=== PATIENT | female | born 1950 | race Caucasian/White ===

== ENCOUNTER → 2016-12-08 | Outpatient (CLI) | payer OTHER ==
[~2016-12-08] MED LIST: ALBU1AER9 INH; AUG0.05O4 TOP; CLC100 PO; CRANPOW PO; DTR/5 PO; GLC/500 PO; GLC500 PO; NYSTCRE11 TOP; OXGN; OXYBUTYNIN PO; SIMV20TA5 PO; SPRIN/30 INH; SULF800T23 PO; TRAM-10 PO; TRIA0.1O12 EX; TYLOTC500 PO; [UNRECOGNIZED DRUG - CODE] PO
--- NOTE | 2016-12-08 09:42 | DIAGNOSTIC IMAGING REPORT ---
CHEST 2 VIEWS ROUTINE HISTORY: J18.9 Community acquired [id number] COMPARISON: Chest CT 08/02/2016. FINDINGS: The heart remains mildly enlarged. Mild diffuse interstitial thickening suggesting mild congestive change. This has improved. No pleural effusions. No pneumothorax. There is again noted a 2.6 cm mass with a metallic fiducial marker within the left upper lobe. No new focal lung consolidations to suggest pneumonia. IMPRESSION: 1. Mild cardiomegaly with mild central pulmonary vascular congestion. This has improved. 2. No change in the 2.6 cm left upper lobe mass. Electronically signed by: Renaldo Nguyen M.D. 12/08/2016 9:40 AM Dictated Date/Time: 12/08/2016 9:37 AM
== END | disposition home or self-care (01) ==
LOC: C.RAD1850 09:13
PROVIDERS: ATTEND Internal Medicine Pulmonary Disease
DX: J18.9 Pneumonia, unspecified organism (principal); R91.8 Other nonspecific abnormal finding of lung field

== ENCOUNTER → 2017-01-29 | Outpatient (CLI) | payer OTHER ==
--- NOTE | 2017-01-29 07:52 | DIAGNOSTIC IMAGING REPORT ---
CT OF THE CHEST WITHOUT IV CONTRAST CLINICAL HISTORY: J44.9 COPD, 1.1 solitary pulmonary nodule COMPARISON STUDY: 08/02/2016 CT DOSE: 1092.68 mGy.cm TECHNIQUE: CT of the thorax was performed from the thoracic inlet to the lung bases. Images are reviewed in the axial, sagittal, and coronal planes. IV contrast was not administered for this examination. FINDINGS: Thyroid: Imaged portions of the thyroid gland are normal in appearance. Thoracic aorta: The thoracic aorta is normal in course and caliber, noting standard 3 vessel arch anatomy. Heart: The heart is mildly enlarged. Lungs and pleural spaces: There are no pleural effusions. There is underlying pulmonary emphysema. There is a stable bilobed 5 mm right upper lobe pulmonary nodule. There is an enlarging left upper lobe mass currently measuring 38 x 27 mm. There is a fiducial marker medially anterior to this mass. There is scattered granulomatous calcifications present. Mediastinum: Mediastinal lymph nodes the upper limits of normal in size remain stable Nicolette: There is no evidence of pathologic hilar adenopathy given the limitations of a noncontrast study Axilla: Clear. Upper abdomen: Hepatic steatosis. Cholelithiasis. Skeletal structures: There are no lytic or blastic osseous lesions. IMPRESSION: 1. Slowly enlarging indeterminate left upper lobe pulmonary mass currently measuring 38 x 27 mm. 2. Stable 5 mm bilobed right upper lobe pulmonary nodule Electronically signed by: Eric Mendoza M.D. 01/29/2017 7:51 AM Dictated Date/Time: 01/29/2017 7:43 AM
== END | disposition home or self-care (01) ==
LOC: C.CTS 07:22
PROVIDERS: ATTEND Surgery
DX: J44.9 Chronic obstructive pulmonary disease, unspecified (principal); J96.10 Chronic respiratory failure, unspecified whether with hypoxia or hypercapnia; R91.8 Other nonspecific abnormal finding of lung field; R91.1 Solitary pulmonary nodule

== ENCOUNTER 2017-02-23 04:58 | Observation (INO) | payer OTHER ==
[2017-02-09 10:22] VITALS: BMI 59.0
--- NOTE | 2017-02-09 10:52 | PAT Medication Instructions ---
Service Date Feb 09, 2017. Current Home Medication List Acetaminophen (Tylenol), 1,000 MG PO PRN Albuterol (Proair Hfa), 2 PUFFS INH QID PRN for Shortness of Breath Betamethasone Dip Aug 0.05% (Diprolene 0.05%), 1 DOSE TOP PRN Home O2 Therapy (Oxygen), 2 LITERS NA HS Metformin Hcl (Glucophage), 500 MG PO BID Oxybutynin Chloride (Ditropan), 2.5 MG PO BID Simvastatin (Zocor), 20 MG PO HS [Cranberry], 2 TAB PO QAM Medication Instructions For Your Scheduled Surgery - Hold the following medications starting 02/10/17: [Cranberry], 2 TAB PO QAM Hold the following 24 hours prior to surgery: Betamethasone Dip Aug 0.05% (Diprolene 0.05%), 1 DOSE TOP PRN - Hold the following medications 48 hours prior to surgery: Metformin Hcl (Glucophage), 500 MG PO BID - Hold the following medications the morning of surgery: Oxybutynin Chloride (Ditropan), 2.5 MG PO BID - Take the following medications the morning of surgery with a sip of water: Albuterol (Proair Hfa), 2 PUFFS INH QID PRN for Shortness of Breath (use if needed; bring with you to hospital) Acetaminophen (Tylenol), 1,000 MG PO PRN - Take the following medications as scheduled the night before surgery: Oxybutynin Chloride (Ditropan), 2.5 MG PO BID Albuterol (Proair Hfa), 2 PUFFS INH QID PRN for Shortness of Breath (if needed) Simvastatin (Zocor), 20 MG PO HS Home O2 Therapy (Oxygen), 2 LITERS NA HS Acetaminophen (Tylenol), 1,000 MG PO PRN (if needed) If you have any questions please call us at [phone] or [phone] or [phone]
[2017-02-09 11:44] LABS: BASO % 0.2 %; BASO ABS # 0.01 K/uL (0-0.2); COMPLETE YES; EOS % 2.3 %; HEMATOCRIT 39.2 % (37-47); IG% 0.4 %; LYMPH % 16.2 %; LYMPH ABS # 0.86 K/uL (1.2-3.4); MEAN CELL VOLUME 83.4 fL (80-100); MEAN CORPUSCULAR HEMOGLOBIN 25.3 pg (25-34); MEAN CORPUSCULAR HGB CONC 30.4 g/dl (32-36); MEAN PLATELET VOLUME 9.1 fL (7.4-10.4); MONO % 6.6 %; NEUT % 74.3 %; PLATELET COUNT 203 K/uL (130-400); WHITE BLOOD COUNT 5.32 K/uL (4.8-10.8)
[2017-02-09 14:31] LABS: BUN/CREATININE RATIO 31.3 (10-20); CREATININE 0.7 mg/dl (0.60-1.20); POTASSIUM 4.3 mmol/L (3.5-5.1)
[2017-02-09 18:28] LABS: CALCIUM 9.5 mg/dl (8.5-10.1)
[~2017-02-23] VITALS: Ht 154.9 cm; Wt 141.0 kg
[2017-02-23] VITALS (7 sets, daily range): BP systolic 105–179; BP diastolic 60–73; PULSE 76–89; TEMP 36.6–37.3; O2SAT 93–100; Ht 154.9 cm; Wt 141.0 kg
[~2017-02-23 04:58] MED LIST changes: -CLC100 PO; -DTR/5 PO; -GLC500 PO; +OXYB5TAB74 PO; -OXYBUTYNIN PO; -SPRIN/30 INH; -TRAM-10 PO; -TRIA0.1O12 EX; -[UNRECOGNIZED DRUG - CODE] PO
[2017-02-23] MEDS ORDERED: SULF800T23 PO (05:49)
[2017-02-23] MEDS ORDERED: FENTANYL CITRATE INJ 50 MCG/1 ML 2 ML VIAL ONE (06:47)
[2017-02-23] MEDS ORDERED: ROCURONIUM BROMIDE 10 MG/ML 5 ML VIAL ONE (06:47)
[2017-02-23] MEDS ORDERED: NEOSTIGMINE METHYLSULFATE 5 MG/5 ML SYR ONE (06:47)
[2017-02-23] MEDS ORDERED: LIDOCAINE HCL 2% 2 ML VIAL (20MG/ML) ONE (06:47)
[2017-02-23] MEDS ORDERED: PROPOFOL IV EMULSION 10 MG/ML 20 ML VIAL IV ONE ×2 (06:47→08:37)
[2017-02-23] MEDS ORDERED: GLYCOPYRROLATE INJ 0.2 MG/ML VIAL ONE ×2 (06:47→08:00)
[2017-02-23] MEDS ORDERED: LARYING-O-JET KIT (LTA) ONE ×2 (06:47)
[2017-02-23] MEDS ORDERED: MIDAZOLAM HCL 1 MG/ML 2ML VIAL ONE (06:47)
[2017-02-23] MEDS ORDERED: LACTATED RINGER'S 1000ML 1,000 ML IV SCH (07:00)
--- NOTE | 2017-02-23 07:08 | History & Physical Bridge Note ---
H&P Re-Evaluation Bridge Note: I have examined the patient, reviewed the History & Physical and in the interval since the performance of the History & Physical I have noted the following changes of clinical significance: No changes noted
[2017-02-23] MEDS ORDERED: ONDANSETRON INJ 2 MG/ML 2 ML VIAL ONE ×2 (08:00→09:36)
[2017-02-23] MEDS ORDERED: ALBUTEROL HFA INHALER 8.5 GM INH ONE (08:12)
[2017-02-23] MEDS ORDERED: ESMOLOL HCL 10 MG/ML 10 ML VIAL ONE (08:12)
[2017-02-23] MEDS ORDERED: DEXAMETHASONE SOD INJ 4 MG/ML VIAL ONE (08:25)
[2017-02-23] MEDS ORDERED: ALBUTEROL HFA 8 GM INHALER INH PRN (09:30)
--- NOTE | 2017-02-23 09:38 | [facility] Operative Report ---
Operative Report Operative Date Feb 23, 2017. Pre-Operative Diagnosis Enlarging left upper lobe mass Post-Operative Diagnosis carcinoma left upper lobe Procedure(s) Performed Endobronchial ultrasound with biopsies of mediastinal lymph nodes. Navigational bronchoscopy with biopsies of left upper lobe mass. Surgeon Dr. Kaz Diana Pulping Machine Operator Surgeon(s) None Estimated Blood Loss 2 mL Findings Rapid on-site evaluation showed good lymph node material in 6 different lymph node stations. Brushings of left upper lobe lesion revealed carcinoma. Specimens Pathology specimens to be labeled and handled by respiratory staff and cytology staff. Anesthesia Gen. anesthesia with endotracheal intubation Complication(s) None Disposition Recovery Room / PACU Indications Enlarging left upper lobe mass. Description of Procedure Patient was brought to the operating room. After appropriate timeout was performed and prophylactic antibiotics given and the patient had been intubated , endobronchial ultrasound scope was inserted through the endotracheal tube. There were no endobronchial lesions noted there was some irritation it appeared in the distal left mainstem bronchus. There were no masses. Starting off on the right side I biopsied the right level XI and level X right level IV lymph nodes. I didn't I didn't biopsy the level VII from both the right side in the left side. We then went down and biopsied a level XI and level X nodes. These were all done multiple needle sticks using 19-gauge needle under ultrasound guidance. Rapid on-site evaluation should we had good lymph node material in all 6 of these lymph node stations. There was no obvious cancer. The endobronchial ultrasound probe was then removed. A regular fiberoptic scope was inserted. Again I inspected all the airways and again saw no significant bleeding. We irrigated out each. Washings were sent from the left upper lobe. he airways were then registered with the super dimension endobronchial navigational probe. The probe was placed into the left upper lobe bronchus and the guidance system took us directly to this mass. I did several brushes and then did needle biopsies. We did get some bleeding from the needles. The brushes came back as carcinoma. I then did forceps biopsies 3 to make sure we had enough tissue to do molecular analysis and immunohistochemical stainings. I irrigated this out until we noted no bleeding whatsoever after we were finished. The patient was extubated in the room. She has very poor lung function. I am probably going to admit her for observation. I attest to the content of the Intraoperative Record and any orders documented therein. Any exceptions are noted below.
[2017-02-23] MEDS ORDERED: ONDANSETRON INJ 2 MG/ML 2 ML VIAL IV PRN (09:45)
[2017-02-23] MEDS ORDERED: ATROPINE SULFATE 0.1 MG/ML 5ML SYR IV PRN (09:45)
[2017-02-23] MEDS ORDERED: MEPERIDINE HCL 25 MG/ML CARP IV PRN (09:45)
[2017-02-23] MEDS ORDERED: HYDROmorphone INJ 1 MG/ML SYR IV PRN (09:45)
[2017-02-23] MEDS ORDERED: LABETALOL HCL IV 5 MG/ML 20ML IV PRN (09:45)
[2017-02-23] MEDS ORDERED: EpHEDrine SULFATE INJ 50 MG/ML AMP IV PRN (09:45)
[2017-02-23] MEDS ORDERED: PROMETHAZINE HCL INJ 12.5 MG in SODIUM CHLORIDE 0.9% 50ML 50 ML IV PRN (09:45)
[2017-02-23] MEDS ORDERED: DEXAMETHASONE SOD INJ 4 MG/ML VIAL IV PRN (09:45)
[2017-02-23] MEDS ORDERED: METOCLOPRAMIDE HCL INJ 5 MG/ML 2 ML VIAL IV PRN (09:45)
[2017-02-23] MEDS ORDERED: FENTANYL CITRATE INJ 50 MCG/1 ML 2 ML VIAL IV PRN (09:45)
--- NOTE | 2017-02-23 09:45 | DIAGNOSTIC IMAGING REPORT ---
CHEST 1 VIEW FRONTAL CLINICAL HISTORY: NAVIGATIONAL BRONCH intraoperative guidance TECHNIQUE: Navigational bronchoscopy COMPARISON STUDY: None FINDINGS: Image intensifier utilized for navigational bronchoscopy IMPRESSION: Image intensifier utilized for navigational bronchoscopy Electronically signed by: Blaze Montero M.D. 02/23/2017 9:43 AM Dictated Date/Time: 02/23/2017 9:43 AM
--- NOTE | 2017-02-23 09:50 | DIAGNOSTIC IMAGING REPORT ---
CHEST ONE VIEW PORTABLE CLINICAL HISTORY: Post Bronch COMPARISON STUDY: 12/08/2016 FINDINGS: Moderate cardiomegaly. No evidence of pneumothorax post bronchoscopy. Biopsy marker is present over a density of the left midlung. IMPRESSION: No evidence pneumothorax post bronchoscopy. Electronically signed by: Blaze Montero M.D. 02/23/2017 9:48 AM Dictated Date/Time: 02/23/2017 9:48 AM
[2017-02-23] MEDS ORDERED: IV FLUIDS COMPLETED PRN (10:15)
[2017-02-23] MEDS ORDERED: CISATRACURIUM BESYLATE IV SOLN 2 MG/ML 10 ML VIAL ONE (10:20)
--- NOTE | 2017-02-23 11:07 | Anesthesiology Progress Note ---
Anesthesia Post Op Note Date & Time Feb 23, 2017 at 11:07 Vital Signs Pain Intensity: 0.0 Vital Signs Past 12 Hours Date Time Temp Pulse Resp B/P (MAP) Pulse Ox O2 Delivery O2 Flow Rate FiO2 02/23/17 10:30 96 Nasal Cannula 3.0 02/23/17 10:30 96 Nasal Cannula 3.0 02/23/17 10:30 37.0 79 16 119/69 96 Nasal Cannula 3.0 02/23/17 10:15 36.5 70 16 141/63 96 Nasal Cannula 2 02/23/17 10:00 36.5 74 16 147/70 96 Nasal Cannula 2 02/23/17 09:50 75 16 140/72 95 Mask 4 02/23/17 09:40 79 16 132/78 95 Mask 4 02/23/17 09:30 81 16 139/60 100 Mask 7 02/23/17 09:21 36.2 87 16 108/74 100 Mask 7 02/23/17 05:54 37.2 82 24 105/65 (78) 100 Room Air Notes Mental Status: alert / awake / arousable, participated in evaluation Pt Amnestic to Procedure: Yes Nausea / Vomiting: adequately controlled Pain: adequately controlled Airway Patency, RR, SpO2: stable & adequate BP & HR: stable & adequate Hydration State: stable & adequate Anesthetic Complications: no major complications apparent
--- NOTE | 2017-02-23 12:23 | Discharge Instructions ---
Discharge Instructions Date of Service Feb 23, 2017. Visit Reason for Visit: Hypoxia / left upper lobe mass Discharge Discharge Diagnosis / Problem: left upper lobe mass Discharge Goals Goal(s): Learn about illness Activity Recommendations Activity Limitations: resume your previous activity Anesthesia . Post Anesthesia Instructions: If you have had General Anesthesia or IV Sedation: * Do not drive today. * Resume driving when surgeon permits. * Do not make important decisions or sign legal documents today. * Call surgeon for: 1. Temperature elevations greater than 101 degrees F. 2. Uncontrollable pain. 3. Excessive bleeding. 4. Persistent nausea and vomiting. 5. Medication intolerance (nausea, vomiting or rash). * For nausea and vomiting use only clear liquids such as: tea, soda, bouillon until nausea subsides, then gradually increase diet as tolerated. * If you have any concerns or questions, call your surgeon's office. If physician is unavailable and it is an emergency, call 911 or go to the nearest emergency room. . Diet Recommendations Recommended Home Diet: resume previous diet Procedures Procedures Performed: Endobronchial Ultrasound and Navigational Bronchoscopy with Biopsies Pending Studies Studies pending at discharge: yes List of pending studies: cytology / histology Medical Emergencies . Who to Call and When: Medical Emergencies: If at any time you feel your situation is an emergency, please call 911 immediately. . Non-Emergent Contact Non-Emergency issues call your: Primary Care Provider . . "Provider Documentation" section prepared by Kaz Diana. .
--- NOTE | 2017-02-23 13:00 | Discharge Summary ---
Discharge Summary Date of Service Feb 23, 2017. Discharge Summary Padmini Negrete is a 66-year-old morbidly obese female with terrible longitudinal slow-growing mass in her left upper lobe. She has had 2 Usual bronchoscopies in the past and we still do not have a diagnosis. I saw back in the office recently and I'm still concerned without this masses grown. She really has no signs or symptoms of infection. On 02/23/2017 patient had an uncomplicated endobronchial ultrasound with biopsy. I biopsied 6 different levels of lymph nodes with good samples. There is no obvious [place] or metastatic spread. An indurated navigational bronchoscopy and it does appear we are dealing with malignancy. She is quite obese within BMI approaching 60. She also has marginal lung function. Last, the endobronchial ultrasound she did not do well after surgery however she did much better this time. I admitted her to the observation unit however I saw her several hours after surgery and she looked back to normal. I discharged her home and I will see her back next week to discuss her results. Her x-ray looks fine postoperatively.
[2017-02-23] MEDS ORDERED: METFORMIN HCL 500 MG TAB PO SCH (17:45)
[2017-02-23] MEDS ORDERED: SIMVASTATIN 20 MG TAB PO SCH (21:00)
[2017-02-23] MEDS ORDERED: OXYBUTYNIN CHLORIDE 5 MG TAB PO SCH (21:00)
[2017-02-23] MEDS ORDERED: SULFAMETHOXAZOLE/TRIMETHOPRIM DS 800/160MG TAB PO SCH (21:00)
== END 2017-02-23 14:30 | disposition home or self-care (01) ==
LOC: C.ACU 04:58 → C.MSW 09:24 → ENRESERV 10:11
PROVIDERS: ADMIT Surgery; ATTEND Surgery
DX: C34.12 Malignant neoplasm of upper lobe, left bronchus or lung (principal); E66.01 Morbid (severe) obesity due to excess calories; E66.9 Obesity, unspecified; M19.90 Unspecified osteoarthritis, unspecified site; J44.9 Chronic obstructive pulmonary disease, unspecified; I10 Essential (primary) hypertension; G47.33 Obstructive sleep apnea (adult) (pediatric); Z87.01 Personal history of pneumonia (recurrent); Z87.891 Personal history of nicotine dependence; Z90.710 Acquired absence of both cervix and uterus; Z90.722 Acquired absence of ovaries, bilateral; Z80.2 Family history of malignant neoplasm of other respiratory and intrathoracic organs; Z82.5 Family history of asthma and other chronic lower respiratory diseases

== ENCOUNTER → 2017-03-02 | Outpatient (CLI) | payer OTHER ==
[~2017-03-02] MED LIST changes: -AUG0.05O4 TOP; +CLC100 PO; +TRAM-10 PO
[2017-03-02 14:58] LABS: ARTERIAL BLD GAS O2 SATURATION 96.5 % (90-95); ARTERIAL BLOOD GAS BASE EXCESS -0.4 mEq/L (-9-1.8); ARTERIAL BLOOD GAS HCO3 22 mmol/L (19-24); ARTERIAL BLOOD GAS PO2 78 mm/Hg (80-95); ARTERIAL BLOOD GAS pH 7.48 (7.35-7.45)
[2017-03-02 15:00] LABS: ALLEN TEST POS (POS); O2 ADMINISTRATION ROOM AIR
== END | disposition home or self-care (01) ==
LOC: C.LAB 14:14
PROVIDERS: ATTEND Surgery
DX: R91.8 Other nonspecific abnormal finding of lung field (principal)

== ENCOUNTER → 2017-03-06 | Outpatient (CLI) | payer OTHER ==
--- NOTE | 2017-03-06 13:20 | DIAGNOSTIC IMAGING REPORT ---
BRAIN WITHOUT CONTRAST HISTORY:66 [id number] Solitary pulmonary [id number] Lung mass COMPARISON: None available. TECHNIQUE: Multiplanar multisequence MRI of the brain was obtained without contrast. FINDINGS: There is no evidence of restricted diffusion to suggest acute ischemia. The midline structures including the corpus callosum, optic chiasm, pituitary gland, peroneal gland, brainstem and cerebellar tonsils appear unremarkable the sagittal T1 series. Some of the series are mildly motion degraded. No pathologic Blooming artifact is identified on the gradient sequence. There is no acute intracranial hemorrhage, midline shift, abnormal extra-axial collections or intracranial mass identified. There are a few scattered foci of subcortical and periventricular white matter T2 prolongation within the frontal parietal lobes. There is mild cerebral atrophy. The flow voids at the skull base are patent. Note is made of a small right mastoid effusion. There is mild ethmoid sinus disease.] Appears symmetric and unremarkable. Evaluation for metastatic disease is limited without the use of IV contrast. IMPRESSION: 1. No acute intracranial abnormality. 2. Evaluation for metastatic disease is limited without the use of intravenous contrast. 3. A few scattered areas of T2 prolongation within the subcortical and periventricular white matter of this cerebral hemispheres bilaterally are nonspecific findings, however would suggest chronic microvascular ischemic changes. The above report was generated using voice recognition software. It may contain grammatical, syntax or spelling errors. Electronically signed by: Sergio Portillo M.D. 03/06/2017 1:19 PM Dictated Date/Time: 03/06/2017 1:14 PM
== END | disposition home or self-care (01) ==
LOC: C.MRIBC 11:52
PROVIDERS: ATTEND Surgery
DX: R91.8 Other nonspecific abnormal finding of lung field (principal); R91.1 Solitary pulmonary nodule

== ENCOUNTER → 2017-03-21 | Outpatient (CLI) | payer OTHER ==
[~2017-03-21] MED LIST changes: -SULF800T23 PO
[2017-03-21 09:31] LABS: BASO % 0.2 %; BASO ABS # 0.01 K/uL (0-0.2); COMPLETE YES; EOS % 2.5 %; HEMATOCRIT 39.7 % (37-47); IG% 0.2 %; LYMPH % 15.4 %; MEAN CELL VOLUME 83.6 fL (80-100); MEAN CORPUSCULAR HEMOGLOBIN 26.3 pg (25-34); MEAN CORPUSCULAR HGB CONC 31.5 g/dl (32-36); MEAN PLATELET VOLUME 9.4 fL (7.4-10.4); MONO % 5.6 %; NEUT % 76.1 %; PLATELET COUNT 174 K/uL (130-400); RED BLOOD COUNT 4.75 M/uL (4.2-5.4); WHITE BLOOD COUNT 5.18 K/uL (4.8-10.8)
[2017-03-21 09:52] LABS: BLOOD UREA NITROGEN 16 mg/dl (7-18); BUN/CREATININE RATIO 19.8 (10-20); CALCIUM 9.5 mg/dl (8.5-10.1); CARBON DIOXIDE 28 mmol/L (21-32); CHLORIDE 103 mmol/L (98-107); CREATININE 0.81 mg/dl (0.60-1.20); GLUCOSE 130 mg/dl (70-99); POTASSIUM 4.1 mmol/L (3.5-5.1); SODIUM 139 mmol/L (136-145)
== END | disposition home or self-care (01) ==
LOC: C.LAB 07:42
PROVIDERS: ATTEND Surgery
DX: R91.8 Other nonspecific abnormal finding of lung field (principal); Z01.812 Encounter for preprocedural laboratory examination

== ENCOUNTER → 2017-03-21 | Outpatient (CLI) | payer OTHER ==
--- NOTE | 2017-03-21 12:29 | DIAGNOSTIC IMAGING REPORT ---
PET/CT SKULL-THIGH HISTORY: Lung carcinoma. Lung nodule. NON SMALL CELL LUNG CANER TECHNIQUE: PET/CT was performed from the base of the skull through the pelvis following the intravenous administration of 11.37 mCi of F18-FDG. Non-contrast CT imaging was performed over the same range without breath-hold for attenuation correction of PET images and anatomic correlation, but not for primary interpretation as it is not of standard diagnostic quality. CT DOSE: COMPARISON: 12/08/2015 CT 01/29/2017 FINDINGS: HEAD AND NECK: There is no FDG-avid disease or significant lymphadenopathy in the imaged portions of the head and the neck. CHEST: Slight increase in volume of a left upper lobe pleural-based density. Current dimensions of 3.6 x 2.5 cm. There is mild increase in metabolic activity with SUVs of 2.1 this is similar compared to the prior study. Several small mediastinal nodes are noted also stable. These showed no abnormal increase in metabolic activity. Stable small nodular density right upper lung. No new or additional findings of that described. ABDOMEN/PELVIS: Small stable minimally metabolically active right inguinal node. Smaller nodes are present also stable. Normal metabolic activity characteristics of the liver and genitourinary tracts as well as bowel. MUSCULOSKELETAL: There is no FDG-avid or destructive bone lesion. IMPRESSION: 1. Slight increase in size of a left midlung/left upper lobe pleural-based mass. 2. SUV characteristics are similar compared to the prior study. 3. Despite his low SUV characteristics, the possibility of a low-grade neoplasm is not excluded. 4. All remaining components of the study are stable with no interval change. The above report was generated using voice recognition software. It may contain grammatical, syntax or spelling errors. Electronically signed by: Blaze Montero M.D. 03/21/2017 12:28 PM Dictated Date/Time: 03/21/2017 12:15 PM
== END | disposition home or self-care (01) ==
LOC: C.PET 07:44
PROVIDERS: ATTEND Surgery
DX: C34.12 Malignant neoplasm of upper lobe, left bronchus or lung (principal); R91.8 Other nonspecific abnormal finding of lung field; Z01.812 Encounter for preprocedural laboratory examination

== ENCOUNTER 2017-03-28 05:04 | Inpatient (IN) | payer OTHER ==
[2017-03-09 15:36] VITALS: BMI 59.0
[~2017-03-28] VITALS: Ht 154.9 cm; Wt 144.2 kg
[2017-03-28] VITALS (17 sets, daily range): BP systolic 148–197; BP diastolic 52–90; PULSE 72–94; TEMP 36.6–37; O2SAT 94–100; Ht 154.9 cm; Wt 144.2 kg
[~2017-03-28 05:04] MED LIST changes: -CLC100 PO; -TRAM-10 PO
[2017-03-28] MEDS ORDERED: LACTATED RINGER'S 1000ML 1,000 ML IV SCH (06:00)
[2017-03-28] MEDS ORDERED: DEXAMETHASONE SOD INJ 4 MG/ML VIAL ONE (06:51)
[2017-03-28] MEDS ORDERED: LIDOCAINE HCL 2% 2 ML VIAL (20MG/ML) ONE (06:51)
[2017-03-28] MEDS ORDERED: GLYCOPYRROLATE INJ 0.2 MG/ML VIAL ONE ×2 (06:51→08:48)
[2017-03-28] MEDS ORDERED: FENTANYL CITRATE INJ 50 MCG/1 ML 2 ML VIAL ONE ×3 (06:51→09:35)
[2017-03-28] MEDS ORDERED: NEOSTIGMINE METHYLSULFATE 5 MG/5 ML SYR ONE (06:51)
[2017-03-28] MEDS ORDERED: ONDANSETRON INJ 2 MG/ML 2 ML VIAL ONE (06:51)
[2017-03-28] MEDS ORDERED: ROCURONIUM BROMIDE 10 MG/ML 5 ML VIAL ONE ×2 (06:51→08:48)
[2017-03-28] MEDS ORDERED: PROPOFOL IV EMULSION 10 MG/ML 20 ML VIAL IV ONE ×2 (06:51→08:15)
[2017-03-28] MEDS ORDERED: MIDAZOLAM HCL 1 MG/ML 2ML VIAL ONE (06:51)
[2017-03-28] MEDS ORDERED: SODIUM CHLORIDE 0.9% PF 50 ML VIAL ONE (07:20)
[2017-03-28] MEDS ORDERED: BUPIVACAINE LIPOSOME 1/3% 266 MG/20 ML VIAL INFIL ONE (07:20)
[2017-03-28] MEDS ORDERED: PHENYLEPHRINE 100MCG/ML 5ML SYR ONE (08:15)
[2017-03-28] MEDS ORDERED: LARYING-O-JET KIT (LTA) ONE ×4 (08:15→13:18)
[2017-03-28] MEDS ORDERED: SUCCINYLCHOLINE CHLORIDE 20 MG/ML 10 ML VIAL IV ONE (08:15)
[2017-03-28] MEDS ORDERED: CLINDAMYCIN PHOS 150 MG/ML 2 ML VIAL ONE (08:15)
[2017-03-28] MEDS ORDERED: ONDANSETRON INJ 2 MG/ML 2 ML VIAL IV PRN ×2 (09:00→13:00)
[2017-03-28] MEDS ORDERED: PROMETHAZINE HCL INJ 6.25 MG in SODIUM CHLORIDE 0.9% 50ML 50 ML IV PRN (09:00)
[2017-03-28] MEDS ORDERED: ATROPINE SULFATE 0.1 MG/ML 5ML SYR IV PRN (09:00)
[2017-03-28] MEDS ORDERED: EpHEDrine SULFATE INJ 50 MG/ML AMP IV PRN (09:00)
[2017-03-28] MEDS ORDERED: ESMOLOL HCL 10 MG/ML 10 ML VIAL ONE (09:17)
[2017-03-28] MEDS ORDERED: ALBUTEROL HFA 8 GM INHALER INH PRN (13:00)
[2017-03-28] MEDS ORDERED: SODIUM CHLORIDE 0.9% 1000ML 1,000 ML IV SCH (13:00)
[2017-03-28] MEDS ORDERED: MoRPHine SULFATE 2 MG/ML CARP IV PRN ×2 (13:00→14:45)
[2017-03-28] MEDS ORDERED: LABETALOL HCL IV 5 MG/ML 20ML IV ONE (13:18)
[2017-03-28] MEDS: FENTANYL CITRATE INJ 50 MCG/1 ML 2 ML VIAL IV PRN ×3 (13:25→14:13)
--- NOTE | 2017-03-28 13:37 | DIAGNOSTIC IMAGING REPORT ---
CHEST ONE VIEW PORTABLE CLINICAL HISTORY: Lung carcinoma COMPARISON STUDY: 02/23/2017 FINDINGS: The examination was obtained in apical lordotic fashion. The heart is enlarged. There are diffuse airspace opacities, likely secondary to pulmonary vascular congestion/fluid overload. There is a left-sided chest tube. No pneumothorax is visualized. There is subcutaneous emphysema on the left.[ IMPRESSION: 1. Postthoracotomy changes on the left. No evidence of pneumothorax 2. Interval development of diffuse bilateral pulmonary airspace opacities, likely secondary to congestive failure/fluid overload. Electronically signed by: Eric Mendoza M.D. 03/28/2017 1:36 PM Dictated Date/Time: 03/28/2017 1:35 PM
[2017-03-28] MEDS ORDERED: INSULIN HUMAN REGULAR PER UNIT 4 UNITS in SYRINGE 0 ML IV STA (14:06)
[2017-03-28] MEDS ORDERED: NovoLIN-R INSULIN PER UNIT CHARGE ONE (14:06)
--- NOTE | 2017-03-28 14:10 | Anesthesiology Progress Note ---
Anesthesia Post Op Note Date & Time Mar 28, 2017 at 14:08 Vital Signs Pain Intensity: 4 Vital Signs Past 12 Hours Date Time Temp Pulse Resp B/P (MAP) Pulse Ox O2 Delivery O2 Flow Rate FiO2 03/28/17 13:50 120/59 (74) 03/28/17 13:46 69 13 03/28/17 13:46 69 13 147/71 99 03/28/17 13:41 69 7 133/62 88 03/28/17 13:41 68 16 03/28/17 13:40 126/87 (95) 03/28/17 13:38 82 34 99 BiPAP/CPAP 35 03/28/17 13:36 68 16 03/28/17 13:36 68 16 147/66 98 03/28/17 13:35 68 14 134/62 100 03/28/17 13:35 68 14 03/28/17 13:33 82 99 35 03/28/17 13:31 156/64 03/28/17 13:30 67 15 03/28/17 13:30 67 15 145/65 97 03/28/17 13:30 132/87 (97) 03/28/17 13:26 160/75 03/28/17 13:25 69 16 136/63 75 03/28/17 13:25 70 16 03/28/17 13:24 68 12 138/64 94 03/28/17 13:24 68 12 03/28/17 13:21 142/71 03/28/17 13:20 108/76 (85) 03/28/17 13:19 66 20 142/65 100 03/28/17 13:19 66 20 03/28/17 13:17 159/64 03/28/17 13:14 83 24 195/75 99 03/28/17 13:14 83 24 03/28/17 13:12 182/79 03/28/17 13:10 127/72 (89) 03/28/17 13:09 28 03/28/17 13:09 79 28 161/61 03/28/17 13:06 180/82 03/28/17 13:05 179/75 03/28/17 13:04 36.4 74 18 179/75 97 BiPAP 35 03/28/17 05:32 37 78 24 185/68 96 Room Air Notes Mental Status: alert / awake / arousable, participated in evaluation Pt Amnestic to Procedure: Yes Nausea / Vomiting: adequately controlled Pain: adequately controlled Airway Patency, RR, SpO2: stable & adequate, see Notes BP & HR: stable & adequate Hydration State: stable & adequate Anesthetic Complications: no major complications apparent Anesthetic Complications: Patient oxygenating and ventilating well on BiPAP at 35%. Blood pressure improved and HR appropriate. Blood glucose high at 214 - insulin ordered with plans to recheck in 30 minutes. Appropriate for discharge from PACU to ICU for continued monitoring.
[2017-03-28] MEDS ORDERED: GLUCOSE 10 TABS/TUBE PO PRN (15:15)
[2017-03-28] MEDS ORDERED: DEXTROSE 50% 50 ML SYR IV PRN (15:15)
[2017-03-28] MEDS ORDERED: GLUCOSE 40% GEL 15 GM TUBE PO PRN (15:15)
[2017-03-28] MEDS ORDERED: GLUCAGON FOR INJ 1 MG VIAL SQ PRN (15:15)
[2017-03-28] MEDS: CLINDAMYCIN IV 900 MG in DEXTROSE 5% 100ML 100 ML IV SCH ×2 (15:34→22:24)
[2017-03-28] MEDS: ACETAMINOPHEN IV 1,000 MG in EMPTY BAG 0 ML IV SCH ×2 (15:34→23:53)
--- NOTE | 2017-03-28 15:34 | OPERATIVE REPORT ---
DATE OF OPERATION: 03/28/2017 PREOPERATIVE DIAGNOSIS: Nonsmall cell lung carcinoma, left upper lobe. POSTOPERATIVE DIAGNOSIS: Same. PROCEDURE: Thoracoscopic left upper lobectomy with mediastinal lymph node dissection. SURGEON: Dr. Diana. DEAF [employer]ARD [employer] HEARING TEACHER: Garth Alanis PA-C. ANESTHESIA: General anesthesia endotracheal intubation using double lumen. SPECIFICS OF PROCEDURE: Padmini Manzo is a 66-year-old obese female who has had a slow growing left lung nodule for a long period of time. She underwent a navigational bronchoscopy by Dr. Nelson almost 2 years ago. I saw her last year and did navigational bronchoscopy with endobronchial ultrasound and did not get a diagnosis. It was felt to be inflammatory. Unfortunately this continued to grow and I saw her recently and performed another endobronchial ultrasound and biopsied several lymph node stations. Also did a navigational bronchoscopy. Her lymph nodes were negative; however, her mass was positive for nonsmall cell lung carcinoma. Given this, we elected to proceed with a thoracoscopic left upper lobectomy. We discussed SBRT and in fact I discussed her at our cancer conference and we felt that either way would be acceptable. However, the patient was not interested in SBRT. We discussed this in detail. She would prefer to proceed with surgery. On 03/28/2017 the patient was brought to the operating room and underwent uncomplicated thoracoscopic left upper lobectomy. She was difficult given her size. She is 4'11" and morbidly obese; however, we took the adhesions down. We were finally able to do a lobectomy. She was extubated in the room and placed on BiPAP. She tolerated it well. PROCEDURE: The patient was brought to the operating room, laid in supine position. General anesthesia induced and endotracheal intubation was performed. After placement of a radial arterial line as well as a Briggs catheter, a double lumen tube was inserted. The patient was placed in the right lateral decubitus position and left chest was prepped and draped in usual sterile fashion. Incision was made just at the interspace below and a bit anterior to the tip of the scapula, however upon reaching it could be seen that we really were too far anterior. For this reason posterior incision was also made for a port. I also placed a working channel anteriorly about the fourth interspace and another working channel about the eighth interspace in order for us to have accesses as her pleural cavity was rather small. I started off by retracting the lung anteriorly and freeing up the pleura. The main pulmonary artery was identified as was a couple of branches. I then spent a good deal of time meticulously taking down the fissure. I then fired a stapler posteriorly to complete the fissure. This opened up the interfissure artery quite nicely. I then fired the Endo-CATARINO stapler 4 separate occasions to take 4 separate arteries including what appeared to be 2 arteries to the lingula. After we freed this up this helped quite a bit and we retracted the lung posteriorly and freed up the pleura. I then biopsied multiple lymph nodes including level 8, level 10, level 11, level 12, level 5 and level 6. Care was taken to avoid injury to the phrenic nerve. After freeing up the hilum anteriorly I then fired an Endo-CATARINO stapler across the superior pulmonary vein. We then continued along superiorly and there was 1 more apical anterior branch to the left upper lobe and Endo-CATARINO staplers was fired across this. Finally, all we had left was the bronchus and upon lifting the lung up and retracting it we were able to fire an Endo-CATARINO stapler across this. We then delivered the specimen through the working channel, which was protected with an Endobag. The chest was then irrigated out and there were a couple small areas of leaking. We did use Exparel 266 mg reconstituted in about 60 mL of saline to inject from the 2nd to 11th rib at each interspace for intercostal block. I then filled the chest up with warm saline. There were a couple small areas of leaking, we suctioned this out, really we had no significant bleeding. The chest tube was directed towards the apex and brought out through the anterior thoracoscopy port and we still had very little in the way of a leak and she was not losing much tidal volume on the ventilator. I then sutured the tube in with 0 silk suture and closed the rest of the incisions with 0 Vicryl for the muscle layers and 4-0 Monocryl for the skin closure using running subcuticular fashion. She tolerated it quite well. She was extubated in the room. She was hemodynamically stable throughout the case and her saturations never dropped on 1 lung. I attest to the content of the Intraoperative Record and any orders documented therein. Any exceptions are noted below. OPHELIAD
[2017-03-28] MEDS: NORMOSOL R 1,000 ML IV SCH (16:33)
[2017-03-28] MEDS: METOCLOPRAMIDE HCL INJ 5 MG/ML 2 ML VIAL IV. SCH ×2 (16:33→23:54)
--- NOTE | 2017-03-28 16:42 | Critical Care Consultation ---
"Critical Care Consultation Date of Consultation: Mar 28, 2017. Attending Physician: Kaz Diana MD Reason for Consultation: s/p Thorascopic LEFT Upper Lobectomy with Mediastinal Lymph Node Dissection History of Present Illness Patient is a 66-year-old female with a significant past medical history for LEFT upper lobe non-small cell carcinoma who presents to the ICU after having thorascopic LEFT upper lobectomy with mediastinal lymph node dissection performed today by Dr. Diana. The patient did reportedly well throughout the procedure, but she does have a significant past medical history of poor pulmonary function and restrictive lung requiring CPAP at night as well as multiple inhalers secondary to morbid obesity and COPD. The patient was placed on BiPAP in the recovery room secondary to poor inspiration effort. It was felt this may be related to some slight hypercarbia in relation to the patient' s restrictive lung disease. She responded well to BiPAP at 35%. A chest x-ray was obtained which reviewed possible congestion and normal postoperative changes otherwise. She received 2 units of insulin while in recovery secondary to slight hyperglycemia. She does have a significant past medical history of type 2 diabetes for which she is solely treated with 500 mg metformin twice daily. The patient had a smoking history up until 11 years ago when she successfully quit. She has reported history of hyperlipidemia as well as osteoarthritis. She reports no past medical history of hypertension, [place], PE, CVA, amongst others. The patient does use BiPAP at night with 3 L of oxygen. She is uncertain of her BiPAP settings. The patient presents today and is very pleasant despite her recent surgical intervention. She does complain of some pain to the LEFT upper chest and back. She reports this pain is worse with deep inspiration. It has been present since waking from her procedure. She rates her discomfort as a 5/10. Otherwise , the patient reports feeling well and is requesting something to eat. She denies any headaches, dizziness, lightheadedness, blurry vision, double vision, facial droop, neck pain, palpitations, hemoptysis, nausea, vomiting, back pain, or extremity pain. Past Medical/Surgical History Osteoarthritis Bilateral carotid bruit Lungs mass Non-small cell carcinoma of the LEFT upper lobe Obstructive sleep apnea Restrictive lung disease secondary to morbid obesity Morbid obesity Family History COPD Lymphoma Obstructive sleep apnea Social History Smoking Status: Former Smoker Smokeless Tobacco Use: No Alcohol Use: socially Drug Use: none Marital Status: single, Housing Status: lives alone Occupation Status: unemployed Allergies Coded Allergies: Naproxen (Verified Allergy, Intermediate, throat swelling, 03/28/17) Cephalexin (Verified Allergy, Unknown, RASH, 03/28/17) Home Medications Scheduled Acetaminophen (Tylenol), 1,000 MG PO PRN Home O2 Therapy (Oxygen), 2 LITERS NA HS Metformin Hcl (Glucophage), 500 MG PO BID Nystatin/Triamcinolone (Mycolog ||), 1 DOSE TOP BID Oxybutynin Chloride (Ditropan), 2.5 MG PO BID Simvastatin (Zocor), 20 MG PO HS [Cranberry], 2 TAB PO QAM Scheduled PRN Albuterol (Proair Hfa), 2 PUFFS INH QID PRN for Shortness of Breath Current Inpatient Medications Current Inpatient Medications Medications (Trade) Dose Ordered Sig/Soo Route Start Time Stop Time Status Last Admin Dose Admin Acetaminophen 1000 mg/Empty Bag 100 ml @ 400 mls/hr Q8H IV 03/28/17 16:00 04/27/17 12:59 03/28/17 15:34 400 MLS/HR Oxycodone HCl (Roxicodone Immediate Rel Tab) 5 mg Q6H PRN PO 03/28/17 13:00 04/11/17 12:59 Nystatin/ Triamcinolone Acetonide (Mycogen II Crm) 1 appln BID EXT 03/28/17 21:00 04/27/17 20:59 Oxybutynin Chloride (Ditropan Tab) 2.5 mg BID PO 03/28/17 21:00 04/27/17 20:59 Simvastatin (Zocor Tab) 20 mg HS PO 03/28/17 21:00 04/27/17 20:59 Enoxaparin Sodium (Lovenox Inj) 40 mg DAILY SQ 03/29/17 09:00 04/28/17 08:59 UNV Ondansetron HCl (Zofran Inj) 4 mg Q4H PRN IV 03/28/17 13:00 04/27/17 12:59 Docusate Sodium (coLACE CAP) 100 mg BID PO 03/28/17 21:00 04/27/17 20:59 Clindamycin Phosphate 900 mg/ Dextrose 106 ml @ 100 mls/hr Q6H IV 03/28/17 16:00 03/28/17 23:04 03/28/17 15:34 100 MLS/HR Metoclopramide HCl (Reglan Inj) 10 mg Q8H IV. 03/28/17 16:00 03/29/17 13:59 Morphine Sulfate (MoRPHine SULFATE INJ) 1 mg Q1H PRN IV 03/28/17 13:00 04/11/17 12:59 Insulin Aspart (novoLOG ASPART) SLIDING SCALE G... ACHS SC 03/28/17 16:00 04/27/17 15:59 Morphine Sulfate (MoRPHine SULFATE INJ) 2 mg Q1H PRN IV 03/28/17 14:45 04/11/17 14:44 Glucose (Glucose 40% Gel) 15-30 GRAMS 15 GRAMS... UD PRN PO 03/28/17 15:15 04/27/17 15:14 Glucose (Glucose Chew Tab) 4-8 Tablets 4 Tabl... UD PRN PO 03/28/17 15:15 04/27/17 15:14 Dextrose (Dextrose 50% 50ML Syringe) 25-50ML OF 50% DW IV FOR... UD PRN IV 03/28/17 15:15 04/27/17 15:14 Glucagon (Glucagon Inj) 1 mg UD PRN SQ 03/28/17 15:15 04/27/17 15:14 Parenteral Electrolyte Solution 1,000 ml @ 75 mls/hr [id number] IV 03/28/17 16:00 04/27/17 15:59 Albuterol/ Ipratropium (Duoneb) 3 ml QIDR INH 03/28/17 20:00 04/27/17 19:59 UNV Review of Systems A complete 10-point Review of Systems was discussed with the patient, with pertinent positives and negatives listed in the History of Present Illness. All remaining Review of Systems questions can be considered negative unless otherwise specified. Physical Exam Date Time Temp Pulse Resp B/P (MAP) Pulse Ox O2 Delivery O2 Flow Rate FiO2 03/28/17 14:46 168/74 03/28/17 14:45 77 14 03/28/17 14:45 77 14 149/58 98 03/28/17 14:45 36.4 03/28/17 14:44 76 12 146/58 99 03/28/17 14:44 76 12 03/28/17 14:41 152/73 03/28/17 14:39 76 14 139/56 98 03/28/17 14:39 76 14 03/28/17 14:36 145/76 03/28/17 14:34 76 16 03/28/17 14:34 76 16 117/52 97 03/28/17 14:31 144/72 03/28/17 14:29 75 16 03/28/17 14:29 75 16 110/50 97 03/28/17 14:28 74 10 03/28/17 14:28 74 10 110/50 97 03/28/17 14:26 132/88 03/28/17 14:24 36.4 03/28/17 14:23 75 16 115/54 96 03/28/17 14:23 76 16 03/28/17 14:22 136/96 03/28/17 14:20 119/87 (96) 03/28/17 14:18 76 13 128/56 94 03/28/17 14:18 76 13 03/28/17 14:17 75 16 03/28/17 14:17 77 16 115/54 94 03/28/17 14:16 116/77 03/28/17 14:12 72 14 144/58 100 03/28/17 14:12 74 14 03/28/17 14:11 168/77 03/28/17 14:10 134/82 (95) 03/28/17 14:07 71 18 132/54 98 03/28/17 14:07 70 18 03/28/17 14:06 155/74 03/28/17 14:02 70 13 03/28/17 14:02 72 13 126/53 95 03/28/17 14:01 141/81 03/28/17 14:00 103/75 (86) 03/28/17 13:57 72 13 125/53 95 03/28/17 13:57 72 13 03/28/17 13:56 141/71 03/28/17 13:52 69 16 03/28/17 13:52 69 16 125/46 99 03/28/17 13:51 146/66 03/28/17 13:50 120/59 (74) 03/28/17 13:47 69 13 03/28/17 13:47 69 13 141/66 99 03/28/17 13:46 69 13 03/28/17 13:46 69 13 147/71 99 03/28/17 13:41 69 7 133/62 88 03/28/17 13:41 68 16 03/28/17 13:40 126/87 (95) 03/28/17 13:38 82 34 99 BiPAP/CPAP 35 03/28/17 13:36 68 16 03/28/17 13:36 68 16 147/66 98 03/28/17 13:35 68 14 134/62 100 03/28/17 13:35 68 14 03/28/17 13:33 82 99 35 03/28/17 13:31 156/64 03/28/17 13:30 67 15 03/28/17 13:30 67 15 145/65 97 03/28/17 13:30 132/87 (97) 03/28/17 13:26 160/75 03/28/17 13:25 69 16 136/63 75 03/28/17 13:25 70 16 03/28/17 13:24 68 12 138/64 94 03/28/17 13:24 68 12 03/28/17 13:21 142/71 03/28/17 13:20 108/76 (85) 03/28/17 13:19 66 20 142/65 100 03/28/17 13:19 66 20 03/28/17 13:17 159/64 03/28/17 13:14 83 24 195/75 99 03/28/17 13:14 83 24 03/28/17 13:12 182/79 03/28/17 13:10 127/72 (89) 03/28/17 13:09 28 03/28/17 13:09 79 28 161/61 03/28/17 13:06 180/82 03/28/17 13:05 179/75 03/28/17 13:04 36.4 74 18 179/75 97 BiPAP 35 03/28/17 05:32 37 78 24 185/68 96 Room Air VITAL SIGNS - Vital signs and nursing notes were reviewed. SKIN - Erythematous intertriginous folds of the breast bilaterally. GENERAL - 66-year-old female appearing her stated age who is in no acute distress. Communicates well with provider and answers questions appropriately. HEAD - NC/AT. EYES - PERRL with EOMI bilaterally. Sclera anicteric. Palpebral conjunctiva pink and moist with no injection noted. EARS - No deformities of external structures noted on gross examination bilaterally. NOSE - Midline and without cyanosis. No epistaxis or purulent drainage noted. Septum midline without deviation or septal hematoma noted. MOUTH/OROPHARYNX - Without perioral cyanosis. Buccal mucosa pink and moist and without leukoplakia. Tongue midline with equal elevation of palate bilaterally. No tonsillar hypertrophy, erythema, or exudates noted. NECK - Neck with FROM. Supple to palpation. LUNGS - Chest wall symmetric without accessory muscle use, intercostals retractions, or central cyanosis. Normal vesicular breath sounds CTA B/L. Mild rales noted to the LEFT Lung damon with distant breath sounds on the LEFT only. CARDIAC - RRR with S1/S2. No murmur, rubs, or gallops appreciated. No reproducible tenderness to palpation appreciated over the anterior chest wall. ABDOMEN - Abdominal contour obese and without pulsations or visible masses. BS normoactive all four quadrants. No tenderness, palpable masses, hepatosplenomegaly, or ascites noted. EXTREMITIES - No peripheral cyanosis. +2/5 radial and dorsalis pedis pulses palpated throughout. +5/5 strength noted in UE/LE bilaterally. NEUROLOGIC - Cranial nerves II through XII grossly intact. Sensory intact to light touch throughout. PSYCH - A&Ox3 and cooperates fully with examiner. Pt is very pleasant and interacts well with examiner. Laboratory Results Last 24 Hours Test 03/28/17 05:39 03/28/17 13:14 03/28/17 14:34 Bedside Glucose 128 mg/dl 214 mg/dl 196 mg/dl Diagnostic Results Radiological imaging and reports were reviewed by myself. Radiologist's Interpretation as follows: CHEST ONE VIEW PORTABLE CLINICAL HISTORY: Lung carcinoma COMPARISON STUDY: 02/23/2017 FINDINGS: The examination was obtained in apical lordotic fashion. The heart is enlarged. There are diffuse airspace opacities, likely secondary to pulmonary vascular congestion/fluid overload. There is a left-sided chest tube. No pneumothorax is visualized. There is subcutaneous emphysema on the left.[ IMPRESSION: 1. Postthoracotomy changes on the left. No evidence of pneumothorax 2. Interval development of diffuse bilateral pulmonary airspace opacities, likely secondary to congestive failure/fluid overload. Assessment & Plan (1) Non-small cell cancer of left lung (2) Restrictive lung disease secondary to obesity (3) Morbid obesity (4) CLYDE (obstructive sleep apnea) (5) Lung mass (6) Osteoarthritis involving multiple joints on both sides of body (7) Lung cancer (8) Hypoxia (9) COPD (chronic obstructive pulmonary disease) Reason Critically Ill: 66-year-old female, came to past medical history recently undergoing arthroscopic LEFT upper lobectomy and mediastinal lymph node dissection in the setting of LEFT upper lobe non-small cell lung cancer. Neuro - * CAM ICU NEGATIVE status post general anesthesia. * Adequate pain control. Recommend continuing scheduled Tylenol doses and minimizing narcotic doses secondary to patient's CLYDE and concern for rapid development of hypercarbia. Cardiac - * No known history of coronary artery disease or hypertension. * Monitor on telemetry for dysrhythmias status post thoracoscopy. * Monitor blood pressures per protocol. * Continue simvastatin as previously prescribed. Respiratory - * Thoracoscopy with LEFT upper lobectomy and mediastinal lymph node dissection in the setting of long-standing history of COPD secondary to smoking as well as restrictive lung disease secondary to morbid obesity. The patient does utilize 3 L oxygen only at nighttime with her CPAP in a setting of 11 cm H2O. Utilizes inhalers at home. * Wean O2 as tolerated. Currently saturating 100% on 3 L nasal cannula. * Continue CPAP at 11 cm H2O with 3 L O2 per home regime while sleeping. Patient tolerated BiPAP well in PACU. * Encourage incentive spirometry. * Routine DuoNeb times ordered. * Repeat chest x-ray in a.m. to assess postoperative state and chest tube placement as well as initial findings of pulmonary congestion. GI - * Tolerating diabetic diet. * Zofran and Reglan as needed for nausea or vomiting. * Colace previously ordered for bowel regime. RENAL/LYTES - * Outpatient labs within normal limits. Creatinine 0.81 on 03/21/2017. * Continue to monitor urine output. Briggs catheter was discontinued in PACU. * Maintenance fluids changed to Normosol at 75 mL per hour. * Repeat a.m. labs. - * Continue oxybutynin as prescribed at home for overactive bladder. * Briggs catheter discontinued in PACU. ENDO - * Type II diabetic controlled with 500 mg twice a day dosing of metformin. * Monitor BSG's. * Insulin sliding scale per protocol. * Diabetic diet. HEME - * Stable H&H of 12.5 and 39.7 on 03/21/2017. * Monitor chest tube output for worsening bloody drainage. * 2 units of O- currently ordered per surgeon. * Repeat a.m. labs. ID - * Clindamycin 900 mg IV every 6 per postoperative protocol. * Nystatin powder provided for intertrigo candidiasis of the breast folds. LINES/IV ACCESS - * RIGHT Radial Art Line - keep overnight for close pressure monitoring. * LEFT-Sided Chest tube. Reported leak documented a 3 by nursing staff. Bloody serosanguineous drainage noted. * Continue intermittent suction protocol per surgeon preference. * PIVs intact. DVT PROPHYLAXIS - * Lovenox 40 mg subcutaneous daily. * SCDs in place bilaterally. * Orders for out of bed to chair and every shift ambulation per surgeon orders. Thank you for allowing us to be part of the care of this pleasant patient. This chart to be billed as Level V Critical Care. Please refer to my attending physician's note for further recommendations. I have personally evaluated and examined this patient. I agree with assessment and plan of Kita Darling PA-C. Monitor respiratory status. CPAP at night. Problem Qualifiers (1) Lung cancer: Laterality: left Lung location: upper lobe of lung Qualified Codes: C34.12 - Malignant neoplasm of upper lobe, left bronchus or lung (2) COPD (chronic obstructive pulmonary disease): COPD type: unspecified COPD Qualified Codes: J44.9 - Chronic obstructive pulmonary disease, unspecified"
[2017-03-28] MEDS: INSULIN ASPART 100 UNITS/ML 3 ML PEN SC SCH ×2 (17:14→21:00)
[2017-03-28] MEDS: ALBUT/IPRATROP 3MG/0.5MG NEB 3 ML VIAL INH SCH (19:16)
[2017-03-28] MEDS ORDERED: PNEUMOCOCCAL ADMINISTRATION CHARGE ONE (19:45)
[2017-03-28] MEDS ORDERED: PNEUMOCOCCAL POLYSACCHARIDES 25 MCG/0.5 ML VIAL/SYR IM. ONE (19:45)
[2017-03-28] MEDS: OXYCODONE HCL IR 5 MG TAB (IMMEDIATE RELEASE) PO PRN (20:09)
[2017-03-28] MEDS ORDERED: NYSTATIN POWDER 15GM BTL EXT SCH (21:00)
[2017-03-28] MEDS: DOCUSATE SODIUM 100 MG CAP PO SCH (21:09)
[2017-03-28] MEDS: NYSTATIN/TRIAMCINOLONE CR 15 GM TUBE EXT SCH (21:09)
[2017-03-28] MEDS: SIMVASTATIN 20 MG TAB PO SCH (21:09)
[2017-03-28] MEDS: OXYBUTYNIN CHLORIDE 5 MG TAB PO SCH (21:09)
[2017-03-29] VITALS (31 sets, daily range): BP systolic 117–180; BP diastolic 19–94; PULSE 77–98; TEMP 36.7–37.5; O2SAT 79–100
[2017-03-29] MEDS: OXYCODONE HCL IR 5 MG TAB (IMMEDIATE RELEASE) PO PRN ×3 (02:49→18:22)
[2017-03-29 05:31] LABS: COMPLETE YES; HEMATOCRIT 34.2 % (37-47); IG% 0.1 %; LYMPH % 9.5 %; LYMPH ABS # 0.64 K/uL (1.2-3.4); MEAN CELL VOLUME 85.1 fL (80-100); MEAN CORPUSCULAR HEMOGLOBIN 26.6 pg (25-34); MEAN CORPUSCULAR HGB CONC 31.3 g/dl (32-36); MEAN PLATELET VOLUME 9.2 fL (7.4-10.4); NEUT % 81.4 %; PLATELET COUNT 183 K/uL (130-400); RED BLOOD COUNT 4.02 M/uL (4.2-5.4); WHITE BLOOD COUNT 6.76 K/uL (4.8-10.8)
[2017-03-29 05:41] LABS: PARTIAL THROMBOPLASTIN RATIO 1.1; PROTHROMBIN TIME (PATIENT) 11.1 SECONDS (9.0-12.0)
[2017-03-29 06:06] LABS: CREATININE 0.77 mg/dl (0.60-1.20); MAGNESIUM 2.1 mg/dl (1.8-2.4); PHOSPHORUS 4.3 mg/dl (2.5-4.9); POTASSIUM 3.9 mmol/L (3.5-5.1)
[2017-03-29] MEDS: ALBUT/IPRATROP 3MG/0.5MG NEB 3 ML VIAL INH SCH ×5 (07:20→20:36)
[2017-03-29] MEDS: NORMOSOL R 1,000 ML IV SCH ×2 (07:46→18:22)
--- NOTE | 2017-03-29 08:00 | DIAGNOSTIC IMAGING REPORT ---
CHEST ONE VIEW PORTABLE HISTORY: Postop lung resection. COMPARISON: Chest 03/28/2017. FINDINGS: Left chest wall subcutaneous emphysema, unchanged. Left chest tube terminates in the left upper lung zone. There appears to be a tiny left apical pneumothorax. Right lung is clear. The heart remains mildly enlarged. There is improved aeration within the lungs compared the prior study. A few linear densities at the left lung base. Superior mediastinal widening is likely due to the prominent mediastinal fat. IMPRESSION: Tiny left pneumothorax. Left chest tube appears in good position. Electronically signed by: Renaldo Nguyen M.D. 03/29/2017 7:59 AM Dictated Date/Time: 03/29/2017 7:56 AM
--- NOTE | 2017-03-29 08:15 | Critical Care Progress Note ---
Critical Care Progress Note Date of Service Mar 29, 2017. ICU Day ICU Day Number: [address] Stevenson Subjective Patient is a 66-year-old female who is postoperative day 1 who is moderate in the ICU overnight status post upper lobectomy with mediastinal node dissection. No evidence throughout the night. The patient is eating her breakfast currently. She complains of minimal discomfort to the LEFT-sided upper chest which has improved from yesterday. She reports a mild cough and mild pain with deep inspiration rate her discomfort a 4/10. She denies any headaches, dizziness, lightheadedness, palpitations, hemoptysis, nausea, vomiting, or abdominal pain. Objective VITAL SIGNS - Vital signs and nursing notes were reviewed. GENERAL - 66-year-old female appearing her stated age who is in no acute distress. Communicates well with provider and answers questions appropriately. NECK - Neck with FROM. Supple to palpation. LUNGS - Chest wall symmetric without accessory muscle use, intercostals retractions, or central cyanosis. Normal vesicular breath sounds CTA B/L. No rales or rhonchi noted throughout all lung damon. Decreased breath sounds appreciated to the LEFT upper lobe. CARDIAC - RRR with S1/S2. No murmur, rubs, or gallops appreciated. No reproducible tenderness to palpation appreciated over the anterior chest wall. ABDOMEN - Abdominal contour obese and without pulsations or visible masses. BS normoactive all four quadrants. No tenderness, palpable masses, hepatosplenomegaly, or ascites noted. EXTREMITIES - No peripheral cyanosis. +2/5 radial and dorsalis pedis pulses palpated throughout. +5/5 strength noted in UE/LE bilaterally. NEUROLOGIC - Cranial nerves II through XII grossly intact. PSYCH - A&Ox3 and cooperates fully with examiner. Pt is very pleasant and interacts well with examiner. Assessment & Plan (1) Non-small cell cancer of left lung (2) Restrictive lung disease secondary to obesity (3) Morbid obesity (4) CLYDE (obstructive sleep apnea) (5) Lung mass (6) Osteoarthritis involving multiple joints on both sides of body (7) Lung cancer (8) Hypoxia (9) COPD (chronic obstructive pulmonary disease) Patient monitored in the ICU overnight without event. She is saturating well on 2 L nasal cannula. She is out of bed and eating breakfast without issue. PT /OT to be consult at today. Arterial line discontinued today. Surgeon evaluated and is comfortable with transfer to [facility] for continued postoperative management. Thank you for allowing us to be part of the care of this madisyn patient. Please refer to my attending physician's documentation for any further recommendation. Consults & Procedures Consultants: Dr. Diana - CT Surgery Procedures: Art Line discontinued. Data Medications: Current Inpatient Medications Medications (Trade) Dose Ordered Sig/Soo Route Start Time Stop Time Status Last Admin Dose Admin Acetaminophen 1000 mg/Empty Bag 100 ml @ 400 mls/hr Q8H IV 03/28/17 16:00 04/27/17 12:59 03/28/17 23:53 400 MLS/HR Oxycodone HCl (Roxicodone Immediate Rel Tab) 5 mg Q6H PRN PO 03/28/17 13:00 04/11/17 12:59 03/29/17 02:49 5 MG Nystatin/ Triamcinolone Acetonide (Mycogen II Crm) 1 appln BID EXT 03/28/17 21:00 04/27/17 20:59 03/28/17 21:09 1 APPLN Oxybutynin Chloride (Ditropan Tab) 2.5 mg BID PO 03/28/17 21:00 04/27/17 20:59 03/28/17 21:09 2.5 MG Simvastatin (Zocor Tab) 20 mg HS PO 03/28/17 21:00 04/27/17 20:59 03/28/17 21:09 20 MG Enoxaparin Sodium (Lovenox Inj) 40 mg DAILY SQ 03/29/17 09:00 04/28/17 08:59 Ondansetron HCl (Zofran Inj) 4 mg Q4H PRN IV 03/28/17 13:00 04/27/17 12:59 Docusate Sodium (coLACE CAP) 100 mg BID PO 03/28/17 21:00 04/27/17 20:59 03/28/17 21:09 100 MG Metoclopramide HCl (Reglan Inj) 10 mg Q8H IV. 03/28/17 16:00 03/29/17 13:59 03/28/17 23:54 10 MG Morphine Sulfate (MoRPHine SULFATE INJ) 1 mg Q1H PRN IV 03/28/17 13:00 04/11/17 12:59 Insulin Aspart (novoLOG ASPART) SLIDING SCALE G... ACHS SC 03/28/17 16:00 04/27/17 15:59 03/28/17 17:14 3 UNITS Morphine Sulfate (MoRPHine SULFATE INJ) 2 mg Q1H PRN IV 03/28/17 14:45 04/11/17 14:44 Glucose (Glucose 40% Gel) 15-30 GRAMS 15 GRAMS... UD PRN PO 03/28/17 15:15 04/27/17 15:14 Glucose (Glucose Chew Tab) 4-8 Tablets 4 Tabl... UD PRN PO 03/28/17 15:15 04/27/17 15:14 Dextrose (Dextrose 50% 50ML Syringe) 25-50ML OF 50% DW IV FOR... UD PRN IV 03/28/17 15:15 04/27/17 15:14 Glucagon (Glucagon Inj) 1 mg UD PRN SQ 03/28/17 15:15 04/27/17 15:14 Parenteral Electrolyte Solution 1,000 ml @ 75 mls/hr [id number] IV 03/28/17 16:00 04/27/17 15:59 03/29/17 07:46 75 MLS/HR Albuterol/ Ipratropium (Duoneb) 3 ml QIDR INH 03/28/17 20:00 04/27/17 19:59 03/29/17 07:20 3 ML Vital Signs: Date Time Temp Pulse Resp B/P (MAP) Pulse Ox O2 Delivery O2 Flow Rate FiO2 03/29/17 07:30 Room Air 03/29/17 07:30 36.7 78 20 162/90 (114) 97 Nasal Cannula 03/29/17 07:22 85 20 97 Nasal Cannula 2.0 03/29/17 06:00 36.9 03/29/17 06:00 83 17 147/62 (90) 100 CPAP 03/29/17 04:00 Nasal Cannula 2.0 03/29/17 04:00 80 21 129/57 (81) 94 CPAP 03/29/17 03:00 83 17 138/57 (84) 92 CPAP 03/29/17 02:00 80 15 134/52 (79) 89 CPAP 03/29/17 01:00 82 2 117/47 (70) 99 CPAP 03/29/17 00:45 99 35 03/29/17 00:00 37.0 80 19 172/71 (104) 93 Nasal Cannula 2.0 03/29/17 00:00 Nasal Cannula 2.0 03/28/17 23:45 84 18 159/62 (94) 99 03/28/17 22:01 84 18 176/84 (114) 100 Nasal Cannula 2.0 03/28/17 21:01 87 17 171/77 (108) 100 Nasal Cannula 2.0 03/28/17 20:01 36.6 92 18 173/85 (114) 94 Nasal Cannula 2.0 03/28/17 20:00 Nasal Cannula 2.0 03/28/17 19:17 86 20 100 Nasal Cannula 3.0 03/28/17 18:45 88 18 (121) 94 186/72 03/28/17 18:31 94 27 148/90 (107) 94 174/84 03/28/17 18:30 89 18 (111) 99 197/55 03/28/17 18:17 85 21 153/74 (94) 99 173/83 03/28/17 18:15 87 20 (109) 96 179/73 03/28/17 18:02 84 22 186/72 (106) 98 186/63 03/28/17 18:00 88 24 (107) 98 169/52 03/28/17 17:46 176/82 (107) 03/28/17 15:05 36.6 72 18 174/65 (101) 98 Oxymask 5.0 03/28/17 15:05 98 Oxymask 35 03/28/17 14:46 168/74 03/28/17 14:45 77 14 03/28/17 14:45 77 14 149/58 98 03/28/17 14:45 36.4 03/28/17 14:44 76 12 146/58 99 03/28/17 14:44 76 12 03/28/17 14:41 152/73 03/28/17 14:39 76 14 139/56 98 03/28/17 14:39 76 14 03/28/17 14:36 145/76 03/28/17 14:34 76 16 03/28/17 14:34 76 16 117/52 97 03/28/17 14:31 144/72 03/28/17 14:29 75 16 03/28/17 14:29 75 16 110/50 97 03/28/17 14:28 74 10 03/28/17 14:28 74 10 110/50 97 03/28/17 14:26 132/88 03/28/17 14:24 36.4 03/28/17 14:23 75 16 115/54 96 03/28/17 14:23 76 16 03/28/17 14:22 136/96 03/28/17 14:20 119/87 (96) 03/28/17 14:18 76 13 128/56 94 03/28/17 14:18 76 13 03/28/17 14:17 75 16 03/28/17 14:17 77 16 115/54 94 03/28/17 14:16 116/77 03/28/17 14:12 72 14 144/58 100 03/28/17 14:12 74 14 03/28/17 14:11 168/77 03/28/17 14:10 134/82 (95) 03/28/17 14:07 71 18 132/54 98 03/28/17 14:07 70 18 03/28/17 14:06 155/74 03/28/17 14:02 70 13 03/28/17 14:02 72 13 126/53 95 03/28/17 14:01 141/81 03/28/17 14:00 103/75 (86) 03/28/17 13:57 72 13 125/53 95 03/28/17 13:57 72 13 03/28/17 13:56 141/71 03/28/17 13:52 69 16 03/28/17 13:52 69 16 125/46 99 03/28/17 13:51 146/66 03/28/17 13:50 120/59 (74) 03/28/17 13:47 69 13 03/28/17 13:47 69 13 141/66 99 03/28/17 13:46 69 13 03/28/17 13:46 69 13 147/71 99 03/28/17 13:41 69 7 133/62 88 03/28/17 13:41 68 16 03/28/17 13:40 126/87 (95) 03/28/17 13:38 82 34 99 BiPAP/CPAP 35 03/28/17 13:36 68 16 03/28/17 13:36 68 16 147/66 98 03/28/17 13:35 68 14 134/62 100 03/28/17 13:35 68 14 03/28/17 13:33 82 99 35 03/28/17 13:31 156/64 03/28/17 13:30 67 15 03/28/17 13:30 67 15 145/65 97 03/28/17 13:30 132/87 (97) 03/28/17 13:26 160/75 03/28/17 13:25 69 16 136/63 75 03/28/17 13:25 70 16 03/28/17 13:24 68 12 138/64 94 03/28/17 13:24 68 12 03/28/17 13:21 142/71 03/28/17 13:20 108/76 (85) 03/28/17 13:19 66 20 142/65 100 03/28/17 13:19 66 20 03/28/17 13:17 159/64 03/28/17 13:14 83 24 195/75 99 03/28/17 13:14 83 24 03/28/17 13:12 182/79 03/28/17 13:10 127/72 (89) 03/28/17 13:09 28 03/28/17 13:09 79 28 161/61 03/28/17 13:06 180/82 03/28/17 13:05 179/75 03/28/17 13:04 36.4 74 18 179/75 97 BiPAP 35 Laboratory Results: Last 24 Hours Test 03/28/17 13:14 03/28/17 14:34 03/28/17 16:24 03/28/17 21:05 Bedside Glucose 214 mg/dl 196 mg/dl 197 mg/dl 150 mg/dl Test 03/29/17 05:14 White Blood Count 6.76 K/uL Red Blood Count 4.02 M/uL Hemoglobin 10.7 g/dL Hematocrit 34.2 % Mean Corpuscular Volume 85.1 fL Mean Corpuscular Hemoglobin 26.6 pg Mean Corpuscular Hemoglobin Concent 31.3 g/dl Platelet Count 183 K/uL Mean Platelet Volume 9.2 fL Neutrophils (%) (Auto) 81.4 % Lymphocytes (%) (Auto) 9.5 % Monocytes (%) (Auto) 9.0 % Eosinophils (%) (Auto) 0.0 % Basophils (%) (Auto) 0.0 % Neutrophils # (Auto) 5.50 K/uL Lymphocytes # (Auto) 0.64 K/uL Monocytes # (Auto) 0.61 K/uL Eosinophils # (Auto) 0.00 K/uL Basophils # (Auto) 0.00 K/uL RDW Standard Deviation 47.5 fL RDW Coefficient of Variation 15.4 % Immature Granulocyte % (Auto) 0.1 % Immature Granulocyte # (Auto) 0.01 K/uL Prothrombin Time 11.1 SECONDS Prothromb Time International Ratio 1.0 Activated Partial Thromboplast Time 29.8 SECONDS Partial Thromboplastin Ratio 1.1 Sodium Level 141 mmol/L Potassium Level 3.9 mmol/L Chloride Level 105 mmol/L Carbon Dioxide Level 30 mmol/L Anion Gap 6.0 mmol/L Blood Urea Nitrogen 15 mg/dl Creatinine 0.77 mg/dl Est Creatinine Clear Calc Drug Dose 98.6 ml/min Estimated GFR () 94.6 Estimated GFR (Non- 81.6 BUN/Creatinine Ratio 19.0 Random Glucose 130 mg/dl Calcium Level 8.0 mg/dl Phosphorus Level 4.3 mg/dl Magnesium Level 2.1 mg/dl Problem Qualifiers (1) Lung cancer: Laterality: left Lung location: upper lobe of lung Qualified Codes: C34.12 - Malignant neoplasm of upper lobe, left bronchus or lung (2) COPD (chronic obstructive pulmonary disease): COPD type: unspecified COPD Qualified Codes: J44.9 - Chronic obstructive pulmonary disease, unspecified
[2017-03-29] MEDS: DOCUSATE SODIUM 100 MG CAP PO SCH ×2 (08:19→21:19)
[2017-03-29] MEDS: OXYBUTYNIN CHLORIDE 5 MG TAB PO SCH ×2 (08:19→22:19)
--- NOTE | 2017-03-29 08:19 | Anesthesiology Progress Note ---
Anesthesia Post Op Note Date & Time Mar 29, 2017 at 08:18 Vital Signs Pain Intensity: 1.0 Vital Signs Past 12 Hours Date Time Temp Pulse Resp B/P (MAP) Pulse Ox O2 Delivery O2 Flow Rate FiO2 03/29/17 07:30 Room Air 03/29/17 07:30 36.7 78 20 162/90 (114) 97 Nasal Cannula 03/29/17 07:22 85 20 97 Nasal Cannula 2.0 03/29/17 06:00 36.9 03/29/17 06:00 83 17 147/62 (90) 100 CPAP 03/29/17 04:00 Nasal Cannula 2.0 03/29/17 04:00 80 21 129/57 (81) 94 CPAP 03/29/17 03:00 83 17 138/57 (84) 92 CPAP 03/29/17 02:00 80 15 134/52 (79) 89 CPAP 03/29/17 01:00 82 2 117/47 (70) 99 CPAP 03/29/17 00:45 99 35 03/29/17 00:00 37.0 80 19 172/71 (104) 93 Nasal Cannula 2.0 03/29/17 00:00 Nasal Cannula 2.0 03/28/17 23:45 84 18 159/62 (94) 99 03/28/17 22:01 84 18 176/84 (114) 100 Nasal Cannula 2.0 03/28/17 21:01 87 17 171/77 (108) 100 Nasal Cannula 2.0 Notes Mental Status: alert / awake / arousable Pt Amnestic to Procedure: Yes Nausea / Vomiting: adequately controlled Pain: adequately controlled Airway Patency, RR, SpO2: stable & adequate
[2017-03-29] MEDS: METOCLOPRAMIDE HCL INJ 5 MG/ML 2 ML VIAL IV. SCH (08:20)
[2017-03-29] MEDS: ENOXAPARIN 40 MG/0.4 ML SYR SQ SCH (08:20)
[2017-03-29] MEDS: ACETAMINOPHEN IV 1,000 MG in EMPTY BAG 0 ML IV SCH (08:21)
[2017-03-29] MEDS: INSULIN ASPART 100 UNITS/ML 3 ML PEN SC SCH ×4 (08:23→21:32)
[2017-03-29] MEDS: NYSTATIN/TRIAMCINOLONE CR 15 GM TUBE EXT SCH ×2 (08:30→21:20)
--- NOTE | 2017-03-29 09:48 | Progress Note ---
Progress Note Date of Service Mar 29, 2017. Progress Note THORACIC SURGERY PROGRESS NOTE: Jayshree Manzo is up in a chair is just finished eating breakfast. She is one day status post thoracoscopic left upper lobectomy [place] lymph node dissection for a non-small cell lung carcinoma. Is actually down to room air saturations of 90% this morning. Pain control been quite good. She is making good urine. She does have some pain but is not really require narcotics. She is moving air quite well and the left side. She has no significant air leak. Not draining much through her tube. Her labs all looked quite good. I'm quite happy with her x-ray which shows full expansion of the lung with no pneumothorax no pleural effusion. Assessment/Plan: POD #1 status post thoracoscopic left upper lobectomy and mediastinal lymph node dissection. Non-small cell lung carcinoma left upper lobe. The patient's done quite well with the surgery. We will remove her to regular room discontinue the monitor Briggs catheter A-line IVs. We are going to get physical therapy to walk her with her walker. She has no air. Quite frankly, I am probably going to remove her chest tube tomorrow and see about getting her home.
[2017-03-29] MEDS: ACETAMINOPHEN 325 MG TAB PO SCH ×2 (13:41→20:05)
[2017-03-29] MEDS: SIMVASTATIN 20 MG TAB PO SCH (22:18)
[2017-03-30] VITALS (8 sets, daily range): BP systolic 141–144; BP diastolic 72–78; PULSE 80–95; TEMP 36.8–37.1; O2SAT 93–99
[2017-03-30] MEDS: ACETAMINOPHEN 325 MG TAB PO SCH ×4 (01:52→19:56)
[2017-03-30] MEDS: OXYCODONE HCL IR 5 MG TAB (IMMEDIATE RELEASE) PO PRN ×3 (05:12→17:35)
--- NOTE | 2017-03-30 07:03 | DIAGNOSTIC IMAGING REPORT ---
CHEST ONE VIEW PORTABLE CLINICAL HISTORY: lung resection postoperative evaluation COMPARISON STUDY: No previous studies for comparison. FINDINGS: Postoperative changes left hemithorax similar. Subcutaneous emphysema slightly increased. Very small left apical pneumothorax with an unchanging pleural separation approximately 3 mm. Basilar chest tube unchanged in position. Right lung remains clear. IMPRESSION: 1. Slight increase in subcutaneous emphysema. 2. Stable postoperative appearance left hemithorax. 3. Very small left apical pneumothorax unchanged The above report was generated using voice recognition software. It may contain grammatical, syntax or spelling errors. Electronically signed by: Blaze Montero M.D. 03/30/2017 7:01 AM Dictated Date/Time: 03/30/2017 6:59 AM
[2017-03-30] MEDS: ALBUT/IPRATROP 3MG/0.5MG NEB 3 ML VIAL INH SCH ×4 (07:08→20:26)
[2017-03-30] MEDS: NORMOSOL R 1,000 ML IV SCH (07:23)
[2017-03-30 07:29] LABS: HEMATOCRIT 34.8 % (37-47); MEAN CELL VOLUME 86.1 fL (80-100); MEAN CORPUSCULAR HEMOGLOBIN 26.7 pg (25-34); MEAN PLATELET VOLUME 9.1 fL (7.4-10.4); PLATELET COUNT 181 K/uL (130-400); RED BLOOD COUNT 4.04 M/uL (4.2-5.4); WHITE BLOOD COUNT 6.98 K/uL (4.8-10.8)
[2017-03-30 08:07] LABS: BUN/CREATININE RATIO 15.7 (10-20); CALCIUM 8.8 mg/dl (8.5-10.1); CREATININE 0.77 mg/dl (0.60-1.20)
--- NOTE | 2017-03-30 08:17 | Discharge Instructions ---
Discharge Instructions Date of Service Mar 30, 2017. Admission Reason for Admission: Left Lung Cancer, Non-Insulin Diabetes Discharge Discharge Diagnosis / Problem: Left Lung Cancer Discharge Goals Goal(s): Improve disease control, Learn about illness Activity Recommendations Activity Limitations: as noted below Lifting Limitations: none . Instructions / Follow-Up Instructions / Follow-Up 1. You may remove dressings in 3 days and shower thereafter. No tub baths. 2. Do not fly of SCUBA dive until cleared to do so by Dr. Diana. 3. Office appointment wit Dr. Diana in 7-10 days. Office will call you with date and time of appointment. Go to hospital 1 hour before appointment to have a chest x-ray taken. 4. Call office if you notice worsening shortness of breath or neck swelling. Current Hospital Diet Patient's current hospital diet: Diabetes Type 2 Diet Discharge Diet Recommended Diet: Diabetes Type 2 Diet Procedures Procedures Performed: Video assisted thoracoscopy with left upper lobectomy and mediastinal lymphadenectomy Pending Studies Studies pending at discharge: no Medical Emergencies . Who to Call and When: Medical Emergencies: If at any time you feel your situation is an emergency, please call 911 immediately. . Non-Emergent Contact Non-Emergency issues call your: Surgeon Call Non-Emergent contact if: you have a fever, your pain is not controlled, wound has increased drainage . "Provider Documentation" section prepared by Elijah Alanis. . VTE Core Measure Inpt VTE Proph given/why not?: Enoxaparin (Lovenox)SQ
[2017-03-30] MEDS: INSULIN ASPART 100 UNITS/ML 3 ML PEN SC SCH ×4 (08:53→21:00)
[2017-03-30] MEDS: NYSTATIN/TRIAMCINOLONE CR 15 GM TUBE EXT SCH ×2 (08:55→22:12)
[2017-03-30] MEDS: OXYBUTYNIN CHLORIDE 5 MG TAB PO SCH ×2 (08:56→22:13)
[2017-03-30] MEDS: ENOXAPARIN 40 MG/0.4 ML SYR SQ SCH (08:57)
[2017-03-30] MEDS: DOCUSATE SODIUM 100 MG CAP PO SCH ×2 (10:03→22:12)
[2017-03-30] MEDS ORDERED: TRAM-10 PO (10:05)
[2017-03-30] MEDS ORDERED: CLC100 PO (10:05)
[2017-03-30] MEDS ORDERED: NURSING VERBAL MED ORDER ONE (10:45)
--- NOTE | 2017-03-30 10:56 | DIAGNOSTIC IMAGING REPORT ---
CHEST ONE VIEW PORTABLE CLINICAL HISTORY: chest tube removal tube removal COMPARISON STUDY: 03/30/2017 6:54 AM FINDINGS: Interval removal left-sided chest tube. Unchanging subcutaneous emphysematous change. No significant left-sided pneumothorax. Mild consolidative change left base. Right lung remains clear. IMPRESSION: Interval removal left-sided chest tube. No significant postprocedural pneumothorax at this time. The above report was generated using voice recognition software. It may contain grammatical, syntax or spelling errors. Electronically signed by: Blaze Montero M.D. 03/30/2017 10:55 AM Dictated Date/Time: 03/30/2017 10:53 AM
--- NOTE | 2017-03-30 13:36 | SURGERY PROGRESS NOTE ---
DATE: 03/30/2017 DATE: 03/30/2017 Jayshree Manzo was seen today. She is moving her bowels. She is ambulating in the hallway. The patient has some subcutaneous emphysema on the left side, but she had no air leak with good fluctuation in her chest tube. Saturations are great at 97% on 1 liter. She put out very little through her chest tube. It is serous drainage. I removed it today at the bedside. All in all I am quite happy with Mrs. Manzo. Given the fact that she has multiple comorbidities and the fact that [place] 30 [address] from the hospital, I would feel better if we kept her 1 more day to make sure subcutaneous emphysema did not indicate a persistent bronchopleural fistula. Should her x-ray looked okay in the morning I will send her home.
[2017-03-30] MEDS: SIMVASTATIN 20 MG TAB PO SCH (22:12)
[2017-03-31 00:20] VITALS: PULSE 86; O2SAT 99
[2017-03-31] MEDS: OXYCODONE HCL IR 5 MG TAB (IMMEDIATE RELEASE) PO PRN (01:18)
[2017-03-31] MEDS: ACETAMINOPHEN 325 MG TAB PO SCH ×2 (01:30→09:01)
[2017-03-31 06:22] LABS: HEMATOCRIT 32.8 % (37-47); MEAN CELL VOLUME 86.1 fL (80-100); MEAN CORPUSCULAR HEMOGLOBIN 26.5 pg (25-34); MEAN CORPUSCULAR HGB CONC 30.8 g/dl (32-36); MEAN PLATELET VOLUME 9.2 fL (7.4-10.4); PLATELET COUNT 188 K/uL (130-400); RED BLOOD COUNT 3.81 M/uL (4.2-5.4); WHITE BLOOD COUNT 5.72 K/uL (4.8-10.8)
[2017-03-31 06:51] VITALS: BP 136/62; PULSE 76; TEMP 36.5; O2SAT 98
[2017-03-31 06:52] LABS: CREATININE 0.67 mg/dl (0.60-1.20)
--- NOTE | 2017-03-31 07:21 | DIAGNOSTIC IMAGING REPORT ---
CHEST ONE VIEW PORTABLE CLINICAL HISTORY: lung resection COMPARISON STUDY: 03/30/2017 FINDINGS: The cardiac and mediastinal contours remain stable. There is extensive subcutaneous emphysema which limits evaluation of the lung parenchyma. There is a persistent left superior paramediastinal opacity. Left basal airspace opacities are suspected. No significant pneumothorax is evident.[ IMPRESSION: No change from the preceding study. Extensive subcutaneous emphysema. No evidence of pneumothorax. Persistent left superior paramediastinal opacity. Electronically signed by: Eric Mendoza M.D. 03/31/2017 7:19 AM Dictated Date/Time: 03/31/2017 7:17 AM
[2017-03-31 08:16] VITALS: PULSE 75; O2SAT 100
[2017-03-31] MEDS: ALBUT/IPRATROP 3MG/0.5MG NEB 3 ML VIAL INH SCH (08:16)
--- NOTE | 2017-03-31 08:21 | Discharge Summary ---
"Discharge Summary Date of Service Mar 31, 2017. Discharge Summary Admission Date: Mar 28, 2017 at 06:50 Discharge Date: Mar 31, 2017 Discharge Disposition: Home Principal Diagnosis: Lung Cancer Problems/Secondary Diagnoses: (1) Morbid obesity Status: Chronic (2) CLYDE (obstructive sleep apnea) Status: Chronic (3) Osteoarthritis involving multiple joints on both sides of body Status: Chronic (4) Restrictive lung disease secondary to obesity Status: Chronic Procedures: Left VATS with JOLENE and Lymphadenectomy Medication Reconciliation New Medications: Tramadol (Ultram) 50 Mg Tab 50 MG PO Q4H PRN for Pain, #20 TAB Docusate Sodium (Docusate Sodium) 100 Mg Cap 100 MG PO BID for 30 Days, #60 CAP 0 Refills Continued Medications: Acetaminophen (Tylenol) 500 Mg Tab 1000 MG PO PRN, TAB Albuterol (Proair Hfa) Aers 2 PUFFS INH QID PRN for Shortness of Breath Home O2 Therapy (Oxygen) Gas 2 LITERS NA HS, BTL WITH CPAP Metformin Hcl (Glucophage) 500 Mg Tab 500 MG PO BID, TAB Nystatin/Triamcinolone (Mycolog ||) Cr 1 DOSE TOP BID Oxybutynin Chloride (Ditropan) 5 Mg Tab 2.5 MG PO BID, TAB Simvastatin (Zocor) 20 Mg Tab 20 MG PO HS, TAB [Cranberry] () 2 TAB PO QAM Discharge Exam CXR the day of discharge showed left sided subcutaneous emphysema with slight improvement from yesterday's CXR; no pneumothorax noted Physical exam shows left sided subcutaneous emphysema present, although improved from yesterday's exam. Review of Systems: Constitutional: No fever, No chills Respiratory: No cough, No sputum, No shortness of breath Cardiovascular: No chest pain Abdomen: No pain, No nausea, No vomiting Genitourinary - Female: No dysuria Neurologic: No numbness/tingling Physical Exam: General Appearance: WD/WN, no apparent distress Respiratory/Chest: lungs clear, normal breath sounds, no respiratory distress, no accessory muscle use Cardiovascular: regular rate, rhythm Abdomen / GI: non tender, soft Extremities: no calf tenderness Neurologic/Psychiatric: alert, oriented x 3 Hospital Course 66 year old female with lung cancer -pt underwent a Left VATS with JOLENE and lymphadenectomy (03/28/17) -pt. monitored in ICU for 1 day after surgery and transferred to med/surg on POD #1 -chest tube removed on POD#2: -post-pull CXR showed significant subcutaneous emphysema with no significant pneumothorax -due to the above findings pt. monitored in hospital following chest tube removal and was noted to be clinically stable the following day and was d/c home on POD#3 -pain control measures implemented -pt. encouraged to use IS and to ambulate CLYDE -pt. maintained on BiPAP during hospitalization and she will continue to use this modality at home OTHER -lovenox utilized for DVT prevention Total Time Spent: Greater than 30 minutes This includes examination of the patient, discharge planning, medication reconciliation, and communication with other providers. Discharge Instructions Please refer to the electronic Patient Visit Report (Discharge Instructions) for additional information. Follow-Up Dr. Diana in 7-10 days with repeat CXR."
[2017-03-31] MEDS: ENOXAPARIN 40 MG/0.4 ML SYR SQ SCH (09:02)
[2017-03-31] MEDS: OXYBUTYNIN CHLORIDE 5 MG TAB PO SCH (09:02)
[2017-03-31] MEDS: NYSTATIN/TRIAMCINOLONE CR 15 GM TUBE EXT SCH (09:02)
[2017-03-31] MEDS: DOCUSATE SODIUM 100 MG CAP PO SCH (09:02)
[2017-03-31] MEDS: INSULIN ASPART 100 UNITS/ML 3 ML PEN SC SCH (09:08)
[2017-03-31 10:06] VITALS: BP 136/62; PULSE 75; TEMP 36.5; O2SAT 100
[2017-03-31 10:15] VITALS: O2SAT 96
== END 2017-03-31 10:28 | disposition home or self-care (01) | DRG 164 ==
LOC: C.ACU 05:04 → C.MSICU 06:50 → ENRESERV 14:31 → C.MSN 03-29 10:02
PROVIDERS: ADMIT Surgery; ATTEND Surgery
PROC: 07B74ZX Excision of Thorax Lymphatic, Percutaneous Endoscopic Approach, Diagnostic (ICD-10-PCS; principal; 2017-03-28 07:15)
PROC: 0BTG4ZZ Resection of Left Upper Lung Lobe, Percutaneous Endoscopic Approach (ICD-10-PCS; principal; 2017-03-28 07:15)
DX: C34.12 Malignant neoplasm of upper lobe, left bronchus or lung (principal); Z68.44 Body mass index [BMI] 60.0-69.9, adult; Z87.891 Personal history of nicotine dependence; J96.10 Chronic respiratory failure, unspecified whether with hypoxia or hypercapnia; E66.01 Morbid (severe) obesity due to excess calories; M15.9 Polyosteoarthritis, unspecified; J44.9 Chronic obstructive pulmonary disease, unspecified; G47.33 Obstructive sleep apnea (adult) (pediatric); E11.9 Type 2 diabetes mellitus without complications

== ENCOUNTER → 2017-04-10 | Outpatient (CLI) | payer OTHER ==
[~2017-04-10] MED LIST changes: +CLC100 PO; +TRAM-10 PO
--- NOTE | 2017-04-10 09:12 | DIAGNOSTIC IMAGING REPORT ---
TWO VIEW CHEST CLINICAL HISTORY: Status post left upper lobectomy.. FINDINGS: PA and lateral chest radiographs are compared to study dated 03/31/2017 and correlated with chest CT dated 01/29/2017. The examination is degraded by large body habitus. The heart is enlarged and there is atherosclerotic calcification of the thoracic aorta. Emphysema and chronic interstitial thickening are similar to previous. There are postoperative changes and volume loss consistent with left upper lobe resection. Airspace opacities are again seen at the left lung base. Left-sided pleural fluid is noted. The right lung is grossly clear. There is no definite pneumothorax. The skeletal structures are osteopenic. The bony thorax appears intact. There is subcutaneous emphysema present in the chest wall, left greater than right. This has improved from 03/31/2017. IMPRESSION: 1. Cardiomegaly and emphysema. 2. Again seen are postoperative changes from left upper lobe resection. Subcutaneous emphysema persists but has improved from previous. 3. Airspace opacities and pleural fluid are again seen at the left lung base and have modestly improved from 03/31/2017. This likely represents atelectasis. Clinical correlation will be required. Electronically signed by: Clement Rod M.D. 04/10/2017 9:11 AM Dictated Date/Time: 04/10/2017 9:08 AM
== END | disposition home or self-care (01) ==
LOC: C.RAD 08:37
PROVIDERS: ATTEND Surgery
DX: R91.1 Solitary pulmonary nodule (principal); I51.7 Cardiomegaly; J43.9 Emphysema, unspecified; R91.8 Other nonspecific abnormal finding of lung field

== ENCOUNTER → 2017-05-10 | Outpatient (CLI) | payer OTHER ==
--- NOTE | 2017-05-10 10:00 | DIAGNOSTIC IMAGING REPORT ---
CHEST 2 VIEWS ROUTINE HISTORY: NON SMALL CELL LUNG CANCER C34.90 COMPARISON: Chest 04/10/2017. FINDINGS: There again noted postoperative changes within the left hemithorax with associated volume loss and left basilar hazy airspace opacity. Suspect a trace left pleural effusion. The left subcutaneous emphysema has resolved. The heart is mildly enlarged. Focal lucency within the left medial lung apex favors a small loculated pneumothorax. This measures 13 mm in thickness. IMPRESSION: 1. Focal lucency within the left medial lung apex favors a small loculated pneumothorax. 2. The subcutaneous emphysema has resolved. 3. No change in the left basilar opacity/effusion. Electronically signed by: Renaldo Nguyen M.D. 05/10/2017 9:59 AM Dictated Date/Time: 05/10/2017 9:55 AM
== END | disposition home or self-care (01) ==
LOC: C.RAD 09:14
PROVIDERS: ATTEND Physician Assistant
DX: C34.90 Malignant neoplasm of unspecified part of unspecified bronchus or lung (principal)

== ENCOUNTER → 2017-07-10 | Outpatient (CLI) | payer OTHER ==
[~2017-07-10] MED LIST changes: +DTR/5 PO; -OXYB5TAB74 PO
--- NOTE | 2017-07-10 11:16 | DIAGNOSTIC IMAGING REPORT ---
CHEST 2 VIEWS ROUTINE HISTORY: R91.8 Lung mass [id number] COMPARISON: Chest 05/10/2017. FINDINGS: The heart remains mildly enlarged. Small left apical pneumothorax persists. This demonstrates a pleural gap of 1.4 cm. This is not significantly changed. Stable mild volume loss within the left hemithorax. This is consistent with postoperative changes. Left basilar hazy density persists. IMPRESSION: No change in the small left apical pneumothorax. Left basilar density may represent postoperative change/scarring. Electronically signed by: Renaldo Nguyen M.D. 07/10/2017 11:15 AM Dictated Date/Time: 07/10/2017 11:13 AM
== END | disposition home or self-care (01) ==
LOC: C.RAD 10:43
PROVIDERS: ATTEND Surgery
DX: R91.8 Other nonspecific abnormal finding of lung field (principal); J93.9 Pneumothorax, unspecified

== ENCOUNTER → 2017-10-10 | Outpatient (CLI) | payer OTHER ==
[~2017-10-10] MED LIST changes: -TRAM-10 PO
--- NOTE | 2017-10-10 09:04 | DIAGNOSTIC IMAGING REPORT ---
CT OF THE CHEST WITHOUT IV CONTRAST CLINICAL HISTORY: Non-small cell lung cancer. COMPARISON STUDY: Chest CT January 29, 2017, PET/CT March 21, 2017 and chest radiograph July 10, 2017. CT DOSE: 683.71 mGycm TECHNIQUE: Axial images of the chest were obtained without IV contrast. Images were reviewed in the axial, sagittal, and coronal planes. IV contrast was not administered for this examination. A dose lowering technique was utilized adhering to the principles of ALARA. FINDINGS: There are findings consistent with an interval left upper lobectomy. Expected postoperative findings are noted. There is no pneumothorax or pleural effusion. There is no consolidation to suggest pneumonia. Linear opacities within lungs reflect atelectasis. A 6 mm right upper lobe nodule shown on image 88 of [address] of November 27, 2013. This is benign given stability. There are no suspicious pulmonary nodules. Mild groundglass opacity within the right upper lung is noted. No suspicious osseous lesions are present. Expected postoperative findings within the left chest wall. Upper abdomen is grossly unremarkable on this exam although suboptimally evaluated as the body wall contacting the gantry. No enlarged axillary, mediastinal or hilar lymph nodes are present. Heart is moderately enlarged. There is extensive coronary artery calcification. IMPRESSION: 1. No evidence of residual/recurrent malignancy status post left upper lobectomy. 2. Stable 6 mm right upper lobe nodule which is benign given stability. 3. Moderate cardiomegaly. Extensive coronary artery calcification. Electronically signed by: Salvatore Genao M.D. 10/10/2017 9:02 AM Dictated Date/Time: 10/10/2017 8:52 AM
== END | disposition home or self-care (01) ==
LOC: C.CTS 08:36
PROVIDERS: ATTEND Surgery
DX: C34.90 Malignant neoplasm of unspecified part of unspecified bronchus or lung (principal); Z90.2 Acquired absence of lung [part of]; R91.1 Solitary pulmonary nodule; I51.7 Cardiomegaly

== ENCOUNTER → 2018-04-02 | Outpatient (CLI) | payer OTHER ==
--- NOTE | 2018-04-02 08:30 | DIAGNOSTIC IMAGING REPORT ---
(CHEST) THORAX WITHOUT CT DOSE: 1052.36 mGy.cm HISTORY: Lung nodule R91.1 Solitary pulmonary nodule TECHNIQUE: Transaxial acquisition with multi axial reformatted images A dose lowering technique was utilized adhering to the principles of ALARA. COMPARISON: 10/10/2017 FINDINGS: Unchanging 6 mm nodule right pulmonary apex. Lungs otherwise appear clear. Diaphragms are smooth. No significant mediastinal or hilar adenopathy. Atherosclerotic change thoracic aorta as well as coronary arterial calcifications. IMPRESSION: Stable exam. Unchanged 6 mm nodule lateral aspect right pulmonary apex. The above report was generated using voice recognition software. It may contain grammatical, syntax or spelling errors. Electronically signed by: Blaze Montero M.D. 04/02/2018 8:28 AM Dictated Date/Time: 04/02/2018 8:15 AM
== END | disposition home or self-care (01) ==
LOC: C.CTS 08:04
PROVIDERS: ATTEND Surgery
DX: R91.1 Solitary pulmonary nodule (principal)

== ENCOUNTER 2019-07-01 08:01 | Inpatient (IN) ==
[2019-07-01] MEDS ORDERED: ALBUT/IPRATROP 3MG/0.5MG NEB 3 ML VIAL NEB ONE (08:25)
[2019-07-01] MEDS ORDERED: LEVOFLOXACIN/D5W 750 MG/150 ML BAG IV STA (08:45)
[2019-07-01] MEDS ORDERED: PIPERACILLIN/TAZOBACTAM 4.5 GM/120 ML BAG IV ONE (08:45)
[2019-07-01] MEDS ORDERED: PIPERACILL/TAZOBAC CONSULT ACTIVE PRN (08:45)
[2019-07-01] MEDS ORDERED: ACETAMINOPHEN 500 MG TAB PO STA (08:48)
[2019-07-01] MEDS ORDERED: FUROSEMIDE 40 MG/4 ML VIAL IV STA (08:59)
[2019-07-01 09:00] LABS: Basophils # (auto) 0.02 K/uL (0-0.2); Basophils % (auto) 0.1 %; Hematocrit (blood only) 35.5 % (37-47); Immature Granulocytes # (auto) 0.05 K/uL (0.00-0.02); Immature Granulocytes % (auto) 0.4 %; Lymphocytes # (auto) 0.32 K/uL (1.2-3.4); Lymphocytes % (auto) 2.3 %; Mean Corpuscular Hemoglobin 25.6 pg (25-34); Mean Corpuscular Volume 82.6 fL (80-100); Mean Platelet Volume 9.5 fL (7.4-10.4); Monocytes # (auto) 0.76 K/uL (0.11-0.59); Monocytes % (auto) 5.5 %; Neutrophils # (auto) 12.57 K/uL (1.4-6.5); Neutrophils % (auto) 91.7 %; Platelet Count 172 K/uL (130-400); RDW Coefficient of Variation 16.5 % (11.5-14.5); RDW Standard Deviation 49.5 fL (36.4-46.3); White Blood Count 13.72 K/uL (4.8-10.8)
--- NOTE | 2019-07-01 09:01 | XRay Report ---
XR chest 1V portable HISTORY: 69 years-old Female Dyspnea acute shortness of breath COMPARISON: Chest radiograph 03/31/2017, chest CT 03/26/2019 TECHNIQUE: Portable AP view of the chest FINDINGS: Cardiac silhouette is enlarged. Dense mitral annular with thoracic aortic arch calcifications. Pulmon aubrey vascular congestion with mild interstitial coarsening. No pneumothorax or large pleural effusion. Mild blunting of the costophrenic angles. No lobar airspace consolidation. There are 2 indeterminate round foci measuring up to 10 mm projecting over the left lateral midlung, likely related to bony ba r formation between the posterior left fifth and sixth ribs as seen on comparison chest CT. Degenerat linda changes of the shoulders and spine with right shoulder rotator cuff calcific tendinosis IMPRESSION: Cardiomegaly with pulmonary vascular congestion. The above report was generated using voice recognition software. It may contain grammatical, syntax o r spelling errors. Electronically signed by: Sergio Portillo M.D. 07/01/2019 9:00 AM
--- NOTE | 2019-07-01 09:07 | Emergency Department Note ---
General (ED) Blank Date of Service July 01, 2019 I saw and attended to the care of this patient in conjunction with Dr. Kaufman; please see his documentation for all pertinent information. I agree with the assessment and plan as outlined in his documentation. Resident Activity Tracking Resident Involvement: Resident Care Provided Care Provided: Adult ED
[2019-07-01 09:13] LABS: Alanine Aminotransferase 37 U/L (12-78); Albumin Level 3.8 gm/dl (3.4-5.0); Aspartate Aminotransferase 15 U/L (15-37); BUN Creatinine Ratio 18.4 (10-20); Blood Urea Nitrogen 17 mg/dl (7-18); Calcium 9.7 mg/dl (8.5-10.1); Carbon Dioxide 27 mmol/L (21-32); Chloride 100 mmol/L (98-107); Est GFR (African American) 72.8; Est GFR (Non-African American) 62.8; Glucose 246 mg/dl (70-99); Potassium 3.8 mmol/L (3.5-5.1); Sodium 137 mmol/L (136-145)
[2019-07-01 09:15] LABS: Influenza A virus by PCR Neg for Influ A (Neg); Influenza B virus by PCR Neg for Influ B (Neg)
[2019-07-01 09:16] LABS: INR 1.1 (0.9-1.1); Partial Thromboplastin Ratio 0.9; Partial Thromboplastin Time 24.3 Seconds (21.0-31.0); Prothrombin Time 10.9 Seconds (9.0-12.0)
[2019-07-01 09:22] LABS: iSTAT Creatinine 0.7 mg/dl (0.6-1.3); iSTAT Hemoglobin 11.6 g/dl (12.0-16.0); iSTAT Ionized Calcium 1.16 mmol/l (1.12-1.32); iSTAT Potassium 3.8 mEq/L (3.3-5.0)
[2019-07-01] MEDS: HYDROmorphone INJ 0.5 MG/0.5 ML SYR IV PRN ×2 (09:25→09:40)
[2019-07-01 09:31] LABS: Albumin Globulin Ratio 1.2 (0.9-2); Alkaline Phosphatase 65 U/L (45-117); Bilirubin,Total 0.5 mg/dl (0.2-1); Creatine Kinase 43 U/L (26-192); Globulin 3.3 gm/dl (2.5-4.0); Total Protein 7.1 gm/dl (6.4-8.2); Troponin I 0.087 ng/ml (0-0.045)
[2019-07-01 10:19] LABS: Appearance Urine Cloudy (Clear); Bacteria Urine Automated Negative (Negative); Bilirubin Urine Negative (Negative); Blood Urine Negative (Negative); Color Urine Yellow; Glucose Urine UA 3+ (Negative); Ketones Urine Negative (Negative); Leukocyte Esterase Urine Negative (Negative); Nitrite Urine Negative (Negative); Protein Urine 1+ (Negative); RBC Urine Automated 0-4 /hpf (0-4); Urobilinogen Urine Negative (Negative)
--- NOTE | 2019-07-01 10:23 | CT Scan Report ---
CT lumbar spine wo con HISTORY: 69 years-old Female Pt c/o low back pain acute left-sided low back pain without reported tr auma. History of lung cancer. COMPARISON: CT abdomen and pelvis of same day, PET CT 03/21/2017 TECHNIQUE: Multiple axial CT images of the lumbar spine were obtained without the use of IV contrast. Coronal and sagittal reformatted images were obtained from the axial data set and were submitted for review. A dose lowering technique was used consistent with the principals of ALARA. FINDINGS: Mildly demineralized appearance of the bones. No significant intervertebral disc space narrowing. Mil d multilevel spondylitic spurring with moderate multilevel facet arthrosis. Moderate to severe facet arthrosis at L4-L5 and L5-S1. No acute fracture, subluxation or suspicious bone lesion identified. Th e imaged sacrum and iliac bones also appear intact. Minimal convex left curvature of the lumbar spine . Study is mildly limited secondary to body habitus. Multilevel ligamentum flavum thickening. Evaluat ion of the central canal and neuroforamina is better assessed by MRI. No definite high-grade central canal stenosis. There is a least mild left-sided L4-L5 foraminal narrowing. No definite high-grade fo raminal stenosis. Calcified plaque of the abdominal aorta. Left iliac chain adenopathy measures up to 2.0 x 1.6 cm. Par aspinal tissues are within normal limits. IMPRESSION: 1. No acute fracture, subluxation or suspicious bone lesion identified. 2. Degenerative changes as above. 3. Indeterminate left iliac chain adenopathy. Please refer to CT abdomen and pelvis study of same day . The above report was generated using voice recognition software. It may contain grammatical, syntax o r spelling errors. Electronically signed by: Sergio Portillo M.D. 07/01/2019 10:22 AM
--- NOTE | 2019-07-01 10:26 | CT Scan Report ---
CT abd pelvis wo con CLINICAL HISTORY: 69 years-old Female presenting with Pt c/o left sided back pain. TECHNIQUE: Multidetector CT of the abdomen and pelvis was performed without the use of intravenous co ntrast. IV contrast: None. One or more dose lowering techniques were used consistent with the princip les of ALA (as low as reasonably achievable), including automatic exposure control, mA or kV adjust ment to individual patient size, and/or use of iterative reconstruction. COMPARISON: Head CT from 03/21/2017. CT DOSE (mGy.cm): The estimated cumulative dose is 2207.92 mGy.cm. FINDINGS: Schedule Supervisor topogram: Unremarkable. Motion artifact moderately degrades evaluation of the upper abdomen decreasing diagnostic sensitivity to a moderate degree. Lung bases: Dense mitral annular calcification. Coronary artery calcification also noted. Borderline cardiomegaly. No pericardial or pleural effusion. Minimal dependent changes likely atelectasis. Pulmo nary vascular prominence. Liver: Enlarged. Density consistent with hepatic steatosis. Biliary: No gross biliary ductal dilatation allowing for noncontrast technique. Possible gallstones a t the gallbladder neck. Pancreas: Moderate parenchymal atrophy. Spleen: Top normal in size measuring 13.3 cm in maximal sagittal dimension. Adrenal glands: Normal noncontrast appearance. Kidneys and ureters: Normal noncontrast appearance. No nephrolithiasis. No hydronephrosis. Normal ure ters. Bladder: Urinary bladder decompressed with a Briggs catheter. Intraluminal gas related to the presence of the catheter. Pelvic organs: Uterus surgically absent. Bowel: Normal appendix. No bowel obstruction. Peritoneal cavity: No free fluid or intraperitoneal gas. Lymph nodes: Enlarged left external iliac lymph node measuring 13 mm in short axis (series 3 image 41 5). A left common iliac lymph node measures 17 mm in short axis. Left inguinal lymphadenopathy also e vident with a lymph node measuring 19 mm in short axis. Less a degree of lymph node enlargement in a similar distribution on the right. No significant upper abdominal lymphadenopathy. Vasculature: Atherosclerosis of the normal caliber abdominal aorta. Abdominal wall: Nonspecific subcutaneous edema in the lumbar region.. Musculoskeletal: Normal. IMPRESSION: 1. Allowing for noncontrast technique, no acute intra-abdominal pathology. 2. Left common and external iliac and left inguinal lymphadenopathy. This raises concern for lymphop roliferative disease or metastases. Left inguinal lymphadenopathy would likely be amenable to ultraso und-guided biopsy. 3. Borderline splenomegaly. 4. Hepatomegaly and hepatic steatosis. 5. Possible cholelithiasis. Electronically signed by: Jason Vargas M.D. 07/01/2019 10:25 AM
--- NOTE | 2019-07-01 12:03 | History & Physical Report ---
Date of Service July 01, 2019 Assessment & Plan (1) Sepsis: This is a 69yo F with a PMH of DM II, COPD on 3L home O2, CLYDE on CPAP, h/o adenocarcinoma s/p JOLENE resection, BLE wounds in setting of venous stasis and necrobiosis lipoidica lipoidica diabeticorum and other medical problems listed below who presents with fever, SOB and left lower back pain starting early this morning. -Possible sepsis. Meets SIRS criteria with fever of 38.1 C and tachycardic with heart rate of 96. Mild leukocytosis of 13.7k. Initial lactic acid elevated at 3.8 and troponin mildly elevated at 0.087 -Procalcitonin mildly elevated at 0.52. Repeat lactic acid pending -CK normal, urinalysis without abnormality. Flu PCR negative. CXR with cardiomegaly with pulmonary vascular congestion. CT abd/pelvis with no acute intra-abdominal pathology. Left common and external iliac and left inguinal lymphadenopathy. This raises concern for lymphoproliferative disease or metastases. Left inguinal lymphadenopathy would likely be amenable to ultrasound-guided biopsy. CT lumbar spine with no acute fracture, subluxation or suspicious bone lesion identified -H/o LLE wound growing MSSA. Does not appear infected. Repeat wound culture pending. -Wound and blood cultures pending -Continue empiric Zosyn -Gentle IV fluids due to appearance of vascular congestion on CXR (2) Lymphadenopathy, inguinal: Had some left groin pain since yesterday that has since resolved. Also with left back pain -CT abd/pelvis with Left common and external iliac and left inguinal lymphadenopathy. This raises concern for lymphoproliferative disease or metastases. Left inguinal lymphadenopathy would likely be amenable to ultrasound-guided biopsy. -Discussed with Dr. Vargas of radiology and will plan on ultrasound-guided biopsy of Left inguinal lymphadenopathy tomorrow (3) Back pain: Has improved with pain medication in ED -Non-tender on exam -CT lumbar spine with no acute fracture, subluxation or suspicious bone lesion identified (4) Necrobiosis lipoidica diabeticorum: (5) Venous stasis ulcers of both lower extremities: Follows with Dr. East of wound care, missed last Sunday appointment -Wounds appear improved per patient and wound care pictures -Has almost completed course of doxycycline. Will continue for an additional day -Daily wound care (6) Elevated troponin: Mild troponin elevation of 0.087 -No chest pain, EKG without ischemic change -Continue trending (7) Pulmonary vascular congestion: CXR with cardiomegaly with pulmonary vascular congestion -No known CHF -Routine 2D echo ordered -Consider CT chest if SOB does not improve with Lasix (8) Chronic respiratory failure: (9) COPD (chronic obstructive pulmonary disease): Requires 3L NC home O2 and CPAP at night -At respiratory baseline desite feeling SOB -Continue supplemental O2 (10) Diabetes mellitus, type II: A1c of 6.6 in December 2018. Repeat pending -Hold home agents -SSI while in-patient -BSG AC HS (11) Adenocarcinoma of left lung: S/p JOLENE lobectomy by in Mar 2017 (12) CLYDE on CPAP: CPAP with 3L NC O2 HS DVT Ppx: Giving SQ Lovenox today, holding tomorrow in setting of procedure Code status: Conditional code: CPR, shock okay. No intubation or mech vent ilation PCP: Bhupinder Dispo: Admitted to [facility]. Discharge planning ordered (lives with son, has home health) Patient seen in collaboration with Dr. Kennedy. Please see addendum. History of Present Illness Chief Complaint: SOB, fever, left back pain Primary Care Provider: Luis Roe MD This is a 69yo F with a PMH of DM II, COPD on 3L home O2, CLYDE on CPAP, h/o adenocarcinoma s/p JOLENE resection, BLE wounds in setting of venous stasis and necrobiosis lipoidica lipoidica diabeticorum and other medical problems listed below who presents with fever, SOB and left lower back pain starting early this morning. Patient was on chronic 3 L nasal cannula oxygen but still felt dyspneic even at rest. Left lower back pain is described as aching and also had some pain in left groin which is since resolved. Denies any lightheadedness, visual changes, chest pain, palpitations, wheezing, nausea, vomiting, abdominal pain, dysuria, diarrhea or constipation. Does endorse multiple episodes of mansoor rrhea last week that have since resolved. CXR In ED, patient found to be febrile at 38.1 C and tachycardic with heart rate of 96. Mild leukocytosis of 13.7k. Initial lactic acid elevated at 3.8 and troponin mildly elevated at 0.087. Urinalysis without abnormality. CK normal. Flu PCR negative. CXR with cardiomegaly with pulmonary vascular congestion. CT abd/pelvis with no acute intra-abdominal pathology. Left common and external iliac and left inguinal lymphadenopathy. This raises concern for lymphoproliferative disease or metastases. Left inguinal lymphadenopathy would likely be amenable to ultrasound-guided biopsy. CT lumbar spine with no acute fracture, subluxation or suspicious bone lesion identified. Allergies Allergy/AdvReac Type Severity Reaction Status Date / Time naproxen Allergy Intermediate throat Verified 07/01/19 09:16 swelling cephalexin Allergy Unknown RASH Verified 07/01/19 09:16 Home Medications Home Medications Medication Instructions Recorded Confirmed Type Oxygen Home #1 ea 12/31/18 07/01/19 History acetaminophen 325 mg capsule 650 mg PO QID PRN cap 12/31/18 07/01/19 History albuterol sulfate 90 mcg/actuation 2 inha INH Q4H PRN ea 12/31/18 07/01/19 History breath activated powder inhaler aspirin 81 mg tablet,delayed 81 mg PO QAM 12/31/18 07/01/19 History release metformin ER 500 mg 500 mg PO BID tab 12/31/18 07/01/19 History tablet,extended release 24 hr oxybutynin chloride 5 mg tablet 5 mg PO TID 12/31/18 07/01/19 History simvastatin 20 mg tablet 20 mg PO HS 12/31/18 07/01/19 History doxycycline hyclate 100 mg tablet 100 mg PO bid #28 tab 06/02/19 07/01/19 Rx nystatin-triamcinolone 1 applic TOPICAL BID 07/01/19 07/01/19 History torsemide 10 mg PO WE 07/01/19 07/01/19 History Past Med/Surg History Medical History H/O: hysterectomy (Chronic) Necrobiosis lipoidica diabeticorum (Chronic) Venous stasis ulcers (Chronic) Adenocarcinoma of left lung, stage 1 (Chronic) COPD (chronic obstructive pulmonary disease) (Chronic) Cataracts, bilateral (Chronic) Dermatitis (Chronic) Diabetes (Chronic) Endometriosis (Chronic) Morbid obesity (Chronic) Obstructive sleep apnea (Chronic) Urinary incontinence (Chronic) Surgical History S/P lobectomy of lung (Chronic) Thoracoscopy w/ Lobectomy Left 03/28/2017 malignant neoplasm JOLENE bronchus, with VATS Provider S/P hysterectomy (Chronic) History of lung surgery (Resolved) Family History Other Cancer Heart disease Social History Preferred Language: Niuean Communication Ability: Effective Visual Impairment: No Limitations Hearing Ability: Normal Lead Network Architect Required: No Beliefs That Will Affect Care: None marital status: Single Current Living Situation: Family Current Living Situation Comment: lives with son 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 Physical Exam Physical Exam: General Appearance: WD/WN, vitals as above, NAD, sitting up in bed, dyspneic when speaking on 3L NC, morbidly obese Head: normocephalic, atraumatic Eyes: normal inspection, PERRL, conjunctivae normal, anicteric sclerae ENT: external ear and nose normal, oropharynx normal Neck: trachea midline, no thyromegaly normal visual inspection Respiratory: decreased lung sounds bilaterally but clear to auscultation, no wheeze, rales, rhonchi. Normal insp/exp effort, no accessory muscle use Cardiovascular: tachycardic, regular rhythm, no murmur appreciated, normal peripheral pulses. Vessels: no JVD or carotid bruit Chest: normal inspection of chest Abdomen/GI: normal bowel sounds, soft, nontender, no hepatosplenomegaly Extremities/Musculoskelatal: no cyanosis or clubbing, extremities motor strength 5/5 Neurologic: PERRL, EOMI, accommodation nl, no face palsy, no dysarthria CN's II-XI intact bilaterally and moves all extremities Psychiatric: A+Ox3, euthymic affect Skin: no rashes, normal color, warm/dry. LLE with large plaque-like erythematous wounds on anterior browne with some clear drainage. RLE with smaller wound on anterior browne, no drainage. Results & Data Vital Signs (Past 12 Hours) Vital Signs Temp Pulse Resp BP BP Pulse Ox 07/01/19 09:55 134/90 07/01/19 08:37 20 99 07/01/19 08:02 38.1 C H 96 H 20 202/69 H 96 Laboratory Results Short CBC 07/01/19 Range/Units 08:45 WBC 13.72 H (4.8-10.8) K/uL Hgb 11.0 L (12.0-16.0) g/dL Hct 35.5 L (37-47) % Plt Count 172 (130-400) K/uL BMP 07/01/19 08:45 Sodium 137 Potassium 3.8 Chloride 100 Carbon Dioxide 27 BUN 17 Creatinine 0.94 Glucose 246 H Calcium 9.7 Cardiac Enzymes 07/01/19 Range/Units 08:45 Total Creatine Kinase 43 (26-192) U/L CK-MB (CK-2) 1.0 (0.5-3.6) ng/ml Troponin I 0.087 H* (0-0.045) ng/ml Liver Function 07/01/19 Range/Units 08:45 Total Bilirubin 0.5 (0.2-1) mg/dl AST 15 (15-37) U/L ALT 37 (12-78) U/L Alkaline Phosphatase 65 (45-117) U/L Albumin 3.8 (3.4-5.0) gm/dl Urine 07/01/19 Range/Units 09:50 Urine Color Yellow Urine Appearance Cloudy A (Clear) Urine pH 5.0 (4.5-7.5) Ur Specific [place] 1.030 (1.000-1.030) Urine Protein 1+ H (Negative) Urine Glucose (UA) 3+ H (Negative) Diagnostic Findings CXR: IMPRESSION: Cardiomegaly with pulmonary vascular congestion. CT abd/pelvis without contrast: IMPRESSION: 1. Allowing for noncontrast technique, no acute intra-abdominal pathology. 2. Left common and external iliac and left inguinal lymphadenopathy. This raises concern for lymphoproliferative disease or metastases. Left inguinal lymphadenopathy would likely be amenable to ultrasound-guided biopsy. 3. Borderline splenomegaly. 4. Hepatomegaly and hepatic steatosis. 5. Possible cholelithiasis. CT lumbar spine: IMPRESSION: 1. No acute fracture, subluxation or suspicious bone lesion identified. 2. Degenerative changes as above. 3. Indeterminate left iliac chain adenopathy. Please refer to CT abdomen and pelvis study of same day. Supervising Physician Co-Signing Physician Notes I, Dr. Emanuel Kennedy, have seen and examined the patient with physician chemistry research assistant and would like to comment that: Padmini Manzo is a 69 year old female who presents with mildly elevated body temperature of 38.1 C (100.58 F) with ELEVATED LACTIC ACID of 3.8 and mildly elevated troponin of 0.087 but no chest pain and mildly elevated procalcitonin C. Patient is also volume overloaded and on chest X ray with Cardiomegaly with pulmonary vascular congestion. Because symptoms are somewhat non specific and no clear source of infection, meets SIRs CRITERIA and POSSIBLE SEPSIS, will try to rule out any POSSIBLE BACTERMIA with blood cultures and empiric antibiotics of Zosyn. Because there is some VOLUMEOVERLOAD of the lungs, patient was ordered 1 liter of IV fluids and will have lactic followed and then to get IV fluids as needed. Diuretic of Lasix 40 mg IV x 1 given in the ED. Lactic acid level stacey to 4.4. Additional 1 liter of normal saline to be given. Patient to be scheduled for IV Lasix later in the evening CT abdomen findings 1. Allowing for noncontrast technique, no acute intra-abdominal pathology. 2. Left common and external iliac and left inguinal lymphadenopathy. This raises concern for lymphoproliferative disease or metastases. Left inguinal lymphadenopathy would likely be amenable to ultrasound-guided biopsy. 3. Borderline splenomegaly. 4. Hepatomegaly and hepatic steatosis. 5. Possible cholelithiasis. -no acute abdominal pain -no skin tenderness or rashes of the inguinal area -chronic skin changes of bilateral leg -in regards to the INGUINAL LYMPHADENOPATHY, may be secondary to either infection vs trauma vs malignancy Patient will be treated with IV antibiotics Patient had outpatient vascular workup of left lower extremity in April 2019 so there could some concern for trauma from procedure reactive lymph nodes Also discussed with patient about needle biopsy of left inguinal lymph node to rule out malignancy and patient agrees to this workup Agree with assessment and plan of physician chemistry research assistant for other medical issues as described On Physical Exam General: obese patient, no acute distress Lungs: on nasal cannula oxygen, no wheezing, no stridor. Heart: regular rate and rhythm Abdomen: no acute pain on palpation, positive bowel sounds, no skin tenderness or rashes of the inguinal area Extremities: chronic skin changes of bilateral leg My colleague Dr. Baez will be following the patient as hospitalist starting on 07/02/19
[2019-07-01] MEDS ORDERED: GLUCOSE 40% GEL 15 GM TUBE PO PRN (13:36)
[2019-07-01] MEDS ORDERED: CARBOHYDRATES FOR HYPOGLYCEMIA PO PRN (13:36)
[2019-07-01] MEDS ORDERED: DEXTROSE 50% 50 ML SYRINGE IV PRN (13:36)
[2019-07-01] MEDS ORDERED: GLUCOSE 10 TABS/TUBE PO PRN (13:36)
[2019-07-01] MEDS ORDERED: GLUCAGON FOR INJ 1 MG VIAL SQ PRN (13:36)
[2019-07-01] MEDS ORDERED: ALBUTEROL HFA 8 GM INHALER INH PRN (14:00)
[2019-07-01] MEDS ORDERED: SODIUM CHLORIDE 0.9% 1000ML 1,000 ML IV ONE ×2 (14:50→17:26)
[2019-07-01] MEDS ORDERED: HEPARIN SOD 5,000 UNIT/0.5 ML VIAL SQ STA (15:11)
--- NOTE | 2019-07-01 15:26 | Emergency Department Note ---
Entered by Olvin Pressley acting as a scribe for History of Present Illness General Chief complaint: Flu Like Symptoms Stated complaint: WEAKNESS,FEVER,SEVERE BACK PAIN,HEADACHE Time Seen by Provider: 07/01/19 09:07 Source: patient History of Present Illness Provider complaint: Flu like symptoms Onset (ago): hour(s) 7 Location: head Pain Consistency: + constant Maximum Pain Intensity: 5 Current Pain Intensity: 6 Exacerbated By: + none Associated symptoms: + headaches, + shortness of breath and + other (Abdominal pain) The patient is a 69 year old female who presents to the Emergency Room with complaints of constant flu like symptoms that started this morning around 01:00. The patient states she woke up with severe left sided back pain and a headache that she rates a 6/10. The patient also has had a constant fever and shortness of breath as well as some non-radiating suprapubic abdominal pain. The patient adds that nothing makes her symptoms worse. The patient has a history of COPD and is normally on 3L of oxygen at baseline and CiPAP at night however upon arrival to the ED she is on 4.5L. The patient has a history of UTIs but notes none of these symptoms feel similar. The patient states that she did not take any of her morning medications. The patient also has a history of diabetes and lung cancer. Home Medications Home Medications Medication Instructions Recorded Confirmed Type Oxygen Home #1 ea 12/31/18 07/01/19 History acetaminophen 325 mg capsule 650 mg PO QID PRN cap 12/31/18 07/01/19 History albuterol sulfate 90 mcg/actuation 2 inha INH Q4H PRN ea 12/31/18 07/01/19 History breath activated powder inhaler aspirin 81 mg tablet,delayed 81 mg PO QAM 12/31/18 07/01/19 History release metformin ER 500 mg 500 mg PO BID tab 12/31/18 07/01/19 History tablet,extended release 24 hr oxybutynin chloride 5 mg tablet 5 mg PO TID 12/31/18 07/01/19 History simvastatin 20 mg tablet 20 mg PO HS 12/31/18 07/01/19 History doxycycline hyclate 100 mg tablet 100 mg PO bid #28 tab 06/02/19 07/01/19 Rx nystatin-triamcinolone 1 applic TOPICAL BID 07/01/19 07/01/19 History torsemide 10 mg PO WE 07/01/19 07/01/19 History Allergies Allergy/AdvReac Type Severity Reaction Status Date / Time naproxen Allergy Intermediate throat Verified 07/01/19 09:16 swelling cephalexin Allergy Unknown RASH Verified 07/01/19 09:16 Past Med/Surg History Medical History H/O: hysterectomy (Chronic) Necrobiosis lipoidica diabeticorum (Chronic) Venous stasis ulcers (Chronic) Adenocarcinoma of left lung, stage 1 (Chronic) COPD (chronic obstructive pulmonary disease) (Chronic) Cataracts, bilateral (Chronic) Dermatitis (Chronic) Diabetes (Chronic) Endometriosis (Chronic) Morbid obesity (Chronic) Obstructive sleep apnea (Chronic) Urinary incontinence (Chronic) Surgical History S/P lobectomy of lung (Chronic) Thoracoscopy w/ Lobectomy Left 03/28/2017 malignant neoplasm JOLENE bronchus, with VATS Provider S/P hysterectomy (Chronic) History of lung surgery (Resolved) Family History Other Cancer Heart disease Social History Preferred Language: Thai Communication Ability: Effective Visual Impairment: No Limitations Hearing Ability: Normal Insurance Verification Specialist Required: No Beliefs That Will Affect Care: None marital status: Single Current Living Situation: Family Current Living Situation Comment: lives with son 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 and A total of 10 systems reviewed and were otherwise negative Physical Exam Vital Signs Vital Signs - 24 hr 07/01/19 08:02 07/01/19 08:37 07/01/19 09:55 Temperature 38.1 C H Temperature Source Oral Sepsis Recent Fever Within 48 Hours No Sepsis Action Taken by Nursing No Action Required Pulse Rate 96 H Respiratory Rate 20 20 Respiratory Effort / Characteristics Non-Labored Non-Labored Spontaneous Respiratory Depth Normal Blood Pressure 202/69 H Blood Pressure [Left Arm] 134/90 Blood Pressure Mean 113 Blood Pressure Mean [Left Arm] 104 Pulse Oximetry 96 99 Oxygen Delivery Method Nasal Cannula Nasal Cannula Oxygen Flow Rate 3 3 GENERAL: Awake, alert, well-appearing, in no distress HENT: Normocephalic, atraumatic. Oropharynx unremarkable. EYES: Normal conjunctiva. Sclera non-icteric. NECK: Supple. No nuchal rigidity. FROM. No masses. RESPIRATORY: Wheezing bilaterally. No rales. Normal respiratory effort. CARDIAC: Normal rate. Normal rhythm. No murmurs. No rubs. Extremities warm and well perfused. Pulses equal. No JVD. GI: Soft, non-distended. No tenderness to palpation. No rebound or guarding. No masses. RECTAL: Deferred. MUSCULOSKELETAL: Atraumatic. Chest examination reveals no tenderness. The back is symmetrical on inspection without obvious abnormality. There is no CVA tenderness to palpation. No joint edema. LOWER EXTREMITIES: Calves are equal size bilaterally and non-tender. No edema. No discoloration. NEURO: Normal sensorium. No sensory or motor deficits noted. Course 0810: Past medical records reviewed. The patient was evaluated in room A02 by the resident Dr. Uriostegui, and a complete history and physical examination were performed. I then performed my own assessment. 0920: I reevaluated the patient and she is resting in bed. I updated her on results and discussed the likely treatment plan. She is agreeable with the plan. 1022: Dr. Uriostegui spoke to Aleena Burton PAC under Dr. Brent Looney about the patient's case. They are going to accept the patient for further evaluation. 1030: The patient did meet criteria for fluids for sepsis however due to the pulmonary edema and gross hypertension, fluids were held. Consultations Consultation #1: Dr. Uriostegui spoke to Aleena Burton PAC under Dr. Brent Looney about the patient's case. They are going to accept the patient for further evaluation. Time: 10:22 Administered Medications Discontinued Medications Acetaminophen (Tylenol) 1,000 mg PO NOW STA Stop: 07/01/19 08:49 Last Admin: 07/01/19 09:26 Dose: 1,000 mg Documented by: [id number] Albuterol (Duoneb) 12 ml NEB ONE ONE Stop: 07/01/19 08:26 Last Admin: 07/01/19 08:34 Dose: 12 ml Documented by: [id number] Furosemide (Lasix) 40 mg IV NOW STA Stop: 07/01/19 09:00 Last Admin: 07/01/19 09:25 Dose: 40 mg Documented by: [id number] Hydromorphone HCl (Dilaudid) 0.5 mg IV Q15M PRN PRN Reason: Pain Stop: 07/15/19 09:18 Last Admin: 07/01/19 09:40 Dose: 0.5 mg Documented by: [id number] Admin: 07/01/19 09:25 Dose: 0.5 mg Documented by: [id number] Levofloxacin/Dextrose (Levaquin/D5w) 750 mg in 150 mls @ 100 mls/hr IV NOW STA Stop: 07/01/19 10:14 Last Infusion: 07/01/19 11:10 Dose: 0 mls/hr Documented by: [id number] Admin: 07/01/19 09:26 Dose: 100 mls/hr Documented by: [id number] Piperacillin Sod/Tazobactam Sod (Zosyn) 4.5 gm in 120 mls @ 240 mls/hr IV NOW ONE Stop: 07/01/19 09:14 Last Infusion: 07/01/19 11:39 Dose: 0 mls/hr Documented by: [id number] Admin: 07/01/19 11:09 Dose: 240 mls/hr Documented by: [id number] Medical Decision Making Differential Diagnosis Differential diagnoses includes but is not limited to pneumonia, bronchitis, COPD/Asthma exacerbation, pneumothorax, pulmonary embolism, congestive heart failure, acute coronary syndrome, amongst others. Medical Records Attestation: I reviewed the patient's medical records. Home Medications Current Medication List: was personally reviewed by me Laboratory Data Attestation: I reviewed the patient's lab results. Result diagrams: 07/01/19 08:45 07/01/19 08:45 Lab Results 07/01/19 07/01/19 07/01/19 Range/Units 08:30 08:40 08:45 WBC (4.8-10.8) K/uL RBC (4.2-5.4) M/uL Hgb (12.0-16.0) g/dL POC Hgb (12.0-16.0) g/dl Hct (37-47) % POC Hct (37-47) % MCV (80-100) fL MCH (25-34) pg MCHC (32-36) g/dL RDW Std Deviation (36.4-46.3) fL RDW Coeff of Olivia (11.5-14.5) % Plt Count (130-400) K/uL MPV (7.4-10.4) fL Immature Gran % (Auto) % Neut % (Auto) % Lymph % (Auto) % [place] % (Auto) % Eos % (Auto) % Baso % (Auto) % Immature Gran # (Auto) (0.00-0.02) K/uL Neut # (Auto) (1.4-6.5) K/uL Lymph # (Auto) (1.2-3.4) K/uL [place] # (Auto) (0.11-0.59) K/uL Eos # (Auto) (0-0.5) K/uL Baso # (Auto) (0-0.2) K/uL PT (9.0-12.0) Seconds INR (0.9-1.1) APTT (21.0-31.0) Seconds PTT Ratio POC Sodium (135-144) mEq/L Sodium (136-145) mmol/L POC Potassium (3.3-5.0) mEq/L Potassium (3.5-5.1) mmol/L POC Chloride (101-112) mEq/L Chloride (98-107) mmol/L Carbon Dioxide (21-32) mmol/L POC Total CO2 (24-31) mEq/l Anion Gap (3-11) POC Anion Gap (16-25) mmol/L POC BUN (7-18) mg/dl BUN (7-18) mg/dl Creatinine (0.6-1.2) mg/dl POC Creatinine (0.6-1.3) mg/dl Est Cr Clr Drug Dosing Est GFR ( Amer) Est GFR (Non-Af Amer) BUN/Creatinine Ratio (10-20) Glucose (70-99) mg/dl POC Glucose (other) (70-99) mg/dl Lactate 3.8 H* (0.4-2.0) mmol/L Calcium (8.5-10.1) mg/dl POC Ioniz Calcium Cy (1.12-1.32) mmol/l Total Bilirubin (0.2-1) mg/dl AST (15-37) U/L ALT (12-78) U/L Alkaline Phosphatase (45-117) U/L Total Creatine Kinase (26-192) U/L CK-MB (CK-2) (0.5-3.6) ng/ml CK/CKMB % Calc (0-3.0) Troponin I (0-0.045) ng/ml Total Protein (6.4-8.2) gm/dl Albumin (3.4-5.0) gm/dl Globulin (2.5-4.0) gm/dl Albumin/Globulin Ratio (0.9-2) Procalcitonin 0.52 H (0-0.5) ng/ml Urine Color Urine Appearance (Clear) Urine pH (4.5-7.5) Ur Specific [place] (1.000-1.030) Urine Protein (Negative) Urine Glucose (UA) (Negative) Urine Ketones (Negative) Urine Blood (Negative) Urine Nitrite (Negative) Urine Bilirubin (Negative) Urine Urobilinogen (Negative) Ur Leukocyte Esterase (Negative) Urine WBC (Auto) (0-5) /hpf Urine RBC (Auto) (0-4) /hpf U Hyaline Cast (Auto) (0-5) /lpf U Epithel Cells (Auto) (0-5) /lpf Urine Bacteria (Auto) (Negative) Influenza Type A (PCR) Neg for Influ A (Neg) Influenza Type B (PCR) Neg for Influ B (Neg) 07/01/19 07/01/19 07/01/19 Range/Units 08:45 08:45 08:45 WBC 13.72 H (4.8-10.8) K/uL RBC 4.30 (4.2-5.4) M/uL Hgb 11.0 L (12.0-16.0) g/dL POC Hgb (12.0-16.0) g/dl Hct 35.5 L (37-47) % POC Hct (37-47) % MCV 82.6 (80-100) fL MCH 25.6 (25-34) pg MCHC 31.0 L (32-36) g/dL RDW Std Deviation 49.5 H (36.4-46.3) fL RDW Coeff of Olivia 16.5 H (11.5-14.5) % Plt Count 172 (130-400) K/uL MPV 9.5 (7.4-10.4) fL Immature Gran % (Auto) 0.4 % Neut % (Auto) 91.7 % Lymph % (Auto) 2.3 % [place] % (Auto) 5.5 % Eos % (Auto) 0.0 % Baso % (Auto) 0.1 % Immature Gran # (Auto) 0.05 H (0.00-0.02) K/uL Neut # (Auto) 12.57 H (1.4-6.5) K/uL Lymph # (Auto) 0.32 L (1.2-3.4) K/uL [place] # (Auto) 0.76 H (0.11-0.59) K/uL Eos # (Auto) 0.00 (0-0.5) K/uL Baso # (Auto) 0.02 (0-0.2) K/uL PT 10.9 (9.0-12.0) Seconds INR 1.1 (0.9-1.1) APTT 24.3 (21.0-31.0) Seconds PTT Ratio 0.9 POC Sodium (135-144) mEq/L Sodium 137 (136-145) mmol/L POC Potassium (3.3-5.0) mEq/L Potassium 3.8 (3.5-5.1) mmol/L POC Chloride (101-112) mEq/L Chloride 100 (98-107) mmol/L Carbon Dioxide 27 (21-32) mmol/L POC Total CO2 (24-31) mEq/l Anion Gap 10.0 (3-11) POC Anion Gap (16-25) mmol/L POC BUN (7-18) mg/dl BUN 17 (7-18) mg/dl Creatinine 0.94 (0.6-1.2) mg/dl POC Creatinine (0.6-1.3) mg/dl Est Cr Clr Drug Dosing Not Reportable Est GFR ( Amer) 72.8 Est GFR (Non-Af Amer) 62.8 BUN/Creatinine Ratio 18.4 (10-20) Glucose 246 H (70-99) mg/dl POC Glucose (other) (70-99) mg/dl Lactate (0.4-2.0) mmol/L Calcium 9.7 (8.5-10.1) mg/dl POC Ioniz Calcium Cy (1.12-1.32) mmol/l Total Bilirubin 0.5 (0.2-1) mg/dl AST 15 (15-37) U/L ALT 37 (12-78) U/L Alkaline Phosphatase 65 (45-117) U/L Total Creatine Kinase 43 (26-192) U/L CK-MB (CK-2) 1.0 (0.5-3.6) ng/ml CK/CKMB % Calc 2.3 (0-3.0) Troponin I 0.087 H* (0-0.045) ng/ml Total Protein 7.1 (6.4-8.2) gm/dl Albumin 3.8 (3.4-5.0) gm/dl Globulin 3.3 (2.5-4.0) gm/dl Albumin/Globulin Ratio 1.2 (0.9-2) Procalcitonin (0-0.5) ng/ml Urine Color Urine Appearance (Clear) Urine pH (4.5-7.5) Ur Specific [place] (1.000-1.030) Urine Protein (Negative) Urine Glucose (UA) (Negative) Urine Ketones (Negative) Urine Blood (Negative) Urine Nitrite (Negative) Urine Bilirubin (Negative) Urine Urobilinogen (Negative) Ur Leukocyte Esterase (Negative) Urine WBC (Auto) (0-5) /hpf Urine RBC (Auto) (0-4) /hpf U Hyaline Cast (Auto) (0-5) /lpf U Epithel Cells (Auto) (0-5) /lpf Urine Bacteria (Auto) (Negative) Influenza Type A (PCR) (Neg) Influenza Type B (PCR) (Neg) 07/01/19 07/01/19 Range/Units 08:53 09:50 WBC (4.8-10.8) K/uL RBC (4.2-5.4) M/uL Hgb (12.0-16.0) g/dL POC Hgb 11.6 L (12.0-16.0) g/dl Hct (37-47) % POC Hct 34 L (37-47) % MCV (80-100) fL MCH (25-34) pg MCHC (32-36) g/dL RDW Std Deviation (36.4-46.3) fL RDW Coeff of Olivia (11.5-14.5) % Plt Count (130-400) K/uL MPV (7.4-10.4) fL Immature Gran % (Auto) % Neut % (Auto) % Lymph % (Auto) % [place] % (Auto) % Eos % (Auto) % Baso % (Auto) % Immature Gran # (Auto) (0.00-0.02) K/uL Neut # (Auto) (1.4-6.5) K/uL Lymph # (Auto) (1.2-3.4) K/uL [place] # (Auto) (0.11-0.59) K/uL Eos # (Auto) (0-0.5) K/uL Baso # (Auto) (0-0.2) K/uL PT (9.0-12.0) Seconds INR (0.9-1.1) APTT (21.0-31.0) Seconds PTT Ratio POC Sodium 137 (135-144) mEq/L Sodium (136-145) mmol/L POC Potassium 3.8 (3.3-5.0) mEq/L Potassium (3.5-5.1) mmol/L POC Chloride 96 L (101-112) mEq/L Chloride (98-107) mmol/L Carbon Dioxide (21-32) mmol/L POC Total CO2 28 (24-31) mEq/l Anion Gap (3-11) POC Anion Gap 17.0 (16-25) mmol/L POC BUN 16 (7-18) mg/dl BUN (7-18) mg/dl Creatinine (0.6-1.2) mg/dl POC Creatinine 0.7 (0.6-1.3) mg/dl Est Cr Clr Drug Dosing Est GFR ( Amer) Est GFR (Non-Af Amer) BUN/Creatinine Ratio (10-20) Glucose (70-99) mg/dl POC Glucose (other) 255 H (70-99) mg/dl Lactate (0.4-2.0) mmol/L Calcium (8.5-10.1) mg/dl POC Ioniz Calcium Cy 1.16 (1.12-1.32) mmol/l Total Bilirubin (0.2-1) mg/dl AST (15-37) U/L ALT (12-78) U/L Alkaline Phosphatase (45-117) U/L Total Creatine Kinase (26-192) U/L CK-MB (CK-2) (0.5-3.6) ng/ml CK/CKMB % Calc (0-3.0) Troponin I (0-0.045) ng/ml Total Protein (6.4-8.2) gm/dl Albumin (3.4-5.0) gm/dl Globulin (2.5-4.0) gm/dl Albumin/Globulin Ratio (0.9-2) Procalcitonin (0-0.5) ng/ml Urine Color Yellow Urine Appearance Cloudy A (Clear) Urine pH 5.0 (4.5-7.5) Ur Specific [place] 1.030 (1.000-1.030) Urine Protein 1+ H (Negative) Urine Glucose (UA) 3+ H (Negative) Urine Ketones Negative (Negative) Urine Blood Negative (Negative) Urine Nitrite Negative (Negative) Urine Bilirubin Negative (Negative) Urine Urobilinogen Negative (Negative) Ur Leukocyte Esterase Negative (Negative) Urine WBC (Auto) 1-5 (0-5) /hpf Urine RBC (Auto) 0-4 (0-4) /hpf U Hyaline Cast (Auto) 5-10 H (0-5) /lpf U Epithel Cells (Auto) 10-20 H (0-5) /lpf Urine Bacteria (Auto) Negative (Negative) Influenza Type A (PCR) (Neg) Influenza Type B (PCR) (Neg) Imaging Data Radiologist's Impression: Radiology results as stated below per my review and the radiologist's interpretation: XR chest 1V portable HISTORY: 69 years-old Female Dyspnea acute shortness of breath COMPARISON: Chest radiograph 03/31/2017, chest CT 03/26/2019 TECHNIQUE: Portable AP view of the chest FINDINGS: Cardiac silhouette is enlarged. Dense mitral annular with thoracic aortic arch calcifications. Pulmonary vascular congestion with mild interstitial coarsening. No pneumothorax or large pleural effusion. Mild blunting of the costophrenic angles. No lobar airspace consolidation. There are 2 indeterminate round foci measuring up to 10 mm projecting over the left lateral midlung, likely related to bony bar formation between the posterior left fifth and sixth ribs as seen on comparison chest CT. Degenerative changes of the shoulders and spine with right shoulder rotator cuff calcific tendinosis IMPRESSION: Cardiomegaly with pulmonary vascular congestion. The above report was generated using voice recognition software. It may contain grammatical, syntax or spelling errors. Electronically signed by: Sergio Portillo M.D. 07/01/2019 9:[address] abd pelvis wo con CLINICAL HISTORY: 69 years-old Female presenting with Pt c/o left sided back pain. TECHNIQUE: Multidetector CT of the abdomen and pelvis was performed without the use of intravenous contrast. IV contrast: None. One or more dose lowering techniques were used consistent with the principles of ALARA (as low as reasonably achievable), including automatic exposure control, mA or kV adjustment to individual patient size, and/or use of iterative reconstruction. COMPARISON: Head CT from 03/21/2017. CT DOSE (mGy.cm): The estimated cumulative dose is 2207.92 mGy.cm. FINDINGS: [employer] topogram: Unremarkable. Motion artifact moderately degrades evaluation of the upper abdomen decreasing diagnostic sensitivity to a moderate degree. Lung bases: Dense mitral annular calcification. Coronary artery calcification also noted. Borderline cardiomegaly. No pericardial or pleural effusion. Minimal dependent changes likely atelectasis. Pulmonary vascular prominence. Liver: Enlarged. Density consistent with hepatic steatosis. Biliary: No gross biliary ductal dilatation allowing for noncontrast technique. Possible gallstones at the gallbladder neck. Pancreas: Moderate parenchymal atrophy. Spleen: Top normal in size measuring 13.3 cm in maximal sagittal dimension. Adrenal glands: Normal noncontrast appearance. Kidneys and ureters: Normal noncontrast appearance. No nephrolithiasis. No hydronephrosis. Normal ureters. Bladder: Urinary bladder decompressed with a Briggs catheter. Intraluminal gas related to the presence of the catheter. Pelvic organs: Uterus surgically absent. Bowel: Normal appendix. No bowel obstruction. Peritoneal cavity: No free fluid or intraperitoneal gas. Lymph nodes: Enlarged left external iliac lymph node measuring 13 mm in short axis (series 3 image 415). A left common iliac lymph node measures 17 mm in short axis. Left inguinal lymphadenopathy also evident with a lymph node measuring 19 mm in short axis. Less a degree of lymph node enlargement in a similar distribution on the right. No significant upper abdominal lymphadenopathy. Vasculature: Atherosclerosis of the normal caliber abdominal aorta. Abdominal wall: Nonspecific subcutaneous edema in the lumbar region.. Musculoskeletal: Normal. IMPRESSION: 1. Allowing for noncontrast technique, no acute intra-abdominal pathology. 2. Left common and external iliac and left inguinal lymphadenopathy. This raises concern for lymphoproliferative disease or metastases. Left inguinal lymphadenopathy would likely be amenable to ultrasound-guided biopsy. 3. Borderline splenomegaly. 4. Hepatomegaly and hepatic steatosis. 5. Possible cholelithiasis. Electronically signed by: Jason Vargas M.D. 07/01/2019 10:[address] lumbar spine wo con HISTORY: 69 years-old Female Pt c/o low back pain acute left-sided low back pain without reported trauma. History of lung cancer. COMPARISON: CT abdomen and pelvis of same day, PET CT 03/21/2017 TECHNIQUE: Multiple axial CT images of the lumbar spine were obtained without the use of IV contrast. Coronal and sagittal reformatted images were obtained from the axial data set and were submitted for review. A dose lowering technique was used consistent with the principals of ALARA. FINDINGS: Mildly demineralized appearance of the bones. No significant intervertebral disc space narrowing. Mild multilevel spondylitic spurring with moderate multilevel facet arthrosis. Moderate to severe facet arthrosis at L4-L5 and L5-S1. No acute fracture, subluxation or suspicious bone lesion identified. The imaged sacrum and iliac bones also appear intact. Minimal convex left curvature of the lumbar spine. Study is mildly limited secondary to body habitus. Multilevel ligamentum flavum thickening. Evaluation of the central canal and neuroforamina is better assessed by MRI. No definite high-grade central canal stenosis. There is a least mild left-sided L4-L5 foraminal narrowing. No definite high-grade foraminal stenosis. Calcified plaque of the abdominal aorta. Left iliac chain adenopathy measures up to 2.0 x 1.6 cm. Paraspinal tissues are within normal limits. IMPRESSION: 1. No acute fracture, subluxation or suspicious bone lesion identified. 2. Degenerative changes as above. 3. Indeterminate left iliac chain adenopathy. Please refer to CT abdomen and pelvis study of same day. The above report was generated using voice recognition software. It may contain grammatical, syntax or spelling errors. Electronically signed by: Sergio Portillo M.D. 07/01/2019 10:22 AM Blood Pressure Blood Pressure Findings: Elevated blood pressure Blood Pressure Disposition: further management by hospitalist ADONIS Aparicio This is a 69-year-old female who presents emergency department with running a fever and high respiratory rate as well as tachycardia. She was also found to have an elevation in her lactate. She was given an hour-long breathing treatment here in the emergency department and started on broad-spectrum antibi otics including Zosyn and Levaquin. I did discuss her case with the hospitalist service who agreed to admit the patient. Patient and family were in agreement with the treatment plan. She does appear to be volume overloaded on physical examination as well as chest x-ray and with her high blood pressure we did not give the patient fluid. She was instead given Lasix. Impression & Plan Venous stasis ulcers of both lower extremities, Sepsis, Elevated troponin, Back pain Critical Care Time I have personally spent greater than 30 minutes of critical care time in the direct management of this patient. This includes bedside care, interpretation of diagnostic studies, and testing, discussion with consultants, patient, and family members, and other required patient management activities. This 30 minutes is in excess of all separately billable procedures. Discharge Plan Visit Data *Final* Discharge Date/Time: 07/01/19 12:26 Chief Complaint: Flu Like Symptoms Stated Complaint: WEAKNESS,FEVER,SEVERE BACK PAIN,HEADACHE ED Provider: Gaudencio Kaufman ED Midlevel Provider: Lashanda Uriostegui Discharge Problem: Venous stasis ulcers of both lower extremities, Sepsis, Elevated troponin, Back pain Patient Disposition: Admitted As Inpatient Discharge Instructions Interventions: ED Discharge Assessment Last Done: 07/01/19 12:26 Discharge Problem: Sepsis Qualifiers: Sepsis type: sepsis due to unspecified organism Sepsis acute organ dysfunction status: unspecified Qualified Code(s): A41.9 - Sepsis, unspecified organism Back pain Qualifiers: Back pain location: low back pain Chronicity: acute Back pain laterality: left Sciatica presence: without sciatica Qualified Code(s): M54.5 - Low back pain The scribe's documentation has been prepared under my direction and personally reviewed by me in its entirety. I confirm that the note above accurately reflects all work, treatment, procedures, and medical decision making performed by me.
[2019-07-01] MEDS: ACETAMINOPHEN 325 MG TAB PO PRN (16:05)
[2019-07-01] MEDS: OXYBUTYNIN CHLORIDE 5 MG TAB PO SCH ×2 (16:06→20:24)
[2019-07-01] MEDS: PIPERACILLIN/TAZOBACTAM 4.5 GM in DEXTROSE 5% 100 ML IV SCH (16:10)
[2019-07-01] MEDS ORDERED: FUROSEMIDE 20 MG in SYRINGE 0 ML IV ONE ×2 (17:30→21:00)
[2019-07-01] MEDS ORDERED: TRAMADOL HCL 50 MG TABLET PO PRN (17:35)
[2019-07-01] MEDS: INSULIN ASPART 100 UNITS/ML 3 ML PEN SC SCH ×2 (17:45→20:25)
[2019-07-01] MEDS: SIMVASTATIN 20 MG TAB PO SCH (20:24)
[2019-07-01] MEDS: NYSTATIN/TRIAMCIN CR 15 GM TUBE EXT SCH (20:25)
[2019-07-01] MEDS ORDERED: DOXYCYCLINE HYCLATE 100 MG CAP PO SCH (21:00)
[2019-07-01] MEDS ORDERED: FUROSEMIDE 40 MG in SYRINGE 0 ML IV SCH (21:00)
[2019-07-01] MEDS ORDERED: PROMETHAZINE HCL 12.5 MG in SODIUM CHLORIDE 0.9% 50 ML IV PRN (22:19)
[2019-07-02] MEDS: ACETAMINOPHEN 325 MG TAB PO PRN ×3 (00:09→16:10)
[2019-07-02] MEDS: PIPERACILLIN/TAZOBACTAM 4.5 GM in DEXTROSE 5% 100 ML IV SCH ×3 (00:16→15:28)
[2019-07-02 07:16] LABS: Hematocrit (blood only) 33.3 % (37-47); Hemoglobin 10.3 g/dL (12.0-16.0); Mean Corpuscular Hemoglobin 25.7 pg (25-34); Mean Corpuscular Hgb Conc 30.9 g/dL (32-36); Mean Platelet Volume 9.1 fL (7.4-10.4); Platelet Count 139 K/uL (130-400); RDW Coefficient of Variation 16.7 % (11.5-14.5); RDW Standard Deviation 51.1 fL (36.4-46.3); Red Blood Count 4.01 M/uL (4.2-5.4); White Blood Count 7.22 K/uL (4.8-10.8)
[2019-07-02 07:52] LABS: BUN Creatinine Ratio 17.9 (10-20); Calcium 8.9 mg/dl (8.5-10.1); Creatinine Clr Calc Pharmacy 90.2 ml/min; Est GFR (African American) 97.2; Est GFR (Non-African American) 83.8; Potassium 3.3 mmol/L (3.5-5.1)
[2019-07-02] MEDS: OXYBUTYNIN CHLORIDE 5 MG TAB PO SCH ×3 (07:59→21:00)
[2019-07-02] MEDS: ASPIRIN 81 MG ECTAB PO SCH (08:00)
[2019-07-02] MEDS: NYSTATIN/TRIAMCIN CR 15 GM TUBE EXT SCH ×2 (08:00→21:00)
[2019-07-02 08:10] LABS: Estimated Average Glucose 143 mg/dl; Hemoglobin A1C 6.6 % (4.5-5.6)
[2019-07-02] MEDS ORDERED: POTASSIUM CHLORIDE 20 MEQ TABCR PO ONE (08:15)
[2019-07-02] MEDS ORDERED: FUROSEMIDE 40 MG in SYRINGE 0 ML IV SCH (09:00)
--- NOTE | 2019-07-02 09:40 | Ultrasound Report ---
US extremity non-vascular ltd CLINICAL HISTORY: L inguinal LAD, discussed with radiology, 07/02 COMPARISON STUDY: CT 07/01/2019 FINDINGS: Following description of the procedure and informed consent, a survey evaluation of the lef t inguinal region measures 1. This shows several benign-appearing somewhat prominent nodes. This is i n the presence of a long-standing left lower extremity infection which is currently treated at [facility] Given the fatty hilum, these are felt to be reactive. Given the patient's body habitus and inability to lay flat, the study was considered to be technicall y not possible to do appropriately. IMPRESSION: 1. Study is technically/safely difficult to perform due to body habitus considerations and inability to lie flat. 2. Given the presence of a lower extremity infection, there is a high probability of these lymph node s are benign. Biopsy was therefore deferred. 3. When the patient's lower extremity infection has resolved or improved, a repeat CT study would BE suggested to exclude progression and/or ensure resolution. Consideration of rebiopsy at that time, if deemed necessary, would be reconsidered. 4. If this remains technically impossible, a PET scan would be suggested. The above report was generated using voice recognition software. It may contain grammatical, syntax or spelling errors. Electronically signed by: Blaze Montero M.D. 07/02/2019 9:38 AM
[2019-07-02] MEDS: INSULIN ASPART 100 UNITS/ML 3 ML PEN SC SCH ×4 (10:30→21:00)
--- NOTE | 2019-07-02 16:52 | Hospitalist Progress Note ---
Date of Service July 02, 2019 Assessment & Plan (1) Sepsis: resuscitated, however, source of sepsis now appears to be cellulitis superimposed on her chronic LE wounds. Inguinal LAD likely reactive as suggested by radiology. LN biopsy was not performed today but repeat imaging will need to occur as outpatient once infection has completely cleared. For now switch Zosyn to Vancomycin for empiric MRSA coverage. Wound culture pending. (2) Cellulitis of left lower extremity: Plan as above. (3) Necrobiosis lipoidica diabeticorum: chronic (4) Chronic respiratory failure: 2/2 COPD. No flare. No wheezing on exam. Chronic shortness of breath reported that is unchanged. Cont supplemental oxygen per home regimen. OF note, Lasix was initially given with IVF as patient had some pulmonary congestion of xray. However, she is not symptomatic, lungs are clear to auscultation. Echo is normal. Will stop Lasix at this time. She may have some diastolic dysfunction, however, is only on torsemide PRN leg swelling taking it around once weekly. Also, she avoids diuretics as she has a chronic issue with urinary incontinence which restricts her daily functions. (5) Lymphadenopathy, inguinal: plan as above. (6) CLYDE on CPAP: cont home CPAP therapy (7) Diabetes mellitus, type II: A1C 6.6 reflects good control. Hold tradjenta while hospitalized and cont basal bolus insulin. (8) Back pain: chronic, improved from yesterday. Cont supportive care as needed. (9) Anemia: possibly secondary to dilution from IVF resuscitation during sepsis. Consider iron studies. (10) Obesity: (11) Urinary incontinence: chronic, cont oxybutinin. Briggs removed. (12) DVT prophylaxis: Lovenox. Resuscitation OK with no intubation. Dispo-plan for home when medically stable. Debbie Jolly DO [facility] Hospitalist Subjective 69 yo female reports coming in yesterday for severe pain in her back and legs. She has bilateral lower extremity leg wounds which appear infected today despite zosyn therapy as she has spreading erythema proximal to the knee. She has been afebrile overnight. She denies any worsening SOB. She denies cough or fluid retention. She cannot ambulate well because of obesity and severe knee arthritis. She has CLYDE on CPAP therapy. She is on continuous oxygen for COPD. She feels better from a pain standpoint. Wound care went to see her today. They took pictures then wrapped her legs. Review of Systems Review of Systems: All systems reviewed & are unremarkable except as noted in HPI & below Physical Exam Physical Exam: CONSTITUTIONAL: obese, vitals as above, generally well- appearing EYES: normal conjunctivae, no scleral icterus ENT: MMM, edentulous NECK: trachea midline, no JVD RESPIRATORY: clear to auscultation bilaterally, no crackles, rales or wheezes, normal respiratory effort CARDIOVASCULAR: regular rate and rhythm, S1 and 2 heard without murmurs, gallops or rubs, no JVD, no peripheral edema GASTROINTESTINAL: obese, soft, nontender, nondistended MUSCULOSKELETAL: strength 5/5 throughout, head is normocephalic and atraumatic SKIN: warm and dry, scaly erythematous rash to LLE with spreading erythema above the knee area. RLE with no surrounding erythema with a scaly erythematous wound on anterior tibia area of RLE. NEUROLOGIC: CN 2-12 grossly intact, no sensory deficit, normal cognition, normal speech, no gross focal deficits. PSYCHIATRIC: alert cooperative and oriented to person, place and time. Results & Data Vital Signs (Past 12 Hours) Vital Signs Temp Pulse Pulse Resp BP BP Pulse Ox 07/02/19 15:24 36.9 C 80 20 101/66 99 07/02/19 14:56 77 07/02/19 11:11 37.2 C 77 16 90/59 L 100 07/02/19 07:19 72 07/02/19 05:41 Pulse Ox 07/02/19 15:24 07/02/19 14:56 07/02/19 11:11 07/02/19 07:19 07/02/19 05:41 100 Laboratory Results Short CBC 07/02/19 Range/Units 07:03 WBC 7.22 (4.8-10.8) K/uL Hgb 10.3 L (12.0-16.0) g/dL Hct 33.3 L (37-47) % Plt Count 139 (130-400) K/uL BMP 07/02/19 07:03 Sodium 136 Potassium 3.3 L Chloride 100 Carbon Dioxide 32 BUN 13 Creatinine 0.74 Glucose 154 H Calcium 8.9 Cardiac Enzymes 07/01/19 Range/Units 21:14 Troponin I 0.065 H* (0-0.045) ng/ml Medications Administered Current Inpatient Medications Acetaminophen (Tylenol) 650 mg PO Q4H PRN PRN Reason: pain/fever Stop: 07/31/19 13:35 Last Admin: 07/02/19 16:10 Dose: 650 mg Documented by: Albuterol (Ventolin Hfa) 2 puffs INH Q4H PRN PRN Reason: Shortness Of Breath Or Wheezing Stop: 07/31/19 13:59 Aspirin (Ecotrin Ectab) 81 mg PO QAM [facility] Stop: 08/01/19 08:59 Last Admin: 07/02/19 08:00 Dose: 81 mg Documented by: Dextrose (Dextrose 50%) 25 - 50 ml IV UD PRN; Protocol PRN Reason: Hypoglycemia Protocol Stop: 07/31/19 13:35 Glucagon (Glucagen) 1 mg SQ UD PRN; Protocol PRN Reason: Hypoglycemia Protocol Stop: 07/31/19 13:35 Glucose (Glucose 40%) 15 - 30 gm PO UD PRN; Protocol PRN Reason: Hypoglycemia Protocol Stop: 07/31/19 13:35 Glucose (Dex4 Glucose) 4 - 8 tabs PO UD PRN; Protocol PRN Reason: Hypoglycemia Protocol Stop: 07/31/19 13:35 Promethazine HCl 12.5 mg/ (Sodium Chloride) 50.5 mls @ 202 mls/hr IV Q6H PRN PRN Reason: Nausea And Vomiting Stop: 07/31/19 22:18 Insulin Aspart (Novolog Flexpen) 0 units SC ACHS [facility] Stop: 07/31/19 16:29 Last Admin: 07/02/19 12:14 Dose: 12 units Documented by: Miscellaneous (Carbohydrates For Hypoglycemia) 15 - 30 gm PO UD PRN PRN Reason: Hypoglycemia Protocol Stop: 07/31/19 13:35 Miscellaneous Information (Pharmacy Consult) 1 ea N/A NOW STA Stop: 07/02/19 16:42 Nystatin/Triamcinolone Acetonide (Mycolog Ii) 1 appln EXT BID [facility] Stop: 07/31/19 20:59 Last Admin: 07/02/19 08:00 Dose: 1 appln Documented by: Oxybutynin Chloride (Ditropan) 5 mg PO TID [facility] Stop: 07/31/19 13:59 Last Admin: 07/02/19 13:52 Dose: 5 mg Documented by: Simvastatin (Zocor) 20 mg PO HS [facility] Stop: 07/31/19 20:59 Last Admin: 07/01/19 20:24 Dose: 20 mg Documented by: Tramadol HCl (Ultram) 50 mg PO Q6H PRN PRN Reason: Pain Stop: 07/31/19 17:44 Last Admin: 07/01/19 18:53 Dose: 50 mg Documented by: (1) Back pain Back pain laterality: left Back pain location: low back pain Chronicity: acute Sciatica presence: without sciatica Qualified Code(s): M54.5 - Low back pain (2) Sepsis Sepsis acute organ dysfunction status: unspecified Sepsis type: sepsis due to unspecified organism Qualified Code(s): A41.9 - Sepsis, unspecified organism
[2019-07-02] MEDS ORDERED: VANCOMYCIN CONSULT ACTIVE PRN (17:27)
[2019-07-02] MEDS ORDERED: ENOXAPARIN INJ 40 MG/0.4 ML SYR SQ SCH (18:00)
[2019-07-02] MEDS ORDERED: VANCOMYCIN HCL 2,750 MG in SODIUM CHLORIDE 0.9% 500 ML IV ONE (18:00)
--- NOTE | 2019-07-02 20:07 | Pharmacy Report ---
Pharmacy Abx Initial Consult - Date of Service July 02, 2019 - Pharmacy Dosing Scope Date of Consult: 07/02/19 Consultation requested by: Dr. Jolly Pharmacy is consulted to initiate Vancomycin IV dosing therapy, order appropriate labs and adjust drug dose/frequency. - Subjective The patient is a 69 year old F admitted on 07/01/19 11:43. - Objective Height: 5 ft 1 in Weight: 121.9 kg Vital Signs (Past 12hrs): Vital Signs Temp Pulse Pulse Resp BP BP Pulse Ox 07/02/19 15:24 36.9 C 80 20 101/66 99 07/02/19 14:56 77 07/02/19 11:11 37.2 C 77 16 90/59 L 100 Lab Results (24hrs): Laboratory Tests (24 Hours) 07/02/19 07/02/19 07:03 07:03 WBC 7.22 Creatinine 0.74 Est Cr Clr Drug Dosing 90.2 Micro Results: 07/01/19 09:16 Anaerobic Blood Culture - Final Blood 07/02/19 05:43 Gram Stain - Final Leg,Left Wound Culture - Pending - Risk Factors for Resistance * Antimicrobial use within the last 90 days: Doxycycline PO - Assessment & Plan Assessment 69 year old F admitted for bilateral leg wounds. 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 She was started on Zosyn yesterday but due to possibly worsening infection, this was discontinued after around 24 hrs of treatment and Vancomycin was started this evening. Patient has a history of MSSA in LLE wound. Cultures - blood and wound are pending. Plan Vancomycin IV * Estimated PK Parameters: Vd 0.54 L/kg, Sven 0.079 hr-1, t1/2 ~ 9 hr * Loading dose: 2750mg (22.5 mg/kg) * Maintenance dose: 1250 mg IV (10.3 mg/kg) every 12 hours * Goal trough level for SSTI: 15 to 20 mcg/mL * Trough Vanc level ordered for 07/04 before dose at 1600, that is after 3 maintenance doses. * A less than traditional dose has been selected due to likelihood of drug accumulation in obese patient. Pharmacy will continue to follow and will adjust dose/frequency as necessary. Thank you.
[2019-07-02] MEDS: SIMVASTATIN 20 MG TAB PO SCH (21:00)
[2019-07-03] MEDS: ACETAMINOPHEN 325 MG TAB PO PRN ×2 (01:33→08:47)
[2019-07-03] MEDS ORDERED: VANCOMYCIN HCL 1,250 MG in SODIUM CHLORIDE 0.9% 250 ML IV SCH (04:00)
[2019-07-03 06:22] LABS: Hematocrit (blood only) 32.7 % (37-47); Mean Corpuscular Hemoglobin 25.7 pg (25-34); Mean Corpuscular Hgb Conc 30.6 g/dL (32-36); Mean Corpuscular Volume 84.1 fL (80-100); Platelet Count 152 K/uL (130-400); RDW Coefficient of Variation 16.6 % (11.5-14.5); RDW Standard Deviation 50.4 fL (36.4-46.3); Red Blood Count 3.89 M/uL (4.2-5.4); White Blood Count 5.32 K/uL (4.8-10.8)
[2019-07-03 06:50] LABS: BUN Creatinine Ratio 27.9 (10-20); Calcium 8.8 mg/dl (8.5-10.1); Creatinine Clr Calc Pharmacy 115.2 ml/min; Est GFR (African American) 110.5; Est GFR (Non-African American) 95.4; Potassium 3.9 mmol/L (3.5-5.1)
[2019-07-03] MEDS: OXYBUTYNIN CHLORIDE 5 MG TAB PO SCH ×2 (08:46→14:38)
[2019-07-03] MEDS: ASPIRIN 81 MG ECTAB PO SCH (08:46)
[2019-07-03] MEDS: INSULIN ASPART 100 UNITS/ML 3 ML PEN SC SCH ×2 (08:50→12:28)
[2019-07-03] MEDS: NYSTATIN/TRIAMCIN CR 15 GM TUBE EXT SCH (09:03)
--- NOTE | 2019-07-03 13:06 | Hospitalist Progress Note ---
Date of Service July 03, 2019 Assessment & Plan (1) Sepsis: Presented with the possible sepsis with the fever of 38.1, leukocytosis of 13 point 7K and elevated lactic acid of 3.8 on admission Source of sepsis now appears to be cellulitis superimposed on her chronic LE wounds. Inguinal LAD likely reactive as suggested by radiology. LN biopsy was not performed today but repeat imaging will need to occur as outpatient once infection has completely cleared. Started with intravenous Zosyn and there are changed to intravenous vancomycin Wound culture did show Staphylococcus aureus on fourth of this month Repeat culture is pending but clinically the wound and the patient and the la boratory markers are appropriate with ongoing treatment We will discontinue vancomycin and start with clindamycin orally She will be discharged today with a 14 days of course of clindamycin We will have outpatient get appointment (2) Cellulitis of left lower extremity: Plan as above. (3) Necrobiosis lipoidica diabeticorum: chronic (4) Chronic respiratory failure: 2/2 COPD. No flare. No wheezing on exam. Chronic shortness of breath reported that is unchanged. Cont supplemental oxygen per home regimen. Received Lasix initially Echocardiogram did not show any significant LV dysfunction Continue with her usual dose of oral Lasix on discharge (5) Lymphadenopathy, inguinal: plan as above. Likely to have repeat ultrasound when the infection is controlled for possible lymph node biopsy (6) CLYDE on CPAP: cont home CPAP therapy (7) Diabetes mellitus, type II: A1C 6.6 reflects good control. Hold tradjenta while hospitalized and cont basal bolus insulin. Blood sugar seems to be stable (8) Back pain: Chronic, improved from yesterday. Cont supportive care as needed. (9) Anemia: Possibly secondary to dilution from IVF resuscitation during sepsis. Consider iron studies. Please get iron studies as an outpatient (10) Obesity: (11) Urinary incontinence: chronic, cont oxybutinin. Briggs removed. (12) DVT prophylaxis: Lovenox. Resuscitation OK with no intubation. Dispo-plan for home when medically stable. Patient is medically stable Will discharge home today with oral clindamycin for a total of 14 days of antibiotic Discussed with the son Subjective 07/03 The patient was seen and examined in medical floor This is a 69yo F with a PMH of DM II, COPD on 3L home O2, CLYDE on CPAP, h/o adenocarcinoma s/p JOLENE resection, BLE wounds in setting of venous stasis and necrobiosis lipoidica lipoidica diabeticorum and other medical problems listed in H&P who presents with fever, SOB and left lower back pain starting the morning of admission. Does not have any complaint of the as of this morning The leg wounds have improved a lot Denies any fever and/or chills and the white count has been normalized She wants to go home today Review of Systems Review of Systems: All systems reviewed and are unremarkable except as noted below Constitutional: No apparent distress at rest Musculoskeletal: Denies any pain in any of the joints Integumentary: Has bilateral leg wounds more on the left than the right Physical Exam Physical Exam: Lying in bed comfortably without any distress Constitutional: + morbidly obese; no acute distress and not ill appearing Eyes: PERRL, conjunctivae normal, anicteric sclerae ENMT: external ear and nose normal, oropharynx normal Neck: trachea midline, no thyromegaly Respiratory: Auscultation: lungs clear to auscultation bilaterally and + diminished lung sounds; no crackles and no rales Cardiovascular: Rate/Rhythm: regular rate and regular rhythm Gastrointestinal (Abdomen): Inspection/Auscultation: abdomen normal to inspection, + abdomen distended and normal bowel sounds Percussion/Palpation: abdomen nontender Musculoskeletal: No acute arthritis in any joints Skin: Has bilateral lower leg cellulitis. No open wounds. Left side is worse than the right Neurologic: moves all extremities; no focal motor deficits Psychiatric: A+Ox3, euthymic affect Lymphatic: Had left inguinal lymphadenopathy Results & Data Vital Signs (Past 12 Hours) Vital Signs Temp Pulse Resp BP Pulse Ox 07/03/19 11:51 36.8 C 73 16 141/79 H 98 07/03/19 07:00 36.5 C 77 18 156/74 H 98 07/03/19 04:02 36.7 C 81 20 167/83 H 97 Laboratory Results Short CBC 07/03/19 Range/Units 05:57 WBC 5.32 (4.8-10.8) K/uL Hgb 10.0 L (12.0-16.0) g/dL Hct 32.7 L (37-47) % Plt Count 152 (130-400) K/uL BMP 07/03/19 05:57 Sodium 139 Potassium 3.9 D Chloride 103 Carbon Dioxide 32 BUN 16 Creatinine 0.58 L Glucose 144 H Calcium 8.8 Medications Administered Current Inpatient Medications Acetaminophen (Tylenol) 650 mg PO Q4H PRN PRN Reason: pain/fever Stop: 07/31/19 13:35 Last Admin: 07/03/19 08:47 Dose: 650 mg Documented by: Albuterol (Ventolin Hfa) 2 puffs INH Q4H PRN PRN Reason: Shortness Of Breath Or Wheezing Stop: 07/31/19 13:59 Aspirin (Ecotrin Ectab) 81 mg PO QAM [facility] Stop: 08/01/19 08:59 Last Admin: 07/03/19 08:46 Dose: 81 mg Documented by: Clindamycin HCl (Cleocin) 300 mg PO TID [facility] Stop: 07/13/19 13:59 Dextrose (Dextrose 50%) 25 - 50 ml IV UD PRN; Protocol PRN Reason: Hypoglycemia Protocol Stop: 07/31/19 13:35 Enoxaparin Sodium (Lovenox) 40 mg SQ Q24H [facility] Stop: 08/01/19 17:59 Last Admin: 07/02/19 18:32 Dose: 40 mg Documented by: Glucagon (Glucagen) 1 mg SQ UD PRN; Protocol PRN Reason: Hypoglycemia Protocol Stop: 07/31/19 13:35 Glucose (Glucose 40%) 15 - 30 gm PO UD PRN; Protocol PRN Reason: Hypoglycemia Protocol Stop: 07/31/19 13:35 Glucose (Dex4 Glucose) 4 - 8 tabs PO UD PRN; Protocol PRN Reason: Hypoglycemia Protocol Stop: 07/31/19 13:35 Promethazine HCl 12.5 mg/ (Sodium Chloride) 50.5 mls @ 202 mls/hr IV Q6H PRN PRN Reason: Nausea And Vomiting Stop: 07/31/19 22:18 Insulin Aspart (Novolog Flexpen) 0 units SC ACHS [facility] Stop: 07/31/19 16:29 Last Admin: 07/03/19 12:28 Dose: 7 units Documented by: Lactobacillus Acidophilus (Floranex) 4 tab PO TIDM [facility] Stop: 08/02/19 16:59 Miscellaneous (Carbohydrates For Hypoglycemia) 15 - 30 gm PO UD PRN PRN Reason: Hypoglycemia Protocol Stop: 07/31/19 13:35 Nystatin/Triamcinolone Acetonide (Mycolog Ii) 1 appln EXT BID [facility] Stop: 07/31/19 20:59 Last Admin: 07/03/19 09:03 Dose: 1 appln Documented by: Oxybutynin Chloride (Ditropan) 5 mg PO TID [facility] Stop: 07/31/19 13:59 Last Admin: 07/03/19 08:46 Dose: 5 mg Documented by: Simvastatin (Zocor) 20 mg PO HS [facility] Stop: 07/31/19 20:59 Last Admin: 07/02/19 21:00 Dose: 20 mg Documented by: Tramadol HCl (Ultram) 50 mg PO Q6H PRN PRN Reason: Pain Stop: 07/31/19 17:44 Last Admin: 07/01/19 18:53 Dose: 50 mg Documented by: (1) Sepsis Sepsis acute organ dysfunction status: unspecified Sepsis type: sepsis due to unspecified organism Qualified Code(s): A41.9 - Sepsis, unspecified organism (2) Back pain Back pain laterality: left Back pain location: low back pain Chronicity: acute Sciatica presence: without sciatica Qualified Code(s): M54.5 - Low back pain
[2019-07-03] MEDS ORDERED: CLINDAMYCIN HCL 150 MG CAP PO SCH (14:00)
[2019-07-03] MEDS ORDERED: LACTOBACILLUS ACIDOPHILUS (FLORANEX) TAB PO SCH (17:00)
--- NOTE | 2019-07-04 08:10 | Discharge Summary ---
Date of Service July 04, 2019 Admission HPI Per Admitting Provider This is a 69yo F with a PMH of DM II, COPD on 3L home O2, CLYDE on CPAP, h/o adenocarcinoma s/p JOLENE resection, BLE wounds in setting of venous stasis and necrobiosis lipoidica lipoidica diabeticorum and other medical problems listed below who presents with fever, SOB and left lower back pain starting early this morning. Patient was on chronic 3 L nasal cannula oxygen but still felt dyspneic even at rest. Left lower back pain is described as aching and also had some pain in left groin which is since resolved. Denies any lightheadedness, visual changes, chest pain, palpitations, wheezing, nausea, vomiting, abdominal pain, dysuria, diarrhea or constipation. Does endorse multiple episodes of diarrhea last week that have since resolved. CXR In ED, patient found to be febrile at 38.1 C and tachycardic with heart rate of 96. Mild leukocytosis of 13.7k. Initial lactic acid elevated at 3.8 and troponin mildly elevated at 0.087. Urinalysis without abnormality. CK normal. Flu PCR negative. CXR with cardiomegaly with pulmonary vascular congestion. CT abd/pelvis with no acute intra-abdominal pathology. Left common and external iliac and left inguinal lymphadenopathy. This raises concern for lymphoprol iferative disease or metastases. Left inguinal lymphadenopathy would likely be amenable to ultrasound-guided biopsy. CT lumbar spine with no acute fracture, subluxation or suspicious bone lesion identified. Admission Exam Per Admitting Provider Physical Exam: General Appearance: WD/WN, vitals as above, NAD, sitting up in bed, dyspneic when speaking on 3L NC, morbidly obese Head: normocephalic, atraumatic Eyes: normal inspection, PERRL, conjunctivae normal, anicteric sclerae ENT: external ear and nose normal, oropharynx normal Neck: trachea midline, no thyromegaly normal visual inspection Respiratory: decreased lung sounds bilaterally but clear to auscultation, no wheeze, rales, rhonchi. Normal insp/exp effort, no accessory muscle use Cardiovascular: tachycardic, regular rhythm, no murmur appreciated, normal peripheral pulses. Vessels: no JVD or carotid bruit Chest: normal inspection of chest Abdomen/GI: normal bowel sounds, soft, nontender, no hepatosplenomegaly Extremities/Musculoskelatal: no cyanosis or clubbing, extremities motor strength 5/5 Neurologic: PERRL, EOMI, accommodation nl, no face palsy, no dysarthria CN's II-XI intact bilaterally and moves all extremities Psychiatric: A+Ox3, euthymic affect Skin: no rashes, normal color, warm/dry. LLE with large plaque-like erythematous wounds on anterior browne with some clear drainage. RLE with smaller wound on anterior browne, no drainage. Principal Diagnosis Sepsis secondary to left lower leg cellulitis, chronic respiratory failure secondary to COPD, inguinal lymphadenopathy, type 2 diabetes, CLYDE on CPAP Discharge Exam Constitutional + morbidly obese; no acute distress and not ill appearing Eyes PERRL, conjunctivae normal, anicteric sclerae ENMT external ear and nose normal, oropharynx normal Neck trachea midline, no thyromegaly Respiratory Auscultation: lungs clear to auscultation bilaterally and + diminished lung sounds; no crackles and no rales Cardiovascular Rate/Rhythm: regular rate and regular rhythm Gastrointestinal (Abdomen) Inspection/Auscultation: abdomen normal to inspection, + abdomen distended and normal bowel sounds Percussion/Palpation: abdomen nontender Neurologic moves all extremities; no focal motor deficits Psychiatric A+Ox3, euthymic affect Discharge Data Allergies Allergy/AdvReac Type Severity Reaction Status Date / Time naproxen Allergy Intermediate throat Verified 07/01/19 09:16 swelling cephalexin Allergy Unknown RASH Verified 07/01/19 09:16 Consultations 07/01/19 10:34 ED Decision to Admit Stat 07/01/19 13:36 Consult Case Management - Discharge Planning Routine Ordered Studies 07/01/19 09:19 CT abd pelvis wo con Stat CT lumbar spine wo con Stat 07/02/19 15:12 US extremity non-vascular ltd Routine Hospital Course (1) Sepsis: Presented with the possible sepsis with the fever of 38.1, leukocytosis of 13 point 7K and elevated lactic acid of 3.8 on admission Source of sepsis now appears to be cellulitis superimposed on her chronic LE wounds. Inguinal LAD likely reactive as suggested by radiology. LN biopsy was not performed today but repeat imaging will need to occur as outpatient once infection has completely cleared. Started with intravenous Zosyn and there are changed to intravenous vancomycin Wound culture did show Staphylococcus aureus on fourth of this month Repeat culture is pending but clinically the wound and the patient and the laboratory markers are appropriate with ongoing treatment We will discontinue vancomycin and start with clindamycin orally She will be discharged today with a 12 days of course of clindamycin We will have outpatient appointment (2) Cellulitis of left lower extremity: Plan as above. (3) Necrobiosis lipoidica diabeticorum: chronic (4) Chronic respiratory failure: 2/2 COPD. No flare. No wheezing on exam. Chronic shortness of breath reported that is unchanged. Cont supplemental oxygen per home regimen. Received Lasix initially Echocardiogram did not show any significant LV dysfunction Continue with her usual dose of oral Lasix on discharge (5) Lymphadenopathy, inguinal: plan as above. Likely to have repeat ultrasound when the infection is controlled for possible lymph node biopsy as an OP (6) CLYDE on CPAP: cont home CPAP therapy (7) Diabetes mellitus, type II: A1C 6.6 reflects good control. Hold tradjenta while hospitalized and cont basal bolus insulin. Blood sugar seems to be stable (8) Back pain: Chronic, improved from yesterday. Cont supportive care as needed. (9) Anemia: Possibly secondary to dilution from IVF resuscitation during sepsis. Consider iron studies. Please get iron studies as an outpatient (10) Obesity: (11) Urinary incontinence: chronic, cont oxybutinin. Briggs removed. (12) DVT prophylaxis: Lovenox. Resuscitation OK with no intubation. Dispo-plan for home when medically stable. Patient is medically stable Will discharge home today with oral clindamycin for a total of 14 days of antibiotic Discussed with the son Total Time Total Time Spent Total Time Spent (In Minutes): 35 minutes Discharge Plan Discharge Items Patient Disposition: Home - Home Health Services Reason For Visit: SEPSIS 2/2 UNKNOWN SOURCE Discharge Diagnosis: Sepsis secondary to left lower leg cellulitis, chronic respiratory failure secondary to COPD, inguinal lymphadenopathy, type 2 diabetes, CLYDE on CPAP Condition on Discharge: Good Activity: Resume your previous activity Non-emergency contact: Primary Care Provider Call non-emergency contact if: you have any medication questions and your symptoms worsen Follow-up/Referrals: Luis Roe MD [Primary Care Provider] - 07/11/19 10:00 am (Appointment with wound clinic on 11 July at 7:50 AM) Diet: Carb Consistent or DM2 and Low Sodium (2gm) Addtl Attending Provider Instructions: Please take precaution to avoid falls Will need OP US of Left Inguinal region for Lymph Adenopathy and possible biopsy. Pending Studies at Discharge: Yes Studies:: Repeat wound culture-Gram Positive Cocci Stand-Alone Forms: My [facility], Smoking Cessation Medications and DC Order Prescriptions: New clindamycin HCl 150 mg Capsule 300 mg PO TID 10 Days Qty: 60 RF: 0 Continued simvastatin [Zocor] 20 mg tablet 20 mg PO HS RF: 0 oxybutynin chloride 5 mg tablet 5 mg PO TID RF: 0 metformin 500 mg tablet extended release 24 hr 500 mg PO BID RF: 0 acetaminophen 325 mg capsule 650 mg PO QID PRN (Reason: Pain) RF: 0 aspirin [Adult Low Dose Aspirin] 81 mg tablet,delayed release (DR/EC) 81 mg PO QAM RF: 0 Oxygen Home Liters Per Minute .ROUTE .MEDSUPPLY Qty: 1 RF: 0 albuterol sulfate 90 mcg/actuation aerosol powdr breath activated 2 inha INH Q4H PRN (Reason: shortness of breath or wheezing) RF: 0 torsemide 10 mg Tablet 10 mg PO WE RF: 0 nystatin-triamcinolone 100,000-0.1 unit/g-% cream 1 applic topical BID RF: 0 Discontinued doxycycline hyclate 100 mg tablet 100 mg PO bid Qty: 28 RF: 1 Discharge Orders: Discharge Order (Routine); Ordered 07/03/19 Ordered By: Lisa Baez Admission Data Admit Date/Time: 07/01/19 11:43 Attending Provider: Lisa Baez Admit Provider: Emanuel Kennedy Primary Care Provider: Luis Roe Other Providers: Emanuel Kennedy ; Debbie Jolly Other Interventions: Discharge Summary Assessment (RN) Last Done: 07/03/19 14:31 DC Date/Time DO NOT enter until pt leaves facility: 07/03/19 15:12
[2019-07-04] MEDS ORDERED: VANCOMYCIN TROUGH ONE (15:30)
== END 2019-07-03 15:12 | disposition home health service (06) | DRG 872 ==
LOC: ED 08:01 → 2W 11:43 → SUATTDRO 11:43 → 2W 12:26

== ENCOUNTER 2019-09-19 23:43 | Inpatient (IN) ==
[2019-09-20] MEDS ORDERED: fentaNYL citrate 100 MCG/2 ML VIAL IV STA (00:33)
[2019-09-20 01:23] LABS: Basophils # (auto) 0.01 K/uL (0-0.2); Basophils % (auto) 0.2 %; Eosinophils # (auto) 0.08 K/uL (0-0.5); Eosinophils % (auto) 1.2 %; Hematocrit (blood only) 37.4 % (37-47); Hemoglobin 11.8 g/dL (12.0-16.0); Immature Granulocytes # (auto) 0.02 K/uL (0.00-0.02); Immature Granulocytes % (auto) 0.3 %; Lymphocytes # (auto) 1.24 K/uL (1.2-3.4); Mean Corpuscular Hemoglobin 25.9 pg (25-34); Mean Corpuscular Hgb Conc 31.6 g/dL (32-36); Mean Corpuscular Volume 82.2 fL (80-100); Mean Platelet Volume 9.4 fL (7.4-10.4); Monocytes # (auto) 0.34 K/uL (0.11-0.59); Monocytes % (auto) 5.2 %; Neutrophils # (auto) 4.85 K/uL (1.4-6.5); Neutrophils % (auto) 74.1 %; Platelet Count 174 K/uL (130-400); RDW Coefficient of Variation 16.1 % (11.5-14.5); RDW Standard Deviation 48.1 fL (36.4-46.3); Red Blood Count 4.55 M/uL (4.2-5.4); White Blood Count 6.54 K/uL (4.8-10.8)
[2019-09-20 01:29] LABS: Alanine Aminotransferase 31 U/L (12-78); Albumin Level 3.7 gm/dl (3.4-5.0); Aspartate Aminotransferase 13 U/L (15-37); BUN Creatinine Ratio 25.6 (10-20); Blood Urea Nitrogen 22 mg/dl (7-18); Calcium 9.2 mg/dl (8.5-10.1); Carbon Dioxide 29 mmol/L (21-32); Chloride 109 mmol/L (98-107); Est GFR (Non-African American) 69.9; Glucose 149 mg/dl (70-99); Magnesium 1.9 mg/dl (1.8-2.4); Potassium 3.9 mmol/L (3.5-5.1); Sodium 142 mmol/L (136-145)
[2019-09-20 01:32] LABS: Albumin Globulin Ratio 1.1 (0.9-2); Alkaline Phosphatase 80 U/L (45-117); Bilirubin,Total 0.3 mg/dl (0.2-1); Globulin 3.3 gm/dl (2.5-4.0)
[2019-09-20 01:36] LABS: Partial Thromboplastin Ratio 0.9; Partial Thromboplastin Time 25.2 Seconds (21.0-31.0); Prothrombin Time 10.3 Seconds (9.0-12.0)
[2019-09-20] MEDS ORDERED: PIPERACILL/TAZOBAC CONSULT ACTIVE PRN (02:38)
[2019-09-20] MEDS ORDERED: PIPERACILLIN/TAZOBACTAM 4.5 GM/120 ML BAG IV ONE (02:38)
[2019-09-20] MEDS ORDERED: DiphenhydrAMINE HCL 50 MG/ML VIAL IV STA (02:42)
--- NOTE | 2019-09-20 04:44 | Emergency Department Note ---
Entered by Olvin Pressley acting as a scribe for Monet Hicks DO History of Present Illness General Chief complaint: Infection, Wound Stated complaint: SKIN PROBLEM ON LEGS Time Seen by Provider: 09/20/19 00:14 Source: patient History of Present Illness Provider complaint: Infection Onset (ago): hour(s) 4 Location: lower extremity, left and right Severity: similar to prior episodes Pain Consistency: + other (Worsening) Maximum Pain Intensity: 5 Current Pain Intensity: 5 Quality: + burning Relieved By: + none Associated symptoms: no fever/chills and no nausea/vomiting The patient is a 69 year old female who presents to the Emergency Room with complaints of a worsening infection to her bilateral distal lower extremities that has been ongoing for the past 9 months but became acutely worse this eveni ng about 4 hours ago. The patient reports that she has been doctoring the infection since the onset and her condition has been improving until tonight. The patient adds that the infection looked good at the wound care center 2 days ago and when she had home health at her house yesterday to change the dressing. The patient states that tonight she noticed increased pain, especially on the posterior aspect of her left leg as well as blood seeping through her wraps bilaterally. The patient rates the pain as a 5/10 in severity and describes it as a burning sensation. The patient reports that her last course of antibiotics was Doxycycline, which she finished on 09/05. The patient denies any recent illnesses, fevers, nausea or vomiting. The patient is a diabetic but she notes her sugars have been stable around 130-140. The patient has not been taking anything for pain. She does take a baby Aspirin daily, but denies any other blood thinning medications. Home Medications Home Medications Medication Instructions Recorded Confirmed Type acetaminophen 325 mg capsule 650 mg PO QID PRN cap 12/31/18 09/20/19 History albuterol sulfate 90 mcg/actuation 2 inha INH Q4H PRN ea 12/31/18 09/20/19 History breath activated powder inhaler aspirin 81 mg tablet,delayed 81 mg PO QAM 12/31/18 09/20/19 History release metformin 500 mg tablet,extended 500 mg PO BID tab 12/31/18 09/20/19 History release 24 hr oxybutynin chloride 5 mg tablet 5 mg PO TID 12/31/18 09/20/19 History simvastatin 20 mg tablet 20 mg PO HS 12/31/18 09/20/19 History torsemide 10 mg PO DAILY PRN 07/01/19 09/20/19 History Oxygen Home #1 ea 08/11/19 09/20/19 Rx Allergies Allergy/AdvReac Type Severity Reaction Status Date / Time naproxen Allergy Intermediate throat Verified 09/20/19 02:01 swelling cephalexin Allergy Unknown RASH Verified 09/20/19 02:01 Past Med/Surg History Medical History Adenocarcinoma of left lung, stage 1 (Chronic) Cataracts, bilateral (Chronic) COPD (chronic obstructive pulmonary disease) (Chronic) Dermatitis (Chronic) Diabetes (Chronic) Endometriosis (Chronic) Morbid obesity (Chronic) Necrobiosis lipoidica diabeticorum (Chronic) Obstructive sleep apnea (Chronic) Urinary incontinence (Chronic) Venous stasis ulcers (Chronic) Surgical History H/O: hysterectomy (Chronic) History of lung surgery (Resolved) S/P hysterectomy (Chronic) S/P lobectomy of lung (Chronic) Thoracoscopy w/ Lobectomy Left 03/28/2017 malignant neoplasm JOLENE bronchus, with VATS Provider Family History Other Cancer Heart disease Social History Preferred Language: Albanian Communication Ability: Effective Visual Impairment: No Limitations Hearing Ability: Normal [employer]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 and A total of 10 systems reviewed and were otherwise negative Physical Exam Vital Signs Vital Signs - 24 hr 09/19/19 23:54 09/20/19 01:02 09/20/19 01:03 Temperature 37.1 C Temperature Source Oral Pulse Rate 73 77 Pulse Rate from SpO2 Sensor 76 Respiratory Rate 22 17 Respiratory Effort / Characteristics Non-Labored Spontaneous Respiratory Depth Normal Blood Pressure 191/77 H 118/68 Blood Pressure Mean 115 78 Pulse Oximetry 98 99 98 Oxygen Delivery Method Nasal Cannula Nasal Cannula Oxygen Flow Rate 3 3 Sepsis Recent Fever Within 48 Hours No Sepsis Action Taken by Nursing No Action Required 09/20/19 01:15 09/20/19 01:16 09/20/19 01:30 Temperature Temperature Source Pulse Rate 81 76 74 Pulse Rate from SpO2 Sensor 77 76 74 Respiratory Rate 19 19 18 Respiratory Effort / Characteristics Respiratory Depth Blood Pressure 114/83 104/69 Blood Pressure Mean 86 79 Pulse Oximetry 99 99 98 Oxygen Delivery Method Oxygen Flow Rate Sepsis Recent Fever Within 48 Hours Sepsis Action Taken by Nursing 09/20/19 01:45 09/20/19 02:00 09/20/19 02:15 Temperature Temperature Source Pulse Rate 70 73 73 Pulse Rate from SpO2 Sensor 71 73 73 Respiratory Rate 15 18 16 Respiratory Effort / Characteristics Respiratory Depth Blood Pressure 95/69 L 92/75 L 98/74 L Blood Pressure Mean 79 78 77 Pulse Oximetry 99 99 99 Oxygen Delivery Method Oxygen Flow Rate Sepsis Recent Fever Within 48 Hours Sepsis Action Taken by Nursing 09/20/19 02:30 09/20/19 02:45 09/20/19 03:00 Temperature Temperature Source Pulse Rate 73 72 74 Pulse Rate from SpO2 Sensor 72 71 75 Respiratory Rate 24 16 15 Respiratory Effort / Characteristics Respiratory Depth Blood Pressure 102/74 88/74 L 101/71 Blood Pressure Mean 84 75 79 Pulse Oximetry 100 100 100 Oxygen Delivery Method Oxygen Flow Rate Sepsis Recent Fever Within 48 Hours Sepsis Action Taken by Nursing 09/20/19 03:15 09/20/19 03:18 09/20/19 03:30 Temperature Temperature Source Pulse Rate 79 79 71 Pulse Rate from SpO2 Sensor 77 78 71 Respiratory Rate 19 25 H 20 Respiratory Effort / Characteristics Respiratory Depth Blood Pressure 120/74 119/72 Blood Pressure Mean 89 79 Pulse Oximetry 100 100 100 Oxygen Delivery Method Oxygen Flow Rate Sepsis Recent Fever Within 48 Hours Sepsis Action Taken by Nursing 09/20/19 03:46 09/20/19 04:11 Temperature Temperature Source Pulse Rate 68 74 Pulse Rate from SpO2 Sensor 72 75 Respiratory Rate 15 22 Respiratory Effort / Characteristics Respiratory Depth Blood Pressure 102/58 L 93/70 L Blood Pressure Mean 70 72 Pulse Oximetry 100 100 Oxygen Delivery Method Nasal Cannula Oxygen Flow Rate 3 Sepsis Recent Fever Within 48 Hours Sepsis Action Taken by Nursing General: Morbidly obese female, appears uncomfortable. HEENT: Head - normocephalic and atraumatic Pupils are equal, round, and reactive to light. Extraocular eye muscles are intact, and sclera are anicteric. Nose - moist nasal mucosa without discharge. Mouth - moist buccal mucosa. Oropharynx is nonerythematous and there is no tonsillar exudate or edema noted. Neck: Supple; no thyromegly Heart: Regular rate and rhythm but heart sounds are distant. There is a normal S1 and S2 with no murmurs, clicks, or gallops appreciated. Lungs: Lung sounds are distant. Clear to auscultation bilaterally with no wheezes, rales, or rhonchi. Abdomen: Soft, completely nontender, nondistended, with good bowel sounds. There are no palpable pulsatile masses or hepatosplenomegaly. There is no guarding, rigidity, or rebound noted. Extremities: There are easily palpable peripheral pulses. Open wounds about the bilateral lower extremities with significant surrounding erythema and drainage. Skin: warm and dry with good turgor and no rashes. Course Course 0023: Past medical records reviewed. The patient was evaluated in room B11B, and a complete history and physical examination were performed.An order was placed for continuous cardiac monitoring. The patient remained in a normal sinus rhythm at 70. A twelve-lead EKG was obtained. 0033: I ordered Fentanyl 50mcg IV 0238: I ordered Zosyn 4.5gm in 120mls @ 240mls/hr IV 0241: I reevaluated and updated the patient. The patient still reports burning pain however the pain medication did slightly help. The [facility] service has been paged. 0242: I ordered Benadryl 25mg IV 0245: I spoke to Dr. Anusha Burton [facility] about the patient's case. He agreed to accept the patient for further evaluation. Consultations Consultation #1: I spoke to Dr. Anusha Burton [facility] about the patient's case. He agreed to accept the patient for further evaluation. Time: 02:45 Administered Medications Discontinued Medications Diphenhydramine HCl (Benadryl) 25 mg IV NOW STA Stop: 09/20/19 02:43 Last Admin: 09/20/19 03:17 Dose: 25 mg Documented by: [id number] Fentanyl Citrate (Fentanyl Citrate) 50 mcg IV NOW STA Stop: 09/20/19 00:34 Last Admin: 09/20/19 00:56 Dose: 50 mcg Documented by: [id number] Piperacillin Sod/Tazobactam Sod (Zosyn) 4.5 gm in 120 mls @ 240 mls/hr IV NOW ONE Stop: 09/20/19 03:07 Last Infusion: 09/20/19 03:52 Dose: 0 mls/hr Documented by: [id number] Admin: 09/20/19 03:17 Dose: 240 mls/hr Documented by: [id number] Medical Decision Making Differential Diagnosis Differential Diagnosis includes: Cellulitis, skin ulcers, and wound infection, amongst others. Medical Records Attestation: I reviewed the patient's medical records. Home Medications Current Medication List: was personally reviewed by me Laboratory Data Attestation: I reviewed the patient's lab results. Result diagrams: 09/20/19 00:33 09/20/19 00:33 Lab Results 09/20/19 09/20/19 09/20/19 Range/Units 00:33 00:33 00:33 WBC 6.54 (4.8-10.8) K/uL RBC 4.55 (4.2-5.4) M/uL Hgb 11.8 L (12.0-16.0) g/dL Hct 37.4 (37-47) % MCV 82.2 (80-100) fL MCH 25.9 (25-34) pg MCHC 31.6 L (32-36) g/dL RDW Std Deviation 48.1 H (36.4-46.3) fL RDW Coeff of Olivia 16.1 H (11.5-14.5) % Plt Count 174 (130-400) K/uL MPV 9.4 (7.4-10.4) fL Immature Gran % (Auto) 0.3 % Neut % (Auto) 74.1 % Lymph % (Auto) 19.0 % [place] % (Auto) 5.2 % Eos % (Auto) 1.2 % Baso % (Auto) 0.2 % Immature Gran # (Auto) 0.02 (0.00-0.02) K/uL Neut # (Auto) 4.85 (1.4-6.5) K/uL Lymph # (Auto) 1.24 (1.2-3.4) K/uL [place] # (Auto) 0.34 (0.11-0.59) K/uL Eos # (Auto) 0.08 (0-0.5) K/uL Baso # (Auto) 0.01 (0-0.2) K/uL PT 10.3 (9.0-12.0) Seconds INR 1.0 (0.9-1.1) APTT 25.2 (21.0-31.0) Seconds PTT Ratio 0.9 Sodium 142 (136-145) mmol/L Potassium 3.9 (3.5-5.1) mmol/L Chloride 109 H (98-107) mmol/L Carbon Dioxide 29 (21-32) mmol/L Anion Gap 4.0 (3-11) BUN 22 H (7-18) mg/dl Creatinine 0.86 (0.6-1.2) mg/dl Est Cr Clr Drug Dosing Not Reportable Est GFR ( Amer) 81.0 Est GFR (Non-Af Amer) 69.9 BUN/Creatinine Ratio 25.6 H (10-20) Glucose 149 H (70-99) mg/dl Lactate (0.4-2.0) mmol/L Calcium 9.2 (8.5-10.1) mg/dl Magnesium 1.9 (1.8-2.4) mg/dl Total Bilirubin 0.3 (0.2-1) mg/dl AST 13 L (15-37) U/L ALT 31 (12-78) U/L Alkaline Phosphatase 80 (45-117) U/L Total Protein 7.0 (6.4-8.2) gm/dl Albumin 3.7 (3.4-5.0) gm/dl Globulin 3.3 (2.5-4.0) gm/dl Albumin/Globulin Ratio 1.1 (0.9-2) 09/20/19 Range/Units 00:33 WBC (4.8-10.8) K/uL RBC (4.2-5.4) M/uL Hgb (12.0-16.0) g/dL Hct (37-47) % MCV (80-100) fL MCH (25-34) pg MCHC (32-36) g/dL RDW Std Deviation (36.4-46.3) fL RDW Coeff of Olivia (11.5-14.5) % Plt Count (130-400) K/uL MPV (7.4-10.4) fL Immature Gran % (Auto) % Neut % (Auto) % Lymph % (Auto) % [place] % (Auto) % Eos % (Auto) % Baso % (Auto) % Immature Gran # (Auto) (0.00-0.02) K/uL Neut # (Auto) (1.4-6.5) K/uL Lymph # (Auto) (1.2-3.4) K/uL [place] # (Auto) (0.11-0.59) K/uL Eos # (Auto) (0-0.5) K/uL Baso # (Auto) (0-0.2) K/uL PT (9.0-12.0) Seconds INR (0.9-1.1) APTT (21.0-31.0) Seconds PTT Ratio Sodium (136-145) mmol/L Potassium (3.5-5.1) mmol/L Chloride (98-107) mmol/L Carbon Dioxide (21-32) mmol/L Anion Gap (3-11) BUN (7-18) mg/dl Creatinine (0.6-1.2) mg/dl Est Cr Clr Drug Dosing Est GFR ( Amer) Est GFR (Non-Af Amer) BUN/Creatinine Ratio (10-20) Glucose (70-99) mg/dl Lactate 1.8 (0.4-2.0) mmol/L Calcium (8.5-10.1) mg/dl Magnesium (1.8-2.4) mg/dl Total Bilirubin (0.2-1) mg/dl AST (15-37) U/L ALT (12-78) U/L Alkaline Phosphatase (45-117) U/L Total Protein (6.4-8.2) gm/dl Albumin (3.4-5.0) gm/dl Globulin (2.5-4.0) gm/dl Albumin/Globulin Ratio (0.9-2) ECG Data Indication: + other (Infection) Rate (beats per minute): 69 Rhythm: + normal sinus ECG ST segments: no ST depression and no ST elevation ECG Findings: no PACs and no PVCs Blood Pressure Blood Pressure Findings: Low blood pressure Blood Pressure Disposition: further management by hospitalist MDM Narrative The patient is a 69 year old female who presents to the Emergency Room with com plaints of a worsening infection to her bilateral distal lower extremities that has been ongoing for the past 9 months but became acutely worse this evening about 4 hours ago. The patient describes this pattern of being on antibiotics and the leg wounds cleared up and then when she stops antibiotics, signs of infection return. The patient's wound infections and cellulitis seem to have returned quite rapidly. She has developed significant surrounding erythema and warmth and the venous stasis ulcers are bleeding and seeping serous fluid. The patient will receive a dose of IV antibiotics here in the emergency department and will be evaluated by the hospitalist. Impression & Plan Venous stasis ulcer, Cellulitis Discharge Plan Visit Data Chief Complaint: Infection, Wound Stated Complaint: SKIN PROBLEM ON LEGS ED Provider: Monet Hicks Discharge Problem: Venous stasis ulcer, Cellulitis Patient Disposition: Being Evaluated by Hospitalist Discharge Instructions Interventions: ED Discharge Assessment Last Done: 09/20/19 04:37 Discharge Problem: Venous stasis ulcer Qualifiers: Venous stasis ulcer site: calf Varicose vein presence: unspecified whether present Laterality: unspecified laterality Non-pressure ulcer stage: unspecified non-pressure ulcer stage Qualified Code(s): I83.002 - Varicose veins of unspecified lower extremity with ulcer of calf Cellulitis Qualifiers: Site of cellulitis: extremity Site of cellulitis of extremity: lower extremity Laterality: unspecified laterality Qualified Code(s): L03.119 - Cellulitis of unspecified part of limb The scribe's documentation has been prepared under my direction and personally reviewed by me in its entirety. I confirm that the note above accurately reflects all work, treatment, procedures, and medical decision making performed by me.
[2019-09-20] MEDS ORDERED: TORSEMIDE 10 MG TAB PO PRN (04:54)
[2019-09-20] MEDS ORDERED: ONDANSETRON INJ 2 MG/ML 2 ML VIAL IV PRN (04:54)
[2019-09-20] MEDS ORDERED: POLYETHYLENE (MIRALAX) 17 GM PACK PO PRN (04:54)
[2019-09-20] MEDS ORDERED: OXYGEN HOME SCH (04:54)
[2019-09-20] MEDS ORDERED: ALBUTEROL HFA 8 GM INHALER INH PRN (05:08)
[2019-09-20] MEDS ORDERED: DAPTOMYCIN CONSULT ACTIVE PRN (05:15)
[2019-09-20] MEDS ORDERED: DEXTROSE 50% 50 ML SYRINGE IV PRN (05:15)
[2019-09-20] MEDS ORDERED: CARBOHYDRATES FOR HYPOGLYCEMIA PO PRN (05:15)
[2019-09-20] MEDS ORDERED: GLUCOSE 40% GEL 15 GM TUBE PO PRN (05:15)
[2019-09-20] MEDS ORDERED: GLUCAGON FOR INJ 1 MG VIAL SQ PRN (05:15)
[2019-09-20] MEDS ORDERED: GLUCOSE 10 TABS/TUBE PO PRN (05:15)
[2019-09-20] MEDS: ACETAMINOPHEN 325 MG TAB PO PRN ×3 (05:20→14:30)
[2019-09-20] MEDS: DAPTOmycin 350 MG in SYRINGE 0 ML IV SCH (06:22)
--- NOTE | 2019-09-20 06:59 | Ultrasound Report ---
ULTRASOUND BILATERAL LOWER EXTREMITY VENOUS CLINICAL HISTORY: Leg pain and edema. COMPARISON STUDY: Right lower extremity venous ultrasound dated 01/14/2012. TECHNIQUE: Real-time, grayscale, and color Doppler sonography of the deep veins of the right and left lower extremity was performed from the inguinal crease to the calf. Compression and augmentation wer e utilized. FINDINGS: There is no sonographic evidence of deep venous thrombosis identified in the right or left lower extremity. The common femoral, superficial femoral, and popliteal veins are patent and normally compressible bilaterally. The greater saphenous vein and the profunda femoris vein at the junction w ith the common femoral vein are clear in both legs. The visualized calf veins are patent bilaterally. IMPRESSION: There is no sonographic evidence of deep venous thrombosis identified in the right or lef t lower extremity. ACT 112: Negative or not required by law. Electronically signed by: Clement Rod M.D. 09/20/2019 6:58 AM
--- NOTE | 2019-09-20 08:30 | History and Physical Report ---
DATE OF ADMISSION: 09/20/2019 CHIEF COMPLAINT: Lower extremity cellulitis. HISTORY OF PRESENT ILLNESS: This is a 69-year-old female with past medical history significant for type 2 diabetes, hyperlipidemia, COPD, adenocarcinoma of left lung, stage I, status post left upper lobe resection 03/2017; obstructive sleep apnea on CPAP, morbid obesity, urinary incontinence, necrobiosis lipoidica diabeticorum, history of tobacco abuse, history of bilateral lower extremity wounds in setting of venous stasis, presents with lower extremity cellulitis. The patient is having this lower extremities cellulitis on and off since last 9 months. She was in the hospital in June of this month, at that time she had sepsis and she was treated with IV antibiotics. Wound culture growing MSSA and discharged on clindamycin, since then she is following with the wound clinic. She follows the wound clinic once a week and she is off of antibiotics since 09/05/2019. She was seen in the wound clinic last Sunday with ID specialist and the lower extremity were looking good and no antibiotics were recommended. Last dressing was done on by Home health nurse and at that time also they looked fine, but tonight when she went to sleep, she felt she was not feeling right. She felt wet in the lower extremities and it was hurting and burning. She called her son and they cut open the bandage and saw that her socks were all with blood and left lower extremity was weeping, so she decided to come to the hospital. Denies any fever, chills except for pain and burning and itching in the lower extremity. Denies any other complaints. She walks with help of a walker. Denies any cough, no chest pain, no shortness of breath, no nausea, no vomiting, no abdominal pain, no headache, no blurred visions. She has some ringing kind of noise in her ears and evaluated by ENT and as there is no hearing loss recommended observation. No runny nose, no sore throat, no dysphagia, no odynophagia. Sleeping okay. Once in a while she gets back pain. No diarrhea or constipation, no blood in the stools or black stools. No hematuria or burning micturition. Currently resting comfortably and hemodynamically stable. Last admission CAT scan was done which also showed left inguinal lymphadenopathy and she followed with repeat CAT scan in 09/05/2019. As per patient, she was told the lymph nodes did not progress and she was offered biopsy or followup in 3 months and she decided to followup in 3 months. ALLERGIES: NAPROXEN AND CEPHALEXIN. PAST MEDICAL HISTORY: As mentioned above. PAST SURGICAL HISTORY: Bronchoscopy with bronchial biopsy, cataract surgeries, scraping of cervical canal, thoracoscopy with left upper lobectomy, total hysterectomy. MEDICATIONS: The patient is on oxycodone 5 mg p.o. t.i.d., albuterol 2 puffs every 4 hours p.r.n., Demadex 10 mg p.o. daily p.r.n., metformin ER 500 mg p.o. b.i.d., nystatin topical to affected area b.i.d., simvastatin 20 mg p.o. daily, Tylenol 650 mg p.o. at bedtime p.r.n., aspirin 81 mg p.o. daily, oxygen 3 liters continuous. FAMILY HISTORY: Significant for father had stroke, hypertension, heart disorder. Sister has arthritis, cancer. Another sister has diabetes. Brother has arthritis. SOCIAL HISTORY: Single, lives with her son. Former smoker, quit in 2008. Smoked 1 pack a day for 20 years. No alcohol use, no drug use. REVIEW OF SYMPTOMS: As per HPI. Rest of review of systems negative. PHYSICAL EXAMINATION: GENERAL: The patient is morbidly obese, not in acute distress. VITAL SIGNS: Temperature 37.1, pulse 79, respiratory rate 25, blood pressure 120/74, oxygen 100% on 3 liters. HEENT: No pallor, no icterus. Pupils equal, round, reactive to light. NECK: No JVD, no neck masses, no carotid bruits. CARDIOVASCULAR: S1, S2 heard, regular rate and rhythm, no murmur, no gallop. RESPIRATORY SYSTEM: Normal AP diameter. No accessory muscle use. No wheezing, no crackles. ABDOMEN: Soft, bowel sounds present, nontender. No distention. CENTRAL NERVOUS SYSTEM: Alert and oriented. Speech is clear. Obeys commands. Moves extremities. EXTREMITIES: Bilateral lower extremity erythematous changes seen from middle of the browne down, more on the left side which are weeping, lower extremity edema seen. LABORATORY DATA: WBC 6.5, hemoglobin 11.8, hematocrit 37.4, platelets 174. PT 10.3, INR 1, APTT 25.2. Sodium 142, potassium 3.9, chloride 109, bicarbonate 29, BUN 22, creatinine 0.8, serum glucose 149. Lactate 1.8, calcium 9.2, magnesium 1.9, total bilirubin 0.3, AST 13, ALT 31, alkaline phosphatase 80. EKG: Shows a normal sinus rhythm, rate of 69. No acute ST changes seen. ASSESSMENT AND PLAN: This is a 69-year-old female who presents with recurrent lower extremity cellulitis. 1. Recurrent lower extremity cellulitis ongoing since last 9 months. She says she had several courses of antibiotics. Last time she was admitted with sepsis in June, discharged on clindamycin. Follow with the wound care once a week. She says she stopped antibiotics on 09/05 and until her legs were looking good, now presents with erythema, pain and weeping on the lower extremities, especially on the left lower extremity. We will empirically start her on IV Zosyn and IV daptomycin. Blood cultures ordered in the ER which we will follow. Consult wound care and consult ID and monitor response. 2. History of diabetes. Hold metformin, place insulin sliding scale. Follow the blood sugars while in the hospital, follow HbA1c levels. 3. Chronic respiratory failure and chronic obstructive pulmonary disease, currently stable on 3 liters oxygen all the time, which she will continue, continue home inhalers. 4. Obstructive sleep apnea. CPAP at bedtime. 5. Lower extremity edema seems to be chronic. The patient on Demadex p.r.n. Echo last admission in June 2019 showed grade 1 diastolic dysfunction, otherwise EF of 65-70%. We will monitor for any volume overload. 6. Necrobiosis lipoidica diabeticorum chronic 7.Left inguinal lymphadenopathy found on Ct scan last admission in June. Had followup CAT scan on 09/05/2019. Could not access the records, but as per patient they lymph nodes wee stable and not progressing and she decided to follow up again in 3 months with her family doctor. 7. Obesity, needs counseling. 8. Urinary incontinence, on oxybutynin. 9. Deep venous thrombosis prophylaxis. Will place on Lovenox. 10. Disposition: Admit to medical floor. Expect discharge home and follow with the family doctor and plan wound care. Code status. The patient is okay with CPR, but wanted to be on on life support only for 1-2 days. Level 1 full code. MTDD
[2019-09-20] MEDS: ENOXAPARIN INJ 40 MG/0.4 ML SYR SQ SCH (08:39)
[2019-09-20] MEDS: PIPERACILLIN/TAZOBACTAM 4.5 GM in DEXTROSE 5% 100 ML IV SCH ×2 (08:39→15:30)
[2019-09-20] MEDS: OXYBUTYNIN CHLORIDE 5 MG TAB PO SCH ×3 (08:40→20:37)
[2019-09-20] MEDS: INSULIN ASPART 100 UNITS/ML 3 ML PEN SC SCH ×4 (08:40→20:40)
[2019-09-20] MEDS: ASPIRIN 81 MG ECTAB PO SCH (08:42)
[2019-09-20] MEDS ORDERED: DAPTOmycin 500 MG VIAL IV SCH (09:00)
[2019-09-20] MEDS: MICONAZOLE NITRATE POWDER 43 GM EXT PRN (12:44)
--- NOTE | 2019-09-20 16:50 | Hospitalist Progress Note ---
Date of Service September 20, 2019 Assessment & Plan (1) Cellulitis: Recurrent cellulitis with venous stasis ulcers. Does not appear to be septic. Consult Wound Care Nursing & ID. Currently receiving IV daptomycin and piperacillin / tazobactam. (2) Venous stasis ulcers of both lower extremities: Consult Wound Care Nursing. (3) Chronic respiratory failure: Continue supplemental O2. (4) Diabetes mellitus type 2 with complications: Usually managed with metformin. Hgb A1C 6.6 07/05/19. Hold metformin during hospital stay. Insulin coverage per protocol. FBS today = 133. (5) DVT prophylaxis: SQ enoxaparin. Ambulate. (6) Discharge planning issues: Discharge disposition to be determined. Family Medicine follow-up with Dr. Roe. Subjective Recheck for cellulitis lower extremities and other problems. Patient seen in their room around 1110. Persistent lower extremity pain, L > R. No fever or chills. Review of Systems: Constitutional- no fever. Cardiac- no chest pain. Pulmonary- no cough or SOB. GI- no nausea, vomiting, diarrhea, melena, hematochezia. - no urinary symptoms. Otherwise, as noted above. Physical Exam Constitutional: no acute distress Respiratory: no respiratory distress Auscultation: lungs clear to auscultation bilaterally Cardiovascular: Rate/Rhythm: regular rate and regular rhythm Heart Sounds: + murmur and + cardiac rub; no gallop Vessels: no JVD Extremities: + edema (2-3+ pretibial edema bilat) Gastrointestinal (Abdomen): normal bowel sounds, soft, nontender, no hepatosplenomegaly Skin: + rash (venous stasis changes both legs, with erythema L > R) and + ulcer (superficial venous stasis ulcers bilat legs) Psychiatric: Orientation: alert and oriented x 3 Results & Data Vital Signs (Past 12 Hours) Vital Signs Temp Pulse Resp BP BP Pulse Ox 09/20/19 15:31 37.2 C 80 18 90/57 L 99 09/20/19 11:53 36.7 C 67 20 95/64 L 97 09/20/19 07:28 37.1 C 64 20 95/65 L 09/20/19 04:55 36.6 C 84 24 108/73 99 Laboratory Results Laboratory Results - last 24 hr 01/25/20 01/25/20 01/25/20 00:33 00:33 00:33 WBC 6.54 RBC 4.55 Hgb 11.8 L Hct 37.4 MCV 82.2 MCH 25.9 MCHC 31.6 L RDW Std Deviation 48.1 H RDW Coeff of Olivia 16.1 H Plt Count 174 MPV 9.4 Immature Gran % (Auto) 0.3 Neut % (Auto) 74.1 Lymph % (Auto) 19.0 Campbell % (Auto) 5.2 Eos % (Auto) 1.2 Baso % (Auto) 0.2 Immature Gran # (Auto) 0.02 Neut # (Auto) 4.85 Lymph # (Auto) 1.24 Campbell # (Auto) 0.34 Eos # (Auto) 0.08 Baso # (Auto) 0.01 PT 10.3 INR 1.0 APTT 25.2 PTT Ratio 0.9 Sodium 142 Potassium 3.9 Chloride 109 H Carbon Dioxide 29 Anion Gap 4.0 BUN 22 H Creatinine 0.86 Est Cr Clr Drug Dosing Not Reportable Est GFR ( Amer) 81.0 Est GFR (Non-Af Amer) 69.9 BUN/Creatinine Ratio 25.6 H Glucose 149 H POC Glucose Lactate Calcium 9.2 Magnesium 1.9 Total Bilirubin 0.3 AST 13 L ALT 31 Alkaline Phosphatase 80 Total Protein 7.0 Albumin 3.7 Globulin 3.3 Albumin/Globulin Ratio 1.1 09/20/19 09/20/19 09/20/19 00:33 07:43 12:35 WBC RBC Hgb Hct MCV MCH MCHC RDW Std Deviation RDW Coeff of Olivia Plt Count MPV Immature Gran % (Auto) Neut % (Auto) Lymph % (Auto) Campbell % (Auto) Eos % (Auto) Baso % (Auto) Immature Gran # (Auto) Neut # (Auto) Lymph # (Auto) Campbell # (Auto) Eos # (Auto) Baso # (Auto) PT INR APTT PTT Ratio Sodium Potassium Chloride Carbon Dioxide Anion Gap BUN Creatinine Est Cr Clr Drug Dosing Est GFR ( Amer) Est GFR (Non-Af Amer) BUN/Creatinine Ratio Glucose POC Glucose 133 H 153 H Lactate 1.8 Calcium Magnesium Total Bilirubin AST ALT Alkaline Phosphatase Total Protein Albumin Globulin Albumin/Globulin Ratio 09/20/19 16:38 WBC RBC Hgb Hct MCV MCH MCHC RDW Std Deviation RDW Coeff of Olivia Plt Count MPV Immature Gran % (Auto) Neut % (Auto) Lymph % (Auto) Campbell % (Auto) Eos % (Auto) Baso % (Auto) Immature Gran # (Auto) Neut # (Auto) Lymph # (Auto) Campbell # (Auto) Eos # (Auto) Baso # (Auto) PT INR APTT PTT Ratio Sodium Potassium Chloride Carbon Dioxide Anion Gap BUN Creatinine Est Cr Clr Drug Dosing Est GFR ( Amer) Est GFR (Non-Af Amer) BUN/Creatinine Ratio Glucose POC Glucose 117 H Lactate Calcium Magnesium Total Bilirubin AST ALT Alkaline Phosphatase Total Protein Albumin Globulin Albumin/Globulin Ratio (1) Cellulitis Laterality: unspecified laterality Site of cellulitis: extremity Site of cellulitis of extremity: lower extremity Qualified Code(s): L03.119 - Cellulitis of unspecified part of limb
[2019-09-20] MEDS ORDERED: OXYCODONE HCL IR 5 MG TAB (IMMEDIATE RELEASE) PO PRN (18:23)
[2019-09-20] MEDS: TRAMADOL HCL 50 MG TABLET PO PRN (18:30)
--- NOTE | 2019-09-20 20:11 | Electrocardiogram Report ---
Test Reason : Blood Pressure : / mmHG Vent. Rate : 069 BPM Atrial Rate : 069 BPM P-R Int : 184 ms QRS Dur : 088 ms QT Int : 416 ms P-R-T Axes : 089 -02 049 degrees QTc Int : 445 ms Normal sinus rhythm Poor R wave progression, consider anterior AL vs. lead placement vs. LVH Abnormal ECG When compared with ECG of 01-JUL-2019 13:53, Premature atrial complexes are no longer Present Confirmed by Yash Thakkar ([id number]) on 09/20/2019 8:11:02 PM Referred By: REFERRED SELF Confirmed By:Jeffrey Thakkar
[2019-09-21] MEDS: PIPERACILLIN/TAZOBACTAM 4.5 GM in DEXTROSE 5% 100 ML IV SCH ×3 (00:23→16:01)
[2019-09-21] MEDS: DAPTOmycin 350 MG in SYRINGE 0 ML IV SCH (04:55)
[2019-09-21] MEDS: ACETAMINOPHEN 325 MG TAB PO PRN (04:56)
[2019-09-21 05:48] LABS: Basophils # (auto) 0.01 K/uL (0-0.2); Basophils % (auto) 0.2 %; Eosinophils % (auto) 2.5 %; Hematocrit (blood only) 35.2 % (37-47); Immature Granulocytes # (auto) 0.01 K/uL (0.00-0.02); Immature Granulocytes % (auto) 0.2 %; Lymphocytes # (auto) 0.93 K/uL (1.2-3.4); Lymphocytes % (auto) 23.2 %; Mean Corpuscular Hemoglobin 25.8 pg (25-34); Mean Corpuscular Hgb Conc 31.3 g/dL (32-36); Mean Corpuscular Volume 82.6 fL (80-100); Mean Platelet Volume 9.2 fL (7.4-10.4); Monocytes # (auto) 0.28 K/uL (0.11-0.59); Neutrophils # (auto) 2.68 K/uL (1.4-6.5); Neutrophils % (auto) 66.9 %; Platelet Count 156 K/uL (130-400); RDW Coefficient of Variation 16.4 % (11.5-14.5); Red Blood Count 4.26 M/uL (4.2-5.4); White Blood Count 4.01 K/uL (4.8-10.8)
[2019-09-21 06:15] LABS: BUN Creatinine Ratio 25.2 (10-20); Creatinine Clr Calc Pharmacy 105.4 ml/min; Est GFR (African American) 102.2; Est GFR (Non-African American) 88.1; Magnesium 2.1 mg/dl (1.8-2.4); Potassium 3.8 mmol/L (3.5-5.1)
[2019-09-21] MEDS: INSULIN ASPART 100 UNITS/ML 3 ML PEN SC SCH ×4 (08:13→21:00)
[2019-09-21] MEDS: OXYBUTYNIN CHLORIDE 5 MG TAB PO SCH ×3 (08:15→20:35)
[2019-09-21] MEDS: ENOXAPARIN INJ 40 MG/0.4 ML SYR SQ SCH (08:15)
[2019-09-21] MEDS: ASPIRIN 81 MG ECTAB PO SCH (08:16)
[2019-09-21] MEDS ORDERED: POLYETHYLENE (MIRALAX) 17 GM PACK PO PRN (10:41)
--- NOTE | 2019-09-21 15:56 | Hospitalist Progress Note ---
Date of Service September 21, 2019 Assessment & Plan (1) Cellulitis: Recurrent cellulitis with venous stasis ulcers. Does not appear to be septic. Consult Wound Care Nursing & ID. Currently receiving IV daptomycin and piperacillin / tazobactam. (2) Venous stasis ulcers of both lower extremities: Consult Wound Care Nursing. (3) Chronic respiratory failure: Due to COPD and restrictive lung disease. Continue supplemental O2. (4) COPD (chronic obstructive pulmonary disease): Stable. (5) Diabetes mellitus type 2 with complications: Usually managed with metformin. Hgb A1C 6.6 07/05/19. Hold metformin during hospital stay. Insulin coverage per protocol. FBS today = 138. (6) DVT prophylaxis: SQ enoxaparin. Ambulate. (7) Discharge planning issues: Discharge disposition to be determined. Family Medicine follow-up with Dr. Roe. Subjective Recheck for cellulitis lower extremities and other problems. Patient seen in their room around 1030. Persistent lower extremity pain, L > R. No fever. Had some sweats last night, but not unusual for her. Review of Systems: Constitutional- no fever. Cardiac- no chest pain. Pulmonary- no cough or SOB. GI- no nausea, vomiting, diarrhea, melena, hematochezia. - no urinary symptoms. Otherwise, as noted above. Physical Exam Constitutional: no acute distress Respiratory: no respiratory distress Auscultation: lungs clear to auscultation bilaterally Cardiovascular: Rate/Rhythm: regular rate and regular rhythm Heart Sounds: + murmur and + cardiac rub; no gallop Vessels: no JVD Extremities: + edema (2-3+ pretibial edema bilat) Gastrointestinal (Abdomen): normal bowel sounds, soft, nontender, no hepatosplenomegaly Skin: + rash (venous stasis changes both legs, with erythema L > R) and + ulcer (superficial venous stasis ulcers bilat legs) Psychiatric: Orientation: alert and oriented x 3 Results & Data Vital Signs (Past 12 Hours) Vital Signs Temp Pulse Resp BP Pulse Ox 09/21/19 07:41 36.9 C 65 16 162/67 H 99 Laboratory Results 09/21/19 05:11 09/21/19 05:11 Microbiology 09/20/19 00:33 Blood Aerobic Blood Culture - Preliminary No growth in Aerobic bottle after 24 hours. 09/20/19 00:33 Blood Anaerobic Blood Culture - Preliminary No growth in Anaerobic bottle after 24 hours. 09/20/19 00:33 Blood Aerobic Blood Culture - Preliminary No growth in Aerobic bottle after 24 hours. 09/20/19 00:33 Blood Anaerobic Blood Culture - Preliminary No growth in Anaerobic bottle after 24 hours. (1) Cellulitis Laterality: unspecified laterality Site of cellulitis: extremity Site of cellulitis of extremity: lower extremity Qualified Code(s): L03.119 - Cellulitis of unspecified part of limb
[2019-09-21] MEDS: TRAMADOL HCL 50 MG TABLET PO PRN ×2 (16:00→22:02)
[2019-09-21] MEDS: MICONAZOLE NITRATE POWDER 43 GM EXT PRN (20:43)
[2019-09-22] MEDS: PIPERACILLIN/TAZOBACTAM 4.5 GM in DEXTROSE 5% 100 ML IV SCH ×3 (00:18→17:13)
[2019-09-22 05:53] LABS: Estimated Average Glucose 137 mg/dl; Hemoglobin A1C 6.4 % (4.5-5.6)
[2019-09-22] MEDS: DAPTOmycin 350 MG in SYRINGE 0 ML IV SCH (06:21)
[2019-09-22 06:38] LABS: Creatinine Clr Calc Pharmacy 99.8 ml/min; Est GFR (African American) 95.6; Est GFR (Non-African American) 82.5
[2019-09-22] MEDS: ENOXAPARIN INJ 40 MG/0.4 ML SYR SQ SCH ×2 (08:23→20:31)
[2019-09-22] MEDS: OXYBUTYNIN CHLORIDE 5 MG TAB PO SCH ×3 (08:23→20:33)
[2019-09-22] MEDS: ASPIRIN 81 MG ECTAB PO SCH (08:23)
[2019-09-22] MEDS: INSULIN ASPART 100 UNITS/ML 3 ML PEN SC SCH ×4 (08:27→21:33)
--- NOTE | 2019-09-22 10:10 | Infectious Disease Consult ---
Date of Consultation September 22, 2019 Assessment & Plan (1) Cellulitis: can continue IV abx while in hospital. upone d/c would suggest augmentin 875mg po bid x 3 weeks. follow with ID at wound center in 3 weeks. continue local wound care. ok for d/c from ID standpoint when otherwise stable. History of Present Illness Attending Physician: Mamadou Rogers MD pt admitted with lle cellultis. she was last seen in the wound center on 09/16 - no evidence of infeciton, no abx given. she states she was fine until Sunday night when she had sudden onset pain, heavy feeling in leg and bleeding from ulcer. she denies f/c. no trauma. she was admitted and placed on zosyn and dapto. wbc 4, creat 0.7,dopplers negative for clot. blood cultures negative. no wound culture done, 09/22 wound culture grew moreno sensitive E. faecalis. she is asking to go home, feeling better. no abd pain, no n/v/d. no cp, sob, cough. no pain in leg. Allergies Allergy/AdvReac Type Severity Reaction Status Date / Time naproxen Allergy Intermediate throat Verified 09/20/19 02:01 swelling cephalexin Allergy Unknown RASH Verified 09/20/19 02:01 Home Medications Home Medications Medication Instructions Recorded Confirmed Type acetaminophen 325 mg capsule 650 mg PO QID PRN cap 12/31/18 09/20/19 History albuterol sulfate 90 mcg/actuation 2 inha INH Q4H PRN ea 12/31/18 09/20/19 History breath activated powder inhaler aspirin 81 mg tablet,delayed 81 mg PO QAM 12/31/18 09/20/19 History release metformin 500 mg tablet,extended 500 mg PO BID tab 12/31/18 09/20/19 History release 24 hr oxybutynin chloride 5 mg tablet 5 mg PO TID 12/31/18 09/20/19 History simvastatin 20 mg tablet 20 mg PO HS 12/31/18 09/20/19 History torsemide 10 mg PO DAILY PRN 07/01/19 09/20/19 History Oxygen Home #1 ea 08/11/19 09/20/19 Rx Patient History Medical History Adenocarcinoma of left lung, stage 1 (Inactive) s/p left upper lobectomy 03/28/17 Cataracts, bilateral (Chronic) COPD (chronic obstructive pulmonary disease) (Chronic) Dermatitis (Chronic) Diabetes (Chronic) Diabetes mellitus type 2 with complications Endometriosis (Chronic) Morbid obesity (Chronic) Necrobiosis lipoidica diabeticorum (Chronic) Obstructive sleep apnea (Chronic) Urinary incontinence (Chronic) Venous stasis ulcers (Chronic) Venous stasis ulcers of both lower extremities (Acute) Surgical History H/O: hysterectomy (Chronic) History of lung surgery (Resolved) S/P hysterectomy (Chronic) S/P lobectomy of lung (Chronic) Thoracoscopy w/ Lobectomy Left 03/28/2017 malignant neoplasm JOLENE bronchus, with VATS Provider Family History Other Cancer Heart disease Social History Preferred Language: Ukrainian Communication Ability: Effective Visual Impairment: No Limitations Hearing Ability: Normal Box Attacher Required: Yes Beliefs That Will Affect Care: None marital status: Single Current Living Situation: Family Current Living Situation Comment: lives with son 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 Feels Safe at Home: Yes Smoking Status: Former smoker Cigarettes Per Day: 40 ; Hx Alcohol Use: No Hx Substance Use: No Review of Systems Review of Systems: All systems reviewed & are unremarkable except as noted in HPI & below Physical Exam Constitutional: WD/WN, vitals as above Eyes: PERRL, conjunctivae normal, anicteric sclerae ENMT: external ear and nose normal, oropharynx normal Neck: normal visual inspection Respiratory: normal respiratory effort, lungs clear to auscultation Cardiovascular: RRR, no murmur, no edema Gastrointestinal (Abdomen): normal bowel sounds, soft, nontender, no hepatosplenomegaly Musculoskeletal: no cyanosis or clubbing, extremities motor strength 5/5 Skin: no rashes, warm and dry + ulcer, + crusts and + erythema Psychiatric: A+Ox3, euthymic affect Results & Data Vital Signs (Past 12 Hours) Vital Signs Temp Pulse Resp BP Pulse Ox 09/22/19 07:44 36.8 C 67 22 176/68 H 99 09/21/19 23:26 36.9 C 70 20 166/96 H 99 Laboratory Results Microbiology 09/20/19 00:33 Blood Aerobic Blood Culture - Preliminary No growth in Aerobic bottle after 48 hours. 09/20/19 00:33 Blood Anaerobic Blood Culture - Preliminary No growth in Anaerobic bottle after 48 hours. 09/20/19 00:33 Blood Aerobic Blood Culture - Preliminary No growth in Aerobic bottle after 48 hours. 09/20/19 00:33 Blood Anaerobic Blood Culture - Preliminary No growth in Anaerobic bottle after 48 hours. PG Care Time/CCT Total # of Minutes Spent Total Time Spent with Patient: Total time spent is greater than 50% in coordination of care (as documented) at patient's floor/unit and/or counseling patient: Coding Level of Care Code 58441 Inpt Consult Level 4 Diagnoses Cellulitis L03.119 Laterality: unspecified laterality Site of cellulitis: extremity Site of cellulitis of extremity: lower extremity (1) Cellulitis Laterality: unspecified laterality Site of cellulitis: extremity Site of cellulitis of extremity: lower extremity Qualified Code(s): L03.119 - Cellulitis of unspecified part of limb
[2019-09-22] MEDS: ACETAMINOPHEN 325 MG TAB PO PRN (12:47)
[2019-09-22] MEDS: MICONAZOLE NITRATE POWDER 43 GM EXT PRN (15:32)
--- NOTE | 2019-09-22 19:11 | Hospitalist Progress Note ---
Date of Service September 22, 2019 Assessment & Plan (1) Cellulitis: Recurrent cellulitis with venous stasis ulcers. Does not appear to be septic. Consult Wound Care Nursing & ID. Receiving IV daptomycin and piperacillin / tazobactam. ID recommends transition to PO Rx with amoxicillin / clavulanic acid x 3 weeks. (2) Venous stasis ulcers of both lower extremities: Wound Care Nursing consulted. (3) Chronic respiratory failure: Due to COPD and restrictive lung disease. Continue supplemental O2. (4) COPD (chronic obstructive pulmonary disease): Stable. (5) Diabetes mellitus type 2 with complications: Usually managed with metformin. Hgb A1C 6.6 07/05/19. Hold metformin during hospital stay. Insulin coverage per protocol. FBS today = 145. (6) DVT prophylaxis: SQ enoxaparin. Ambulate. (7) Discharge planning issues: Anticipated discharge to home with home health services. Follow-up with Wound Clinic in 3 weeks. Family Medicine follow-up with Dr. Roe. Subjective Recheck for cellulitis lower extremities and other problems. Patient seen in their room around 1440. Persistent lower extremity pain, L > R. No fever. Review of Systems: Constitutional- no fever. Cardiac- no chest pain. Pulmonary- no cough or SOB. GI- no nausea, vomiting, diarrhea, melena, hematochezia. - no urinary symptoms. Otherwise, as noted above. Physical Exam Constitutional: no acute distress Respiratory: no respiratory distress Auscultation: lungs clear to auscultation bilaterally Cardiovascular: Rate/Rhythm: regular rate and regular rhythm Heart Sounds: + murmur and + cardiac rub; no gallop Vessels: no JVD Extremities: + edema (2-3+ pretibial edema bilat) Gastrointestinal (Abdomen): normal bowel sounds, soft, nontender, no hepatosplenomegaly Musculoskeletal: Extremities: + extremities abnormal to inspection (left leg bandaged) Psychiatric: Orientation: alert and oriented x 3 Results & Data Vital Signs (Past 12 Hours) Vital Signs Temp Pulse Resp BP Pulse Ox 09/22/19 15:20 37.0 C 81 20 172/66 H 98 09/22/19 13:28 188/70 H 09/22/19 10:10 37 C 74 20 184/70 H 99 09/22/19 07:44 36.8 C 67 22 176/68 H 99 Laboratory Results Laboratory Results - last 24 hr 09/21/19 09/21/19 09/22/19 05:11 20:57 05:48 Creatinine 0.75 Est Cr Clr Drug Dosing 99.8 Est GFR ( Amer) 95.6 Est GFR (Non-Af Amer) 82.5 POC Glucose 144 H Estimat Average Glucose 137 Hemoglobin A1c 6.4 H 09/22/19 09/22/19 09/22/19 07:45 12:09 17:19 Creatinine Est Cr Clr Drug Dosing Est GFR ( Amer) Est GFR (Non-Af Amer) POC Glucose 145 H 115 H 136 H Estimat Average Glucose Hemoglobin A1c (1) Cellulitis Laterality: unspecified laterality Site of cellulitis: extremity Site of cellulitis of extremity: lower extremity Qualified Code(s): L03.119 - Cellulitis of unspecified part of limb
[2019-09-22 23:41] VITALS: PULSE 71
[2019-09-23] MEDS: MICONAZOLE NITRATE POWDER 43 GM EXT PRN (04:22)
[2019-09-23 07:44] LABS: Creatinine Clr Calc Pharmacy 118.8 ml/min; Est GFR (African American) 107.6; Est GFR (Non-African American) 92.8
[2019-09-23] MEDS ORDERED: AMOXICILLIN/CLAVULANATE 875 MG TAB PO SCH (08:00)
[2019-09-23 08:18] VITALS: BP 161/50; TEMP 98.4; O2SAT 98
[2019-09-23] MEDS: OXYBUTYNIN CHLORIDE 5 MG TAB PO SCH (08:43)
[2019-09-23] MEDS: ASPIRIN 81 MG ECTAB PO SCH (08:43)
[2019-09-23] MEDS: ENOXAPARIN INJ 40 MG/0.4 ML SYR SQ SCH (08:44)
[2019-09-23] MEDS: INSULIN ASPART 100 UNITS/ML 3 ML PEN SC SCH (08:49)
--- NOTE | 2019-09-23 11:33 | Hospitalist Progress Note ---
Date of Service September 23, 2019 Assessment & Plan (1) Cellulitis: Recurrent cellulitis with venous stasis ulcers. Does not appear to be septic. Consult Wound Care Nursing & ID. Received IV daptomycin and piperacillin / tazobactam. ID recommended transition to PO Rx with amoxicillin / clavulanic acid x 3 weeks. (2) Venous stasis ulcers of both lower extremities: Wound Care Nursing consulted. (3) Chronic respiratory failure: Due to COPD and restrictive lung disease. Continue supplemental O2. (4) COPD (chronic obstructive pulmonary disease): Stable. (5) Diabetes mellitus type 2 with complications: Usually managed with metformin. Hgb A1C 6.6 07/05/19. Hold metformin during hospital stay. Received insulin coverage per protocol. FBS today = 126. (6) DVT prophylaxis: SQ enoxaparin. Ambulate. (7) Discharge planning issues: Discharge to home with home health services. Follow-up with Wound Clinic. Family Medicine follow-up with Dr. Roe. Subjective Recheck for cellulitis lower extremities and other problems. Patient seen in their room around 0950. Legs feel better. No fever. Ready to go home. Review of Systems: Constitutional- no fever. Cardiac- no chest pain. Pulmonary- no cough or SOB. GI- no nausea, vomiting, diarrhea, melena, hematochezia. - no urinary symptoms. Otherwise, as noted above. Physical Exam Constitutional: no acute distress Respiratory: no respiratory distress Auscultation: lungs clear to auscultation bilaterally Cardiovascular: Rate/Rhythm: regular rate and regular rhythm Heart Sounds: + murmur and + cardiac rub; no gallop Vessels: no JVD Extremities: + edema (2-3+ pretibial edema bilat) Gastrointestinal (Abdomen): normal bowel sounds, soft, nontender, no hepatosplenomegaly Musculoskeletal: Extremities: + extremities abnormal to inspection (left leg bandaged) Psychiatric: Orientation: alert and oriented x 3 Results & Data Vital Signs (Past 12 Hours) Vital Signs Temp Pulse Resp BP Pulse Ox 09/23/19 08:14 36.9 C 19 161/50 H 98 09/22/19 23:39 36.5 C 71 20 168/73 H 99 Laboratory Results 09/23/19 09/23/19 08:28 11:59 POC Glucose 126 H 109 H Microbiology 09/20/19 00:33 Blood Aerobic Blood Culture - Preliminary No growth in Aerobic bottle after 48 hours. 09/20/19 00:33 Blood Anaerobic Blood Culture - Preliminary No growth in Anaerobic bottle after 48 hours. 09/20/19 00:33 Blood Aerobic Blood Culture - Preliminary No growth in Aerobic bottle after 48 hours. 09/20/19 00:33 Blood Anaerobic Blood Culture - Preliminary No growth in Anaerobic bottle after 48 hours. (1) Cellulitis Laterality: unspecified laterality Site of cellulitis: extremity Site of cellulitis of extremity: lower extremity Qualified Code(s): L03.119 - Cellulitis of unspecified part of limb
--- NOTE | 2019-09-23 22:51 | Discharge Summary ---
Date of Service Date of Admission: 09/20/19 Date of Discharge: 09/23/19 Admission HPI Per Admitting Provider This is a 69-year-old female with past medical history significant for type 2 diabetes, hyperlipidemia, COPD, adenocarcinoma of left lung, stage I, status post left upper lobe resection 03/2017; obstructive sleep apnea on CPAP, morbid obesity, urinary incontinence, necrobiosis lipoidica diabeticorum, history of tobacco abuse, history of bilateral lower extremity wounds in setting of venous stasis, presents with lower extremity cellulitis. The patient is having this lower extremities cellulitis on and off since last 9 months. She was in the hospital in June of this month, at that time she had sepsis and she was treated with IV antibiotics. Wound culture growing MSSA and discharged on clindamycin, since then she is following with the wound clinic. She follows the wound clinic once a week and she is off of antibiotics since 09/05/2019. She was seen in the wound clinic last Sunday with ID specialist and the lower extremity were looking good and no antibiotics were recommended. Last dressing was done on by Home health nurse and at that time also they looked fine, but tonight when she went to sleep, she felt she was not feeling right. She felt wet in the lower extremities and it was hurting and burning. She called her son and they cut open the bandage and saw that her socks were all with blood and left lower extremity was weeping, so she decided to come to the hospital. Denies any fever, chills except for pain and burning and itching in the lower extremity. Denies any other complaints. She walks with help of a walker. Denies any cough, no chest pain, no shortness of breath, no nausea, no vomiting, no abdominal pain, no headache, no blurred visions. She has some ringing kind of noise in her ears and evaluated by ENT and as there is no hearing loss recommended observation. No runny nose, no sore throat, no dysphagia, no odynophagia. Sleeping okay. Once in a while she gets back pain. No diarrhea or constipation, no blood in the stools or black stools. No hematuria or burning micturition. Currently resting comfortably and hemodynamically stable. Last admission CAT scan was done which also showed left inguinal lymphadenopathy and she followed with repeat CAT scan in 09/05/2019. As per patient, she was told the lymph nodes did not progress and she was offered biopsy or followup in 3 months and she decided to followup in 3 months. Principal Diagnosis cellulitis / venous stasis ulcers left lower extremity Discharge Data Allergies Allergy/AdvReac Type Severity Reaction Status Date / Time naproxen Allergy Intermediate throat Verified 09/20/19 02:01 swelling cephalexin Allergy Unknown RASH Verified 09/20/19 02:01 Consultations 09/20/19 02:47 ED Decision to Admit Stat 09/20/19 04:54 Consult Case Management - Discharge Planning Routine 09/20/19 08:00 Consult Infectious Diseases Routine Ordered Studies 09/20/19 04:54 US venous doppler LE BI Routine Hospital Course (1) Cellulitis: Recurrent cellulitis with venous stasis ulcers. Does not appear to be septic. Consult Wound Care Nursing & ID. Received IV daptomycin and piperacillin / tazobactam. ID recommended transition to PO Rx with amoxicillin / clavulanic acid x 3 weeks. (2) Venous stasis ulcers of both lower extremities: Wound Care Nursing consulted. (3) Chronic respiratory failure: Due to COPD and restrictive lung disease. Continue supplemental O2. (4) COPD (chronic obstructive pulmonary disease): Stable. (5) Diabetes mellitus type 2 with complications: Usually managed with metformin. Hgb A1C 6.6 07/05/19. Hold metformin during hospital stay. Received insulin coverage per protocol. FBS day of discharge was 126. (6) DVT prophylaxis: SQ enoxaparin. Ambulate. (7) Discharge planning issues: Discharge to home with home health services. Follow-up with Wound Clinic. Family Medicine follow-up with Dr. Roe. Total Time Total Time Spent Total Time Spent (In Minutes): 40 Discharge Plan Discharge Items Patient Disposition: Home - Home Health Services Reason For Visit: cellulitis left leg (skin infection) Discharge Diagnosis: cellulitis left leg (skin infection) Condition on Discharge: Good Activity: Resume your previous activity Non-emergency contact: Primary Care Provider, Hospitalist and Specialist Call non-emergency contact if: you have any medication questions, your symptoms worsen and you have a fever Follow-up/Referrals: Luis Roe MD [Primary Care Provider] - 09/30/19 10:00 am (09/30/2019 10:00 AMwith Luis Roe MD Internal Medicine [facility] ) Diet: Carb Consistent or DM2 and Heart Healthy Addtl Attending Provider Instructions: MEDICATION CHANGES: Take amoxicillin / clavulanic acid twice a day with food for 3 weeks. RECOMMENDATIONS FOR FOLLOW-UP: Dressing changes by home health nursing. Follow-up with Wound Clinic as scheduled. OTHER INSTRUCTIONS: Seek medical attention if you have: * temperature above 101 * chest pain or trouble breathing * abdominal pain, nausea, vomiting * diarrhea, dark stools or bloody stools * any unanswered questions or concerns Call 911 if symptoms are severe. Please take good care of yourself. Call if you have any questions or problems. You can reach a [facility] hospitalist on duty at [facility] 24 hours a day by calling [phone]. My cell # is [phone]. Pending Studies at Discharge: No Stand-Alone Forms: My [facility], Smoking Cessation Medications and DC Order Prescriptions: New amoxicillin-pot clavulanate [Augmentin] 875-125 mg Tablet 1 tab PO BIDM Qty: 42 RF: 0 Continued simvastatin [Zocor] 20 mg tablet 20 mg PO HS RF: 0 oxybutynin chloride 5 mg tablet 5 mg PO TID RF: 0 metformin 500 mg tablet extended release 24 hr 500 mg PO BID RF: 0 acetaminophen 325 mg capsule 650 mg PO QID PRN (Reason: Pain) RF: 0 aspirin [Adult Low Dose Aspirin] 81 mg tablet,delayed release (DR/EC) 81 mg PO QAM RF: 0 albuterol sulfate 90 mcg/actuation aerosol powdr breath activated 2 inha INH Q4H PRN (Reason: shortness of breath or wheezing) RF: 0 (DME) Oxygen Home Liters Per Minute See Rx Instructions .ROUTE .MEDSUPPLY Qty: 1 RF: 0 torsemide 10 mg Tablet 10 mg PO DAILY PRN (Reason: Fluid Retention) RF: 0 Discharge Orders: Discharge Order (Routine); Ordered 09/23/19 Ordered By: Mamadou Gates/Other Patient Handouts: Surgery Prevent DVT After Admission Data Admit Date/Time: 09/20/19 03:39 Attending Provider: Mamadou Rogers Admit Provider: Fei Tavares Primary Care Provider: Luis Roe Other Providers: Fei Tavares ; Sonal Gamino ; Boyd,Home Care Other Interventions: Discharge Summary Assessment (RN) Last Done: 09/23/19 11:54 DC Date/Time DO NOT enter until pt leaves facility: 09/23/19 14:24
== END 2019-09-23 14:24 | disposition home health service (06) | DRG 603 ==
LOC: ED 23:43 → 2N 09-20 03:39 → 3W 09-22 09:58

== ENCOUNTER 2021-04-22 16:05 | Inpatient (IN) ==
--- NOTE | 2021-04-22 16:52 | XRay Report ---
XR chest 1V portable HISTORY: Shortness of breath. COMPARISON: Chest 07/01/2019. FINDINGS: No pneumothorax. There are trace bilateral pleural effusions. The heart remains enlarged. T here is perihilar interstitial/vascular thickening suggestive of mild pulmonary edema. This is simila r to the prior study. There is mild respiratory motion artifact. Old, healed left rib fractures consi stent with postoperative change. IMPRESSION: Cardiomegaly with mild interstitial pulmonary edema and trace bilateral pleural effusions. ACT 112: Negative or not required by law. Electronically signed by: Renaldo Nguyen M.D. 04/22/2021 4:50 PM
[2021-04-22] MEDS ORDERED: guaiFENesin 600 MG TABCR PO STA (18:50)
[2021-04-22] MEDS ORDERED: methylPREDNISolone 125 MG/2 ML VIAL IV STA (18:50)
[2021-04-22] MEDS ORDERED: ALBUT/IPRATROP 3MG/0.5MG NEB 3 ML VIAL NEB ONE (18:50)
--- NOTE | 2021-04-22 19:13 | Emergency Department Note ---
Impression & Plan Acute and chronic respiratory failure, COPD with acute exacerbation, Hypervolemia ED Provider Note NAME: MIO WHITTINGTON AGE: 70 SEX: F ARRIVES VIA: Walk-In INFORMANT: Patient, ED PROVIDER(S): Rommel Pina MD CHIEF COMPLAINT: Shortness of breath. PLAN: Disposition: Admit MEDICAL DECISION MAKING: The patient is a pleasant 70-year-old woman with a past medical history of CLYDE, chronic hypoxic respiratory failure on 3 L home oxygen, history of restrictive lung disease, history of lung cancer status post lobectomy who presents to emergency department for worsening cough, congestion and shortness of breath over the past several days. She reports having a negative COVID-19 test through her PCP at the onset of her symptoms which was negative. However, her symptoms have not been improving. She denies any fevers, nausea, vomiting. She reports she has had some diarrhea. She denies any urinary symptoms. She denies any recent weight gain or increased fluid retention per her knowledge. On arrival the patient is uncomfortable mildly dyspneic with mild increased work of breathing with mild respiratory distress, afebrile with heart in the 100s and blood pressure 150s/80s. EKG without overt acute ischemia. CXR with interstitial thickening and trace bilateral pleural effusions. WBC, H/H and platelets within normal limits. Chemistry without metabolic acidosis. Electrolytes and LFTs unremarkable. Troponin negative/undetectable. BNP 3K without prior values for comparison. COVID-19 PCR was negative. Upon reevaluation the patient was feeling significant improved after hour-long continuous DuoNeb, Solu-Medrol, guaifenesin. Thus, suspect symptoms of acute on chronic respiratory failure likely predominantly related to COPD flare and Doxycycline additionally ordered. However, patient does also appear somewhat hy pervolemic and so we will additionally provide IV Lasix. While the patient was reporting improvement she admits, as does her daughter at the bedside, that she is more short of breath than her baseline and so they were in agreement with plan for admission. Case was discussed with Dr. Gannon, [facility] hospitalist, who will evaluate the patient for admission. Triage Nursing notes reviewed and agree them. Prior medical records reviewed Vital Signs: reviewed and remarkable for tachycardia. Differential diagnosis: Reactive airway disease, pneumonia, pneumothorax, COPD, CHF, infections, cardiac ischemia, pulmonary embolism, musculoskeletal, gastrointestinal, as well as other pathologies. ER treatment provided: See below. Diagnostics interpreted by me: ECG: Sinus rhythm with PACs, 93 bpm, no overt ST elevation or depression, QTC 467, QRS 88. Cardiac Monitoring: An order for continuous cardiac monitoring was placed and demonstrated Sinus rhythm with PACs, 93 bpm. Laboratory studies: See below Imaging studies: See below Consultation(s): Case was discussed with Dr. Gannon, [facility] hospitalist, who will evaluate the patient for admission. HPI: The patient is a pleasant 70-year-old woman with a past medical history of CLYDE, chronic hypoxic respiratory failure on 3 L home oxygen, history of restrictive lung disease, history of lung cancer status post lobectomy who presents to emergency department for worsening cough, congestion and shortness of breath over the past several days. She reports having a negative COVID-19 test through her PCP at the onset of her symptoms which was negative. However, her symptoms have not been improving. She denies any fevers, nausea, vomiting. She reports she has had some diarrhea. She denies any urinary symptoms. She denies any recent weight gain or increased fluid retention per her knowledge. ROS: See above HPI for pertinent positives & negatives. A total of 10 systems reviewed and were otherwise negative. PAST MEDICAL HISTORY:See Below PAST SURGICAL HISTORY:See Below FAMILY HISTORY:See Below SOCIAL HISTORY:See Below HOME MEDICATIONS:See Below ALLERGIES:See Below VITALS:See Below PHYSICAL EXAMINATION: GENERAL: Awake, alert, mildly dyspneic-appearing, in no distress HENT: Normocephalic, atraumatic. Oropharynx with dry mucous membranes and otherwise unremarkable. EYES: Normal conjunctiva. Sclera non-icteric. NECK: Supple. No nuchal rigidity. FROM. No JVD. RESPIRATORY: Diminished with diffuse wheezes. CARDIAC: Regular rate, normal rhythm. Extremities warm and well perfused. Pulses equal. ABDOMEN: Soft, non-distended. No tenderness to palpation. No rebound or guarding. No masses. RECTAL: Deferred. MUSCULOSKELETAL: Chest examination reveals no tenderness. The back is symmetrical on inspection without obvious abnormality. There is no CVA tenderness to palpation. No joint edema. LOWER EXTREMITIES: Calves are equal size bilaterally and non-tender. 1+ BLE edema at baseline. No discoloration. NEURO: Normal sensorium. No sensory or motor deficits noted. SKIN: No rash or jaundice noted. ED COURSE: Critical Care: I have personally spent greater than 35 minutes of critical care time in the direct management of this patient. This includes bedside care, interpretation of diagnostic studies, and testing, discussion with consultants, patient, and family members, and other required patient management activities. This 35 minutes is in excess of all separately billable procedures. Rommel Pina MD Past Med/Surg History Medical History Adenocarcinoma of left lung, stage 1 s/p left upper lobectomy 03/28/17 Cellulitis BLE COPD (chronic obstructive pulmonary disease) Diabetes mellitus type 2 with complications Hx of endometriosis Hyperlipidemia Hypertension Macular hole RT/LEFT EYE Morbid obesity MRSA (methicillin resistant Staphylococcus aureus) Necrobiosis lipoidica diabeticorum Obstructive sleep apnea CPAP WITH O2 On home oxygen therapy O2 AT 2L CONT. Restless leg syndrome Urinary incontinence Venous stasis ulcers of both lower extremities Surgical History H/O vascular surgery LEFT LEG (BY DR. WEIR) H/O: hysterectomy History of bronchoscopy History of cataract surgery RT/LEFT History of lung surgery History of tooth extraction S/P hysterectomy S/P lobectomy of lung Thoracoscopy w/ Lobectomy Left 03/28/2017 malignant neoplasm JOLENE bronchus, with VATS Provider Family History Sister Family history of diabetes mellitus Son Family history of diabetes mellitus Father Family history of diabetes mellitus Other Cancer Heart disease Social History Smoking Status: Former smoker Cigarettes Per Day: 40; Second Hand Exposure: No; Do You Dip or Chew Tobacco: No; Tobacco Cessation Education Requested by Patient: No Hx Alcohol Use: Yes Hx Substance Use: No Preferred Language: Nepali Communication Ability: Effective Visual Impairment: No Limitations Hearing Ability: Normal 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: No Beliefs That Will Affect Care: None marital status: Single Current Living Situation: Other Current Living Situation Comment: lives with son 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 Other Information That Helps Us Care for You: No Feels Safe at Home: Yes Safety Concerns: Feels Safe At This Time Assistive Devices: CPAP, Denture - Upper, Oxygen - at Night and Oxygen - Continuous Allergies Allergies Allergy/AdvReac Type Severity Reaction Status Date / Time naproxen Allergy Intermediate throat Verified 02/10/21 08:54 swelling cephalexin Allergy Mild RASH Verified 02/10/21 08:54 Home Meds Home Medications Medication Instructions Recorded Confirmed acetaminophen 325 mg capsule 650 mg PO QID PRN cap 12/31/18 04/22/21 aspirin 81 mg tablet,delayed 81 mg PO QAM 12/31/18 04/22/21 release (Adult Low Dose Aspirin) metformin 500 mg tablet,extended 500 mg PO BID tab 12/31/18 04/22/21 release 24 hr oxybutynin chloride 5 mg tablet 5 mg PO TID 12/31/18 04/22/21 simvastatin 20 mg tablet (Zocor) 20 mg PO HS 12/31/18 04/22/21 torsemide 10 mg tablet 10 mg PO DAILY PRN 07/01/19 04/22/21 lisinopril 10 mg tablet 10 mg PO QAM 12/30/19 04/22/21 meloxicam 7.5 mg tablet 7.5 mg PO HS 12/30/19 04/22/21 dorzolamide 22.3 mg-timolol 6.8 1 drp OPL BID 04/22/21 04/22/21 mg/mL eye drops prednisolone acetate 1 % eye 1 drp OPL DAILY 04/22/21 04/22/21 drops,suspension Previous Rx's Medication Instructions Recorded Oxygen Home #1 ea 08/11/19 triamcinolone acetonide 0.1 % 1 appln TOP BID #80 gm 02/05/20 topical cream desoximetasone 0.25 % topical 1 appln TOP DAILY #100 gm 04/02/20 ointment Results & Data (ED) Vital Signs Vital Signs - 24 hr 04/22/21 16:10 04/22/21 16:14 04/22/21 16:49 Temperature 36.8 C Temperature Source Temporal Artery Scan Pulse Rate 102 H 93 H Pulse Rate [Right Apical] Pulse Rate from SpO2 Sensor 95 H Respiratory Rate 20 17 Respiratory Effort / Characteristics Spontaneous Labored Blood Pressure 155/85 H 107/80 Blood Pressure Mean 108 89 Pulse Oximetry 92 96 100 Oxygen Delivery Method Nasal Cannula Nasal Cannula Oxygen Flow Rate 3 3 Sepsis Recent Fever Within 48 Hours No Sepsis New/Unexplained Change in Mental Status No Sepsis Action Taken by Nursing No Action Required 04/22/21 19:15 Temperature Temperature Source Pulse Rate Pulse Rate [Right Apical] 96 H Pulse Rate from SpO2 Sensor Respiratory Rate 20 Respiratory Effort / Characteristics Spontaneous Accessory Muscle Use Blood Pressure Blood Pressure Mean Pulse Oximetry 100 Oxygen Delivery Method Nasal Cannula Oxygen Flow Rate 2 Sepsis Recent Fever Within 48 Hours Sepsis New/Unexplained Change in Mental Status Sepsis Action Taken by Nursing Laboratory Data Attestation: I reviewed the patient's lab results. Result diagrams: 04/22/21 19:10 04/22/21 19:10 Lab Results 04/22/21 04/22/21 04/22/21 Range/Units 19:00 19:00 19:10 WBC 5.73 (4.8-10.8) K/uL RBC 4.65 (4.2-5.4) M/uL Hgb 12.4 (12.0-16.0) g/dL Hct 39.5 (37-47) % MCV 84.9 (80-100) fL MCH 26.7 (25-34) pg MCHC 31.4 L (32-36) g/dL RDW Std Deviation 45.6 (36.4-46.3) fL RDW Coeff of Olivia 14.8 H (11.5-14.5) % Plt Count 146 (130-400) K/uL MPV 9.4 (7.4-10.4) fL Immature Gran % (Auto) 0.2 % Neut % (Auto) 76.6 % Lymph % (Auto) 12.2 % Luna % (Auto) 9.8 % Eos % (Auto) 1.0 % Baso % (Auto) 0.2 % Neut # (Auto) 4.39 (1.4-6.5) K/uL Lymph # (Auto) 0.70 L (1.2-3.4) K/uL Luna # (Auto) 0.56 (0.11-0.59) K/uL Eos # (Auto) 0.06 (0-0.5) K/uL Baso # (Auto) 0.01 (0-0.2) K/uL Immature Gran # (Auto) 0.01 (0.00-0.02) K/uL PT (9.0-12.0) Seconds INR (0.9-1.1) APTT (21.0-31.0) Seconds PTT Ratio Sodium (136-145) mmol/L Potassium (3.5-5.1) mmol/L Chloride (98-107) mmol/L Carbon Dioxide (21-32) mmol/L Anion Gap (3-11) BUN (7-18) mg/dl Creatinine (0.6-1.2) mg/dl Est Cr Clr Drug Dosing Est GFR ( Amer) ml/min Est GFR (Non-Af Amer) ml/min BUN/Creatinine Ratio (10-20) Glucose (70-99) mg/dl Calcium (8.5-10.1) mg/dl Phosphorus (2.5-4.9) mg/dl Magnesium (1.8-2.4) mg/dl Total Bilirubin (0.2-1) mg/dl AST (15-37) U/L ALT (12-78) U/L Alkaline Phosphatase (45-117) U/L Troponin I (0-0.045) ng/ml NT-Pro-B Natriuret Pep (0-900) pg/ml Total Protein (6.4-8.2) gm/dl Albumin (3.4-5.0) gm/dl Globulin (2.5-4.0) gm/dl Albumin/Globulin Ratio (0.9-2) COVID-19 Eval Order Covid[facility] at [facility] SARS-CoV-2 (PCR) NEGATIVE (Negative) 04/22/21 04/22/21 Range/Units 19:10 19:10 WBC (4.8-10.8) K/uL RBC (4.2-5.4) M/uL Hgb (12.0-16.0) g/dL Hct (37-47) % MCV (80-100) fL MCH (25-34) pg MCHC (32-36) g/dL RDW Std Deviation (36.4-46.3) fL RDW Coeff of Olivia (11.5-14.5) % Plt Count (130-400) K/uL MPV (7.4-10.4) fL Immature Gran % (Auto) % Neut % (Auto) % Lymph % (Auto) % Luna % (Auto) % Eos % (Auto) % Baso % (Auto) % Neut # (Auto) (1.4-6.5) K/uL Lymph # (Auto) (1.2-3.4) K/uL Luna # (Auto) (0.11-0.59) K/uL Eos # (Auto) (0-0.5) K/uL Baso # (Auto) (0-0.2) K/uL Immature Gran # (Auto) (0.00-0.02) K/uL PT 10.3 (9.0-12.0) Seconds INR 1.0 (0.9-1.1) APTT 26.4 (21.0-31.0) Seconds PTT Ratio 1.0 Sodium 141 (136-145) mmol/L Potassium 3.8 (3.5-5.1) mmol/L Chloride 104 (98-107) mmol/L Carbon Dioxide 31 (21-32) mmol/L Anion Gap 6.0 (3-11) BUN 11 (7-18) mg/dl Creatinine 0.58 L (0.6-1.2) mg/dl Est Cr Clr Drug Dosing Not Reportable Est GFR ( Amer) 109.8 ml/min Est GFR (Non-Af Amer) 94.7 ml/min BUN/Creatinine Ratio 19.5 (10-20) Glucose 128 H (70-99) mg/dl Calcium 9.3 (8.5-10.1) mg/dl Phosphorus 3.5 (2.5-4.9) mg/dl Magnesium 2.2 (1.8-2.4) mg/dl Total Bilirubin 0.5 (0.2-1) mg/dl AST 18 (15-37) U/L ALT 29 (12-78) U/L Alkaline Phosphatase 68 (45-117) U/L Troponin I < 0.015 (0-0.045) ng/ml NT-Pro-B Natriuret Pep 3119 H (0-900) pg/ml Total Protein 7.4 (6.4-8.2) gm/dl Albumin 3.8 (3.4-5.0) gm/dl Globulin 3.6 (2.5-4.0) gm/dl Albumin/Globulin Ratio 1.1 (0.9-2) COVID-19 Eval Order SARS-CoV-2 (PCR) (Negative) Administered Medications Dorzolamide/Timolol (Dorzolamide/Timolol 22.3/6.8mg/Ml 10 Ml Btl) 1 drops OPL BID HALIMA Stop: 05/22/21 23:49 Last Admin: 04/23/21 01:01 Dose: Not Given Documented by: [id number] Discontinued Medications Albuterol (Albut/Ipratrop 3mg/0.5mg Neb 3 Ml Vial) 12 ml NEB ONE ONE Stop: 04/22/21 18:51 Last Admin: 04/22/21 19:12 Dose: 12 ml Documented by: [id number] Furosemide (Furosemide 40 Mg/4 Ml Vial) 20 mg IV NOW STA Stop: 04/22/21 20:34 Last Admin: 04/22/21 20:42 Dose: 20 mg Documented by: [id number] Guaifenesin (Guaifenesin 600 Mg Tabcr) 600 mg PO NOW STA Stop: 04/22/21 18:51 Last Admin: 04/22/21 19:34 Dose: 600 mg Documented by: [id number] Doxycycline Hyclate 100 mg/ (Dextrose) 110 mls @ 50 mls/hr IV NOW STA Stop: 04/22/21 22:44 Last Infusion: 04/23/21 01:01 Dose: 50 mls/hr Documented by: [id number] Admin: 04/22/21 21:17 Dose: 50 mls/hr Documented by: [id number] Insulin Glargine (Insulin Glargine Solostar 100 Units/Ml 3 Ml Pen) 5 units SC NOW STA Stop: 04/22/21 21:50 Last Admin: 04/22/21 22:08 Dose: 5 units Documented by: [id number] Cosigned by: [id number] Methylprednisolone (Methylprednisolone 125 Mg/2 Ml Vial) 125 mg IV NOW STA Stop: 04/22/21 18:51 Last Admin: 04/22/21 19:34 Dose: 125 mg Documented by: [id number] Potassium Chloride (Potassium Chloride Crtab 20 Meq Tabcr) 40 meq PO NOW STA Stop: 04/22/21 20:52 Last Admin: 04/22/21 21:52 Dose: Not Given Documented by: [id number] Potassium Chloride (Potassium Chloride Pwd 20 Meq Pack) 40 meq PO NOW STA Stop: 04/22/21 21:55 Last Admin: 04/22/21 22:53 Dose: 40 meq Documented by: [id number] Imaging Data Radiologist's Impression: Chest X-Ray 04/22/21 16:14 XR chest 1V portable HISTORY: Shortness of breath. COMPARISON: Chest 07/01/2019. FINDINGS: No pneumothorax. There are trace bilateral pleural effusions. The heart remains enlarged. There is perihilar interstitial/vascular thickening suggestive of mild pulmonary edema. This is similar to the prior study. There is mild respiratory motion artifact. Old, healed left rib fractures consistent with postoperative change. IMPRESSION: Cardiomegaly with mild interstitial pulmonary edema and trace bilateral pleural effusions. ACT 112: Negative or not required by law. Electronically signed by: Renaldo Nguyen M.D. 04/22/2021 4:50 PM Discharge Plan Visit Data Chief Complaint: Shortness of Breath/Dyspnea Stated Complaint: SHORTNESS OF BREATH ED Provider: Rommel Pina Discharge Problem: Acute and chronic respiratory failure, COPD with acute exacerbation, Hypervolemia Patient Disposition: Admitted As Inpatient Discharge Instructions Interventions: ED Discharge Assessment Last Done: 04/22/21 23:21 Discharge Problem: Acute and chronic respiratory failure Qualifiers: Respiratory failure complication: unspecified whether with hypoxia or hypercapnia Qualified Code(s): J96.20 - Acute and chronic respiratory failure, unspecified whether with hypoxia or hypercapnia Hypervolemia Qualifiers: Hypervolemia type: unspecified Qualified Code(s): E87.70 - Fluid overload, unspecified
[2021-04-22 19:23] LABS: Basophils # (auto) 0.01 K/uL (0-0.2); Basophils % (auto) 0.2 %; Eosinophils # (auto) 0.06 K/uL (0-0.5); Hematocrit (blood only) 39.5 % (37-47); Hemoglobin 12.4 g/dL (12.0-16.0); Immature Granulocytes # (auto) 0.01 K/uL (0.00-0.02); Immature Granulocytes % (auto) 0.2 %; Lymphocytes % (auto) 12.2 %; Mean Corpuscular Hemoglobin 26.7 pg (25-34); Mean Corpuscular Hgb Conc 31.4 g/dL (32-36); Mean Corpuscular Volume 84.9 fL (80-100); Mean Platelet Volume 9.4 fL (7.4-10.4); Monocytes # (auto) 0.56 K/uL (0.11-0.59); Monocytes % (auto) 9.8 %; Neutrophils # (auto) 4.39 K/uL (1.4-6.5); Neutrophils % (auto) 76.6 %; Platelet Count 146 K/uL (130-400); RDW Coefficient of Variation 14.8 % (11.5-14.5); RDW Standard Deviation 45.6 fL (36.4-46.3); Red Blood Count 4.65 M/uL (4.2-5.4); White Blood Count 5.73 K/uL (4.8-10.8)
[2021-04-22 19:34] LABS: Partial Thromboplastin Time 26.4 Seconds (21.0-31.0); Prothrombin Time 10.3 Seconds (9.0-12.0)
[2021-04-22 19:42] LABS: Albumin Level 3.8 gm/dl (3.4-5.0); Aspartate Aminotransferase 18 U/L (15-37); BUN Creatinine Ratio 19.5 (10-20); Blood Urea Nitrogen 11 mg/dl (7-18); Calcium 9.3 mg/dl (8.5-10.1); Carbon Dioxide 31 mmol/L (21-32); Chloride 104 mmol/L (98-107); Est GFR (African American) 109.8 ml/min; Est GFR (Non-African American) 94.7 ml/min; Glucose 128 mg/dl (70-99); Magnesium 2.2 mg/dl (1.8-2.4); Potassium 3.8 mmol/L (3.5-5.1); Sodium 141 mmol/L (136-145)
[2021-04-22 19:47] LABS: Alanine Aminotransferase 29 U/L (12-78); Albumin Globulin Ratio 1.1 (0.9-2); Alkaline Phosphatase 68 U/L (45-117); Bilirubin,Total 0.5 mg/dl (0.2-1); Globulin 3.6 gm/dl (2.5-4.0); NT Pro B Type Natriuretic Pept 3119 pg/ml (0-900); Phosphorus 3.5 mg/dl (2.5-4.9); Total Protein 7.4 gm/dl (6.4-8.2); Troponin I < 0.015 ng/ml (0-0.045)
[2021-04-22] MEDS ORDERED: DOXYCYCLINE HYCLATE 100 MG in DEXTROSE 5% 100 ML IV STA (20:33)
[2021-04-22] MEDS ORDERED: FUROSEMIDE 40 MG/4 ML VIAL IV STA (20:33)
[2021-04-22] MEDS: POTASSIUM CHLORIDE CRTAB 20 MEQ TABCR PO STA ×2 (21:17→21:52)
--- NOTE | 2021-04-22 21:43 | History & Physical Report ---
Date of Service April 22, 2021 Assessment & Plan (1) SOB (shortness of breath): Plan: Restrictive lung disease/COPD exacerbation No sepsis for now hx chronic respiratory failure secondary toCOPD/restrictive lung disease on home O2 NSCLC sp surgery DM2 on oral medications, well-controlled as of recent hemoglobin A1c of 6.04 October 2020 chronic venous stasis, stable past tobacco abuse Medical telemetry Nebs RTC, prednisone course for exacerbation of chronic lung disease No indication for antibiotics for now. Basal insulin, ISS BG goal 1 10-1 40, carb count coverage, update hemoglobin A1c DVT prophylaxis with Lovenox subcu Full code Text document was generated using [employer] voice recognition software. It may contain grammatical or spelling errors. Kindly contact undersigned for clarification of any documentation item in question. History of Present Illness Chief Complaint: Worsening shortness of breath Primary Care Provider: Luis Roe MD History obtained from patient and records. Medical history significant for chronic respiratory failure secondary toCOPD/restrictive lung disease on home O2, NSCLC sp surgery, CLYDE, DM2 on oral medications, chronic venous stasis, past tobacco abuse. Last confinement August 2019 for cellulitis. Patient discharged on Augmentin course. Few days history of dry cough symptoms, congestion and worsening shortness of breath. Chest pain with coughing. No fever, no chills, no known sick contacts. Denies fluid retention/weight gain/leg swelling more than usual. Patient received COVID-19 vaccine. Loose stools with transient abdominal cramping. No recent out-of-town travel. Outpatient COVID-19 test from 2 days ago was samuel juarez. Patient consulted ER for worsening symptoms. Patient received Solu-Medrol, neb treatment, Lasix at the ER. Currently feeling much better. 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 Allergies Allergy/AdvReac Type Severity Reaction Status Date / Time naproxen Allergy Intermediate throat Verified 02/10/21 08:54 swelling cephalexin Allergy Mild RASH Verified 02/10/21 08:54 Home Medications Medication Instructions Recorded Confirmed Type acetaminophen 325 mg capsule 650 mg PO QID PRN cap 12/31/18 04/22/21 History aspirin 81 mg tablet,delayed 81 mg PO QAM 12/31/18 04/22/21 History release (Adult Low Dose Aspirin) metformin 500 mg tablet,extended 500 mg PO BID tab 12/31/18 04/22/21 History release 24 hr oxybutynin chloride 5 mg tablet 5 mg PO TID 12/31/18 04/22/21 History simvastatin 20 mg tablet (Zocor) 20 mg PO HS 12/31/18 04/22/21 History torsemide 10 mg tablet 10 mg PO DAILY PRN 07/01/19 04/22/21 History Oxygen Home #1 ea 08/11/19 04/22/21 Rx lisinopril 10 mg tablet 10 mg PO QAM 12/30/19 04/22/21 History meloxicam 7.5 mg tablet 7.5 mg PO HS 12/30/19 04/22/21 History triamcinolone acetonide 0.1 % 1 appln TOP BID #80 gm 02/05/20 04/22/21 Rx topical cream desoximetasone 0.25 % topical 1 appln TOP DAILY #100 gm 04/02/20 04/22/21 Rx ointment dorzolamide 22.3 mg-timolol 6.8 1 drp OPL BID 04/22/21 04/22/21 History mg/mL eye drops prednisolone acetate 1 % eye 1 drp OPL DAILY 04/22/21 04/22/21 History drops,suspension Past Med/Surg History Medical History Adenocarcinoma of left lung, stage 1 s/p left upper lobectomy 03/28/17 Cellulitis BLE COPD (chronic obstructive pulmonary disease) Diabetes mellitus type 2 with complications Hx of endometriosis Hyperlipidemia Hypertension Macular hole RT/LEFT EYE Morbid obesity MRSA (methicillin resistant Staphylococcus aureus) Necrobiosis lipoidica diabeticorum Obstructive sleep apnea CPAP WITH O2 On home oxygen therapy O2 AT 2L CONT. Restless leg syndrome Urinary incontinence Venous stasis ulcers of both lower extremities Surgical History H/O vascular surgery LEFT LEG (BY DR. WEIR) H/O: hysterectomy History of bronchoscopy History of cataract surgery RT/LEFT History of lung surgery History of tooth extraction S/P hysterectomy S/P lobectomy of lung Thoracoscopy w/ Lobectomy Left 03/28/2017 malignant neoplasm JOLENE bronchus, with VATS Provider Family History Sister Family history of diabetes mellitus Son Family history of diabetes mellitus Father Family history of diabetes mellitus Other Cancer Heart disease Social History Smoking Status: Former smoker Cigarettes Per Day: 40; Second Hand Exposure: No; Do You Dip or Chew Tobacco: No; Tobacco Cessation Education Requested by Patient: No Hx Alcohol Use: Yes Hx Substance Use: No Preferred Language: Syrian Communication Ability: Effective Visual Impairment: No Limitations Hearing Ability: Normal [employer] Teacher Required: No Beliefs That Will Affect Care: None marital status: Single Current Living Situation: Other Current Living Situation Comment: lives with son 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 Other Information That Helps Us Care for You: No Feels Safe at Home: Yes Safety Concerns: Feels Safe At This Time Assistive Devices: CPAP, Denture - Upper, Oxygen - at Night and Oxygen - Continuous Review of Systems Review of Systems: As per HPI, all 10 systems reviewed, all other ROS negative Physical Exam Physical Exam: GENERAL: Comfortable, morbidly obese, pleasant, episodic tachypnea SKIN: Pallor , warm HEENT: pale palpebral conjunctivae, no ptosis, moist buccal mucosa, nasal cannula in place NECK : Supple, short neck, no tenderness CHEST : Decreased breath sounds, occasional expiratory wheezes, no tenderness HEART : RRR, no obvious murmurs ABDOMEN: Some distention, nontender EXTREMITIES : Bilateral LE swelling with erythema (chronic as per patient), minimal LE swelling/tenderness, no other conspicuous deformities noted NEUROLOGIC : Coherent, no facial asymmetry, mild hearing impairment, no other gross focality Results & Data Results & Data ([facility]) Vital Signs (Past 12 Hours) Vital Signs Temp Pulse Pulse Resp BP Pulse Ox 04/22/21 19:15 96 H 20 100 04/22/21 16:49 93 H 17 107/80 100 04/22/21 16:14 96 04/22/21 16:10 36.8 C 102 H 20 155/85 H 92 Laboratory Results Laboratory Results WBC 5.73 K/uL (4.8-10.8) 04/22/21 19:10 RBC 4.65 M/uL (4.2-5.4) 04/22/21 19:10 Hgb 12.4 g/dL (12.0-16.0) 04/22/21 19:10 Hct 39.5 % (37-47) 04/22/21 19:10 MCV 84.9 fL (80-100) 04/22/21 19:10 MCH 26.7 pg (25-34) 04/22/21 19:10 MCHC 31.4 g/dL (32-36) L 04/22/21 19:10 RDW Std Deviation 45.6 fL (36.4-46.3) 04/22/21 19:10 RDW Coeff of Olivia 14.8 % (11.5-14.5) H 04/22/21 19:10 Plt Count 146 K/uL (130-400) 04/22/21 19:10 MPV 9.4 fL (7.4-10.4) 04/22/21 19:10 Immature Gran % (Auto) 0.2 % 04/22/21 19:10 Neut % (Auto) 76.6 % 04/22/21 19:10 Lymph % (Auto) 12.2 % 04/22/21 19:10 Florence % (Auto) 9.8 % 04/22/21 19:10 Eos % (Auto) 1.0 % 04/22/21 19:10 Baso % (Auto) 0.2 % 04/22/21 19:10 Neut # (Auto) 4.39 K/uL (1.4-6.5) 04/22/21 19:10 Lymph # (Auto) 0.70 K/uL (1.2-3.4) L 04/22/21 19:10 Florence # (Auto) 0.56 K/uL (0.11-0.59) 04/22/21 19:10 Eos # (Auto) 0.06 K/uL (0-0.5) 04/22/21 19:10 Baso # (Auto) 0.01 K/uL (0-0.2) 04/22/21 19:10 Immature Gran # (Auto) 0.01 K/uL (0.00-0.02) 04/22/21 19:10 PT 10.3 Seconds (9.0-12.0) 04/22/21 19:10 INR 1.0 (0.9-1.1) 04/22/21 19:10 APTT 26.4 Seconds (21.0-31.0) 04/22/21 19:10 PTT Ratio 1.0 04/22/21 19:10 Sodium 141 mmol/L (136-145) 04/22/21 19:10 Potassium 3.8 mmol/L (3.5-5.1) 04/22/21 19:10 Chloride 104 mmol/L (98-107) 04/22/21 19:10 Carbon Dioxide 31 mmol/L (21-32) 04/22/21 19:10 Anion Gap 6.0 (3-11) 04/22/21 19:10 BUN 11 mg/dl (7-18) 04/22/21 19:10 Creatinine 0.58 mg/dl (0.6-1.2) L 04/22/21 19:10 Est Cr Clr Drug Dosing Not Reportable 04/22/21 19:10 Est GFR ( Amer) 109.8 ml/min 04/22/21 19:10 Est GFR (Non-Af Amer) 94.7 ml/min 04/22/21 19:10 BUN/Creatinine Ratio 19.5 (10-20) 04/22/21 19:10 Glucose 128 mg/dl (70-99) H 04/22/21 19:10 Calcium 9.3 mg/dl (8.5-10.1) 04/22/21 19:10 Phosphorus 3.5 mg/dl (2.5-4.9) 04/22/21 19:10 Magnesium 2.2 mg/dl (1.8-2.4) 04/22/21 19:10 Total Bilirubin 0.5 mg/dl (0.2-1) 04/22/21 19:10 AST 18 U/L (15-37) 04/22/21 19:10 ALT 29 U/L (12-78) 04/22/21 19:10 Alkaline Phosphatase 68 U/L (45-117) 04/22/21 19:10 Troponin I < 0.015 ng/ml (0-0.045) 04/22/21 19:10 NT-Pro-B Natriuret Pep 3119 pg/ml (0-900) H 04/22/21 19:10 Total Protein 7.4 gm/dl (6.4-8.2) 04/22/21 19:10 Albumin 3.8 gm/dl (3.4-5.0) 04/22/21 19:10 Globulin 3.6 gm/dl (2.5-4.0) 04/22/21 19:10 Albumin/Globulin Ratio 1.1 (0.9-2) 04/22/21 19:10 COVID-19 Eval Order Covid19 at [facility] 04/22/21 19:00 SARS-CoV-2 (PCR) NEGATIVE (Negative) 04/22/21 19:00 Impressions Chest X-Ray 04/22/21 16:14 XR chest 1V portable HISTORY: Shortness of breath. COMPARISON: Chest 07/01/2019. FINDINGS: No pneumothorax. There are trace bilateral pleural effusions. The heart remains enlarged. There is perihilar interstitial/vascular thickening suggestive of mild pulmonary edema. This is similar to the prior study. There is mild respiratory motion artifact. Old, healed left rib fractures consistent with postoperative change. IMPRESSION: Cardiomegaly with mild interstitial pulmonary edema and trace bilateral pleural effusions. ACT 112: Negative or not required by law. Electronically signed by: Renaldo Nguyen M.D. 04/22/2021 4:50 PM Diagnostic Findings EKG as per my interpretation rate 95, NSR, normal axis, T wave flattening septal leads
[2021-04-22] MEDS ORDERED: INSULIN GLARGINE SOLOSTAR 100 UNITS/ML 3 ML PEN SC STA (21:49)
[2021-04-22] MEDS ORDERED: POTASSIUM CHLORIDE PWD 20 MEQ PACK PO STA (21:54)
[2021-04-22] MEDS ORDERED: traMADol HCL 50 MG TABLET PO PRN (23:50)
[2021-04-22] MEDS ORDERED: GLUCOSE 10 TABS/TUBE PO PRN (23:50)
[2021-04-22] MEDS ORDERED: DEXTROSE 50% 50 ML SYRINGE IV PRN (23:50)
[2021-04-22] MEDS ORDERED: CARBOHYDRATES FOR HYPOGLYCEMIA PO PRN (23:50)
[2021-04-22] MEDS ORDERED: PROMETHAZINE HCL 12.5 MG in SODIUM CHLORIDE 0.9% 50 ML IV PRN (23:50)
[2021-04-22] MEDS ORDERED: GLUCOSE 40% GEL 15 GM TUBE PO PRN (23:50)
[2021-04-22] MEDS ORDERED: GLUCAGON FOR INJ 1 MG VIAL SQ PRN (23:50)
[2021-04-23] MEDS ORDERED: XOPENEX/ATROVENT 1.25mg/0.5MG NEB COMBO NEB SCH (01:00)
[2021-04-23] MEDS: DORZOLAMIDE/TIMOLOL 22.3/6.8MG/ML 10 ML BTL OPL SCH ×3 (01:01→21:13)
[2021-04-23] MEDS: LEVALBUTEROL 1.25MG/0.5ML NEB INH SCH ×4 (02:01→20:03)
[2021-04-23] MEDS: IPRATROPIUM BROMIDE NEB SOLN 0.02% 2.5 ML VIAL INH SCH ×7 (02:01→20:03)
[2021-04-23 06:42] LABS: Estimated Average Glucose 126 mg/dl
[2021-04-23 07:54] LABS: Hematocrit (blood only) 38.8 % (37-47); Hemoglobin 12.2 g/dL (12.0-16.0); Immature Granulocytes # (auto) 0.01 K/uL (0.00-0.02); Immature Granulocytes % (auto) 0.3 %; Lymphocytes # (auto) 0.41 K/uL (1.2-3.4); Lymphocytes % (auto) 11.5 %; Mean Corpuscular Hemoglobin 26.6 pg (25-34); Mean Corpuscular Hgb Conc 31.4 g/dL (32-36); Mean Corpuscular Volume 84.7 fL (80-100); Mean Platelet Volume 9.8 fL (7.4-10.4); Monocytes # (auto) 0.12 K/uL (0.11-0.59); Monocytes % (auto) 3.4 %; Neutrophils # (auto) 3.01 K/uL (1.4-6.5); Neutrophils % (auto) 84.8 %; Platelet Count 151 K/uL (130-400); RDW Coefficient of Variation 14.8 % (11.5-14.5); RDW Standard Deviation 45.7 fL (36.4-46.3); Red Blood Count 4.58 M/uL (4.2-5.4); White Blood Count 3.55 K/uL (4.8-10.8)
[2021-04-23 08:13] LABS: BUN Creatinine Ratio 24.7 (10-20); Calcium 9.4 mg/dl (8.5-10.1); Creatinine Clr Calc Pharmacy 129.8 ml/min; Est GFR (African American) 111.7 ml/min; Est GFR (Non-African American) 96.4 ml/min; Potassium 3.9 mmol/L (3.5-5.1)
[2021-04-23] MEDS: INSULIN ASPART 100 UNITS/ML 3 ML PEN SC SCH ×5 (10:23→21:19)
[2021-04-23] MEDS: ENOXAPARIN INJ 40 MG/0.4 ML SYR SQ SCH (10:28)
[2021-04-23] MEDS: ASPIRIN 81 MG ECTAB PO SCH (10:29)
[2021-04-23] MEDS: OXYBUTYNIN CHLORIDE 5 MG TAB PO SCH ×3 (10:29→21:14)
[2021-04-23] MEDS: guaiFENesin 600 MG TABCR PO SCH ×2 (10:30→21:14)
[2021-04-23] MEDS: predniSONE 20 MG TAB PO SCH (10:30)
[2021-04-23] MEDS: prednisoLONE acetate 1% OP SUSP 5 ML BTL OPL SCH (10:31)
[2021-04-23] MEDS: lisinopril 10 MG TAB PO SCH (10:31)
[2021-04-23] MEDS: ACETAMINOPHEN 325 MG TAB PO PRN ×2 (11:06→21:22)
--- NOTE | 2021-04-23 17:14 | Hospitalist Progress Note ---
Date of Service April 23, 2021 Assessment & Plan (1) SOB (shortness of breath): Plan: Present on admission with SOB associated with dry cough CXR showed Cardiomegaly with mild interstitial pulmonary edema and trace bilateral pleural effusions. Received lasix 20mg, Doxycycline and IV solumedrol in the ER starting on prednisone 40mg daily Will hold on additional abx Will consider to give an additional lasix 20mg later Pt is on torsemide 10mg prn that she usually take weekly Will consider to increase torsemide to 3 times weekly Continue oxygen supplement and neb treament Continue monitor BMP NSCLC sp surgery Stable Diabetes type 2 Most recent hab1c 6 on 04/22/21 Well controlled Continue insulin sliding scale Continue monitor BS while on steroid DVT prophylaxis with Lovenox subcu Full code Admission and Anticipated Discharge Date Admission Date: April 22, 2021 Subjective Pt was seen and examined for follow up SOB Sitting in chair with no acute distress getting ready to eat her meal she said that she feels fine Denies any chest pain, palpitation, dizziness and fever Physical Exam Physical Exam: General- No acute distress Head- atraumatic Eyes- PERRL, EOMI, ENT- oropharynx clear Neck- supple, no JVD Lungs- clear to auscultation Heart- regular rhythm; no murmur Abdomen- normal bowel sounds, soft, nontender Extremities- no calf tenderness, +trace edema Neuro- alert, oriented x 3; PERRL, EOMI; no facial palsy; no dysarthria Skin- warm & dry Results & Data Results & Data ([facility]) Vital Signs (Past 12 Hours) Vital Signs Temp Pulse Pulse Resp BP Pulse Ox 04/23/21 14:45 36.9 C 70 20 116/67 98 04/23/21 12:34 78 20 98 04/23/21 11:19 36.9 C 96 H 20 129/89 94 04/23/21 08:00 87 04/23/21 07:47 102 H 21 98 04/23/21 07:28 36.9 C 104 H 20 117/83 98
[2021-04-23] MEDS ORDERED: FUROSEMIDE 20 MG in SYRINGE 0 ML IV ONE (18:00)
[2021-04-23] MEDS: SIMVASTATIN 20 MG TAB PO SCH (21:15)
[2021-04-23] MEDS: INSULIN GLARGINE SOLOSTAR 100 UNITS/ML 3 ML PEN SC SCH (21:19)
[2021-04-24] MEDS: LEVALBUTEROL 1.25MG/0.5ML NEB INH SCH ×4 (01:16→20:07)
[2021-04-24] MEDS: IPRATROPIUM BROMIDE NEB SOLN 0.02% 2.5 ML VIAL INH SCH ×4 (01:16→20:07)
[2021-04-24] MEDS: ACETAMINOPHEN 325 MG TAB PO PRN (04:12)
--- NOTE | 2021-04-24 07:28 | Electrocardiogram Report ---
Test Reason : Blood Pressure : / mmHG Vent. Rate : 093 BPM Atrial Rate : 093 BPM P-R Int : 208 ms QRS Dur : 088 ms QT Int : 376 ms P-R-T Axes : 067 027 060 degrees QTc Int : 467 ms Poor data quality, interpretation may be adversely affected Sinus rhythm with Premature atrial complexes Anteroseptal infarct (cited on or before 22-APR-2021) Abnormal ECG When compared with ECG of 20-SEP-2019 01:11, Premature atrial complexes are now Present Confirmed by Chadwick Kerns ([id number]) on 04/24/2021 7:28:27 AM Referred By: Luis Roe Confirmed By:Chadwick Kerns
[2021-04-24 08:13] LABS: BUN Creatinine Ratio 33.7 (10-20); Calcium 9.2 mg/dl (8.5-10.1); Creatinine Clr Calc Pharmacy 107.1 ml/min; Est GFR (African American) 105.2 ml/min; Est GFR (Non-African American) 90.8 ml/min; Potassium 3.7 mmol/L (3.5-5.1)
[2021-04-24] MEDS: INSULIN ASPART 100 UNITS/ML 3 ML PEN SC SCH ×4 (09:48→21:16)
[2021-04-24] MEDS: prednisoLONE acetate 1% OP SUSP 5 ML BTL OPL SCH (09:49)
[2021-04-24] MEDS: DORZOLAMIDE/TIMOLOL 22.3/6.8MG/ML 10 ML BTL OPL SCH ×2 (09:50→21:11)
[2021-04-24] MEDS: predniSONE 20 MG TAB PO SCH (09:50)
[2021-04-24] MEDS: OXYBUTYNIN CHLORIDE 5 MG TAB PO SCH ×3 (09:51→21:15)
[2021-04-24] MEDS: ASPIRIN 81 MG ECTAB PO SCH (09:51)
[2021-04-24] MEDS: lisinopril 10 MG TAB PO SCH (09:51)
[2021-04-24] MEDS: guaiFENesin 600 MG TABCR PO SCH ×2 (09:52→21:14)
[2021-04-24] MEDS: ENOXAPARIN INJ 40 MG/0.4 ML SYR SQ SCH (09:52)
--- NOTE | 2021-04-24 16:00 | Hospitalist Progress Note ---
Date of Service April 24, 2021 Assessment & Plan (1) SOB (shortness of breath): Plan: Present on admission with SOB associated with dry cough CXR showed Cardiomegaly with mild interstitial pulmonary edema and trace bilateral pleural effusions. Received lasix 20mg, Doxycycline and IV solumedrol in the ER On prednisone 40mg daily, will taper to 20mg on discharge Will hold on additional abx Will consider to give an additional lasix 20mg later Pt is on torsemide 10mg prn that she usually take weekly Will consider to increase torsemide to 3 times weekly on discharge Continue oxygen supplement and neb treament Continue monitor BMP NSCLC sp surgery Stable Diabetes type 2 Most recent hab1c 6 on 04/22/21 Well controlled Continue insulin sliding scale Continue monitor BS while on steroid DVT prophylaxis with Lovenox subcu Full code Admission and Anticipated Discharge Date Admission Date: April 22, 2021 Subjective Pt was seen and examined for follow up SOB Sitting in chair with no acute distress getting ready to eat her meal she said that she feels much better She said that her breathing is back to her basline Denies any chest pain, palpitation, dizziness and fever Physical Exam Physical Exam: General- No acute distress Head- atraumatic Eyes- PERRL, EOMI, ENT- oropharynx clear Neck- supple, no JVD Lungs- clear to auscultation Heart- regular rhythm; no murmur Abdomen- normal bowel sounds, soft, nontender Extremities- no calf tenderness, +trace edema Neuro- alert, oriented x 3; PERRL, EOMI; no facial palsy; no dysarthria Skin- warm & dry Results & Data Results & Data ([facility]) Vital Signs (Past 12 Hours) Vital Signs Temp Pulse Pulse Resp BP Pulse Ox 04/24/21 15:19 36.8 C 48 L 20 98/64 L 98 04/24/21 13:26 72 18 98 04/24/21 11:57 37.2 C 105 H 20 117/76 99 04/24/21 07:29 36.4 C L 67 18 109/74 100 04/24/21 07:20 68 16 100 04/24/21 06:13 76
[2021-04-24] MEDS: SIMVASTATIN 20 MG TAB PO SCH (21:14)
[2021-04-24] MEDS: INSULIN GLARGINE SOLOSTAR 100 UNITS/ML 3 ML PEN SC SCH (21:15)
[2021-04-25] MEDS: IPRATROPIUM BROMIDE NEB SOLN 0.02% 2.5 ML VIAL INH SCH ×3 (00:41→13:30)
[2021-04-25] MEDS: LEVALBUTEROL 1.25MG/0.5ML NEB INH SCH ×3 (00:41→13:31)
[2021-04-25] MEDS: ACETAMINOPHEN 325 MG TAB PO PRN ×2 (04:28→09:58)
[2021-04-25 07:53] VITALS: BP 107/71; TEMP 97.9; O2SAT 100
[2021-04-25] MEDS: INSULIN ASPART 100 UNITS/ML 3 ML PEN SC SCH (08:14)
[2021-04-25] MEDS: prednisoLONE acetate 1% OP SUSP 5 ML BTL OPL SCH (08:15)
[2021-04-25] MEDS: ASPIRIN 81 MG ECTAB PO SCH (08:15)
[2021-04-25] MEDS: DORZOLAMIDE/TIMOLOL 22.3/6.8MG/ML 10 ML BTL OPL SCH (08:16)
[2021-04-25] MEDS: ENOXAPARIN INJ 40 MG/0.4 ML SYR SQ SCH (08:16)
[2021-04-25] MEDS: OXYBUTYNIN CHLORIDE 5 MG TAB PO SCH (08:17)
[2021-04-25] MEDS: guaiFENesin 600 MG TABCR PO SCH (08:17)
[2021-04-25] MEDS: predniSONE 20 MG TAB PO SCH (08:18)
[2021-04-25] MEDS: lisinopril 10 MG TAB PO SCH (08:18)
[2021-04-25] MEDS ORDERED: TORSEMIDE 10 MG TAB PO ONE (10:05)
--- NOTE | 2021-04-25 10:51 | Hospitalist Progress Note ---
Date of Service April 25, 2021 Assessment & Plan (1) SOB (shortness of breath): Plan: Present on admission with SOB associated with dry cough CXR showed Cardiomegaly with mild interstitial pulmonary edema and trace bilateral pleural effusions. Received lasix 20mg, Doxycycline and IV solumedrol in the ER On prednisone 40mg daily, will taper to 20mg on discharge Will hold on additional abx Will consider to give an additional lasix 20mg later Pt is on torsemide 10mg prn that she usually take weekly Will consider to increase torsemide to 3 times weekly on discharge Will give K supplement on the day taking Torsemide Continue oxygen supplement and neb treatment Pt asked for a rescue inhaler to be used prn Continue monitor BMP NSCLC sp surgery Stable Diabetes type 2 Most recent hab1c 6 on 04/22/21 Well controlled Continue insulin sliding scale Continue monitor BS while on steroid DVT prophylaxis with Lovenox subcu Full code Disposition Discharge home today Admission and Anticipated Discharge Date Admission Date: April 22, 2021 Subjective Pt was seen and examined for follow up SOB She was in the bathroom when I entered the room. She used the walker to walk to the chair without any discomfort she said that she feels much better She said that her breathing is back to her baseline She said that she is ready to be discharge Denies any chest pain, palpitation, dizziness and fever Physical Exam Physical Exam: General- No acute distress Head- atraumatic Eyes- PERRL, EOMI, ENT- oropharynx clear Neck- supple, no JVD Lungs- clear to auscultation Heart- regular rhythm; no murmur Abdomen- normal bowel sounds, soft, nontender Extremities- no calf tenderness, +trace edema Neuro- alert, oriented x 3; PERRL, EOMI; no facial palsy; no dysarthria Skin- warm & dry Results & Data Results & Data ([facility]) Vital Signs (Past 12 Hours) Vital Signs Temp Pulse Pulse Resp BP Pulse Ox 04/25/21 07:53 36.6 C 71 18 107/71 100 04/25/21 07:28 74 18 99 04/25/21 03:12 36.5 C 51 L 18 97/54 L 98 04/25/21 00:41 75 18 100 04/25/21 00:03 75 04/24/21 23:20 36.9 C 90 18 99/68 L 96
--- NOTE | 2021-04-25 11:22 | Discharge Summary ---
Date of Service April 25, 2021 Admission HPI Per Admitting Provider History obtained from patient and records. Medical history significant for chronic respiratory failure secondary toCOPD/restrictive lung disease on home O2, NSCLC sp surgery, LCYDE, DM2 on oral medications, chronic venous stasis, past tobacco abuse. Last confinement August 2019 for cellulitis. Patient discharged on Augmentin course. Few days history of dry cough symptoms, congestion and worsening shortness of breath. Chest pain with coughing. No fever, no chills, no known sick contacts. Denies fluid retention/weight gain/leg swelling more than usual. Patient received COVID-19 vaccine. Loose stools with transient abdominal cramping. No recent out-of-town travel. Outpatient COVID-19 test from 2 days ago was negative. Patient consulted ER for worsening symptoms. Patient received Solu-Medrol, neb treatment, Lasix at the ER. Currently feeling much better. Medical History as above Surgical History : Cataract surgery, vein stripping, hysterectomy, recent vi trectomy for macular hole (03/2021), Family History : Heart disease, lymphoma, stroke, DM Personal/Social history : Past tobacco abuse, no EtOH intake, prior work as a [employer] employee Admission Exam Per Admitting Provider GENERAL: Comfortable, morbidly obese, pleasant, episodic tachypnea SKIN: Pallor , warm HEENT: pale palpebral conjunctivae, no ptosis, moist buccal mucosa, nasal cannula in place NECK : Supple, short neck, no tenderness CHEST : Decreased breath sounds, occasional expiratory wheezes, no tenderness HEART : RRR, no obvious murmurs ABDOMEN: Some distention, nontender EXTREMITIES : Bilateral LE swelling with erythema (chronic as per patient), minimal LE swelling/tenderness, no other conspicuous deformities noted NEUROLOGIC : Coherent, no facial asymmetry, mild hearing impairment, no other gross focality Principal Diagnosis SOB (shortness of breath): Pulmonary edema Diabetes type 2 Discharge Exam General- No acute distress Head- atraumatic Eyes- PERRL, EOMI, ENT- oropharynx clear Neck- supple, no JVD Lungs- clear to auscultation Heart- regular rhythm; no murmur Abdomen- normal bowel sounds, soft, nontender Extremities- no calf tenderness, +trace edema Neuro- alert, oriented x 3; PERRL, EOMI; no facial palsy; no dysarthria Skin- warm & dry Discharge Data Allergies Allergy/AdvReac Type Severity Reaction Status Date / Time naproxen Allergy Intermediate throat Verified 02/10/21 08:54 swelling cephalexin Allergy Mild RASH Verified 02/10/21 08:54 Consultations 04/22/21 20:36 ED Decision to Admit Stat Ordered Studies FINDINGS: No pneumothorax. There are trace bilateral pleural effusions. The heart remains enlarged. There is perihilar interstitial/vascular thickening suggestive of mild pulmonary edema. This is similar to the prior study. There is mild respiratory motion artifact. Old, healed left rib fractures consistent with postoperative change. IMPRESSION: Cardiomegaly with mild interstitial pulmonary edema and trace bilateral pleural effusions. ACT 112: Negative or not required by law. Hospital Course (1) SOB (shortness of breath): Present on admission with SOB associated with dry cough CXR showed Cardiomegaly with mild interstitial pulmonary edema and trace bilateral pleural effusions. Received lasix 20mg, Doxycycline and IV solumedrol in the ER On prednisone 40mg daily, will taper to 20mg on discharge Will hold on additional abx Will consider to give an additional lasix 20mg later Pt is on torsemide 10mg prn that she usually take weekly Will consider to increase torsemide to 3 times weekly on discharge Will give K supplement on the day taking Torsemide Continue oxygen supplement and neb treatment Pt asked for a rescue inhaler to be used prn Continue monitor BMP NSCLC sp surgery Stable Diabetes type 2 Most recent hab1c 6 on 04/22/21 Well controlled Continue insulin sliding scale Continue monitor BS while on steroid DVT prophylaxis with Lovenox subcu Full code Disposition Discharge home today Total Time Total Time Spent Total Time Spent (In Minutes): 35 minutes Discharge Plan Discharge Items Patient Disposition: Home - Self-Care Reason For Visit: SOB, RLD EXACERBATION Discharge Diagnosis: SOB (shortness of breath): Pulmonary edema Diabetes type 2 Activity: Resume your previous activity Non-emergency contact: Primary Care Provider Call non-emergency contact if: you have any medication questions and your symptoms worsen Follow-up/Referrals: Luis Roe MD [Primary Care Provider] - (Date & Time 04/29/2021 1:40 PM Provider Tori Soni PA-C Department Family Medicine [facility] ) Diet: Carb Consistent or DM2 and Heart Healthy Addtl Attending Provider Instructions: 04/29/2021 1:40 PM Provider Tori Soni PA-C Department Family Medicine [facility] Take Torsemide 3 times a week Check BMP within 1 week to monitor your renal function and electrolytes Continue oxygen supplement with 3L Nasal canula Fall precaution Seek medical attention if your symptoms reoccur Pending Studies at Discharge: No Stand-Alone Forms: My [facility], Smoking Cessation Medications and DC Order Prescriptions: New prednisone 20 mg Tablet 20 mg PO DAILY Qty: 3 RF: 0 potassium chloride 10 mEq tablet extended release 10 meq PO UD Qty: 30 RF: 0 guaifenesin 200 mg tablet 200 mg PO TID PRN (Reason: congestion) Qty: 15 RF: 0 albuterol sulfate 90 mcg/actuation HFA aerosol inhaler 2 inh inhalation Q6H PRN (Reason: shortness of breath or wheezing) Qty: 6.7 RF: 0 Continued lisinopril 10 mg tablet 10 mg PO QAM RF: 0 meloxicam 7.5 mg tablet 7.5 mg PO HS RF: 0 simvastatin [Zocor] 20 mg tablet 20 mg PO HS RF: 0 oxybutynin chloride 5 mg tablet 5 mg PO TID RF: 0 metformin 500 mg tablet extended release 24 hr 500 mg PO BID RF: 0 acetaminophen 325 mg capsule 650 mg PO QID PRN (Reason: Pain) RF: 0 aspirin [Adult Low Dose Aspirin] 81 mg tablet,delayed release (DR/EC) 81 mg PO QAM RF: 0 triamcinolone acetonide 0.1 % cream 1 appln TOP BID Qty: 80 RF: 0 (DME) Oxygen Home Liters Per Minute See Rx Instructions .ROUTE .MEDSUPPLY Qty: 1 RF: 0 desoximetasone 0.25 % ointment 1 appln TOP DAILY Qty: 100 RF: 0 prednisolone acetate 1 % drops,suspension 1 drp OPL DAILY RF: 0 dorzolamide-timolol 22.3-6.8 mg/mL drops 1 drp OPL BID RF: 0 Changed torsemide 10 mg Tablet 10 mg PO 3XWK Qty: 30 RF: 0 Discharge Orders: Discharge Order (Routine); Ordered 04/25/21 Ordered By: Jhoana Gates/Other Patient Handouts: A1C, Managing Type 2 Diabetes Admission Data Admit Date/Time: 08/27/21 21:46 Attending Provider: Jhoana Montelongo Admit Provider: Kaz Gannon Primary Care Provider: Luis Roe Other Providers: Kaz Gannon
[2021-04-25 11:34] VITALS: PULSE 103
== END 2021-04-25 13:50 | disposition home or self-care (01) | DRG 189 ==
LOC: ED 16:05 → 2W 21:46
DX: E11.9 Type 2 diabetes mellitus without complications; Z90.2 Acquired absence of lung [part of]; Z87.891 Personal history of nicotine dependence; I10 Essential (primary) hypertension; I87.2 Venous insufficiency (chronic) (peripheral); J98.4 Other disorders of lung; J81.1 Chronic pulmonary edema; Z79.82 Long term (current) use of aspirin; Z88.6 Allergy status to analgesic agent; J44.1 Chronic obstructive pulmonary disease with (acute) exacerbation; J96.10 Chronic respiratory failure, unspecified whether with hypoxia or hypercapnia; Z79.84 Long term (current) use of oral hypoglycemic drugs; Z85.118 Personal history of other malignant neoplasm of bronchus and lung; Z79.899 Other long term (current) drug therapy; G47.33 Obstructive sleep apnea (adult) (pediatric); E78.5 Hyperlipidemia, unspecified; Z88.1 Allergy status to other antibiotic agents; Z99.81 Dependence on supplemental oxygen

== ENCOUNTER 2025-07-19 17:14 | Inpatient (IN) ==
[2025-07-19] MEDS: PROPOFOL BOLUS FROM BAG IV PRN (17:31)
[2025-07-19] MEDS: PROPOFOL IV EMULSION 10 MG/ML 100 ML VIAL IV ONE (17:42)
--- NOTE | 2025-07-19 17:45 | Emergency Department Note ---
Impression & Plan AMS (altered mental status), Fever, Acute hypoxemic respiratory failure, Endotracheally intubated, Pulmonary vascular congestion, Elevated troponin, Elevated brain natriuretic peptide (BNP) level, Heart block, Acute UTI (urinary tract infection), Sepsis, Rhinovirus infection, Enterovirus infection ED Provider Note HISTORY OF PRESENT ILLNESS: Patient is a 75-year-old female presenting in respiratory distress. History is obtained via EMS, given the patient's altered mental status. EMS reports they were called out by the patient's son for chest pain and confusion. On arrival, the patient was very confused and kept attempting to swing and kick at emergency medical staff. She had saturations of 78% on room air and was started on a nonrebreather. Patient was difficult to get any further vital signs on secondary to her being uncooperative with care. On arrival to the ER, the patient is on 15 L nonrebreather. She is attempting to swing and kick at staff. She is unable to be redirected. She is complaining of 10 out of 10 chest pain. She attempts to kick at staff, and then becomes very sleepy and lethargic and is difficult to arouse. ROS: as above PHYSICAL EXAM: Constitutional: Patient appears in mild distress. Morbidly obese HENT: Head: Normocephalic and atraumatic. Eyes: EOMI, PERRL Mouth/Throat: Mucous membranes moist. Neck: Trachea midline. Neck supple. Cardiovascular: RRR, No murmurs, rubs or gallops. Intact distal pulses. Pulmonary/Chest: No respiratory distress. Breath sounds clear and equal bilaterally. On 15 L nonrebreather. Abdominal: Abdomen soft, no tenderness, rebound or guarding. Musculoskeletal: No edema, tenderness or deformity noted. Skin: Warm and dry. No rash, erythema, pallor or cyanosis Neurological: Alert to self. Patient is spontaneously moving bilateral upper and lower extremities. MDM: - Vitals signs showed hypertension - History obtained via EMS, given patient's confusion. History as above. - Chronic conditions affecting care: DM-2; COPD; CLYDE; chronic venous insufficiency; HTN; HLD - Differential diagnoses include, but are not limited to: Congestive heart failure; acute coronary syndrome; COPD/asthma exacerbation; pulmonary edema; pulmonary embolism; pneumonia; pneumothorax; viral syndrome - Order placed for continuous cardiac monitoring. At this time, monitor showed rate of 40 bpm with normal sinus rhythm, per my interpretation. Noted to have progressively longer DE intervals and appears she might have a heart block. - External medical records reviewed. [facility] office visit note dated 09/16/2024 was reviewed. Patient was seen for 6-month follow-up and medication administration for her flu shot. - IV access was obtained. Given patient's significant altered mental status and inability to be redirected, in the setting of her intermittent episodes of becoming very lethargic and difficult to arouse, concern about the patient's ability to protect her airway. Decision was made to perform rapid sequence intubation. Patient given 20 mg IV etomidate and 100 mg of IV succinylcholine and intubated with a glide scope per my documentation below. - Post intubation chest x-ray imaging reviewed by myself showed appropriate ET tube placement, but noted to have diffuse pulmonary edema, per my interpretation. - Patient required multiple boluses of IV propofol postintubation to keep her sedated. Her rate was also adjusted to help keep the patient sedated. She also received a bolus of 5 mg IV Versed and 100 mcg of IV fentanyl for further sedation and analgesia. - EKG image interpreted by myself showed normal sinus rhythm. Rate bradycardic with a heart rate of 49 bpm. QT 476. No acute ischemic changes. Noted to have an incomplete right bundle branch block. - Given 1g IV tylenol for fever. - Laboratory workup interpreted by myself showed leukocytosis (WBC 13.79) with neutrophil predominance; stable electrolytes; hyperglycemia (glucose 230); normal lactate; normal procalcitonin; elevated BNP (458); elevated troponin (48.5) - Blood cultures obtained - VBG showed respiratory acidosis with elevated pCO2 at 61 mmHg. - CT head wo contrast negative for acute intracranial pathology. - CT chest with IV contrast read by radiology showing mild interstitial changes noted - Patient given 40 mg IV lasix. - Viral respiratory panel positive for rhinovirus/enterovirus infections - Given 2g IV rocephin empirically. - Temp 39C with temperature sensing rodriguez - UA shows evidence of infection. - Discussed case with chief data officer on-call, Dr. Cloud, at 18:19 and updated him on the patient's need for ICU admission given her intubation. He reports that ICU will be on for consult. - Discussion was had with oil field caser about patient's case and need for admission - Hospitalist consulted for admission - Patient admitted to [facility]ist service for further evaluation and management. I have personally spent 63 minutes of critical care time in the direct management of this patient. This includes bedside care, interpretation of diagnostic studies, and testing, discussion with consultants, patient, and family members, and other required patient management activities. This 63 minutes is in excess of all separately billable procedures. PROCEDURE: Endotracheal Intubation Indication: altered mental status; inability to protect airway The patient was on 100% oxygen via NRB prior to the procedure. Suction, airway equipment, RSI drugs, respiratory equipment, and appropriate personnel were prepared prior to the initiation of the procedure. A time out was taken. Induction was performed with 20 mg IV etomidate and paralysis with 100 mg IV succinylcholine. After observing the clinical benefit of the medications, the airway was easily visualized utilizing a Mac 4 glidescope blade. A 7.5 size ETT tube was placed atraumatically to 21 cm using standard technique. The cuff inflated without signs of malfunction. There were bilateral breath sounds, positive colormetric change, no gastric sounds, a good capnography waveform, and post procedure pulse oximetry was 97%. Post intubation sedation was administered using propofol. There were no complications. ASSESSMENT AND PLAN: Diagnosis: Altered mental status; fever; acute hypoxic respiratory failure; endotracheally intubated; pulmonary vascular congestion; elevated troponin; elevated BNP; heart block; acute UTI; sepsis; rhinovirus infection; enterovirus infection Plan: admit Past Med/Surg History Problem List (Updated 07/19/25 @ 20:48 by Liz Zhang MD) Enterovirus infection (Acute) Rhinovirus infection (Acute) Sepsis (Acute) Acute UTI (urinary tract infection) (Acute) Heart block (Acute) Elevated brain natriuretic peptide (BNP) level (Acute) Elevated troponin (Acute) Pulmonary vascular congestion (Acute) Endotracheally intubated (Acute) Acute hypoxemic respiratory failure (Acute) Fever (Acute) AMS (altered mental status) (Acute) Abnormal chest CT Chronic respiratory failure with hypoxia Hypersomnia Multiple pulmonary nodules History of lung cancer Obstructive sleep apnea (Chronic) CPAP WITH O2 Necrobiosis lipoidica diabeticorum (Chronic) Chronic respiratory failure (Chronic) Back pain (Acute) Anemia Obesity Urinary incontinence Chronic venous insufficiency (Chronic) Restrictive lung disease Venous stasis ulcer (Acute) Cellulitis (Acute) Cellulitis of left lower extremity (Acute) COPD (chronic obstructive pulmonary disease) (Chronic) Venous stasis ulcers of both lower extremities (Acute) Diabetes mellitus type 2 with complications Medical History Adenocarcinoma of left lung, stage 1 s/p left upper lobectomy 03/28/17 Cellulitis BLE COPD (chronic obstructive pulmonary disease) Diabetes mellitus type 2 with complications Hx of endometriosis Hyperlipidemia Hypertension Macular hole RT/LEFT EYE Morbid obesity MRSA (methicillin resistant Staphylococcus aureus) Necrobiosis lipoidica diabeticorum Obstructive sleep apnea CPAP WITH O2 On home oxygen therapy O2 AT 2L CONT. Restless leg syndrome Urinary incontinence Venous stasis ulcers of both lower extremities Surgical History H/O vascular surgery LEFT LEG (BY DR. WEIR) H/O: hysterectomy History of bronchoscopy History of cataract surgery RT/LEFT History of lung surgery History of tooth extraction S/P hysterectomy S/P lobectomy of lung Thoracoscopy w/ Lobectomy Left 03/28/2017 malignant neoplasm JOLENE bronchus, with VATS Provider Family History Sister Family history of diabetes mellitus Son Family history of diabetes mellitus Father Family history of diabetes mellitus Other Cancer Heart disease Social History Smoking Status: Former smoker Cigarettes Per Day: 40; Second Hand Exposure: No; Do You Dip or Chew Tobacco: No; Hx Alcohol Use: Yes Hx Substance Use: No Preferred Language: Togolese Communication Ability: Effective Visual Impairment: No Limitations Hearing Ability: Normal Percussion Instrument Tuner Required: No Beliefs That Will Affect Care: None marital status: Single Current Living Situation: Other Current Living Situation Comment: lives with son 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 Feels Safe at Home: Yes Assistive Devices: CPAP, Denture - Upper, Oxygen - at Night and Oxygen - Continuous Allergies Allergies Allergy/AdvReac Type Severity Reaction Status Date / Time naproxen Allergy Intermediate throat Verified 12/09/24 16:14 swelling cephalexin Allergy Mild RASH Verified 12/09/24 16:14 Home Meds Home Medications Medication Instructions Recorded Confirmed aspirin 81 mg tablet,delayed 81 mg PO QAM 12/31/18 07/19/25 release (Adult Low Dose Aspirin) metformin 500 mg tablet,extended 500 mg PO BID 12/31/18 07/19/25 release 24 hr oxybutynin chloride 5 mg tablet 5 mg PO TID 12/31/18 07/19/25 simvastatin 20 mg tablet (Zocor) 20 mg PO HS 12/31/18 07/19/25 gabapentin 300 mg capsule 300 mg PO TID 12/09/24 07/19/25 albuterol sulfate 90 mcg/actuation 2 inh inhalation Q4 PRN 07/19/25 07/19/25 aerosol inhaler wheeze,cough,SOB nystatin 100,000 unit/gram topical 1 applic topical AMHS 07/19/25 07/19/25 cream tiotropium bromide 2.5 2 puff inhalation QAM 07/19/25 07/19/25 mcg/actuation mist for inhalation (Spiriva Respimat) torsemide 10 mg tablet 10 mg PO UD 07/19/25 07/19/25 Previous Rx's Medication Instructions Recorded Oxygen Home #1 ea 08/11/19 triamcinolone acetonide 0.1 % 1 appln topical BID #80 grams 02/05/20 topical cream desoximetasone 0.25 % topical 1 appln topical DAILY #100 grams 04/02/20 ointment CPAP Machine #1 ea 05/02/22 CPAP Supplies #1 ea 05/07/25 Results & Data (ED) Vital Signs Vital Signs - 24 hr 07/19/25 17:15 07/19/25 17:15 07/19/25 17:15 Temperature 37.6 C H 37.6 C H Temperature Source Axillary Axillary Pulse Rate Pulse Rate [Apical] Pulse Rate from SpO2 Sensor Respiratory Rate 40 H Respiratory Effort / Characteristics Labored Short of Breath Labored Short of Breath Respiratory Pattern Gasping Irregular Blood Pressure Blood Pressure [Right Arm] Blood Pressure Mean Blood Pressure Mean [Right Arm] Pulse Oximetry Oxygen Delivery Method Oxygen Flow Rate Fraction of Inspired Oxygen Sepsis New/Unexplained Change in Mental Status No Sepsis Action Taken by Nursing No Action Required End-Tidal CO2 End Tidal CO2 (18-54mmHg) 07/19/25 17:15 07/19/25 17:24 07/19/25 17:27 Temperature Temperature Source Pulse Rate 59 L Pulse Rate [Apical] Pulse Rate from SpO2 Sensor 61 Respiratory Rate Respiratory Effort / Characteristics Respiratory Pattern Blood Pressure 161/67 H Blood Pressure [Right Arm] Blood Pressure Mean 126 Blood Pressure Mean [Right Arm] Pulse Oximetry 100 Oxygen Delivery Method Non-rebreather Non-rebreather Oxygen Flow Rate 15 Fraction of Inspired Oxygen Sepsis New/Unexplained Change in Mental Status Sepsis Action Taken by Nursing End-Tidal CO2 End Tidal CO2 (18-54mmHg) 07/19/25 17:27 07/19/25 17:27 07/19/25 17:30 Temperature Temperature Source Pulse Rate 61 60 Pulse Rate [Apical] Pulse Rate from SpO2 Sensor 61 61 Respiratory Rate 20 Respiratory Effort / Characteristics Respiratory Pattern Blood Pressure 161/67 H Blood Pressure [Right Arm] Blood Pressure Mean 126 Blood Pressure Mean [Right Arm] Pulse Oximetry 100 100 Oxygen Delivery Method Mechanical Vent Mechanical Vent Oxygen Flow Rate Fraction of Inspired Oxygen Sepsis New/Unexplained Change in Mental Status Sepsis Action Taken by Nursing End-Tidal CO2 61 End Tidal CO2 (18-54mmHg) 07/19/25 17:36 07/19/25 17:41 07/19/25 17:42 Temperature Temperature Source Pulse Rate 58 L 53 L 54 L Pulse Rate [Apical] Pulse Rate from SpO2 Sensor 58 L 54 L Respiratory Rate 20 16 Respiratory Effort / Characteristics Respiratory Pattern Blood Pressure Blood Pressure [Right Arm] Blood Pressure Mean Blood Pressure Mean [Right Arm] Pulse Oximetry 97 96 Oxygen Delivery Method Mechanical Vent Mechanical Vent Oxygen Flow Rate Fraction of Inspired Oxygen Sepsis New/Unexplained Change in Mental Status Sepsis Action Taken by Nursing End-Tidal CO2 75 67 End Tidal CO2 (18-54mmHg) 07/19/25 17:42 07/19/25 17:45 07/19/25 17:45 Temperature Temperature Source Pulse Rate 52 L Pulse Rate [Apical] Pulse Rate from SpO2 Sensor 53 L Respiratory Rate 21 Respiratory Effort / Characteristics Respiratory Pattern Blood Pressure 178/74 H Blood Pressure [Right Arm] Blood Pressure Mean 114 Blood Pressure Mean [Right Arm] Pulse Oximetry 97 Oxygen Delivery Method Mechanical Vent Mechanical Vent Oxygen Flow Rate Fraction of Inspired Oxygen Sepsis New/Unexplained Change in Mental Status Sepsis Action Taken by Nursing End-Tidal CO2 59 End Tidal CO2 (18-54mmHg) 07/19/25 17:46 07/19/25 17:48 07/19/25 17:50 Temperature Temperature Source Pulse Rate 49 L Pulse Rate [Apical] Pulse Rate from SpO2 Sensor 50 L Respiratory Rate 27 H Respiratory Effort / Characteristics Respiratory Pattern Blood Pressure 160/55 H 153/59 H Blood Pressure [Right Arm] Blood Pressure Mean 79 107 Blood Pressure Mean [Right Arm] Pulse Oximetry 97 Oxygen Delivery Method Mechanical Vent Oxygen Flow Rate Fraction of Inspired Oxygen Sepsis New/Unexplained Change in Mental Status Sepsis Action Taken by Nursing End-Tidal CO2 57 End Tidal CO2 (18-54mmHg) 07/19/25 17:51 07/19/25 17:54 07/19/25 17:56 Temperature Temperature Source Pulse Rate 48 L 47 L Pulse Rate [Apical] Pulse Rate from SpO2 Sensor 48 L 47 L Respiratory Rate 27 H 22 Respiratory Effort / Characteristics Respiratory Pattern Blood Pressure 126/55 L Blood Pressure [Right Arm] Blood Pressure Mean 74 Blood Pressure Mean [Right Arm] Pulse Oximetry 98 97 Oxygen Delivery Method Mechanical Vent Mechanical Vent Oxygen Flow Rate Fraction of Inspired Oxygen Sepsis New/Unexplained Change in Mental Status Sepsis Action Taken by Nursing End-Tidal CO2 54 61 End Tidal CO2 (18-54mmHg) 07/19/25 17:57 07/19/25 18:00 07/19/25 18:00 Temperature Temperature Source Pulse Rate 47 L 45 L Pulse Rate [Apical] Pulse Rate from SpO2 Sensor 47 L 45 L Respiratory Rate 26 H 28 H Respiratory Effort / Characteristics Respiratory Pattern Blood Pressure 128/62 Blood Pressure [Right Arm] Blood Pressure Mean 83 Blood Pressure Mean [Right Arm] Pulse Oximetry 97 98 Oxygen Delivery Method Mechanical Vent Mechanical Vent Oxygen Flow Rate Fraction of Inspired Oxygen Sepsis New/Unexplained Change in Mental Status Sepsis Action Taken by Nursing End-Tidal CO2 58 53 End Tidal CO2 (18-54mmHg) 07/19/25 18:03 07/19/25 18:05 07/19/25 18:06 Temperature Temperature Source Pulse Rate 45 L 44 L Pulse Rate [Apical] Pulse Rate from SpO2 Sensor 45 L 44 L Respiratory Rate 25 H 26 H Respiratory Effort / Characteristics Respiratory Pattern Blood Pressure 137/50 L Blood Pressure [Right Arm] Blood Pressure Mean 89 Blood Pressure Mean [Right Arm] Pulse Oximetry 98 97 Oxygen Delivery Method Mechanical Vent Mechanical Vent Oxygen Flow Rate Fraction of Inspired Oxygen Sepsis New/Unexplained Change in Mental Status Sepsis Action Taken by Nursing End-Tidal CO2 51 53 End Tidal CO2 (18-54mmHg) 07/19/25 18:08 07/19/25 18:30 07/19/25 18:30 Temperature Temperature Source Pulse Rate 45 L Pulse Rate [Apical] Pulse Rate from SpO2 Sensor 45 L Respiratory Rate 25 H 24 Respiratory Effort / Characteristics Respiratory Pattern Blood Pressure 114/39 L Blood Pressure [Right Arm] Blood Pressure Mean 54 Blood Pressure Mean [Right Arm] Pulse Oximetry 96 96 Oxygen Delivery Method Mechanical Vent Oxygen Flow Rate Fraction of Inspired Oxygen 50 Sepsis New/Unexplained Change in Mental Status Sepsis Action Taken by Nursing End-Tidal CO2 62 51 End Tidal CO2 (18-54mmHg) 07/19/25 18:33 07/19/25 18:35 07/19/25 18:36 Temperature Temperature Source Pulse Rate 40 L 40 L Pulse Rate [Apical] Pulse Rate from SpO2 Sensor 40 L 40 L Respiratory Rate 24 24 Respiratory Effort / Characteristics Respiratory Pattern Blood Pressure 118/44 L Blood Pressure [Right Arm] Blood Pressure Mean 72 Blood Pressure Mean [Right Arm] Pulse Oximetry 100 100 Oxygen Delivery Method Mechanical Vent Oxygen Flow Rate Fraction of Inspired Oxygen Sepsis New/Unexplained Change in Mental Status Sepsis Action Taken by Nursing End-Tidal CO2 52 50 End Tidal CO2 (18-54mmHg) 07/19/25 18:39 07/19/25 18:40 07/19/25 18:42 Temperature Temperature Source Pulse Rate 48 L 40 L Pulse Rate [Apical] Pulse Rate from SpO2 Sensor 40 L 40 L Respiratory Rate 24 24 Respiratory Effort / Characteristics Respiratory Pattern Blood Pressure 118/62 Blood Pressure [Right Arm] Blood Pressure Mean 88 Blood Pressure Mean [Right Arm] Pulse Oximetry 100 100 Oxygen Delivery Method Oxygen Flow Rate Fraction of Inspired Oxygen Sepsis New/Unexplained Change in Mental Status Sepsis Action Taken by Nursing End-Tidal CO2 51 50 End Tidal CO2 (18-54mmHg) 07/19/25 18:45 07/19/25 18:45 07/19/25 18:48 Temperature Temperature Source Pulse Rate 40 L 40 L Pulse Rate [Apical] Pulse Rate from SpO2 Sensor 40 L 40 L Respiratory Rate 24 24 Respiratory Effort / Characteristics Respiratory Pattern Blood Pressure 134/50 L Blood Pressure [Right Arm] Blood Pressure Mean 82 Blood Pressure Mean [Right Arm] Pulse Oximetry 100 100 Oxygen Delivery Method Oxygen Flow Rate Fraction of Inspired Oxygen Sepsis New/Unexplained Change in Mental Status Sepsis Action Taken by Nursing End-Tidal CO2 49 51 End Tidal CO2 (18-54mmHg) 07/19/25 18:50 07/19/25 18:50 07/19/25 18:51 Temperature Temperature Source Pulse Rate 40 L 39 L Pulse Rate [Apical] Pulse Rate from SpO2 Sensor 40 L Respiratory Rate 24 Respiratory Effort / Characteristics Respiratory Pattern Blood Pressure 121/39 L Blood Pressure [Right Arm] Blood Pressure Mean 61 Blood Pressure Mean [Right Arm] Pulse Oximetry 100 Oxygen Delivery Method Oxygen Flow Rate Fraction of Inspired Oxygen Sepsis New/Unexplained Change in Mental Status Sepsis Action Taken by Nursing End-Tidal CO2 50 End Tidal CO2 (18-54mmHg) 07/19/25 18:54 07/19/25 18:55 07/19/25 18:57 Temperature 39.3 C H Temperature Source Pulse Rate 39 L 39 L Pulse Rate [Apical] Pulse Rate from SpO2 Sensor 40 L 39 L Respiratory Rate 24 24 Respiratory Effort / Characteristics Respiratory Pattern Blood Pressure 124/39 L Blood Pressure [Right Arm] Blood Pressure Mean 56 Blood Pressure Mean [Right Arm] Pulse Oximetry 100 99 Oxygen Delivery Method Oxygen Flow Rate Fraction of Inspired Oxygen Sepsis New/Unexplained Change in Mental Status Sepsis Action Taken by Nursing End-Tidal CO2 50 49 End Tidal CO2 (18-54mmHg) 07/19/25 19:20 07/19/25 19:30 07/19/25 19:45 Temperature 39.1 C H 39 C H 38.9 C H Temperature Source Rodriguez Cath ( Temp Sensing) Rodriguez Cath ( Temp Sensing) Rodriguez Cath ( Temp Sensing) Pulse Rate Pulse Rate [Apical] 40 L 40 L 40 L Pulse Rate from SpO2 Sensor Respiratory Rate 24 24 24 Respiratory Effort / Characteristics Mechanically Ventilated Mechanically Ventilated Mechanically Ventilated Respiratory Pattern Blood Pressure Blood Pressure [Right Arm] 139/45 L 140/52 L 152/46 H Blood Pressure Mean Blood Pressure Mean [Right Arm] 76 81 81 Pulse Oximetry 98 98 98 Oxygen Delivery Method Mechanical Vent Mechanical Vent Mechanical Vent Oxygen Flow Rate Fraction of Inspired Oxygen Sepsis New/Unexplained Change in Mental Status Sepsis Action Taken by Nursing End-Tidal CO2 End Tidal CO2 (18-54mmHg) 51 49 48 07/19/25 20:00 07/19/25 20:15 07/19/25 20:30 Temperature 38.9 C H 38.8 C H 38.8 C H Temperature Source Rodriguez Cath ( Temp Sensing) Rodriguez Cath ( Temp Sensing) Rodriguez Cath ( Temp Sensing) Pulse Rate Pulse Rate [Apical] 40 L 40 L 40 L Pulse Rate from SpO2 Sensor Respiratory Rate 24 24 24 Respiratory Effort / Characteristics Mechanically Ventilated Mechanically Ventilated Mechanically Ventilated Respiratory Pattern Blood Pressure Blood Pressure [Right Arm] 143/58 H 144/46 H 132/51 L Blood Pressure Mean Blood Pressure Mean [Right Arm] 86 78 78 Pulse Oximetry 98 98 98 Oxygen Delivery Method Mechanical Vent Mechanical Vent Mechanical Vent Oxygen Flow Rate Fraction of Inspired Oxygen Sepsis New/Unexplained Change in Mental Status Sepsis Action Taken by Nursing End-Tidal CO2 End Tidal CO2 (18-54mmHg) 48 47 47 Laboratory Data 07/19/25 17:46 07/19/25 17:46 Lab Results 07/19/25 07/19/25 07/19/25 Range/Units 17:24 17:46 19:30 WBC 13.79 H (4.8-10.8) K/ul RBC 4.31 (4.20-5.40) M/uL Hgb 11.1 L (12.0-16.0) g/dL POC Hgb 11.6 L (12.0-16.0) g/dl Hct 36.2 L (37.0-47.0) % POC Hct 34 L (37-47) % MCV 84.0 (80.0-100.0) fL MCH 25.8 (25.0-34.0) pg MCHC 30.7 L (32.0-36.0) g/dL RDW Std Deviation 47.8 H (36.4-46.3) fL RDW Coeff of Olivia 15.9 H (11.5-14.5) % Plt Count 166 (130-400) K/uL MPV 9.8 (9.4-12.4) fL Immature Gran % (Auto) 0.7 % Neut % (Auto) 86.0 % Lymph % (Auto) 7.7 % Bailey % (Auto) 5.1 % Eos % (Auto) 0.3 % Baso % (Auto) 0.2 % Neut # (Auto) 11.86 H (1.40-6.50) K/uL Lymph # (Auto) 1.06 L (1.20-3.40) K/uL Bailey # (Auto) 0.71 H (0.11-0.59) K/uL Eos # (Auto) 0.04 (0.00-0.50) K/uL Baso # (Auto) 0.03 (0.00-0.20) K/uL Immature Gran # (Auto) 0.09 (0.01-0.20) K/uL Specimen Type Mixed Blood Sample Site R Radial POC pH 7.39 (7.35-7.45) POC pCO2 39 (35-46) mmHg POC pO2 64 L (80-95) mmHg POC HCO3 23 (19-24) mmol/L POC Total CO2 25 (24-31) mmol/L POC Base Excess -2.0 (-9-1.8) mmol/L O2 Sat Pulse Oximetry 95 ABG pH (Temp Correct) 7.380 (7.35-7.45) ABG pCO2 (Temp Corrct 40 (35-46) mmHg POC ABG pO2 at Pt Temp 67 POC ABG O2 Sat 92.0 (90-95) % Tone Test Pass VBG pH 7.24 L (7.36-7.41) VBG pCO2 61 H (38-50) mmHg VBG pO2 47 mmHg VBG HCO3 26 mmol/L VBG O2 Saturation 76.9 % VBG Base Excess -2.3 mEq/L O2 Delivery Device NonRb Mask POC FiO2 15 % POC Sodium 138 (135-144) mmol/L Sodium 137 (136-145) mmol/L POC Potassium 4.4 (3.3-5.0) mmol/L Potassium 4.3 (3.5-5.1) mmol/L Chloride 103 (98-107) mmol/L Carbon Dioxide 26 (21-32) mmol/L Anion Gap 8 (3-11) BUN 24 H (6-23) mg/dl Creatinine 0.95 (0.6-1.2) mg/dl Est Cr Clr Drug Dosing Not Reportable eGFR 63.26 BUN/Creatinine Ratio 25.3 H (10-20) Glucose 230 H (70-99(Fasting)) mg/dl Lactate 1.7 (0.4-2.0) mmol/L Calcium 9.0 (8.6-10.3) mg/dl Magnesium 1.8 (1.7-2.4) mg/dl Total Bilirubin 0.4 (0.2-1.0) mg/dl Direct Bilirubin 0.0 (0-0.2) mg/dl AST 14 (13-39) U/L ALT 14 (7-52) U/L Alkaline Phosphatase 74 (34-104) U/L Troponin I High Sens 48.5 H 246.2 H* D (0-14) pg/ml B-Natriuretic Peptide 458 H (0-100) pg/ml Total Protein 6.9 (6.0-8.3) gm/dl Albumin 4.2 (3.4-5.0) gm/dl Procalcitonin 0.05 (0-0.5) ng/ml Urine Color Urine Appearance (Clear) Urine pH (4.5-7.5) Ur Specific [place] (1.000-1.030) Urine Protein (Negative) Urine Glucose (UA) (Negative) Urine Ketones (Negative) Urine Blood (Negative) Urine Nitrite (Negative) Urine Bilirubin (Negative) Urine Urobilinogen (Negative) Ur Leukocyte Esterase (Negative) Urine WBC (Auto) (0-5) /hpf Urine RBC (Auto) (0-2) /hpf U Hyaline Cast (Auto) (0-2) /lpf U Epithel Cells (Auto) (0-2) /hpf Urine Bacteria (Auto) (None Seen) Calcium Oxalate Crystal (None Prsent) Hyaline Casts (None Presnt) /lpf Urine Comment Adenovirus (PCR) (NotDetected) B. pertussis DNA (PCR) (NotDetected) B.parapertussis DNA PCR (NotDetected) C. pneumoniae DNA (PCR) (NotDetected) Coronavirus OC43 (PCR) (NotDetected) Coronavirus HKU1 (PCR) (NotDetected) Coronavirus 229E (PCR) (NotDetected) SARS-CoV-2 (PCR) (NotDetected) Coronavirus NL63 (PCR) (NotDetected) Human Metapneumovir PCR (NotDetected) Influenza Type A (PCR) (NotDetected) Influenza Type B (PCR) (NotDetected) M. pneumoniae (PCR) (NotDetected) Parainfluenza 1 (PCR) (NotDetected) Parainfluenza 2 (PCR) (NotDetected) Parainfluenza 3 (PCR) (NotDetected) Parainfluenza 4 (PCR) (NotDetected) RSV (PCR) (NotDetected) Entero/Rhino (PCR) (NotDetected) 07/19/25 07/19/25 Range/Units 19:34 19:45 WBC (4.8-10.8) K/ul RBC (4.20-5.40) M/uL Hgb (12.0-16.0) g/dL POC Hgb (12.0-16.0) g/dl Hct (37.0-47.0) % POC Hct (37-47) % MCV (80.0-100.0) fL MCH (25.0-34.0) pg MCHC (32.0-36.0) g/dL RDW Std Deviation (36.4-46.3) fL RDW Coeff of Olivia (11.5-14.5) % Plt Count (130-400) K/uL MPV (9.4-12.4) fL Immature Gran % (Auto) % Neut % (Auto) % Lymph % (Auto) % Bailey % (Auto) % Eos % (Auto) % Baso % (Auto) % Neut # (Auto) (1.40-6.50) K/uL Lymph # (Auto) (1.20-3.40) K/uL Bailey # (Auto) (0.11-0.59) K/uL Eos # (Auto) (0.00-0.50) K/uL Baso # (Auto) (0.00-0.20) K/uL Immature Gran # (Auto) (0.01-0.20) K/uL Specimen Type Sample Site POC pH (7.35-7.45) POC pCO2 (35-46) mmHg POC pO2 (80-95) mmHg POC HCO3 (19-24) mmol/L POC Total CO2 (24-31) mmol/L POC Base Excess (-9-1.8) mmol/L O2 Sat Pulse Oximetry ABG pH (Temp Correct) (7.35-7.45) ABG pCO2 (Temp Corrct (35-46) mmHg POC ABG pO2 at Pt Temp POC ABG O2 Sat (90-95) % Tone Test VBG pH (7.36-7.41) VBG pCO2 (38-50) mmHg VBG pO2 mmHg VBG HCO3 mmol/L VBG O2 Saturation % VBG Base Excess mEq/L O2 Delivery Device POC FiO2 % POC Sodium (135-144) mmol/L Sodium (136-145) mmol/L POC Potassium (3.3-5.0) mmol/L Potassium (3.5-5.1) mmol/L Chloride (98-107) mmol/L Carbon Dioxide (21-32) mmol/L Anion Gap (3-11) BUN (6-23) mg/dl Creatinine (0.6-1.2) mg/dl Est Cr Clr Drug Dosing eGFR BUN/Creatinine Ratio (10-20) Glucose (70-99(Fasting)) mg/dl Lactate (0.4-2.0) mmol/L Calcium (8.6-10.3) mg/dl Magnesium (1.7-2.4) mg/dl Total Bilirubin (0.2-1.0) mg/dl Direct Bilirubin (0-0.2) mg/dl AST (13-39) U/L ALT (7-52) U/L Alkaline Phosphatase (34-104) U/L Troponin I High Sens (0-14) pg/ml B-Natriuretic Peptide (0-100) pg/ml Total Protein (6.0-8.3) gm/dl Albumin (3.4-5.0) gm/dl Procalcitonin (0-0.5) ng/ml Urine Color Yellow Urine Appearance Cloudy A (Clear) Urine pH 5.0 (4.5-7.5) Ur Specific [place] > 1.045 H (1.000-1.030) Urine Protein 3+ H (Negative) Urine Glucose (UA) Negative (Negative) Urine Ketones Trace H (Negative) Urine Blood 1+ H (Negative) Urine Nitrite Negative (Negative) Urine Bilirubin Negative (Negative) Urine Urobilinogen Negative (Negative) Ur Leukocyte Esterase Negative (Negative) Urine WBC (Auto) 11-20 H (0-5) /hpf Urine RBC (Auto) 11-20 H (0-2) /hpf U Hyaline Cast (Auto) >20 H (0-2) /lpf U Epithel Cells (Auto) 11-20 H (0-2) /hpf Urine Bacteria (Auto) 2+ H (None Seen) Calcium Oxalate Crystal Present A (None Prsent) Hyaline Casts Present A (None Presnt) /lpf Urine Comment Adenovirus (PCR) Not Detected (NotDetected) B. pertussis DNA (PCR) Not Detected (NotDetected) B.parapertussis DNA PCR Not Detected (NotDetected) C. pneumoniae DNA (PCR) Not Detected (NotDetected) Coronavirus OC43 (PCR) Not Detected (NotDetected) Coronavirus HKU1 (PCR) Not Detected (NotDetected) Coronavirus 229E (PCR) Not Detected (NotDetected) SARS-CoV-2 (PCR) Not Detected (NotDetected) Coronavirus NL63 (PCR) Not Detected (NotDetected) Human Metapneumovir PCR Not Detected (NotDetected) Influenza Type A (PCR) Not Detected (NotDetected) Influenza Type B (PCR) Not Detected (NotDetected) M. pneumoniae (PCR) Not Detected (NotDetected) Parainfluenza 1 (PCR) Not Detected (NotDetected) Parainfluenza 2 (PCR) Not Detected (NotDetected) Parainfluenza 3 (PCR) Not Detected (NotDetected) Parainfluenza 4 (PCR) Not Detected (NotDetected) RSV (PCR) Not Detected (NotDetected) Entero/Rhino (PCR) DETECTED A (NotDetected) Administered Medications Propofol (Diprivan) 1,000 mg in 100 mls @ 28.791 mls/hr IV .Q3H29M [facility]; Protocol Stop: 07/22/25 17:29 Last Admin: 07/19/25 19:53 Dose: 35 mcg/kg/min, 28.8 mls/hr Documented By: AN Co-signed By: CDM Titration: 07/19/25 19:53 Dose: Infused Documented By: AN Co-signed By: CDM Titration: 07/19/25 18:37 Dose: 35 mcg/kg/min, 28.8 mls/hr Documented By: Titration: 07/19/25 18:31 Dose: 40 mcg/kg/min, 32.9 mls/hr Documented By: Titration: 07/19/25 17:54 Dose: 50 mcg/kg/min, 41.1 mls/hr Documented By: Titration: 07/19/25 17:42 Dose: 40 mcg/kg/min, 32.9 mls/hr Documented By: Titration: 07/19/25 17:37 Dose: 30 mcg/kg/min, 24.7 mls/hr Documented By: Admin: 07/19/25 17:32 Dose: 20 mcg/kg/min, 16.5 mls/hr Documented By: GASPER Fentanyl Citrate (Fentanyl Citrate) 2,500 mcg in 250 mls @ 2.5 mls/hr IV .Q96H [facility]; Protocol Stop: 08/02/25 17:59 Last Admin: 07/19/25 18:08 Dose: 25 mcg/hr, 2.5 mls/hr Documented By: GASPER Co-signed By: ABRAHAM Propofol (Propofol Bolus From Bag) 20 mg IV Q5M PRN PRN Reason: Sedation Stop: 07/22/25 17:26 Last Admin: 07/19/25 17:54 Dose: 20 mg Documented By: GASPER Co-signed By: ABRAHAM Admin: 07/19/25 17:48 Dose: 20 mg Documented By: GASPER Co-signed By: ABRAHAM Admin: 07/19/25 17:37 Dose: 20 mg Documented By: GASPER Co-signed By: ABRAHAM Admin: 07/19/25 17:31 Dose: 20 mg Documented By: GASPER Co-signed By: ABRAHAM Discontinued Medications Fentanyl Citrate (Fentanyl Citrate Pf 100 Mcg/2 Ml Vial) 100 mcg IV NOW STA Stop: 07/19/25 17:58 Last Admin: 07/19/25 18:06 Dose: 100 mcg Documented By: GASPER Furosemide (Furosemide 40 Mg/4 Ml Vial) 40 mg IV ONE ONE Stop: 07/19/25 18:23 Last Admin: 07/19/25 19:14 Dose: 40 mg Documented By: TEODORO Ceftriaxone Sodium (Rocephin) 2,000 mg in 50 mls @ 100 mls/hr IV NOW STA Stop: 07/19/25 18:27 Last Infusion: 07/19/25 19:23 Dose: Infused Documented By: Admin: 07/19/25 18:47 Dose: 100 mls/hr Documented By: GASPER Acetaminophen (Ofirmev) 1,000 mg in 100 mls @ 400 mls/hr IV NOW STA Stop: 07/19/25 18:22 Last Infusion: 07/19/25 19:19 Dose: Infused Documented By: Admin: 07/19/25 18:31 Dose: 400 mls/hr Documented By: GASPER Ioversol (Optiray 320 125ml) 119 ml IV ONCE ONE Stop: 07/19/25 18:20 Last Admin: 07/19/25 18:19 Dose: 119 ml Documented By: DANIEL Miscellaneous (Stat Iv Infusion Titration Per Protocol) 1 each N/A NOW STA Stop: 07/19/25 17:28 Last Admin: 07/19/25 19:20 Dose: 1 each Documented By: AN Miscellaneous (Stat Iv Infusion Titration Per Protocol) 1 each N/A NOW STA Stop: 07/19/25 17:58 Last Admin: 07/19/25 19:19 Dose: 1 each Documented By: AN Propofol (Propofol Iv Emulsion 10 Mg/Ml 100 Ml Vial) Confirm Administered Dose 1,000 mg IV .STK-MED ONE Stop: 07/19/25 17:23 Last Admin: 07/19/25 17:42 Dose: Not Given Documented By: GASPER Imaging Data Radiologist's Impression: Chest X-Ray 07/19/25 17:35 EXAM: X-ray chest one-view portable CLINICAL HISTORY: Postintubation PRIORS 04/22/2021, 07/10/2017 TECHNIQUE: Semierect portable AP FINDINGS: Extremely limited view of the chest noted. Possible overlying medical record librarians teacher noted. Large body habitus present. Endotracheal tube present terminating approximately 4.1 cm above the reji, appropriate. Allowing for the limitations of the study, diffuse interstitial changes and/edema or opacification noted throughout the lungs. Heart size not visualized. No large pneumothorax. No rib fracture. Trachea is patent. Osseous structures demonstrate no acute abnormality. No radiopaque foreign body. IMPRESSION: Limited examination with endotracheal tube appropriately located and diffuse interstitial changes throughout the lungs, possibly edema. Electronically signed by Ely Red 07-19-2025 6:[address] 07/19/25 17:35 EXAMINATION: Head CT without CLINICAL HISTORY: AMS PRIORS: MR 03/06/2017 TECHNIQUE: Contiguous axial images were obtained through the head without the use of intravenous contrast. Sagittal and coronal reformations are supplied. FINDINGS: Motion greatly degrades image quality. Appropriate parenchymal volume is noted. Marin-white differentiation is preserved. No edema or midline shift. No intra-axial or extra-axial hemorrhage. Ventricles are normal in size and configuration. Brainstem and cerebellum have a normal appearance. Calvarium unremarkable. Moderate mucosal thickening of the right maxillary sinus. mastoid air cells are well-pneumatized. Globes are intact. No retrobulbar abnormality. IMPRESSION: No CT evidence of an acute intracranial abnormality. If clinically appropriate, brain MRI could be obtained as appropriate. Electronically signed by Ely Red 07-19-2025 6:[address] 07/19/25 18:16 EXAMINATION: Chest CT with CLINICAL HISTORY: Confusion, intubated PRIORS: Chest radiograph today, CT 11/29/2023, 12/01/2024 TECHNIQUE: Contiguous axial images were obtained through the chest with the use of intravenous contrast. Sagittal and coronal reformations are supplied. FINDINGS: Motion artifact greatly degrades image quality. An endotracheal tube is present with distal tip superior to the reji. Heart size mildly enlarged. No pericardial or mediastinal fluid. Moderate to advanced atherosclerotic disease of the aorta and coronary arteries. Lung volumes are moderately diminished. Hypoventilatory changes at the lung bases. No confluent opacity. Mild interstitial changes noted, possibly on the basis of under distention of the chest. No pleural effusion. Suspected hepatomegaly and fatty infiltration of the liver noted. No abnormality in the upper abdomen. No subcutaneous chest wall or back edema in the subcutaneous tissues or hematoma. The clavicles, sternum, thoracic vertebral bodies and ribs demonstrate no displaced fracture. No pneumothorax. Possible chronic fracture deformity of a left lateral rib, image 56, series 500, unchanged. IMPRESSION: 1. Endotracheal tube appropriately located superior to the reji. 2. Hypoventilatory change with no acute cardiopulmonary process. 3. Moderate to advanced atherosclerotic disease of the aorta and coronary arteries. 4. Mild cardiomegaly. ACT 112: Positive. There are findings on this examination that require communication between the performing entity and the patient following Patient Test Result Information Act ([place] ACT 112) guidelines. Electronically signed by Ely Red 07-19-2025 6:52 PM KUB X-Ray 07/19/25 18:38 EXAMINATION: X-ray KUB/abdomen 1 view CLINICAL HISTORY: OG tube placement pulled tube after image taken will be called back later PRIORS: None TECHNIQUE: Single frontal view abdomen FINDINGS: Like body habitus noted. A single exterior appearing wire noted. Overlying bowel gas and stool obscures fine bone detail. A large amount of formed stool present throughout the colon. No dilated loops of bowel. No air-fluid levels. No acute osseous abnormality. IMPRESSION: No OG tube on the current examination. Electronically signed by Ely Red 07-19-2025 7:16 PM Discharge Plan Visit Data Chief Complaint: Respiratory Distress Stated Complaint: RESP. DISTRESS ED Provider: Liz Zhang Discharge Problem: AMS (altered mental status), Fever, Acute hypoxemic respiratory failure, Endotracheally intubated, Pulmonary vascular congestion, Elevated troponin, Elevated brain natriuretic peptide (BNP) level, Heart block, Acute UTI (urinary tract infection), Sepsis, Rhinovirus infection, Enterovirus infection Patient Disposition: Admitted As Inpatient Condition: Critical Forms Stand Alone Forms: My [facility] waygum Prescriptions Prescriptions: No Action simvastatin [Zocor] 20 mg tablet 20 mg PO HS oxybutynin chloride 5 mg tablet 5 mg PO TID metformin 500 mg tablet extended release 24 hr 500 mg PO BID aspirin [Adult Low Dose Aspirin] 81 mg tablet,delayed release (DR/EC) 81 mg PO QAM (DME) CPAP Machine Misc See Rx Instructions .MEDSUPPLY Qty: 1 0RF Rx Instructions: Increase pressure to 14 cm H20 pressure with full facemask (ResMed F 30). G47.33 (DME) CPAP Supplies Misc See Rx Instructions .Route Qty: 1 0RF Rx Instructions: Mask fitting triamcinolone acetonide 0.1 % cream 1 appln TOP BID Qty: 80 0RF Patient Comments: PT STATES NOT USING CURRENTLY Rx Instructions: Apply to areas of the chest/breasts twice daily x 2 weeks as directed. (DME) Oxygen Home Liters Per Minute See Rx Instructions .ROUTE .MEDSUPPLY Qty: 1 0RF Rx Instructions: Home O2: 3LPM through CPAP QHS, 2LPM via nasal with exertion. Portable tanks, POC with conservation capable of going up to 3LPM. Humidification, tubing, supplies. DIAMOND: 99-years desoximetasone 0.25 % ointment 1 appln TOP DAILY Qty: 100 0RF Rx Instructions: Apply to areas of the legs/dorsal feet daily with dressing changes as needed gabapentin 300 mg capsule 300 mg PO TID albuterol sulfate 90 mcg/actuation HFA aerosol inhaler 2 inh inhalation Q4 PRN (Reason: wheeze,cough,SOB) Spiriva Respimat 2.5 mcg/actuation mist 2 puff inhalation QAM torsemide 10 mg tablet 10 mg PO UD nystatin 100,000 unit/gram cream 1 applic TOPICAL [facility] Referrals Referrals: Chata Haley PA-C [Primary Care Provider] -
[2025-07-19 17:53] LABS: Base Excess VBG -2.3 mEq/L; HCO3 VBG 26 mmol/L; Oxygen Saturation VBG 76.9 %; PCO2 VBG 61 mmHg (38-50); PO2 VBG 47 mmHg; pH VBG 7.24 (7.36-7.41)
[2025-07-19 17:55] LABS: Hematocrit (blood only) 36.2 % (37.0-47.0); Hemoglobin 11.1 g/dL (12.0-16.0); Immature Granulocytes # (auto) 0.09 K/uL (0.01-0.20); Immature Granulocytes % (auto) 0.7 %; Mean Corpuscular Hemoglobin 25.8 pg (25.0-34.0); Mean Corpuscular Volume 84.0 fL (80.0-100.0); Platelet Count 166 K/uL (130-400); RDW Standard Deviation 47.8 fL (36.4-46.3); Red Blood Count 4.31 M/uL (4.20-5.40); White Blood Count 13.79 K/ul (4.8-10.8)
[2025-07-19] MEDS: fentaNYL citrate 2,500 MCG/250 ML BAG IV SCH (18:08)
[2025-07-19 18:16] LABS: iSTAT Art Bld Gas Base Excess -2.0 mmol/L (-9-1.8); iSTAT Art Bld Gas pCO2 Correct 40 mmHg (35-46); iSTAT Art Bld Gas pH Corrected 7.380 (7.35-7.45); iSTAT Arterial Blood Gas pO2 C 67
[2025-07-19 18:19] LABS: Alanine Aminotransferase 14 U/L (7-52); Albumin Level 4.2 gm/dl (3.4-5.0); Alkaline Phosphatase 74 U/L (34-104); Anion Gap 8 (3-11); Bilirubin,Total 0.4 mg/dl (0.2-1.0); Blood Urea Nitrogen 24 mg/dl (6-23); Calcium 9.0 mg/dl (8.6-10.3); Carbon Dioxide 26 mmol/L (21-32); Chloride 103 mmol/L (98-107); Glucose 230 mg/dl (70-99(Fasting)); Magnesium 1.8 mg/dl (1.7-2.4); Potassium 4.3 mmol/L (3.5-5.1); Sodium 137 mmol/L (136-145); Total Protein 6.9 gm/dl (6.0-8.3)
[2025-07-19] MEDS: OPTIRAY 320 125ml IV ONE (18:19)
--- NOTE | 2025-07-19 18:20 | XRay Report ---
EXAM: X-ray chest one-view portable CLINICAL HISTORY: Postintubation PRIORS 04/22/2021, 07/10/2017 TECHNIQUE: Semierect portable AP FINDINGS: Extremely limited view of the chest noted. Possible overlying medical receptionist noted. Large body habitus present. Endotracheal tube present terminating approximately 4.1 cm above the reji, appropriate. Allowing for the limitations of the study, diffuse interstitial changes and/edema or opacification noted throughout the lungs. Heart size not visualized. No large pneumothorax. No rib fracture. Trachea is patent. Osseous structures demonstrate no acute abnormality. No radiopaque foreign body. IMPRESSION: Limited examination with endotracheal tube appropriately located and diffuse interstitial changes throughout the lungs, possibly edema. Electronically signed by Ely Red 07-19-2025 6:20 PM
--- NOTE | 2025-07-19 18:26 | CT Scan Report ---
EXAMINATION: Head CT without CLINICAL HISTORY: AMS PRIORS: MR 03/06/2017 TECHNIQUE: Contiguous axial images were obtained through the head without the use of intravenous contrast. Sagittal and coronal reformations are supplied. FINDINGS: Motion greatly degrades image quality. Appropriate parenchymal volume is noted. Marin-white differentiation is preserved. No edema or midline shift. No intra-axial or extra-axial hemorrhage. Ventricles are normal in size and configuration. Brainstem and cerebellum have a normal appearance. Calvarium unremarkable. Moderate mucosal thickening of the right maxillary sinus. mastoid air cells are well-pneumatized. Globes are intact. No retrobulbar abnormality. IMPRESSION: No CT evidence of an acute intracranial abnormality. If clinically appropriate, brain MRI could be obtained as appropriate. Electronically signed by Ely Red 07-19-2025 6:25 PM
[2025-07-19] MEDS: ACETAMINOPHEN 1,000 MG/100 ML VIAL IV STA (18:31)
[2025-07-19] MEDS: cefTRIAXone SODIUM 2,000 MG/50 ML BAG IV STA (18:47)
--- NOTE | 2025-07-19 18:53 | CT Scan Report ---
EXAMINATION: Chest CT with CLINICAL HISTORY: Confusion, intubated PRIORS: Chest radiograph today, CT 11/29/2023, 12/01/2024 TECHNIQUE: Contiguous axial images were obtained through the chest with the use of intravenous contrast. Sagittal and coronal reformations are supplied. FINDINGS: Motion artifact greatly degrades image quality. An endotracheal tube is present with distal tip superior to the reji. Heart size mildly enlarged. No pericardial or mediastinal fluid. Moderate to advanced atherosclerotic disease of the aorta and coronary arteries. Lung volumes are moderately diminished. Hypoventilatory changes at the lung bases. No confluent opacity. Mild interstitial changes noted, possibly on the basis of under distention of the chest. No pleural effusion. Suspected hepatomegaly and fatty infiltration of the liver noted. No abnormality in the upper abdomen. No subcutaneous chest wall or back edema in the subcutaneous tissues or hematoma. The clavicles, sternum, thoracic vertebral bodies and ribs demonstrate no displaced fracture. No pneumothorax. Possible chronic fracture deformity of a left lateral rib, image 56, series 500, unchanged. IMPRESSION: 1. Endotracheal tube appropriately located superior to the reji. 2. Hypoventilatory change with no acute cardiopulmonary process. 3. Moderate to advanced atherosclerotic disease of the aorta and coronary arteries. 4. Mild cardiomegaly. ACT 112: Positive. There are findings on this examination that require communication between the performing entity and the patient following Patient Test Result Information Act ([place] ACT 112) guidelines. Electronically signed by Ely Red 07-19-2025 6:52 PM
[2025-07-19] MEDS: FUROSEMIDE 40 MG/4 ML VIAL IV ONE (19:14)
--- NOTE | 2025-07-19 19:16 | XRay Report ---
EXAMINATION: X-ray KUB/abdomen 1 view CLINICAL HISTORY: OG tube placement pulled tube after image taken will be called back later PRIORS: None TECHNIQUE: Single frontal view abdomen FINDINGS: Like body habitus noted. A single exterior appearing wire noted. Overlying bowel gas and stool obscures fine bone detail. A large amount of formed stool present throughout the colon. No dilated loops of bowel. No air-fluid levels. No acute osseous abnormality. IMPRESSION: No OG tube on the current examination. Electronically signed by Ely Red 07-19-2025 7:16 PM
[2025-07-19] MEDS: STAT IV Infusion **Titration per Protocol STA ×2 (19:19→19:20)
[2025-07-19 20:24] LABS: Appearance Urine Cloudy (Clear); Bacteria Urine Automated 2+ (None Seen); Cast Urine Automated >20 /lpf (0-2); Glucose Urine UA Negative (Negative)
[2025-07-19 20:39] LABS: Chlamydia pneumoniae PCR Not Detected (NotDetected); Coronavirus 229E PCR Not Detected (NotDetected); Coronavirus CoV-2 (COVID19)PCR Not Detected (NotDetected); Coronavirus HKU1 PCR Not Detected (NotDetected); Coronavirus NL63 PCR Not Detected (NotDetected); Coronavirus OC43PCR Not Detected (NotDetected); Human Metapneumovirus PCR Not Detected (NotDetected); Parainfluenza Virus 1 PCR Not Detected (NotDetected); Parainfluenza Virus 2 PCR Not Detected (NotDetected); Parainfluenza Virus 3 PCR Not Detected (NotDetected); Parainfluenza Virus 4 PCR Not Detected (NotDetected); Respiratory Syncytial VirusPCR Not Detected (NotDetected); Rhinovirus/Enterovirus PCR DETECTED (NotDetected)
[2025-07-19] MEDS ORDERED: STAT IV Infusion **Titration per Protocol STA ×2 (20:50→20:53)
--- NOTE | 2025-07-19 21:16 | Critical Care Consultation ---
Date of Consultation July 19, 2025 Assessment & Plan (1) Symptomatic bradycardia: (2) Hypoxic respiratory failure: (3) Acute heart failure: (4) Enterovirus infection: (5) Rhinovirus infection: (6) Acute UTI (urinary tract infection): (7) Heart block: (8) Elevated troponin: Plan Reason Critically Ill: 75 YOF hypoxic respiratory failure requiring emergent/urgent intubation, in setting of bradycardia with concern for high grade block likely resulting in acute heart failure, also associated with entero/rhinovirus and UTI. Neuro - Sedation for mechanical ventilation, encephalopathy, HX: single eye blindness CAM ICU: [facility] - Encephalopathy on arrival with agitation and combativeness- at this time primarily likely related to degree of hypoxia - non-con head CT without acute process - Follow neurological status closely- if clinical change or worsening will cover for infectious etiologies and consider further imaging or LP - Sedation for mechanical ventilation - Propofol and Fentanyl- pending hemodynamics may consider change in agents - as these can also cause bradycardia and some degree of negative inotropy - Son reports difficulty arousing following previous surgeries- so will attempt to keep sedation light as able goal RASS -1 - daily sedation vacations Cardiac - Bradycardia with concern for high grade block, acute heart failure, - Bradycardia symptomatic- concern for 2nd degree type II (2:1) vs. 3rd degree block or escape rhythm- did not improve post intubation so likely no secondary to hypercarbia or hypoxia - At this time cause of her bradycardia will need to be evaluated- possibility at this time is viral myocarditis vs. infective endo vs. conduction disease vs. ischemic vs. other - ECG reviewed no STEMI noted- troponin trend - Admitting service discussed with [facility] instrumentation engineer cardiology- Dopamine for now and if decompensation TVP - I briefly gave background and current hemodynamic presentation to instrumentation engineer interventional if patient would further decompensate TVP maybe needed - Continue supportive care at this time as above- Dopamine titrate- if hemodynamics worsen or collapse- Epinephrine and attempt at TCP with call to interventional for TVP - Preserve BP as able- currently compensating- may defer further diuretics for this reason - ECHO in am EVAL EF and valves - body habitus makes POCUS challenging, however initial eval without obvious depressed EF or pericardial effusion, as limited by body habitus, equipment and technique. - End organ perfusion appears preserved at this time with LFTs, Renal function, and lactate not elevated - Heart failure likely secondary to rate - further eval with ECHO - supportive care as above Respiratory - Acute hypoxic respiratory failure requiring emergent intubation, CLYDE - Hypoxic respiratory failure- multifactorial likely with bradycardia/block and URI that has been lingering with underlying mixed COPD - Continue ventilatory support with ARDSnet low PEEP, high FIO2 algorithm - ABG on arrival and adjust - Hypoxia resolved following intubation- CTA not obtained with initial scans in ER - likely with better explanation of hypoxia however (bradycardia, pulmonary edema, elevated BNP) will repeat ABG and consider if oxygenation or hemodynamics change - PERC-1 - CT chest reviewed- no evidence of septic emboli/abscess/opacity - Compliant as of last year for CPAP of 14cm H20 - VELIA nebulizers scheduled for now- consider adding ICS with likely bronchitis with enterovirus/rhinovirus GI - No acute needs - reported difficulty passing OGT/NGT by ER staff - will re-attempt - consider enteral feedings if not extubated within next 24 hours RENAL/LYTES - No acute needs - Follow daily BMPs - Keep K~ 4.0 and MG ~2.0 - UTI see below - Keep rodriguez while intubated and sedated ENDO - DMII - ICU hyper/hypoglycemic protocol HEME - No acute needs ID - UTI, viral URI - Continue Rocephin 2GM, add Daptomycin until culture data available- empiric coverage for endocarditis as well until cultures return (risk low) - sources - skin/wounds to legs, UTI - lyme negative - + entero/rhinovirus- supportive care - Febrile, WBC elevated, elevated NLR, PCT neg, - UA pending - Blood cx x2 NGTD LINES/IV ACCESS - PIV, ETT, Rodriguez Continue use of these lines - pending clinical course, patient may need central line and arterial line- verbal consent obtained from son as delegated to me by Dr. Cloud DVT PROPHYLAXIS - SCDS DISPO: ICU until hemodynamics and electrical rhythm proven stable and improved without chronotropics/vasopressors/inotrope. I have personally spent 60 minutes of critical care time in the direct manageme nt of this patient. This is a life/limb threatening event. This includes time spent evaluating patient, direct bedside care, chart review, placing orders, interpretation of diagnostic studies, discussion with consultants, patient, and family members, as well as other required patient management activities. This time is exclusive of all separately billable procedures, and teaching time and separate from and in addition to any other critical care service time. Thank you for allowing us to participate in the care of this patient. Please refer to my attending physician's documentation for any further recommendations. History of Present Illness Reason for Consultation: hypoxic respiratory failure requiring intubation in setting of high grade block with bradycardia Requesting Physician: Fei Owens MD Attending Physician: Fei Tavares MD History of Present Illness 75 YOF with medical history of: Blindness in one eye, COPD (mixed), HTNK, HLD, Morbid obesity, CLYDE, Adenocarcinoma LEFT lung (resection ~15 years ago), former smoker 1pack/20 years, PVD with ulcerations, DMII. Patient was brought into the ER today via EMS for call secondary to hypoxia and agitation. Patient was intubated in the ER. Had ECG done, routine labs, CT scan of chest with contrast, head CT and CXR performed. Patient was noted to be bradycardic on arrival as well. Patient ECG reviewed with concern for a high grade block. She will be admitted to ICU for continued hemodynamic monitoring and support of her HR and respiratory status. We will initiate Dopamine infusion for now. Case also discussed with Dr. Franks if patient status would acutely worsen through PM. Son accompanies patient and is primary provider of information. He reports that over the past month she has been having increasing shortness of breath and was treated for concern of a URI recently with antibiotic that he can't remember which. He reports that she is normally dyspneic with activity and does have to stop through the day to take a break, but over the past week this has gotten worse. He reports that yesterday it seemed to be worse than previous and patient declined to go to the Office, and today it was to the point that she could not get out of bed, he was in and out through the day and by this evening she got more confused and was not breathing well, so he called 911. He endorses that she has had lingering loose wheezy cough over the past week. He also endorses that she has home health nurses that come in on MWF to change her leg dressings, and normally Wendy will give him snippets of the visit, and he does recall that on Sunday they noted that her HR was "low" but didn't know how low, and also thinks that this may have been on Sunday as well. CODE: FULL Allergies Allergy/AdvReac Type Severity Reaction Status Date / Time naproxen Allergy Intermediate throat Verified 12/09/24 16:14 swelling cephalexin Allergy Mild RASH Verified 12/09/24 16:14 Home Medications Medication Instructions Recorded Confirmed Type aspirin 81 mg tablet,delayed 81 mg PO QAM 12/31/18 07/19/25 History release (Adult Low Dose Aspirin) metformin 500 mg tablet,extended 500 mg PO BID 12/31/18 07/19/25 History release 24 hr oxybutynin chloride 5 mg tablet 5 mg PO TID 12/31/18 07/19/25 History simvastatin 20 mg tablet (Zocor) 20 mg PO HS 12/31/18 07/19/25 History Oxygen Home #1 ea 08/11/19 07/19/25 Rx triamcinolone acetonide 0.1 % 1 appln topical BID #80 grams 02/05/20 07/19/25 Rx topical cream desoximetasone 0.25 % topical 1 appln topical DAILY #100 grams 04/02/20 07/19/25 Rx ointment CPAP Machine #1 ea 05/02/22 07/19/25 Rx gabapentin 300 mg capsule 300 mg PO TID 12/09/24 07/19/25 History CPAP Supplies #1 ea 05/07/25 07/19/25 Rx albuterol sulfate 90 mcg/actuation 2 inh inhalation Q4 PRN 07/19/25 07/19/25 History aerosol inhaler wheeze,cough,SOB nystatin 100,000 unit/gram topical 1 applic topical AMHS 07/19/25 07/19/25 History cream tiotropium bromide 2.5 2 puff inhalation QAM 07/19/25 07/19/25 History mcg/actuation mist for inhalation (Spiriva Respimat) torsemide 10 mg tablet 10 mg PO UD 07/19/25 07/19/25 History Patient History Medical History Adenocarcinoma of left lung, stage 1 s/p left upper lobectomy 03/28/17 Cellulitis BLE COPD (chronic obstructive pulmonary disease) Diabetes mellitus type 2 with complications Hx of endometriosis Hyperlipidemia Hypertension Macular hole RT/LEFT EYE Morbid obesity MRSA (methicillin resistant Staphylococcus aureus) Necrobiosis lipoidica diabeticorum Obstructive sleep apnea CPAP WITH O2 On home oxygen therapy O2 AT 2L CONT. Restless leg syndrome Urinary incontinence Venous stasis ulcers of both lower extremities Surgical History H/O vascular surgery LEFT LEG (BY DR. WEIR) H/O: hysterectomy History of bronchoscopy History of cataract surgery RT/LEFT History of lung surgery History of tooth extraction S/P hysterectomy S/P lobectomy of lung Thoracoscopy w/ Lobectomy Left 03/28/2017 malignant neoplasm JOLENE bronchus, with VATS Provider Family History Sister Family history of diabetes mellitus Son Family history of diabetes mellitus Father Family history of diabetes mellitus Other Cancer Heart disease Social History Smoking Status: Former smoker Tobacco Type: Cigarettes Cigarettes Per Day: 40; Smoking End Date: quit 15+ years ago; Second Hand Exposure: No; Do You Dip or Chew Tobacco: No; Hx Alcohol Use: No Hx Substance Use: No Preferred Language: Vietnamese Communication Ability: Effective Visual Impairment: No Limitations Hearing Ability: Normal Safety Administrator Required: No Beliefs That Will Affect Care: None marital status: Single Current Living Situation: Family Current Living Situation Comment: with son 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 Other Information That Helps Us Care for You: No Feels Safe at Home: Yes Safety Concerns: Feels Safe At This Time Assistive Devices: Denture - Upper, Denture - Lower and Walker Review of Systems Review of Systems: REVIEW OF SYSTEMS: Constitutional: (+)fever, sweats or chills Eyes: (+) blindness one eye- macular degen, no worsening or blurred vision ENT: normal hearing, no trouble swallowing Respiratory: (+) cough, clear sputum, dyspnea at reast and on exertion has been worsening Cardiovascular: (+) slow HR, No chest pain, tightness or palpitations Abdomen: No pain, nausea, vomiting, diarrhea or constipation Neurologic: No weakness, numbness/tingling, or balance problems Skin: (+) leg ulcerations chronic Physical Exam Physical Exam: PHYSICAL EXAM: General: Intubated and sedated ENT: UPPER Dentures removed on arrival to ICU- placed in cup Neuro: GCS 7T, sedated with propofol and fentanyl, localizes pain and facial grimace with noxious stimuli Chest: equal rise and fall of the chest, difficult exam secondary to body habitus, but coarse crackles throughout with expiratory wheeze Cardiac: Regular rate and rhythm, telemetry reviewed- bladimir with multiple p waves per QRS, skin warm dry, cap refill ~3 seconds, peripheral pusles +2 no JVD, no murmur GI: NABS x 4 quadrants, softly obese : Rodriguez to gravity draining light miguelangel urine Skin: excoriation noted bilaterally under breasts, bilateral groin folds moist excoriation, right lower leg with old venous ulceration and scars, left leg bandaged. Results & Data Results & Data Vital Signs (Past 12 Hours) Vital Signs Temp Pulse Pulse Resp BP BP Pulse Ox 07/19/25 20:45 38.7 C H 41 L 24 137/56 L 98 07/19/25 20:30 38.8 C H 40 L 24 132/51 L 98 07/19/25 20:15 38.8 C H 40 L 24 144/46 H 98 07/19/25 20:00 38.9 C H 40 L 24 143/58 H 98 07/19/25 19:45 38.9 C H 40 L 24 152/46 H 98 07/19/25 19:30 39 C H 40 L 24 140/52 L 98 07/19/25 19:20 39.1 C H 40 L 24 139/45 L 98 07/19/25 18:57 39.3 C H 39 L 24 99 07/19/25 18:55 124/39 L 07/19/25 18:54 39 L 24 100 07/19/25 18:51 39 L 24 100 07/19/25 18:50 121/39 L 07/19/25 18:50 40 L 07/19/25 18:48 40 L 24 100 07/19/25 18:45 134/50 L 07/19/25 18:45 40 L 24 100 07/19/25 18:42 40 L 24 100 07/19/25 18:40 118/62 07/19/25 18:39 48 L 24 100 07/19/25 18:36 40 L 24 100 07/19/25 18:35 118/44 L 07/19/25 18:33 40 L 24 100 07/19/25 18:30 114/39 L 07/19/25 18:30 45 L 24 96 07/19/25 18:08 25 H 96 07/19/25 18:06 44 L 26 H 97 07/19/25 18:05 137/50 L 07/19/25 18:03 45 L 25 H 98 07/19/25 18:00 45 L 28 H 98 07/19/25 18:00 128/62 07/19/25 17:57 47 L 26 H 97 07/19/25 17:56 126/55 L 07/19/25 17:54 47 L 22 97 07/19/25 17:51 48 L 27 H 98 07/19/25 17:50 153/59 H 07/19/25 17:48 49 L 27 H 97 07/19/25 17:46 160/55 H 07/19/25 17:45 52 L 21 97 07/19/25 17:45 07/19/25 17:42 178/74 H 07/19/25 17:42 54 L 16 96 07/19/25 17:41 53 L 07/19/25 17:36 58 L 20 97 07/19/25 17:30 60 20 100 07/19/25 17:27 61 100 07/19/25 17:27 161/67 H 07/19/25 17:27 161/67 H 07/19/25 17:24 59 L 100 07/19/25 17:15 07/19/25 17:15 37.6 C H 40 H 07/19/25 17:15 37.6 C H O2 Del Method O2 Flow Rate FiO2 07/19/25 20:45 Mechanical Vent 07/19/25 20:30 Mechanical Vent 07/19/25 20:15 Mechanical Vent 07/19/25 20:00 Mechanical Vent 07/19/25 19:45 Mechanical Vent 07/19/25 19:30 Mechanical Vent 07/19/25 19:20 Mechanical Vent 07/19/25 18:57 07/19/25 18:55 07/19/25 18:54 07/19/25 18:51 07/19/25 18:50 07/19/25 18:50 07/19/25 18:48 07/19/25 18:45 07/19/25 18:45 07/19/25 18:42 07/19/25 18:40 07/19/25 18:39 07/19/25 18:36 Mechanical Vent 07/19/25 18:35 07/19/25 18:33 07/19/25 18:30 07/19/25 18:30 Mechanical Vent 07/19/25 18:08 50 07/19/25 18:06 Mechanical Vent 07/19/25 18:05 07/19/25 18:03 Mechanical Vent 07/19/25 18:00 Mechanical Vent 07/19/25 18:00 07/19/25 17:57 Mechanical Vent 07/19/25 17:56 07/19/25 17:54 Mechanical Vent 07/19/25 17:51 Mechanical Vent 07/19/25 17:50 07/19/25 17:48 Mechanical Vent 07/19/25 17:46 07/19/25 17:45 Mechanical Vent 07/19/25 17:45 Mechanical Vent 07/19/25 17:42 07/19/25 17:42 Mechanical Vent 07/19/25 17:41 07/19/25 17:36 Mechanical Vent 07/19/25 17:30 Mechanical Vent 07/19/25 17:27 Mechanical Vent 07/19/25 17:27 07/19/25 17:27 07/19/25 17:24 Non-rebreather 15 07/19/25 17:15 Non-rebreather 07/19/25 17:15 07/19/25 17:15 Laboratory Results Abnormal lab results 07/19/25 07/19/25 07/19/25 Range/Units 17:24 17:46 19:30 WBC 13.79 H (4.8-10.8) K/ul Hgb 11.1 L (12.0-16.0) g/dL POC Hgb 11.6 L (12.0-16.0) g/dl Hct 36.2 L (37.0-47.0) % POC Hct 34 L (37-47) % MCHC 30.7 L (32.0-36.0) g/dL RDW Std Deviation 47.8 H (36.4-46.3) fL RDW Coeff of Olivia 15.9 H (11.5-14.5) % Neut # (Auto) 11.86 H (1.40-6.50) K/uL Lymph # (Auto) 1.06 L (1.20-3.40) K/uL Sherman # (Auto) 0.71 H (0.11-0.59) K/uL POC pO2 64 L (80-95) mmHg VBG pH 7.24 L (7.36-7.41) VBG pCO2 61 H (38-50) mmHg BUN 24 H (6-23) mg/dl BUN/Creatinine Ratio 25.3 H (10-20) Glucose 230 H (70-99(Fasting)) mg/dl Troponin I High Sens 48.5 H 246.2 H* D (0-14) pg/ml B-Natriuretic Peptide 458 H (0-100) pg/ml Urine Appearance (Clear) Ur Specific Kremlin (1.000-1.030) Urine Protein (Negative) Urine Ketones (Negative) Urine Blood (Negative) Urine WBC (Auto) (0-5) /hpf Urine RBC (Auto) (0-2) /hpf U Hyaline Cast (Auto) (0-2) /lpf U Epithel Cells (Auto) (0-2) /hpf Urine Bacteria (Auto) (None Seen) Calcium Oxalate Crystal (None Prsent) Hyaline Casts (None Presnt) /lpf Entero/Rhino (PCR) (NotDetected) 07/19/25 07/19/25 Range/Units 19:34 19:45 WBC (4.8-10.8) K/ul Hgb (12.0-16.0) g/dL POC Hgb (12.0-16.0) g/dl Hct (37.0-47.0) % POC Hct (37-47) % MCHC (32.0-36.0) g/dL RDW Std Deviation (36.4-46.3) fL RDW Coeff of Olivia (11.5-14.5) % Neut # (Auto) (1.40-6.50) K/uL Lymph # (Auto) (1.20-3.40) K/uL Sherman # (Auto) (0.11-0.59) K/uL POC pO2 (80-95) mmHg VBG pH (7.36-7.41) VBG pCO2 (38-50) mmHg BUN (6-23) mg/dl BUN/Creatinine Ratio (10-20) Glucose (70-99(Fasting)) mg/dl Troponin I High Sens (0-14) pg/ml B-Natriuretic Peptide (0-100) pg/ml Urine Appearance Cloudy A (Clear) Ur Specific Kremlin > 1.045 H (1.000-1.030) Urine Protein 3+ H (Negative) Urine Ketones Trace H (Negative) Urine Blood 1+ H (Negative) Urine WBC (Auto) 11-20 H (0-5) /hpf Urine RBC (Auto) 11-20 H (0-2) /hpf U Hyaline Cast (Auto) >20 H (0-2) /lpf U Epithel Cells (Auto) 11-20 H (0-2) /hpf Urine Bacteria (Auto) 2+ H (None Seen) Calcium Oxalate Crystal Present A (None Prsent) Hyaline Casts Present A (None Presnt) /lpf Entero/Rhino (PCR) DETECTED A (NotDetected) Diagnostic Findings Chest X-Ray 07/19/25 17:35 EXAM: X-ray chest one-view portable CLINICAL HISTORY: Postintubation PRIORS 04/22/2021, 07/10/2017 TECHNIQUE: Semierect portable AP FINDINGS: Extremely limited view of the chest noted. Possible overlying medical assisting instructor noted. Large body habitus present. Endotracheal tube present terminating approximately 4.1 cm above the reji, appropriate. Allowing for the limitations of the study, diffuse interstitial changes and/edema or opacification noted throughout the lungs. Heart size not visualized. No large pneumothorax. No rib fracture. Trachea is patent. Osseous structures demonstrate no acute abnormality. No radiopaque foreign body. IMPRESSION: Limited examination with endotracheal tube appropriately located and diffuse interstitial changes throughout the lungs, possibly edema. Electronically signed by Ely Red 07-19-2025 6:[address] 07/19/25 17:35 EXAMINATION: Head CT without CLINICAL HISTORY: AMS PRIORS: MR 03/06/2017 TECHNIQUE: Contiguous axial images were obtained through the head without the use of intravenous contrast. Sagittal and coronal reformations are supplied. FINDINGS: Motion greatly degrades image quality. Appropriate parenchymal volume is noted. Marin-white differentiation is preserved. No edema or midline shift. No intra-axial or extra-axial hemorrhage. Ventricles are normal in size and configuration. Brainstem and cerebellum have a normal appearance. Calvarium unremarkable. Moderate mucosal thickening of the right maxillary sinus. mastoid air cells are well-pneumatized. Globes are intact. No retrobulbar abnormality. IMPRESSION: No CT evidence of an acute intracranial abnormality. If clinically appropriate, brain MRI could be obtained as appropriate. Electronically signed by Ely Red 07-19-2025 6:[address] 07/19/25 18:16 EXAMINATION: Chest CT with CLINICAL HISTORY: Confusion, intubated PRIORS: Chest radiograph today, CT 11/29/2023, 12/01/2024 TECHNIQUE: Contiguous axial images were obtained through the chest with the use of intravenous contrast. Sagittal and coronal reformations are supplied. FINDINGS: Motion artifact greatly degrades image quality. An endotracheal tube is present with distal tip superior to the reji. Heart size mildly enlarged. No pericardial or mediastinal fluid. Moderate to advanced atherosclerotic disease of the aorta and coronary arteries. Lung volumes are moderately diminished. Hypoventilatory changes at the lung bases. No confluent opacity. Mild interstitial changes noted, possibly on the basis of under distention of the chest. No pleural effusion. Suspected hepatomegaly and fatty infiltration of the liver noted. No abnormality in the upper abdomen. No subcutaneous chest wall or back edema in the subcutaneous tissues or hematoma. The clavicles, sternum, thoracic vertebral bodies and ribs demonstrate no displaced fracture. No pneumothorax. Possible chronic fracture deformity of a left lateral rib, image 56, series 500, unchanged. IMPRESSION: 1. Endotracheal tube appropriately located superior to the reji. 2. Hypoventilatory change with no acute cardiopulmonary process. 3. Moderate to advanced atherosclerotic disease of the aorta and coronary arteries. 4. Mild cardiomegaly. ACT 112: Positive. There are findings on this examination that require communication between the performing entity and the patient following Patient Test Result Information Act ([place] ACT 112) guidelines. Electronically signed by Ely Red 07-19-2025 6:52 PM KUB X-Ray 07/19/25 18:38 EXAMINATION: X-ray KUB/abdomen 1 view CLINICAL HISTORY: OG tube placement pulled tube after image taken will be called back later PRIORS: None TECHNIQUE: Single frontal view abdomen FINDINGS: Like body habitus noted. A single exterior appearing wire noted. Overlying bowel gas and stool obscures fine bone detail. A large amount of formed stool present throughout the colon. No dilated loops of bowel. No air-fluid levels. No acute osseous abnormality. IMPRESSION: No OG tube on the current examination. Electronically signed by Ely Red 07-19-2025 7:16 PM Medications Administered Home Medications aspirin 81 mg tablet,delayed release (Adult Low Dose Aspirin) 81 mg PO QAM 12/31/18 [History Confirmed 07/19/25] metformin 500 mg tablet,extended release 24 hr 500 mg PO BID 12/31/18 [History Confirmed 07/19/25] oxybutynin chloride 5 mg tablet 5 mg PO TID 12/31/18 [History Confirmed 07/19/25] simvastatin 20 mg tablet (Zocor) 20 mg PO HS 12/31/18 [History Confirmed 07/19/25] Oxygen Home #1 ea 08/11/19 [Rx Confirmed 07/19/25] triamcinolone acetonide 0.1 % topical cream 1 appln topical BID #80 grams 02/05/20 [Rx Confirmed 07/19/25] desoximetasone 0.25 % topical ointment 1 appln topical DAILY #100 grams 04/02/20 [Rx Confirmed 07/19/25] CPAP Machine #1 ea 05/02/22 [Rx Confirmed 07/19/25] gabapentin 300 mg capsule 300 mg PO TID 12/09/24 [History Confirmed 07/19/25] CPAP Supplies #1 ea 05/07/25 [Rx Confirmed 07/19/25] albuterol sulfate 90 mcg/actuation aerosol inhaler 2 inh inhalation Q4 PRN wheeze,cough,SOB 07/19/25 [History Confirmed 07/19/25] nystatin 100,000 unit/gram topical cream 1 applic topical AMHS 07/19/25 [History Confirmed 07/19/25] tiotropium bromide 2.5 mcg/actuation mist for inhalation (Spiriva Respimat) 2 puff inhalation QAM 07/19/25 [History Confirmed 07/19/25] torsemide 10 mg tablet 10 mg PO UD 07/19/25 [History Confirmed 07/19/25] Active Medications Fentanyl Citrate (Fentanyl Bolus From Bag) 50 mcg IV Q60M PRN PRN Reason: Pain or Agitation Stop: 08/02/25 17:56 Propofol (Diprivan) 1,000 mg in 100 mls @ 28.791 mls/hr IV .Q3H29M [facility]; Protocol Stop: 07/22/25 17:29 Last Admin: 07/19/25 19:53 Dose: 35 mcg/kg/min, 28.8 mls/hr Fentanyl Citrate (Fentanyl Citrate) 2,500 mcg in 250 mls @ 2.5 mls/hr IV .Q96H [facility]; Protocol Stop: 08/02/25 17:59 Last Admin: 07/19/25 18:08 Dose: 25 mcg/hr, 2.5 mls/hr Dopamine HCl/Dextrose (Dopamine / D5w) 400 mg in 250 mls @ 25.706 mls/hr IV .Q9H44M [facility]; Protocol Stop: 08/18/25 20:59 Last Titration: 07/19/25 21:20 Dose: 7 mcg/kg/min, 36 mls/hr Propofol (Propofol Bolus From Bag) 20 mg IV Q5M PRN PRN Reason: Sedation Stop: 07/22/25 17:26 Last Admin: 07/19/25 17:54 Dose: 20 mg ECG Additional Comments: Sinus rhythmwith complete heart blockandJunctional bradycardia Low voltage QRS Cannot rule outAnteroseptal infarct, age undetermined Abnormal ECG When compared with ECG [id number] 17:47,(unconfirmed) Incomplete right bundle branch blockis no longerPresent Minimal criteria forAnteroseptal infarctare nowPresent Sinus tachycardiawith complete heart blockandJunctional rhythm Rightward axis Incomplete right bundle branch block Nonspecific ST and T wave abnormality Abnormal ECG When compared with ECG [id number] 18:54, Junctional rhythmhas replacedSinus rhythm Vent. ratehas decreasedby 44bpm Incomplete right bundle branch blockis nowPresent Criteria forAnteroseptal infarctare no longerPresent Coding Level of Care Code 31648 CRITICAL CARE 1ST 30-74M Diagnoses Symptomatic bradycardia R00.1 Hypoxic respiratory failure J96.91 Acute heart failure I50.9 Enterovirus infection B34.1 Rhinovirus infection B34.8 Acute UTI (urinary tract infection) N39.0 Heart block I45.9 Elevated troponin R79.89
--- NOTE | 2025-07-19 21:35 | History & Physical Report ---
Date of Service July 19, 2025 Assessment & Plan (1) Symptomatic bradycardia: Plan: 75-year-old female past medical history significant for diabetes, dyslipidemia, chronic respiratory hypoxia on 3 L oxygen all the time, history of COPD, obstructive sleep apnea on CPAP/BiPAP, mixed restrictive and obstructive lung disease, multiple pulmonary nodules, hypertension, bilateral carotid bruits, chronic venous insufficiency, venous stasis ulcer, morbid obesity, urinary incontinence, necrobiosis lipoidica diabeticorum, blindness, able to see little bit with 1 eye as per son. Anemia, history of lung cancer status post partial lobectomy of lung, history of tobacco use, lives at home and ambulates with a walker was brought in because of confusion and hypoxia. Son is in the room. Son lives with the patient. But son is mostly out of the house for work. Toy keith gets home health for lower extremity wounds. Son states patient is having low heart rate since last couple of weeks. Son says patient recently was treated for respiratory infection with antibiotic. But since about a week patient is getting progressively weak and short of breath. Today she was very weak and not getting out of bed and also was feeling short of breath and confused and son called 911. For EMS patient was saturating in the 70s. She was placed on non breather mask and brought to the ER. In the ER patient was taking off the nonrebreather mask and she was confused. Patient is status post intubation in the ER. Her heart rate was in the 30s and 40s in the ER. She was spiking temperature. UA came back positive. VBG pH was 7.24. Electrolytes are okay. Lactic is 1.7. Creatinine 0.9. LFTs okay. Initial troponin 48 and repeat is 246. Procalcitonin 0.05. Respiratory BioFire came back positive for entero-/rhinovirus. CT head is okay. Chest x-ray possible pulmonary edema. Chest CT no obvious findings. KUB shows constipation. EKG high degree heart block. Discussed with cardiology and plan to start on dopamine drip and if does not improve plan for possible temporary pacemaker. Symptomatic bradycardia High degree heart block Not on any rate controlling medications Lyme screen negative Started on dopamine drip per cardio recommendations If no improvement plan for temporary pacemaker Close monitoring in the ICU Acute on chronic respiratory failure Possible acute CHF Patient chronically on 3 L oxygen 24/7 and CPAP/BiPAP nightly History of COPD History of sleep apnea History of restrictive lung disease Status post intubation Management as per critical care Possible sepsis Acute UTI Possible lower extremity cellulitis Temp spike Leukocytosis Lactic acid okay UA is positive Received Rocephin in the ER on Rocephin and daptomycin now Will follow MRSA scan Close monitoring in the ICU Elevated troponin Possible demand ischemia Initial troponin 48 and repeat is 246 will follow serial enzymes and echo and repeat EKG Enterorhinovirus infection Supportive care Droplet precautions Diabetes Hold home p.o. medications Sliding scale Will monitor Hyperlipidemia On statin Lower extremity edema Venous insufficiency At home on torsemide Diuretics as per cardiology and critical care Will check lower extremity Dopplers Lung cancer stage Ib non-small cell lung cancer Status post left upper lobectomy in 2017 Pulmonary nodules Follows with pulmonary DVT prophylaxis hep sub q Disposition ICU Full code History of Present Illness Chief Complaint: Acute respiratory failure, bradycardia Primary Care Provider: Chata Haley PA-C 75-year-old female past medical history significant for diabetes, dyslipidemia, chronic respiratory hypoxia on 3 L oxygen all the time, history of COPD, obstructive sleep apnea on CPAP/BiPAP, mixed restrictive and obstructive lung disease, multiple pulmonary nodules, hypertension, bilateral carotid bruits, chronic venous insufficiency, venous stasis ulcer, morbid obesity, urinary incontinence, necrobiosis lipoidica diabeticorum, blindness, able to see little bit with 1 eye as per son. Anemia, history of lung cancer status post partial lobectomy of lung, history of tobacco use, lives at home and ambulates with a walker was brought in because of confusion and hypoxia. Son is in the room. Son lives with the patient. But son is mostly out of the house for work. Patient gets home health for lower extremity wounds. Son states patient is having low heart rate since last couple of weeks. Son says patient recently was treated for respiratory infection with antibiotic. But since about a week patient is getting progressively weak and short of breath. Today she was very weak and not getting out of bed and also was feeling short of breath and confused and son called 911. For EMS patient was saturating in the 70s. She was placed on non breather mask and brought to the ER. In the ER patient was taking off the nonrebreather mask and she was confused. Patient is status post intubation in the ER. Her heart rate was in the 30s and 40s in the ER. She was spiking temperature. UA came back positive. VBG pH was 7.24. Electrolytes are okay. Lactic is 1.7. Creatinine 0.9. LFTs okay. Initial troponin 48 and repeat is 246. Procalcitonin 0.05. Respiratory BioFire came back positive for entero-/rhinovirus. CT head is okay. Chest x-ray possible pulmonary edema. Chest CT no obvious findings. KUB shows constipation. EKG high degree heart block. Discussed with cardiology and plan to start on dopamine drip and if does not improve plan for possible temporary pacemaker. Past med history. As mentioned above. Past surgical history. Bronchoscopy with bronchial biopsy of the left side. Bilateral cataract extraction. Thorascopic with lobectomy left side. Social history. Quit smoking 2008. Smoked 1 pack a day for 20 years. No alcohol use currently. No drug use Family history. Brother has arthritis. Sister had breast cancer. Brother has diabetes. Father had heart disorder. Hypertension. Stroke. Allergies Allergy/AdvReac Type Severity Reaction Status Date / Time naproxen Allergy Intermediate throat Verified 12/09/24 16:14 swelling cephalexin Allergy Mild RASH Verified 12/09/24 16:14 Home Medications Medication Instructions Recorded Confirmed Type aspirin 81 mg tablet,delayed 81 mg PO QAM 12/31/18 07/19/25 History release (Adult Low Dose Aspirin) metformin 500 mg tablet,extended 500 mg PO BID 12/31/18 07/19/25 History release 24 hr oxybutynin chloride 5 mg tablet 5 mg PO TID 12/31/18 07/19/25 History simvastatin 20 mg tablet (Zocor) 20 mg PO HS 12/31/18 07/19/25 History Oxygen Home #1 ea 08/11/19 07/19/25 Rx triamcinolone acetonide 0.1 % 1 appln topical BID #80 grams 02/05/20 07/19/25 Rx topical cream desoximetasone 0.25 % topical 1 appln topical DAILY #100 grams 04/02/20 07/19/25 Rx ointment CPAP Machine #1 ea 05/02/22 07/19/25 Rx gabapentin 300 mg capsule 300 mg PO TID 12/09/24 07/19/25 History CPAP Supplies #1 ea 05/07/25 07/19/25 Rx albuterol sulfate 90 mcg/actuation 2 inh inhalation Q4 PRN 07/19/25 07/19/25 History aerosol inhaler wheeze,cough,SOB nystatin 100,000 unit/gram topical 1 applic topical AMHS 07/19/25 07/19/25 History cream tiotropium bromide 2.5 2 puff inhalation QAM 07/19/25 07/19/25 History mcg/actuation mist for inhalation (Spiriva Respimat) torsemide 10 mg tablet 10 mg PO UD 07/19/25 07/19/25 History Past Med/Surg History Problem List (Updated 07/19/25 @ 21:28 by JAYDEN Herrera) Acute heart failure Hypoxic respiratory failure Symptomatic bradycardia Enterovirus infection (Acute) Rhinovirus infection (Acute) Sepsis (Acute) Acute UTI (urinary tract infection) (Acute) Heart block (Acute) Elevated brain natriuretic peptide (BNP) level (Acute) Elevated troponin (Acute) Pulmonary vascular congestion (Acute) Endotracheally intubated (Acute) Acute hypoxemic respiratory failure (Acute) Fever (Acute) AMS (altered mental status) (Acute) Abnormal chest CT Chronic respiratory failure with hypoxia Hypersomnia Multiple pulmonary nodules History of lung cancer Obstructive sleep apnea (Chronic) CPAP WITH O2 Necrobiosis lipoidica diabeticorum (Chronic) Chronic respiratory failure (Chronic) Back pain (Acute) Anemia Obesity Urinary incontinence Chronic venous insufficiency (Chronic) Restrictive lung disease Venous stasis ulcer (Acute) Cellulitis (Acute) Cellulitis of left lower extremity (Acute) COPD (chronic obstructive pulmonary disease) (Chronic) Venous stasis ulcers of both lower extremities (Acute) Diabetes mellitus type 2 with complications Medical History Adenocarcinoma of left lung, stage 1 s/p left upper lobectomy 03/28/17 Cellulitis BLE COPD (chronic obstructive pulmonary disease) Diabetes mellitus type 2 with complications Hx of endometriosis Hyperlipidemia Hypertension Macular hole RT/LEFT EYE Morbid obesity MRSA (methicillin resistant Staphylococcus aureus) Necrobiosis lipoidica diabeticorum Obstructive sleep apnea CPAP WITH O2 On home oxygen therapy O2 AT 2L CONT. Restless leg syndrome Urinary incontinence Venous stasis ulcers of both lower extremities Surgical History H/O vascular surgery LEFT LEG (BY DR. WEIR) H/O: hysterectomy History of bronchoscopy History of cataract surgery RT/LEFT History of lung surgery History of tooth extraction S/P hysterectomy S/P lobectomy of lung Thoracoscopy w/ Lobectomy Left 03/28/2017 malignant neoplasm JOLENE bronchus, with VATS Provider Family History Sister Family history of diabetes mellitus Son Family history of diabetes mellitus Father Family history of diabetes mellitus Other Cancer Heart disease Social History Smoking Status: Former smoker Tobacco Type: Cigarettes Cigarettes Per Day: 40; Smoking End Date: quit 15+ years ago; Second Hand Exposure: No; Do You Dip or Chew Tobacco: No; Hx Alcohol Use: No Hx Substance Use: No Preferred Language: Estonian Communication Ability: Effective Visual Impairment: No Limitations Hearing Ability: Normal Filter Tip Catcher Required: No Beliefs That Will Affect Care: None marital status: Single Current Living Situation: Family Current Living Situation Comment: with son 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 Abdomen- sluggish bowel sounds, soft, no distension Extremities- b/l lower extremity chronic venous stasis. left leg wounds seen on [facility]- s/p intubated and sedated. Results & Data Results & Data Vital Signs (Past 12 Hours) Vital Signs Temp Pulse Pulse Resp BP BP Pulse Ox 07/19/25 21:15 38.7 C H 43 L 24 151/54 H 92 07/19/25 21:00 38.7 C H 41 L 25 H 150/44 H 98 07/19/25 20:45 38.7 C H 41 L 24 137/56 L 98 07/19/25 20:30 38.8 C H 40 L 24 132/51 L 98 07/19/25 20:15 38.8 C H 40 L 24 144/46 H 98 07/19/25 20:00 38.9 C H 40 L 24 143/58 H 98 07/19/25 19:45 38.9 C H 40 L 24 152/46 H 98 07/19/25 19:30 39 C H 40 L 24 140/52 L 98 07/19/25 19:20 39.1 C H 40 L 24 139/45 L 98 07/19/25 18:57 39.3 C H 39 L 24 99 07/19/25 18:55 124/39 L 07/19/25 18:54 39 L 24 100 07/19/25 18:51 39 L 24 100 07/19/25 18:50 121/39 L 07/19/25 18:50 40 L 07/19/25 18:48 40 L 24 100 07/19/25 18:45 134/50 L 07/19/25 18:45 40 L 24 100 07/19/25 18:42 40 L 24 100 07/19/25 18:40 118/62 07/19/25 18:39 48 L 24 100 07/19/25 18:36 40 L 24 100 07/19/25 18:35 118/44 L 07/19/25 18:33 40 L 24 100 07/19/25 18:30 114/39 L 07/19/25 18:30 45 L 24 96 07/19/25 18:08 25 H 96 07/19/25 18:06 44 L 26 H 97 07/19/25 18:05 137/50 L 07/19/25 18:03 45 L 25 H 98 07/19/25 18:00 45 L 28 H 98 07/19/25 18:00 128/62 07/19/25 17:57 47 L 26 H 97 07/19/25 17:56 126/55 L 07/19/25 17:54 47 L 22 97 07/19/25 17:51 48 L 27 H 98 07/19/25 17:50 153/59 H 07/19/25 17:48 49 L 27 H 97 07/19/25 17:46 160/55 H 07/19/25 17:45 52 L 21 97 07/19/25 17:45 07/19/25 17:42 178/74 H 07/19/25 17:42 54 L 16 96 07/19/25 17:41 53 L 07/19/25 17:36 58 L 20 97 07/19/25 17:30 60 20 100 07/19/25 17:27 61 100 07/19/25 17:27 161/67 H 07/19/25 17:27 161/67 H 07/19/25 17:24 59 L 100 07/19/25 17:15 07/19/25 17:15 37.6 C H 40 H 07/19/25 17:15 37.6 C H O2 Del Method O2 Flow Rate FiO2 07/19/25 21:15 Mechanical Vent 07/19/25 21:00 Mechanical Vent 07/19/25 20:45 Mechanical Vent 07/19/25 20:30 Mechanical Vent 07/19/25 20:15 Mechanical Vent 07/19/25 20:00 Mechanical Vent 07/19/25 19:45 Mechanical Vent 07/19/25 19:30 Mechanical Vent 07/19/25 19:20 Mechanical Vent 07/19/25 18:57 07/19/25 18:55 07/19/25 18:54 07/19/25 18:51 07/19/25 18:50 07/19/25 18:50 07/19/25 18:48 07/19/25 18:45 07/19/25 18:45 07/19/25 18:42 07/19/25 18:40 07/19/25 18:39 07/19/25 18:36 Mechanical Vent 07/19/25 18:35 07/19/25 18:33 07/19/25 18:30 07/19/25 18:30 Mechanical Vent 07/19/25 18:08 50 07/19/25 18:06 Mechanical Vent 07/19/25 18:05 07/19/25 18:03 Mechanical Vent 07/19/25 18:00 Mechanical Vent 07/19/25 18:00 07/19/25 17:57 Mechanical Vent 07/19/25 17:56 07/19/25 17:54 Mechanical Vent 07/19/25 17:51 Mechanical Vent 07/19/25 17:50 07/19/25 17:48 Mechanical Vent 07/19/25 17:46 07/19/25 17:45 Mechanical Vent 07/19/25 17:45 Mechanical Vent 07/19/25 17:42 07/19/25 17:42 Mechanical Vent 07/19/25 17:41 07/19/25 17:36 Mechanical Vent 07/19/25 17:30 Mechanical Vent 07/19/25 17:27 Mechanical Vent 07/19/25 17:27 07/19/25 17:27 07/19/25 17:24 Non-rebreather 15 07/19/25 17:15 Non-rebreather 07/19/25 17:15 07/19/25 17:15 Diagnostic Findings Laboratory Results WBC 13.79 K/ul (4.8-10.8) H 07/19/25 17:46 RBC 4.31 M/uL (4.20-5.40) 07/19/25 17:46 Hgb 11.1 g/dL (12.0-16.0) L 07/19/25 17:46 POC Hgb 11.6 g/dl (12.0-16.0) L 07/19/25 17:24 Hct 36.2 % (37.0-47.0) L 07/19/25 17:46 POC Hct 34 % (37-47) L 07/19/25 17:24 MCV 84.0 fL (80.0-100.0) 07/19/25 17:46 MCH 25.8 pg (25.0-34.0) 07/19/25 17:46 MCHC 30.7 g/dL (32.0-36.0) L 07/19/25 17:46 RDW Std Deviation 47.8 fL (36.4-46.3) H 07/19/25 17:46 RDW Coeff of Olivia 15.9 % (11.5-14.5) H 07/19/25 17:46 Plt Count 166 K/uL (130-400) 07/19/25 17:46 MPV 9.8 fL (9.4-12.4) 07/19/25 17:46 Immature Gran % (Auto) 0.7 % 07/19/25 17:46 Neut % (Auto) 86.0 % 07/19/25 17:46 Lymph % (Auto) 7.7 % 07/19/25 17:46 [place] % (Auto) 5.1 % 07/19/25 17:46 Eos % (Auto) 0.3 % 07/19/25 17:46 Baso % (Auto) 0.2 % 07/19/25 17:46 Neut # (Auto) 11.86 K/uL (1.40-6.50) H 07/19/25 17:46 Lymph # (Auto) 1.06 K/uL (1.20-3.40) L 07/19/25 17:46 [place] # (Auto) 0.71 K/uL (0.11-0.59) H 07/19/25 17:46 Eos # (Auto) 0.04 K/uL (0.00-0.50) 07/19/25 17:46 Baso # (Auto) 0.03 K/uL (0.00-0.20) 07/19/25 17:46 Immature Gran # (Auto) 0.09 K/uL (0.01-0.20) 07/19/25 17:46 Specimen Type Mixed Blood 07/19/25 17:24 Sample Site R Radial 07/19/25 17:24 POC pH 7.39 (7.35-7.45) 07/19/25 17:24 POC pCO2 39 mmHg (35-46) 07/19/25 17:24 POC pO2 64 mmHg (80-95) L 07/19/25 17:24 POC HCO3 23 mmol/L (19-24) 07/19/25 17:24 POC Total CO2 25 mmol/L (24-31) 07/19/25 17:24 POC Base Excess -2.0 mmol/L (-9-1.8) 07/19/25 17:24 O2 Sat Pulse Oximetry 95 07/19/25 17:24 ABG pH (Temp Correct) 7.380 (7.35-7.45) 07/19/25 17:24 ABG pCO2 (Temp Corrct 40 mmHg (35-46) 07/19/25 17:24 POC ABG pO2 at Pt Temp 67 07/19/25 17:24 POC ABG O2 Sat 92.0 % (90-95) 07/19/25 17:24 Tone Test Pass 07/19/25 17:24 VBG pH 7.24 (7.36-7.41) L 07/19/25 17:46 VBG pCO2 61 mmHg (38-50) H 07/19/25 17:46 VBG pO2 47 mmHg 07/19/25 17:46 VBG HCO3 26 mmol/L 07/19/25 17:46 VBG O2 Saturation 76.9 % 07/19/25 17:46 VBG Base Excess -2.3 mEq/L 07/19/25 17:46 O2 Delivery Device NonRb Mask 07/19/25 17:24 POC FiO2 15 % 07/19/25 17:24 POC Sodium 138 mmol/L (135-144) 07/19/25 17:24 Sodium 137 mmol/L (136-145) 07/19/25 17:46 POC Potassium 4.4 mmol/L (3.3-5.0) 07/19/25 17:24 Potassium 4.3 mmol/L (3.5-5.1) 07/19/25 17:46 Chloride 103 mmol/L (98-107) 07/19/25 17:46 Carbon Dioxide 26 mmol/L (21-32) 07/19/25 17:46 Anion Gap 8 (3-11) 07/19/25 17:46 BUN 24 mg/dl (6-23) H 07/19/25 17:46 Creatinine 0.95 mg/dl (0.6-1.2) 07/19/25 17:46 Est Cr Clr Drug Dosing Not Reportable 07/19/25 17:46 eGFR 63.26 07/19/25 17:46 BUN/Creatinine Ratio 25.3 (10-20) H 07/19/25 17:46 Glucose 230 mg/dl (70-99(Fasting)) H 07/19/25 17:46 Lactate 1.7 mmol/L (0.4-2.0) 07/19/25 17:46 Calcium 9.0 mg/dl (8.6-10.3) 07/19/25 17:46 Magnesium 1.8 mg/dl (1.7-2.4) 07/19/25 17:46 Total Bilirubin 0.4 mg/dl (0.2-1.0) 07/19/25 17:46 Direct Bilirubin 0.0 mg/dl (0-0.2) 07/19/25 17:46 AST 14 U/L (13-39) 07/19/25 17:46 ALT 14 U/L (7-52) 07/19/25 17:46 Alkaline Phosphatase 74 U/L (34-104) 07/19/25 17:46 Troponin I High Sens 246.2 pg/ml (0-14) H* D 07/19/25 19:30 B-Natriuretic Peptide 458 pg/ml (0-100) H 07/19/25 17:46 Total Protein 6.9 gm/dl (6.0-8.3) 07/19/25 17:46 Albumin 4.2 gm/dl (3.4-5.0) 07/19/25 17:46 Procalcitonin 0.05 ng/ml (0-0.5) 07/19/25 17:46 Urine Color Yellow 07/19/25 19:34 Urine Appearance Cloudy (Clear) A 07/19/25 19:34 Urine pH 5.0 (4.5-7.5) 07/19/25 19:34 Ur Specific [place] > 1.045 (1.000-1.030) H 07/19/25 19:34 Urine Protein 3+ (Negative) H 07/19/25 19:34 Urine Glucose (UA) Negative (Negative) 07/19/25 19:34 Urine Ketones Trace (Negative) H 07/19/25 19:34 Urine Blood 1+ (Negative) H 07/19/25 19:34 Urine Nitrite Negative (Negative) 07/19/25 19:34 Urine Bilirubin Negative (Negative) 07/19/25 19:34 Urine Urobilinogen Negative (Negative) 07/19/25 19:34 Ur Leukocyte Esterase Negative (Negative) 07/19/25 19:34 Urine WBC (Auto) 11-20 /hpf (0-5) H 07/19/25 19:34 Urine RBC (Auto) 11-20 /hpf (0-2) H 07/19/25 19:34 U Hyaline Cast (Auto) >20 /lpf (0-2) H 07/19/25 19:34 U Epithel Cells (Auto) 11-20 /hpf (0-2) H 07/19/25 19:34 Urine Bacteria (Auto) 2+ (None Seen) H 07/19/25 19:34 Calcium Oxalate Crystal Present (None Prsent) A 07/19/25 19:34 Hyaline Casts Present /lpf (None Presnt) A 07/19/25 19:34 Urine Comment 07/19/25 19:34 Adenovirus (PCR) Not Detected (NotDetected) 07/19/25 19:45 B. pertussis DNA (PCR) Not Detected (NotDetected) 07/19/25 19:45 B.parapertussis DNA PCR Not Detected (NotDetected) 07/19/25 19:45 Lyme Disease Screen Negative (Negative) 07/19/25 17:46 C. pneumoniae DNA (PCR) Not Detected (NotDetected) 07/19/25 19:45 Coronavirus OC43 (PCR) Not Detected (NotDetected) 07/19/25 19:45 Coronavirus HKU1 (PCR) Not Detected (NotDetected) 07/19/25 19:45 Coronavirus 229E (PCR) Not Detected (NotDetected) 07/19/25 19:45 SARS-CoV-2 (PCR) Not Detected (NotDetected) 07/19/25 19:45 Coronavirus NL63 (PCR) Not Detected (NotDetected) 07/19/25 19:45 Human Metapneumovir PCR Not Detected (NotDetected) 07/19/25 19:45 Influenza Type A (PCR) Not Detected (NotDetected) 07/19/25 19:45 Influenza Type B (PCR) Not Detected (NotDetected) 07/19/25 19:45 M. pneumoniae (PCR) Not Detected (NotDetected) 07/19/25 19:45 Parainfluenza 1 (PCR) Not Detected (NotDetected) 07/19/25 19:45 Parainfluenza 2 (PCR) Not Detected (NotDetected) 07/19/25 19:45 Parainfluenza 3 (PCR) Not Detected (NotDetected) 07/19/25 19:45 Parainfluenza 4 (PCR) Not Detected (NotDetected) 07/19/25 19:45 RSV (PCR) Not Detected (NotDetected) 07/19/25 19:45 Entero/Rhino (PCR) DETECTED (NotDetected) A 07/19/25 19:45 Impressions Chest X-Ray 07/19/25 17:35 EXAM: X-ray chest one-view portable CLINICAL HISTORY: Postintubation PRIORS 04/22/2021, 07/10/2017 TECHNIQUE: Semierect portable AP FINDINGS: Extremely limited view of the chest noted. Possible overlying medical imaging director noted. Large body habitus present. Endotracheal tube present terminating approximately 4.1 cm above the reji, appropriate. Allowing for the limitations of the study, diffuse interstitial changes and/edema or opacification noted throughout the lungs. Heart size not visualized. No large pneumothorax. No rib fracture. Trachea is patent. Osseous structures demonstrate no acute abnormality. No radiopaque foreign body. IMPRESSION: Limited examination with endotracheal tube appropriately located and diffuse interstitial changes throughout the lungs, possibly edema. Electronically signed by Ely Red 07-19-2025 6:[address] 07/19/25 17:35 EXAMINATION: Head CT without CLINICAL HISTORY: AMS PRIORS: MR 03/06/2017 TECHNIQUE: Contiguous axial images were obtained through the head without the use of intravenous contrast. Sagittal and coronal reformations are supplied. FINDINGS: Motion greatly degrades image quality. Appropriate parenchymal volume is noted. Marin-white differentiation is preserved. No edema or midline shift. No intra-axial or extra-axial hemorrhage. Ventricles are normal in size and configuration. Brainstem and cerebellum have a normal appearance. Calvarium unremarkable. Moderate mucosal thickening of the right maxillary sinus. mastoid air cells are well-pneumatized. Globes are intact. No retrobulbar abnormality. IMPRESSION: No CT evidence of an acute intracranial abnormality. If clinically appropriate, brain MRI could be obtained as appropriate. Electronically signed by Ely Red 07-19-2025 6:[address] 07/19/25 18:16 EXAMINATION: Chest CT with CLINICAL HISTORY: Confusion, intubated PRIORS: Chest radiograph today, CT 11/29/2023, 12/01/2024 TECHNIQUE: Contiguous axial images were obtained through the chest with the use of intravenous contrast. Sagittal and coronal reformations are supplied. FINDINGS: Motion artifact greatly degrades image quality. An endotracheal tube is present with distal tip superior to the reji. Heart size mildly enlarged. No pericardial or mediastinal fluid. Moderate to advanced atherosclerotic disease of the aorta and coronary arteries. Lung volumes are moderately diminished. Hypoventilatory changes at the lung bases. No confluent opacity. Mild interstitial changes noted, possibly on the basis of under distention of the chest. No pleural effusion. Suspected hepatomegaly and fatty infiltration of the liver noted. No abnormality in the upper abdomen. No subcutaneous chest wall or back edema in the subcutaneous tissues or hematoma. The clavicles, sternum, thoracic vertebral bodies and ribs demonstrate no displaced fracture. No pneumothorax. Possible chronic fracture deformity of a left lateral rib, image 56, series 500, unchanged. IMPRESSION: 1. Endotracheal tube appropriately located superior to the reji. 2. Hypoventilatory change with no acute cardiopulmonary process. 3. Moderate to advanced atherosclerotic disease of the aorta and coronary arteries. 4. Mild cardiomegaly. ACT 112: Positive. There are findings on this examination that require communication between the performing entity and the patient following Patient Test Result Information Act ([place] ACT 112) guidelines. Electronically signed by Ely Red 07-19-2025 6:52 PM KUB X-Ray 07/19/25 18:38 EXAMINATION: X-ray KUB/abdomen 1 view CLINICAL HISTORY: OG tube placement pulled tube after image taken will be called back later PRIORS: None TECHNIQUE: Single frontal view abdomen FINDINGS: Like body habitus noted. A single exterior appearing wire noted. Overlying bowel gas and stool obscures fine bone detail. A large amount of formed stool present throughout the colon. No dilated loops of bowel. No air-fluid levels. No acute osseous abnormality. IMPRESSION: No OG tube on the current examination. Electronically signed by Ely Red 07-19-2025 7:16 PM ECG Additional Comments: ECG. Sinus bradycardia with complete heart block and junctional rhythm with a rate of 49. Nonspecific ST and T wave abnormalities. Code Status & VTE Plan VTE Prophylaxis Plan VTE Prophylaxis will be ordered: Yes
[2025-07-19] MEDS ORDERED: DEXTROSE 50% 50 ML SYRINGE IV PRN (22:29)
[2025-07-19] MEDS ORDERED: CARBOHYDRATES FOR HYPOGLYCEMIA PO PRN (22:29)
[2025-07-19] MEDS ORDERED: GLUCOSE 10 TAB/TUBE PO PRN (22:29)
[2025-07-19] MEDS ORDERED: GLUCOSE 40% GEL 15 GM TUBE PO PRN (22:29)
[2025-07-19] MEDS ORDERED: CEFEPIME 2000MG 2,000 MG/20 ML SYR IV SCH (22:29)
[2025-07-19] MEDS ORDERED: GLUCAGON FOR INJ 1 MG VIAL SQ PRN (22:29)
[2025-07-19 22:42] LABS: iSTAT Art Bld Gas Base Excess -1.0 mmol/L (-9-1.8); iSTAT Art Bld Gas pCO2 Correct 52 mmHg (35-46); iSTAT Art Bld Gas pH Corrected 7.298 (7.35-7.45); iSTAT Arterial Blood Gas pO2 C 327
[2025-07-19] MEDS: ALBUTEROL 0.083% NEBU SOLN 3 ML VIAL NEB SCH (22:46)
[2025-07-19] MEDS: NYSTATIN POWDER 15GM BTL EXT SCH (23:07)
[2025-07-19] MEDS: Patient's HEIGHT &/or WEIGHT Needed STA (23:07)
[2025-07-19] MEDS: DAPTOmycin 500 MG in SYRINGE 0 ML IV SCH (23:31)
[2025-07-19] MEDS: INSULIN ASPART PER UNIT CHARGE SC SCH (23:31)
[2025-07-19] MEDS: ACETAMINOPHEN 1,000 MG/100 ML VIAL IV PRN (23:59)
[2025-07-20] MEDS: IBUPROFEN 200 MG/10 ML UDC PO STA (05:05)
[2025-07-20 05:19] LABS: Hematocrit (blood only) 32.7 % (37.0-47.0); Hemoglobin 10.3 g/dL (12.0-16.0); Immature Granulocytes # (auto) 0.07 K/uL (0.01-0.20); Immature Granulocytes % (auto) 0.6 %; Mean Corpuscular Hemoglobin 26.1 pg (25.0-34.0); Mean Corpuscular Volume 83.0 fL (80.0-100.0); Platelet Count 159 K/uL (130-400); RDW Standard Deviation 47.9 fL (36.4-46.3); Red Blood Count 3.94 M/uL (4.20-5.40); White Blood Count 11.56 K/ul (4.8-10.8)
--- NOTE | 2025-07-20 05:35 | XRay Report ---
EXAM: XR KUB/Abdomen 1 view CLINICAL HISTORY: OGT placement TECHNIQUE: An X-ray image of the lower chest and upper abdomen in the supine position. COMPARISON: 07/19/2025 FINDINGS: The visualized lower part of the orogastric tube is coursing below the diaphragm and extending to the left upper abdomen. Its tip is noted in the left upper abdomen at 15 cm from the gastroesophageal junction, with its side hole located in the stomach. Gas Pattern: Fecally loaded visualized colon. Mild degenerative changes of the thoracolumbar spine. For the chest findings, please refer to the dedicated chest X-ray. IMPRESSION: 1. Appropriate position of the newly appreciated orogastric tube. 2. No other significant interval change. Electronically signed by Yonis Shah 07-20-2025 05:35 AM
[2025-07-20 05:37] LABS: Anion Gap 11.0 (3-11); Blood Urea Nitrogen 29.0 mg/dl (6-23); Calcium 9.0 mg/dl (8.6-10.3); Carbon Dioxide 25.0 mmol/L (21-32); Chloride 102.0 mmol/L (98-107); Creatinine Clr Calc Pharmacy 47.5 ml/min; Glucose 195.0 mg/dl (70-99(Fasting)); Magnesium 1.9 mg/dl (1.7-2.4); Potassium 3.8 mmol/L (3.5-5.1); Sodium 138.0 mmol/L (136-145)
--- NOTE | 2025-07-20 05:39 | XRay Report ---
EXAM: XR chest 1V portable CLINICAL HISTORY: Eval lines/tubes/lung damon. TECHNIQUE: An X-ray image of the chest is obtained in AP projection. COMPARISON: 07/19/[address] FINDINGS: Lines and tubes: The endotracheal tube is located at 4.2 cm above the reji. The nasogastric tube is coursing below the diaphragm, tip not included in field of view. Pulmonary Parenchyma: Bilateral perihilar opacities. Blunting of the left costophrenic angle. The right costophrenic angle is not included in the available image. Heart and Mediastinum: Mild cardiomegaly. Prominent atherosclerotic aortic arch. Predominant hilar shadows. Bony Thorax: Degenerative changes of the visualized skeleton. Soft Tissues: Soft tissues overlying the chest wall are unremarkable. Multiple monitoring leads are noted. IMPRESSION: 1. Appropriate position of the endotracheal tube and the nasogastric tube. 2. Redemonstration of cardiomegaly with perihilar patchy opacities. It shows partial resolution since the prior chest x-ray and stability/mild progression since the CT study. 3. Blunting of the left costophrenic angle, prominent pericardial fat is noted on the CT scan, which could contribute to blunting of the costophrenic angle. However, the possibility of a small pleural effusion cannot be ruled out. Clinical correlation is advised. 4. No other significant interval change. Electronically signed by Yonis Shah 07-20-2025 05:39 AM
[2025-07-20 05:53] LABS: Thyroid Stimulating Hormone 0.881 uIu/ml (0.300-4.500)
[2025-07-20] MEDS: ICU ELECTROLYTE REPLACEMENT PROTOCOL SCH (06:23)
[2025-07-20] MEDS: cefTRIAXone SODIUM 2,000 MG/50 ML BAG IV SCH (06:36)
[2025-07-20] MEDS: HEPARIN SOD 5,000 UNIT/0.5 ML VIAL SQ SCH (06:40)
[2025-07-20] MEDS: RAPID SEQUENCE INDUCTION BAG ONE (06:52)
[2025-07-20] MEDS: MAGNESIUM SULFATE / D5W 1 GM/100 ML BAG IV SCH (07:53)
[2025-07-20] MEDS: POTASSIUM CHLORIDE 20 MEQ/15 ML UDC NG SCH ×2 (07:54→13:58)
--- NOTE | 2025-07-20 09:04 | XCELERA ---
[id number] \\[id number]
--- NOTE | 2025-07-20 09:12 | Cardiology Consultation ---
Date of Consultation July 20, 2025 Assessment & Plan (1) Symptomatic bradycardia: (2) Fever: (3) Hypoxic respiratory failure: (4) Rhinovirus infection: (5) Sepsis: (6) Enterovirus infection: 75-year-old female with a history of COPD and chronic respiratory insufficiency due to restrictive lung mechanics in the setting of morbid obesity and past left lung lobectomy. Patient presents with confusion, fatigue and shortness of breath. She has been found to be febrile and in thrid degree AV block . She is not on AV malou blockers at baseline. Lactate level was normal on presentation and has trended up to 2.7 mmol/l and creatinine is trending up with measurement of 1.43 mg /d l from 0.95 mg /dl on presentation. Troponin has trended up 48.5--> 246.2 pg/ml--> 392.7. pg/ml. No ST depression or elevation on EKG. Echocardiogram with no regional wall motion abnormalities. Plan: * case discussed with Dr Thakkar of EP * Patient currently on dopamine at dose of 9 mcg/kg/min, titrated down from 11 mcg/kg/ min. Systolic BP is high at 150 -200 mm Hg. BP had recently been low at baseline as an outpatient. * Plan for temporary transvenous pacemaker , with plan to wean Dopamine after. * Continue supportive care, broad spectrum antibiotic therapy (on Daptomycin and Rocephin now). * Await result of blood cultures. * Plan for permanent pacemaker in a day or two after treatment of suspected infection with sources including viral respiratory illness with enterovirus / Rhinovirus, UTI, rule out bacteremia. * Agree with SQ heparin for DVT prophylaxis. * SonErnesto, is patient's medical decision maker while incapacitated. I spent a total of 60 minutes on the date of service in preparation, delivery, and documentation of the care provided to this patient, excluding any time spent in the performance of separately billed services. Deniz Bush DO History of Present Illness Attending Physician: Enrico Candelario MD History of Present Illness Padmini Manzo is a 75 year old female seen in cardiology consultation per the request of Dr Tavares for the evaluation of bradycardia. The patient presented last evening via emergency medical services for concerns of confusion, fatigue, and shortness of breath. Oxygen saturation was reportedly 78% on room air on the arrival of EMS and remained low despite high flow supplementary oxygen. On arrival to the emergency department she was found to be in third-degree heart block with ventricular rate in the 40s. She underwent endotracheal intubation and remains on the ventilator. She was found to be febrile with a maximum temperature of 39.1 C. Remains afebrile at 38 C. She has tested positive for enterovirus/rhinovirus, urinalysis suggest possible urinary tract infection and she has chronic lower extremity wounds for which she follows with the wound care clinic. At present, she is sedated on the ventilator in ICU room 103. She remains afebrile with most recent temperature 38 C. She has a Briggs catheter in place a radial arterial line, and had recently gone placement of a right internal jugular central venous catheter by the critical care team. Telemetry reveals ongoing third-degree heart block with ventricular rate of 47 bmp at present. Echocardiogram performed 07/20/2025 and interpreted independently reveals no pericardial effusion, LVEF normal in the range of 55 to 60%, moderate mitral annular calcification, mild aortic valve sclerosis without stenosis, no regional wall motion abnormalities. Past Medial History: Morbid obesity, BMI 52 mg/kg/m2 Stage Ib lung cancer diagnosed March 2017 s/p left upper lobectomy Diabetes Restrictive lung disease related to body habitus and h/o lobectomy Chronic LE wounds Allergies Allergy/AdvReac Type Severity Reaction Status Date / Time naproxen Allergy Intermediate throat Verified 12/09/24 16:14 swelling cephalexin Allergy Mild RASH Verified 12/09/24 16:14 Home Medications Medication Instructions Recorded Confirmed Type aspirin 81 mg tablet,delayed 81 mg PO QAM 12/31/18 07/19/25 History release (Adult Low Dose Aspirin) metformin 500 mg tablet,extended 500 mg PO BID 12/31/18 07/19/25 History release 24 hr oxybutynin chloride 5 mg tablet 5 mg PO TID 12/31/18 07/19/25 History simvastatin 20 mg tablet (Zocor) 20 mg PO HS 12/31/18 07/19/25 History Oxygen Home #1 ea 08/11/19 07/19/25 Rx triamcinolone acetonide 0.1 % 1 appln topical BID #80 grams 02/05/20 07/19/25 Rx topical cream desoximetasone 0.25 % topical 1 appln topical DAILY #100 grams 04/02/20 07/19/25 Rx ointment CPAP Machine #1 ea 05/02/22 07/19/25 Rx gabapentin 300 mg capsule 300 mg PO TID 12/09/24 07/19/25 History CPAP Supplies #1 ea 05/07/25 07/19/25 Rx albuterol sulfate 90 mcg/actuation 2 inh inhalation Q4 PRN 07/19/25 07/19/25 History aerosol inhaler wheeze,cough,SOB nystatin 100,000 unit/gram topical 1 applic topical AMHS 07/19/25 07/19/25 History cream tiotropium bromide 2.5 2 puff inhalation QAM 07/19/25 07/19/25 History mcg/actuation mist for inhalation (Spiriva Respimat) torsemide 10 mg tablet 10 mg PO UD 07/19/25 07/19/25 History Patient History Medical History Hypervolemia COPD with acute exacerbation Acute and chronic respiratory failure Hx of endometriosis MRSA (methicillin resistant Staphylococcus aureus) Macular hole RT/LEFT EYE Restless leg syndrome Hypertension Hyperlipidemia On home oxygen therapy O2 AT 2L CONT. Cellulitis BLE Necrobiosis lipoidica diabeticorum Urinary incontinence Morbid obesity Adenocarcinoma of left lung, stage 1 s/p left upper lobectomy 03/28/17 Surgical History History of bronchoscopy H/O vascular surgery LEFT LEG (BY DR. WEIR) History of tooth extraction History of cataract surgery RT/LEFT H/O: hysterectomy S/P lobectomy of lung Thoracoscopy w/ Lobectomy Left 03/28/2017 malignant neoplasm JOLENE bronchus, with VATS Provider S/P hysterectomy History of lung surgery Family History Sister Family history of diabetes mellitus Son Family history of diabetes mellitus Father Family history of diabetes mellitus Other Cancer Heart disease Social History Smoking Status: Former smoker Tobacco Type: Cigarettes Cigarettes Per Day: 40; Smoking End Date: quit 15+ years ago; Second Hand Exposure: No; Do You Dip or Chew Tobacco: No; Hx Alcohol Use: No Hx Substance Use: No Preferred Language: Croatian Communication Ability: Effective Visual Impairment: No Limitations Hearing Ability: Normal Medical Recruiter Required: No Beliefs That Will Affect Care: None marital status: Single Current Living Situation: Family Current Living Situation Comment: with son 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 Other Information That Helps Us Care for You: No Feels Safe at Home: Yes Safety Concerns: Feels Safe At This Time Assistive Devices: Denture - Upper, Denture - Lower and Walker Review of Systems Review of Systems: Unobtainable due to endotracheal tube Physical Exam Constitutional: + obese Neck: trachea midline, no thyromegaly Respiratory: Auscultation: + diminished lung sounds (decreased BS at the bases ) Cardiovascular: Rate/Rhythm: + bradycardic Heart Sounds: no murmur Vessels: no JVD Gastrointestinal (Abdomen): normal bowel sounds, soft, nontender, no hepatosplenomegaly Neurologic: sedated , on the ventilator Genitourinary: Briggs catheter in place draining clear yellow urine Results & Data Laboratory Results Cardiac Enzymes 07/19/25 07/19/25 07/20/25 Range/Units 17:46 19:30 04:54 AST 14 (13-39) U/L Troponin I High Sens 48.5 H 246.2 H* D 392.7 H* D (0-14) pg/ml B-Natriuretic Peptide 458 H (0-100) pg/ml Coagulation 07/19/25 Range/Units 17:46 B-Natriuretic Peptide 458 H (0-100) pg/ml CBC 07/19/25 07/20/25 Range/Units 17:46 04:54 WBC 13.79 H 11.56 H (4.8-10.8) K/ul RBC 4.31 3.94 L (4.20-5.40) M/uL Hgb 11.1 L 10.3 L (12.0-16.0) g/dL Hct 36.2 L 32.7 L (37.0-47.0) % Plt Count 166 159 (130-400) K/uL Neut # (Auto) 11.86 H 10.34 H (1.40-6.50) K/uL Lymph # (Auto) 1.06 L 0.40 L (1.20-3.40) K/uL [place] # (Auto) 0.71 H 0.72 H (0.11-0.59) K/uL Eos # (Auto) 0.04 0.01 (0.00-0.50) K/uL Baso # (Auto) 0.03 0.02 (0.00-0.20) K/uL Comprehensive Metabolic Panel 07/19/25 07/20/25 Range/Units 17:46 04:54 Sodium 137 138 (136-145) mmol/L Potassium 4.3 3.8 (3.5-5.1) mmol/L Chloride 103 102 (98-107) mmol/L Carbon Dioxide 26 25 (21-32) mmol/L BUN 24 H 29 H (6-23) mg/dl Creatinine 0.95 1.43 H D (0.6-1.2) mg/dl Glucose 230 H 195 H (70-99(Fasting)) mg/dl Calcium 9.0 9.0 (8.6-10.3) mg/dl Direct Bilirubin 0.0 (0-0.2) mg/dl AST 14 (13-39) U/L ALT 14 (7-52) U/L Alkaline Phosphatase 74 (34-104) U/L Total Protein 6.9 (6.0-8.3) gm/dl Albumin 4.2 (3.4-5.0) gm/dl Intake and Output 07/19/25 07/20/25 07/20/25 22:59 06:59 14:59 Intake Total 234.980 / 943.487 708.507 / 943.487 420.986 / 420.986 Output Total 210 / 720 385 / 720 125 / 125 Balance 24.980 / 223.487 323.507 / 223.487 295.986 / 295.986 Intake: IV 234.980 / 943.487 708.507 / 943.487 420.986 / 420.986 Acetaminophen 1,000 mg In 100 100 / 200 100 / 200 100 / 100 ml @ 400 mls/hr IV Q8H PRN Rx#: [id number] DOPamine / D5W 400 mg In 250 ml 9.852 / 321.852 312.0 / 321.852 170.986 / 170.986 @ 9 MCG/KG/MIN 46.271 mls/hr IV .Q5H25M [facility] Rx#:[id number] cefTRIAXone SODIUM 2,000 mg In 50 / 50 50 / 50 50 ml @ 100 mls/hr IV Q12H [facility] Rx#:[id number] propofoL 1,000 mg In 100 ml @ 75.128 / 371.635 296.507 / 371.635 100 / 100 40 MCG/KG/MIN 32.904 mls/hr IV .Q3H3M [facility] Rx#:[id number] Output: Urine Amount (Catheter) 210 / 720 385 / 720 125 / 125 Briggs/Indwelling 210 / 720 385 / 720 125 / 125 Other: Weight 135.9 kg 133.5 kg Weight Measurement Method [facility] in [facility] Diagnostic Findings Transthoracic echocardiogram performed today 07/16/2025 interpreted dependently: Bradycardia present during echocardiogram. There is mild concentric left ventricular hypertrophy No regional wall motion abnormalities noted Normal left ventricular systolic function, LVEF in the range of 55-60% The right ventricle size and chamber function are normal Moderate mitral calcification noted Mild aortic valve sclerosis without stenosis No pericardial effusion PG Care Time/CCT Total # of Minutes Spent Total Time Spent with Patient: Total time spent is greater than 50% in coordination of care (as documented) at patient's floor/unit and/or counseling patient: Coding Level of Care Code 51753 IN/OBS CONSULT LVL 4,60M Diagnoses Symptomatic bradycardia R00.1 Fever R50.9 Hypoxic respiratory failure J96.91 Rhinovirus infection B34.8 Sepsis A41.9 Enterovirus infection B34.1
--- NOTE | 2025-07-20 09:14 | Procedure Note ---
Procedure Note Date of Service July 20, 2025 ARTERIAL LINE PROCEDURE NOTE: Procedure: Arterial Line Placement, right Provider: Barney Nielsen MD Indication: Monitoring on Pressors Anesthesia: None Verbal consent was obtained from family at the bedside. Risks and benefits were explained. They agreed to proceed A time-out was completed verifying correct patient, procedure, site, positioning, and implant(s) or special equipment if applicable. Allens test was performed to ensure adequate perfusion. Patients right wrist was prepped and draped in the usual sterile fashion. A 20g Arrow arterial line was introduced into the right radial artery. Catheter was threaded, and the needle was removed with appropriate blood return. Good waveform was observed. The patient tolerated the procedure well. Blood Loss: Minimal Complications: None [facility] Procedure Codes (Charges) Tubes, Drains, and Vasc Access Procedure 1: Tubes, Drains, and Vasc Access: [id number] Arterial Cath/Cannulation Sampling/Monitoring/Transfusion Coding CPT Codes Tubes, Drains, and Vasc Access - Tubes, Drains, and Vasc Access: [id number] Arterial Cath/Cannulation Sampling/Monitoring/Transfusion ([id number]) Additional Codes Date of Service (PG.SURGERY)
--- NOTE | 2025-07-20 09:15 | Procedure Note ---
Procedure Note Date of Service July 20, 2025 CENTRAL LINE PROCEDURE NOTE: Procedure: Central Line Placement Provider: Barney Nielsen MD Indication: Central Drug Administration, Poor Venous Access, Multiple Lab Draws Necessary, etc. Anesthesia: None Site: Initial attempt right subclavian, patient's body habitus was too large to allow for of the needle to access the vein. Transition to right IJ approach with ultrasound Verbal consent obtained from the family at bedside. Procedure was emergent. A time-out was completed verifying correct patient, procedure, site, positioning, and implants(s) or special equipment if applicable. Patients right neck was cleansed and draped in the typical sterile fashion using Chloraprep. Initially attempted to access the subclavian vein however the patient's body habitus was prohibitive as the needle was not long enough to pass underneath the clavicle. Transition to a right IJ approach. The Internal Jugular Vein and Carotid Artery were identified using ultrasound. The right internal Jugular vein was cannulated under direct ultrasound guidance using an introducer needle on a syringe. Good venous blood return was maintained prior to removal of syringe from introducer needle. Using Seldinger Technique, a guide wire was advanced through the introducer needle without resistance. The introducer needle was removed and ultrasound images were obtained of the guide wire within the Internal Jugular Vein and saved to the patients medical record. A small i ncision was made in penetrating fashion at the guide wire insertion site utilizing an 11 blade scalpel. The dilator was advanced to the vessel without resistance. The dilator was exchanged for the triple lumen catheter which was advanced into the vessel without resistance. The guide wire was removed intact from the catheter without issue. Claves were placed on each catheter tip with confirmation of good blood flow from each lumen. Each port was easily flushed with sterile saline. The catheter was placed at 15 cm and sutured in place. Sterile dressing was applied to the catheter and a sterile Tegaderm dressing was applied over the catheter with careful attention to sterility. Patient tolerated procedure well. No immediate complications were met. Post procedure x-ray was completed, placement was appropriate and no pneumothorax was noted. EBL: 5 mL [facility] Procedure Codes (Charges) Tubes, Drains, and Vasc Access Procedure 1: Tubes, Drains, and Vasc Access: [id number] Place catheter in vein superior or inferior vena cava Coding CPT Codes Tubes, Drains, and Vasc Access - Tubes, Drains, and Vasc Access: [id number] Place catheter in vein superior or inferior vena cava ([id number]) Additional Codes Date of Service (PG.SURGERY)
--- NOTE | 2025-07-20 09:23 | Critical Care Progress Note ---
Date of Service July 20, 2025 Assessment & Plan (1) Acute heart failure: (2) Heart block: (3) Endotracheally intubated: (4) Acute hypoxemic respiratory failure: (5) AMS (altered mental status): Plan Impression: 75 YOF hypoxic respiratory failure requiring emergent/urgent intubation, in setting of bradycardia with concern for high grade block likely resulting in acute heart failure, also associated with entero/rhinovirus and UTI. 24-hour events: Patient admitted to the ICU. Required dopamine. Remains in third-degree heart block. Cardiology consultation completed this morning. Remains intubated and sedated. Recommendations: Neuro - Sedation for mechanical ventilation, encephalopathy, HX: single eye blindness. Nonfocal exam so we will hold on additional imaging. Suspect potentially metabolic etiology for the patient's encephalopathy and altered mental status. Will need to see she responds to correction of her metabolic abnormalities. No meningeal signs so we will hold off on lumbar puncture for now. Body habitus may make it difficult. Cardiac -third-degree heart block. Discussed with cardiology. EP consulted. Plan for temporary pacing wire today given the patient's febrile status. Will likely need permanent pacemaker at some point. Hopefully can wean off dopamine once temporary pacing wire in place. Echocardiogram pending. Appreciate cardiology consultation. Difficult to assess volume status given the patient's body habitus. Arterial line placed for closer hemodynamic monitoring. Lactate slightly increased this morning. Will recheck this afternoon after pacemaker is in place. Mild elevation in troponin. BNP also mildly elevated. Respiratory - Acute hypoxic respiratory failure requiring emergent intubation, CLYDE. Oxygenating reasonably well. Mild hypercarbia. Continue ventilation for now. No evidence of bronchospasm. Supportive care for enterovirus/rhinovirus GI - No acute needs. Start PPI. Consider enteral feeding if unable to liberate from ventilator within the next 24 RENAL/LYTES - No acute needs. mild increase in serum creatinine this morning. Patient did receive a contrast load yesterday. Acid-base status and electrolytes are stable. Continue to follow closely. - UTI see below - Keep rodriguez while intubated and sedated ENDO - DMII - ICU hyper/hypoglycemic protocol HEME - No acute needs ID -fever. Cultures negative to date. Procalcitonin negative. Positive BioFire for enterovirus/rhinovirus. Currently day #2 daptomycin and Rocephin. Continue for now. LINES/IV ACCESS - PIV, ETT, Rodriguez. Central line and arterial line placed today Continue use of these lines DVT PROPHYLAXIS - SCDS. Start subcu heparin DISPO: ICU until hemodynamics and electrical rhythm proven stable and improved without chronotropics/vasopressors/inotrope. I have personally spent 54 minutes of critical care time in the direct management of this patient. This is a life/limb threatening event. This includes time spent evaluating patient, direct bedside care, chart review, placing orders, interpretation of diagnostic studies, discussion with consultants, patient, and family members, as well as other required patient management ac tivities. This time is exclusive of all separately billable procedures, and teaching time and separate from and in addition to any other critical care service time. Admission and Anticipated Discharge Date Admission Date: July 19, 2025 Subjective Patient seen and examined. EMR reviewed. Discussed with bedside critical care nurse and family at bedside as well as on multidisciplinary rounds. The patient is intubated sedated currently and on dopamine. Minimal vent settings currently. Review of Systems Review of Systems: Unobtainable due to endotracheal tube Physical Exam Constitutional: + morbidly obese and + mechanically vent ilated Neck: trachea midline, no thyromegaly Respiratory: symmetric chest movement; no respiratory distress, no labored breathing, no cough and not tachypneic Cardiovascular: Rate/Rhythm: regular rhythm and + bradycardic Heart Sounds: normal S1 and normal S2; no murmur Gastrointestinal (Abdomen): normal bowel sounds, soft, nontender, no hepatosplenomegaly Musculoskeletal: Extremities: extremities normal to inspection Skin: no rashes, warm and dry Neurologic: Sedated Lymphatic: no cervical lymphadenopathy Results & Data Results & Data Vital Signs (Past 12 Hours) Vital Signs Temp Pulse Pulse Resp BP BP Pulse Ox 07/20/25 08:01 38.5 C H 07/20/25 07:40 26 H 07/20/25 07:30 158/48 H 07/20/25 07:30 158/48 H 07/20/25 07:29 38.5 C H 48 L 26 H 96 07/20/25 07:02 38.6 C H 49 L 26 H 98 07/20/25 07:00 150/47 H 07/20/25 07:00 150/47 H 07/20/25 05:35 38.0 C H 07/20/25 04:56 39.1 C H 52 L 26 H 98 07/20/25 04:50 39.1 C H 52 L 26 H 98 07/20/25 04:45 39.1 C H 52 L 26 H 99 07/20/25 04:41 39.1 C H 52 L 26 H 98 07/20/25 04:38 39.1 C H 52 L 26 H 99 07/20/25 04:30 39.1 C H 52 L 26 H 98 07/20/25 04:30 186/61 H 07/20/25 04:27 39.1 C H 52 L 26 H 98 07/20/25 04:21 39.1 C H 52 L 26 H 100 07/20/25 04:15 39.1 C H 52 L 26 H 100 07/20/25 04:12 39.1 C H 52 L 26 H 100 07/20/25 04:06 39.0 C H 52 L 20 100 07/20/25 04:00 39.0 C H 53 L 26 H 100 07/20/25 04:00 198/50 H 07/20/25 04:00 07/20/25 03:57 39.0 C H 53 L 26 H 100 07/20/25 03:51 39.0 C H 53 L 27 H 100 07/20/25 03:45 38.9 C H 53 L 25 H 100 07/20/25 03:42 38.9 C H 53 L 26 H 100 07/20/25 03:36 38.9 C H 52 L 26 H 100 07/20/25 03:31 184/50 H 07/20/25 03:30 38.8 C H 52 L 26 H 100 07/20/25 03:27 38.8 C H 52 L 26 H 100 07/20/25 03:21 38.8 C H 50 L 26 H 97 07/20/25 03:16 48 L 26 H 94 07/20/25 03:15 38.8 C H 51 L 22 100 07/20/25 03:12 38.8 C H 50 L 26 H 100 07/20/25 03:06 38.7 C H 49 L 26 H 99 07/20/25 03:01 132/59 L 07/20/25 03:00 38.7 C H 47 L 22 95 07/20/25 02:57 38.6 C H 49 L 26 H 100 07/20/25 02:51 38.6 C H 49 L 26 H 100 07/20/25 02:45 38.6 C H 49 L 26 H 100 07/20/25 02:42 38.6 C H 48 L 26 H 99 07/20/25 02:36 38.6 C H 49 L 26 H 98 07/20/25 02:30 178/54 H 07/20/25 02:30 38.6 C H 49 L 26 H 99 07/20/25 02:27 38.6 C H 49 L 26 H 98 07/20/25 02:21 38.6 C H 48 L 26 H 98 07/20/25 02:15 38.7 C H 49 L 26 H 98 07/20/25 02:12 38.7 C H 48 L 26 H 98 07/20/25 02:06 38.7 C H 49 L 26 H 99 07/20/25 02:00 38.7 C H 49 L 26 H 98 07/20/25 02:00 167/57 H 07/20/25 01:57 38.7 C H 48 L 26 H 98 07/20/25 01:51 38.7 C H 48 L 26 H 99 07/20/25 01:45 38.7 C H 48 L 26 H 98 07/20/25 01:42 38.7 C H 48 L 26 H 98 07/20/25 01:36 38.7 C H 48 L 26 H 100 07/20/25 01:30 38.7 C H 48 L 26 H 100 07/20/25 01:30 157/52 H 07/20/25 01:27 38.8 C H 48 L 26 H 100 07/20/25 01:21 38.8 C H 48 L 26 H 100 07/20/25 01:15 38.8 C H 48 L 26 H 100 07/20/25 01:12 38.8 C H 48 L 26 H 98 07/20/25 01:06 38.8 C H 48 L 26 H 99 07/20/25 01:00 38.9 C H 49 L 26 H 100 07/20/25 01:00 141/48 H 07/20/25 00:57 38.9 C H 48 L 26 H 100 07/20/25 00:51 38.9 C H 48 L 26 H 100 07/20/25 00:45 38.9 C H 48 L 26 H 100 07/20/25 00:42 38.9 C H 48 L 26 H 100 07/20/25 00:36 39.0 C H 48 L 26 H 100 07/20/25 00:00 07/19/25 23:57 39.1 C H 48 L 26 H 100 07/19/25 23:51 39.1 C H 47 L 26 H 99 07/19/25 23:45 39.1 C H 46 L 26 H 100 07/19/25 23:42 39.0 C H 46 L 26 H 98 07/19/25 23:36 39.1 C H 46 L 26 H 99 07/19/25 23:33 176/52 H 07/19/25 23:33 39.0 C H 47 L 26 H 99 07/19/25 23:30 39.0 C H 46 L 26 H 99 07/19/25 23:27 39.0 C H 47 L 26 H 99 07/19/25 23:21 38.7 C H 46 L 26 H 100 07/19/25 23:15 39.1 C H 46 L 26 H 100 07/19/25 23:12 39.1 C H 46 L 26 H 100 07/19/25 23:06 39.1 C H 47 L 26 H 100 07/19/25 23:00 39.1 C H 48 L 26 H 100 07/19/25 23:00 156/47 H 07/19/25 22:57 39.1 C H 47 L 26 H 99 07/19/25 22:51 39.1 C H 46 L 26 H 98 07/19/25 22:45 39.1 C H 47 L 26 H 100 07/19/25 22:42 39.1 C H 47 L 26 H 100 07/19/25 22:36 39.1 C H 47 L 26 H 93 07/19/25 22:31 161/50 H 07/19/25 22:30 39.0 C H 46 L 26 H 90 07/19/25 22:27 38.7 C H 44 L 26 H 87 L 07/19/25 22:27 184/51 H 07/19/25 22:21 38.9 C H 45 L 17 100 07/19/25 22:15 38.9 C H 44 L 21 100 07/19/25 22:14 105/71 07/19/25 22:10 07/19/25 22:08 45 L 07/19/25 22:00 39.0 C H 44 L 16 184/51 H 85 L 07/19/25 21:45 44 L 25 H 100 07/19/25 21:36 07/19/25 21:30 38.6 C H 45 L 24 172/47 H 93 O2 Del Method FiO2 07/20/25 08:01 07/20/25 07:40 80 07/20/25 07:30 07/20/25 07:30 07/20/25 07:29 07/20/25 07:02 07/20/25 07:00 07/20/25 07:00 07/20/25 05:35 07/20/25 04:56 07/20/25 04:50 07/20/25 04:45 07/20/25 04:41 07/20/25 04:38 07/20/25 04:30 07/20/25 04:30 07/20/25 04:27 07/20/25 04:21 07/20/25 04:15 07/20/25 04:12 07/20/25 04:06 07/20/25 04:00 07/20/25 04:00 07/20/25 04:00 60 07/20/25 03:57 07/20/25 03:51 07/20/25 03:45 07/20/25 03:42 07/20/25 03:36 07/20/25 03:31 07/20/25 03:30 07/20/25 03:27 07/20/25 03:21 07/20/25 03:16 60 07/20/25 03:15 07/20/25 03:12 07/20/25 03:06 07/20/25 03:01 07/20/25 03:00 07/20/25 02:57 07/20/25 02:51 07/20/25 02:45 07/20/25 02:42 07/20/25 02:36 07/20/25 02:30 07/20/25 02:30 07/20/25 02:27 07/20/25 02:21 07/20/25 02:15 07/20/25 02:12 07/20/25 02:06 07/20/25 02:00 07/20/25 02:00 07/20/25 01:57 07/20/25 01:51 07/20/25 01:45 07/20/25 01:42 07/20/25 01:36 07/20/25 01:30 07/20/25 01:30 07/20/25 01:27 07/20/25 01:21 07/20/25 01:15 07/20/25 01:12 07/20/25 01:06 07/20/25 01:00 07/20/25 01:00 07/20/25 00:57 07/20/25 00:51 07/20/25 00:45 07/20/25 00:42 07/20/25 00:36 07/20/25 00:00 70 07/19/25 23:57 07/19/25 23:51 07/19/25 23:45 07/19/25 23:42 07/19/25 23:36 07/19/25 23:33 07/19/25 23:33 07/19/25 23:30 07/19/25 23:27 07/19/25 23:21 07/19/25 23:15 07/19/25 23:12 07/19/25 23:06 07/19/25 23:00 07/19/25 23:00 07/19/25 22:57 07/19/25 22:51 07/19/25 22:45 07/19/25 22:42 07/19/25 22:36 07/19/25 22:31 07/19/25 22:30 07/19/25 22:27 07/19/25 22:27 07/19/25 22:21 07/19/25 22:15 07/19/25 22:14 07/19/25 22:10 Mechanical Vent 60 07/19/25 22:08 07/19/25 22:00 Mechanical Vent 60 07/19/25 21:45 60 07/19/25 21:36 Mechanical Vent 07/19/25 21:30 Mechanical Vent Critical Care Results & Data Vital Signs (Past 12 Hours) Vital Signs Temp Pulse Pulse Resp BP BP Pulse Ox 07/20/25 08:01 38.5 C H 07/20/25 07:40 26 H 07/20/25 07:30 158/48 H 07/20/25 07:30 158/48 H 07/20/25 07:29 38.5 C H 48 L 26 H 96 07/20/25 07:02 38.6 C H 49 L 26 H 98 07/20/25 07:00 150/47 H 07/20/25 07:00 150/47 H 07/20/25 05:35 38.0 C H 07/20/25 04:56 39.1 C H 52 L 26 H 98 07/20/25 04:50 39.1 C H 52 L 26 H 98 07/20/25 04:45 39.1 C H 52 L 26 H 99 07/20/25 04:41 39.1 C H 52 L 26 H 98 07/20/25 04:38 39.1 C H 52 L 26 H 99 07/20/25 04:30 39.1 C H 52 L 26 H 98 07/20/25 04:30 186/61 H 07/20/25 04:27 39.1 C H 52 L 26 H 98 07/20/25 04:21 39.1 C H 52 L 26 H 100 07/20/25 04:15 39.1 C H 52 L 26 H 100 07/20/25 04:12 39.1 C H 52 L 26 H 100 07/20/25 04:06 39.0 C H 52 L 20 100 07/20/25 04:00 39.0 C H 53 L 26 H 100 07/20/25 04:00 198/50 H 07/20/25 04:00 07/20/25 03:57 39.0 C H 53 L 26 H 100 07/20/25 03:51 39.0 C H 53 L 27 H 100 07/20/25 03:45 38.9 C H 53 L 25 H 100 07/20/25 03:42 38.9 C H 53 L 26 H 100 07/20/25 03:36 38.9 C H 52 L 26 H 100 07/20/25 03:31 184/50 H 07/20/25 03:30 38.8 C H 52 L 26 H 100 07/20/25 03:27 38.8 C H 52 L 26 H 100 07/20/25 03:21 38.8 C H 50 L 26 H 97 07/20/25 03:16 48 L 26 H 94 07/20/25 03:15 38.8 C H 51 L 22 100 07/20/25 03:12 38.8 C H 50 L 26 H 100 07/20/25 03:06 38.7 C H 49 L 26 H 99 07/20/25 03:01 132/59 L 07/20/25 03:00 38.7 C H 47 L 22 95 07/20/25 02:57 38.6 C H 49 L 26 H 100 07/20/25 02:51 38.6 C H 49 L 26 H 100 07/20/25 02:45 38.6 C H 49 L 26 H 100 07/20/25 02:42 38.6 C H 48 L 26 H 99 07/20/25 02:36 38.6 C H 49 L 26 H 98 07/20/25 02:30 178/54 H 07/20/25 02:30 38.6 C H 49 L 26 H 99 07/20/25 02:27 38.6 C H 49 L 26 H 98 07/20/25 02:21 38.6 C H 48 L 26 H 98 07/20/25 02:15 38.7 C H 49 L 26 H 98 07/20/25 02:12 38.7 C H 48 L 26 H 98 07/20/25 02:06 38.7 C H 49 L 26 H 99 07/20/25 02:00 38.7 C H 49 L 26 H 98 07/20/25 02:00 167/57 H 07/20/25 01:57 38.7 C H 48 L 26 H 98 07/20/25 01:51 38.7 C H 48 L 26 H 99 07/20/25 01:45 38.7 C H 48 L 26 H 98 07/20/25 01:42 38.7 C H 48 L 26 H 98 07/20/25 01:36 38.7 C H 48 L 26 H 100 07/20/25 01:30 38.7 C H 48 L 26 H 100 07/20/25 01:30 157/52 H 07/20/25 01:27 38.8 C H 48 L 26 H 100 07/20/25 01:21 38.8 C H 48 L 26 H 100 07/20/25 01:15 38.8 C H 48 L 26 H 100 07/20/25 01:12 38.8 C H 48 L 26 H 98 07/20/25 01:06 38.8 C H 48 L 26 H 99 07/20/25 01:00 38.9 C H 49 L 26 H 100 07/20/25 01:00 141/48 H 07/20/25 00:57 38.9 C H 48 L 26 H 100 07/20/25 00:51 38.9 C H 48 L 26 H 100 07/20/25 00:45 38.9 C H 48 L 26 H 100 07/20/25 00:42 38.9 C H 48 L 26 H 100 07/20/25 00:36 39.0 C H 48 L 26 H 100 07/20/25 00:00 07/19/25 23:57 39.1 C H 48 L 26 H 100 07/19/25 23:51 39.1 C H 47 L 26 H 99 07/19/25 23:45 39.1 C H 46 L 26 H 100 07/19/25 23:42 39.0 C H 46 L 26 H 98 07/19/25 23:36 39.1 C H 46 L 26 H 99 07/19/25 23:33 176/52 H 07/19/25 23:33 39.0 C H 47 L 26 H 99 07/19/25 23:30 39.0 C H 46 L 26 H 99 07/19/25 23:27 39.0 C H 47 L 26 H 99 07/19/25 23:21 38.7 C H 46 L 26 H 100 07/19/25 23:15 39.1 C H 46 L 26 H 100 07/19/25 23:12 39.1 C H 46 L 26 H 100 07/19/25 23:06 39.1 C H 47 L 26 H 100 07/19/25 23:00 39.1 C H 48 L 26 H 100 07/19/25 23:00 156/47 H 07/19/25 22:57 39.1 C H 47 L 26 H 99 07/19/25 22:51 39.1 C H 46 L 26 H 98 07/19/25 22:45 39.1 C H 47 L 26 H 100 07/19/25 22:42 39.1 C H 47 L 26 H 100 07/19/25 22:36 39.1 C H 47 L 26 H 93 07/19/25 22:31 161/50 H 07/19/25 22:30 39.0 C H 46 L 26 H 90 07/19/25 22:27 38.7 C H 44 L 26 H 87 L 07/19/25 22:27 184/51 H 07/19/25 22:21 38.9 C H 45 L 17 100 07/19/25 22:15 38.9 C H 44 L 21 100 07/19/25 22:14 105/71 07/19/25 22:10 07/19/25 22:08 45 L 07/19/25 22:00 39.0 C H 44 L 16 184/51 H 85 L 07/19/25 21:45 44 L 25 H 100 07/19/25 21:36 07/19/25 21:30 38.6 C H 45 L 24 172/47 H 93 O2 Del Method FiO2 07/20/25 08:01 07/20/25 07:40 80 07/20/25 07:30 07/20/25 07:30 07/20/25 07:29 07/20/25 07:02 07/20/25 07:00 07/20/25 07:00 07/20/25 05:35 07/20/25 04:56 07/20/25 04:50 07/20/25 04:45 07/20/25 04:41 07/20/25 04:38 07/20/25 04:30 07/20/25 04:30 07/20/25 04:27 07/20/25 04:21 07/20/25 04:15 07/20/25 04:12 07/20/25 04:06 07/20/25 04:00 07/20/25 04:00 07/20/25 04:00 60 07/20/25 03:57 07/20/25 03:51 07/20/25 03:45 07/20/25 03:42 07/20/25 03:36 07/20/25 03:31 07/20/25 03:30 07/20/25 03:27 07/20/25 03:21 07/20/25 03:16 60 07/20/25 03:15 07/20/25 03:12 07/20/25 03:06 07/20/25 03:01 07/20/25 03:00 07/20/25 02:57 07/20/25 02:51 07/20/25 02:45 07/20/25 02:42 07/20/25 02:36 07/20/25 02:30 07/20/25 02:30 07/20/25 02:27 07/20/25 02:21 07/20/25 02:15 07/20/25 02:12 07/20/25 02:06 07/20/25 02:00 07/20/25 02:00 07/20/25 01:57 07/20/25 01:51 07/20/25 01:45 07/20/25 01:42 07/20/25 01:36 07/20/25 01:30 07/20/25 01:30 07/20/25 01:27 07/20/25 01:21 07/20/25 01:15 07/20/25 01:12 07/20/25 01:06 07/20/25 01:00 07/20/25 01:00 07/20/25 00:57 07/20/25 00:51 07/20/25 00:45 07/20/25 00:42 07/20/25 00:36 07/20/25 00:00 70 07/19/25 23:57 07/19/25 23:51 07/19/25 23:45 07/19/25 23:42 07/19/25 23:36 07/19/25 23:33 07/19/25 23:33 07/19/25 23:30 07/19/25 23:27 07/19/25 23:21 07/19/25 23:15 07/19/25 23:12 07/19/25 23:06 07/19/25 23:00 07/19/25 23:00 07/19/25 22:57 07/19/25 22:51 07/19/25 22:45 07/19/25 22:42 07/19/25 22:36 07/19/25 22:31 07/19/25 22:30 07/19/25 22:27 07/19/25 22:27 07/19/25 22:21 07/19/25 22:15 07/19/25 22:14 07/19/25 22:10 Mechanical Vent 60 07/19/25 22:08 07/19/25 22:00 Mechanical Vent 60 07/19/25 21:45 60 07/19/25 21:36 Mechanical Vent 07/19/25 21:30 Mechanical Vent Lab & Micro Results (Past 24 Hours) RBC 3.94 M/uL (4.20-5.40) L 07/20/25 WBC 11.56 K/ul (4.8-10.8) H 07/20/25 Hgb 10.3 g/dL (12.0-16.0) L 07/20/25 Hct 32.7 % (37.0-47.0) L 07/20/25 MCV 83.0 fL (80.0-100.0) 07/20/25 MCH 26.1 pg (25.0-34.0) 07/20/25 MCHC 31.5 g/dL (32.0-36.0) L 07/20/25 RDW Standard Deviation 47.9 fL (36.4-46.3) H 07/20/25 RDW Coefficient of Variation 15.9 % (11.5-14.5) H 07/20/25 Plt Count 159 K/uL (130-400) 07/20/25 MPV 10.0 fL (9.4-12.4) 07/20/25 Neutrophils (%) (Auto) 89.4 % 07/20/25 Lymphocytes (%) (Auto) 3.5 % 07/20/25 Monocytes # (Auto) 0.72 K/uL (0.11-0.59) H 07/20/25 Eosinophils # (Auto) 0.01 K/uL (0.00-0.50) 07/20/25 Immature Granulocyte % (Auto) 0.6 % 07/20/25 Neutrophils # (Auto) 10.34 K/uL (1.40-6.50) H 07/20/25 Lymphocytes # (Auto) 0.40 K/uL (1.20-3.40) L 07/20/25 Monocytes # (Auto) 0.72 K/uL (0.11-0.59) H 07/20/25 Eosinophils # (Auto) 0.01 K/uL (0.00-0.50) 07/20/25 Basophils # (Auto) 0.02 K/uL (0.00-0.20) 07/20/25 Immature Granulocyte # (Auto) 0.07 K/uL (0.01-0.20) 5 Na 138 mmol/L (136-145) 07/20/25 K 3.8 mmol/L (3.5-5.1) 07/20/25 Cl 102 mmol/L (98-107) 07/20/25 CO2 25 mmol/L (21-32) 07/20/25 Anion Gap 11 (3-11) 07/20/25 BUN 29 mg/dl (6-23) H 07/20/25 Creatinine 1.43 mg/dl (0.6-1.2) H 07/20/25 BUN/Creatinine Ratio 20.3 (10-20) H 07/20/25 Glu 195 mg/dl (70-99(Fasting)) H 07/20/25 Ca 9.0 mg/dl (8.6-10.3) 07/20/25 Phosphorus Level 3.7 mg/dl (2.5-4.9) 07/20/25 Total Bilirubin 0.4 mg/dl (0.2-1.0) 07/19/25 Direct Bilirubin 0.0 mg/dl (0-0.2) 07/19/25 AST 14 U/L (13-39) 07/19/25 ALT 14 U/L (7-52) 07/19/25 Alkaline Phosphatase 74 U/L (34-104) 07/19/25 TP 6.9 gm/dl (6.0-8.3) 07/19/25 Albumin 4.2 gm/dl (3.4-5.0) 07/19/25 Mg 1.9 mg/dl (1.7-2.4) 07/20/25 04:54 Calcium Level 9.0 mg/dl (8.6-10.3) 07/20/25 04:54 Venous Blood pH 7.24 (7.36-7.41) L 07/19/25 17:46 Venous Blood Partial Pressure CO2 61 mmHg (38-50) H 07/19/25 17 :46 Venous Blood Partial Pressure O2 47 mmHg 07/19/25 17:46 Venous Blood HCO3 26 mmol/L 07/19/25 17:46 Venous Blood Base Excess -2.3 mEq/L 07/19/25 17:46 Venous Blood Oxygen Saturation 76.9 % 07/19/25 17:46 Tone Test NA 07/20/25 09:52 Diagnostic Findings (Past 24 Hours) Chest X-Ray 07/19/25 17:35 EXAM: X-ray chest one-view portable CLINICAL HISTORY: Postintubation PRIORS 04/22/2021, 07/10/2017 TECHNIQUE: Semierect portable AP FINDINGS: Extremely limited view of the chest noted. Possible overlying medical imaging specialist noted. Large body habitus present. Endotracheal tube present terminating approximately 4.1 cm above the reji, appropriate. Allowing for the limitations of the study, diffuse interstitial changes and/edema or opacification noted throughout the lungs. Heart size not visualized. No large pneumothorax. No rib fracture. Trachea is patent. Osseous structures demonstrate no acute abnormality. No radiopaque foreign body. IMPRESSION: Limited examination with endotracheal tube appropriately located and diffuse interstitial changes throughout the lungs, possibly edema. Electronically signed by Ely Red 07-19-2025 6:[address] 07/19/25 17:35 EXAMINATION: Head CT without CLINICAL HISTORY: AMS PRIORS: MR 03/06/2017 TECHNIQUE: Contiguous axial images were obtained through the head without the use of intravenous contrast. Sagittal and coronal reformations are supplied. FINDINGS: Motion greatly degrades image quality. Appropriate parenchymal volume is noted. Marin-white differentiation is preserved. No edema or midline shift. No intra-axial or extra-axial hemorrhage. Ventricles are normal in size and configuration. Brainstem and cerebellum have a normal appearance. Calvarium unremarkable. Moderate mucosal thickening of the right maxillary sinus. mastoid air cells are well-pneumatized. Globes are intact. No retrobulbar abnormality. IMPRESSION: No CT evidence of an acute intracranial abnormality. If clinically appropriate, brain MRI could be obtained as appropriate. Electronically signed by Ely Red 07-19-2025 6:[address] 07/19/25 18:16 EXAMINATION: Chest CT with CLINICAL HISTORY: Confusion, intubated PRIORS: Chest radiograph today, CT 11/29/2023, 12/01/2024 TECHNIQUE: Contiguous axial images were obtained through the chest with the use of intravenous contrast. Sagittal and coronal reformations are supplied. FINDINGS: Motion artifact greatly degrades image quality. An endotracheal tube is present with distal tip superior to the reji. Heart size mildly enlarged. No pericardial or mediastinal fluid. Moderate to advanced atherosclerotic disease of the aorta and coronary arteries. Lung volumes are moderately diminished. Hypoventilatory changes at the lung bases. No confluent opacity. Mild interstitial changes noted, possibly on the basis of under distention of the chest. No pleural effusion. Suspected hepatomegaly and fatty infiltration of the liver noted. No abnormality in the upper abdomen. No subcutaneous chest wall or back edema in the subcutaneous tissues or hematoma. The clavicles, sternum, thoracic vertebral bodies and ribs demonstrate no displaced fracture. No pneumothorax. Possible chronic fracture deformity of a left lateral rib, image 56, series 500, unchanged. IMPRESSION: 1. Endotracheal tube appropriately located superior to the reji. 2. Hypoventilatory change with no acute cardiopulmonary process. 3. Moderate to advanced atherosclerotic disease of the aorta and coronary arteries. 4. Mild cardiomegaly. ACT 112: Positive. There are findings on this examination that require communication between the performing entity and the patient following Patient Test Result Information Act ([place] ACT 112) guidelines. Electronically signed by Ely Red 07-19-2025 6:52 PM KUB X-Ray 07/19/25 18:38 EXAMINATION: X-ray KUB/abdomen 1 view CLINICAL HISTORY: OG tube placement pulled tube after image taken will be called back later PRIORS: None TECHNIQUE: Single frontal view abdomen FINDINGS: Like body habitus noted. A single exterior appearing wire noted. Overlying bowel gas and stool obscures fine bone detail. A large amount of formed stool present throughout the colon. No dilated loops of bowel. No air-fluid levels. No acute osseous abnormality. IMPRESSION: No OG tube on the current examination. Electronically signed by Ely Red 07-19-2025 7:16 PM KUB X-Ray 07/20/25 04:25 EXAM: XR KUB/Abdomen 1 view CLINICAL HISTORY: OGT placement TECHNIQUE: An X-ray image of the lower chest and upper abdomen in the supine position. COMPARISON: 07/19/2025 FINDINGS: The visualized lower part of the orogastric tube is coursing below the diaphragm and extending to the left upper abdomen. Its tip is noted in the left upper abdomen at 15 cm from the gastroesophageal junction, with its side hole located in the stomach. Gas Pattern: Fecally loaded visualized colon. Mild degenerative changes of the thoracolumbar spine. For the chest findings, please refer to the dedicated chest X-ray. IMPRESSION: 1. Appropriate position of the newly appreciated orogastric tube. 2. No other significant interval change. Electronically signed by Yonis Shah 07-20-2025 05:35 AM Chest X-Ray 07/20/25 04:29 EXAM: XR chest 1V portable CLINICAL HISTORY: Eval lines/tubes/lung damon. TECHNIQUE: An X-ray image of the chest is obtained in AP projection. COMPARISON: 07/19/[address] FINDINGS: Lines and tubes: The endotracheal tube is located at 4.2 cm above the reji. The nasogastric tube is coursing below the diaphragm, tip not included in field of view. Pulmonary Parenchyma: Bilateral perihilar opacities. Blunting of the left costophrenic angle. The right costophrenic angle is not included in the available image. Heart and Mediastinum: Mild cardiomegaly. Prominent atherosclerotic aortic arch. Predominant hilar shadows. Bony Thorax: Degenerative changes of the visualized skeleton. Soft Tissues: Soft tissues overlying the chest wall are unremarkable. Multiple monitoring leads are noted. IMPRESSION: 1. Appropriate position of the endotracheal tube and the nasogastric tube. 2. Redemonstration of cardiomegaly with perihilar patchy opacities. It shows partial resolution since the prior chest x-ray and stability/mild progression since the CT study. 3. Blunting of the left costophrenic angle, prominent pericardial fat is noted on the CT scan, which could contribute to blunting of the costophrenic angle. However, the possibility of a small pleural effusion cannot be ruled out. Clinical correlation is advised. 4. No other significant interval change. Electronically signed by Yonis Shah 07-20-2025 05:39 AM I & O Totals 24 Hours 07/19/25 07/20/25 07/21/25 06:59 06:59 06:59 Intake Total 943.487 / 943.487 320.986 / 320.986 Output Total 595 / 720 125 / 125 Balance 348.487 / 223.487 195.986 / 195.986 Cumulative 07/19/25 16:48 thru 07/20/25 09:18 Intake Total 1264.473 Output Total 720 Balance 544.473 RT Ventilator Mngmt (Last Documented) Ventilator Ordered Settings Ventilator Support Mode Assist Control 07/20/25 07:40 Respiratory Rate 26 07/20/25 07:40 Ventilator Tidal Volume 35 07/20/25 07:40 Setting Minute Ventilation 9.1 07/20/25 07:40 Positive End Expiratory 5 07/20/25 07:40 Pressure Fraction of Inspired Oxygen 80 07/20/25 07:40 Ventilator - PT Measurements Respiratory Rate 26 Exhaled Tidal Volume 349 Minute Ventilation 9.1 Peak Inspiratory Airway 28 Pressure Plateau Pressure 23 Respiratory Cycle Inspiratory: 1:2.3 Expiratory Ratio Inspiratory Phase Time 0.7 End-Tidal CO2 36 Static Lung Compliance 19.39 Dynamic Lung Compliance 15.17 Normal Static Lung Compliance 44.00 Patient Measurements Comment ETT found at 24 lip, CXR showed proper position at 22. Tube readjusted to 22 by RT and patient showed extreme signs of discomfort plus tidal volumes immediately dropped with desaturation. Tube inserted 2cm back to 24. Coding Level of Care Code 12512 CRITICAL CARE 1ST 30-74M Diagnoses Acute heart failure I50.9 Heart block I45.9 Endotracheally intubated Z97.8 Acute hypoxemic respiratory failure J96.01 AMS (altered mental status) R41.82
--- NOTE | 2025-07-20 09:29 | XRay Report ---
XR chest 1V portable CLINICAL HISTORY: cvc placed COMPARISON STUDY: 07/20/2025 FINDINGS: Endotracheal tube tip is stable at the thoracic inlet. Nasogastric tube tip is off the fiel d of view inferiorly. Right central catheter tip is likely in the SVC. There is stable cardiomegaly w ith pulmonary vascular congestion. Stable hazy opacity in the lung bases with blunting of the costoph renic angles. No pneumothorax seen. IMPRESSION: No pneumothorax seen. Otherwise as described. ACT 112: Negative or not required by law. Electronically signed by: Trev Angeles M.D. 07/20/2025 9:28 AM
[2025-07-20] MEDS ORDERED: Nursing to Pharmacy Communication SCH ×2 (09:30→13:30)
[2025-07-20] MEDS ORDERED: MIDAZOLAM HCL 5 MG/ML 2ML VIAL IV ONE (09:44)
[2025-07-20] MEDS ORDERED: SUCCINYLCHOLINE CHLORIDE 20 MG/ML 10 ML VIAL IV ONE (09:44)
[2025-07-20] MEDS ORDERED: ETOMIDATE 2 MG/ML 20 ML VIAL IV ONE (09:44)
[2025-07-20 10:06] LABS: iSTAT Art Bld Gas Base Excess -3.0 mmol/L (-9-1.8); iSTAT Art Bld Gas pCO2 Correct 44 mmHg (35-46); iSTAT Art Bld Gas pH Corrected 7.335 (7.35-7.45); iSTAT Arterial Blood Gas pO2 C 193
--- NOTE | 2025-07-20 12:08 | Electrophysiology Report ---
Date of Service July 20, 2025 Electrophysiology Procedure Electrophysiology Procedure Report Procedure performed: Placement of temporary transvenous pacemaker Staff headlight assembler: Yash Thakkar MD Indication: Patient is a 75-year-old woman who presented to the emergency room w ith respiratory failure. She was noted to have complete heart block and a pacemaker was requested to improve hemodynamics. Procedure detail: The patient was sedated and intubated. Consent for the procedure was obtained from her son. She was taken to the catheterization suite. The left internal jugular area and right femoral areas were prepped and draped in usual sterile fashion. The left internal jugular area was then anesthetized using subcutaneous ministration of lidocaine solution. Under ultrasound guidance the left internal jugular vein was accessed using modified Seldinger technique. However, a guidewire could not be passed more distally into the SVC. After several attempts this site was abandoned in favor of the right femoral vein. This vessel was accessed using modified center technique and a 6 [place] venous sheath was placed at the site over guidewire. The sheath was used to facilitate passage of a balloontipped pacing lead to the right ventricle under fluoroscopic guidance. Adequate threshold parameters were obtained prior to fixation of the lead at the femoral access site. A sterile dressing was also applied. Impression: Successful implantation of temporary transvenous pacemaker through the right femoral vein access route. [facility] Electrophysiology codes Miscellaneous Procedures Procedure 1: EP Miscellaneous: 75602 Pacing temp percut, single
--- NOTE | 2025-07-20 12:48 | Electrocardiogram Report ---
Test Reason : Blood Pressure : */* mmHG Vent. Rate : 40 BPM Atrial Rate : 72 BPM P-R Int : * ms QRS Dur : 108 ms QT Int : 574 ms P-R-T Axes : 64 24 50 degrees QTcB Int : 467 ms Sinus rhythm with complete heart block and Junctional bradycardia Low voltage QRS Cannot rule out Anteroseptal infarct , age undetermined Abnormal ECG When compared with ECG of 19-Jul-2025 17:47, (unconfirmed) Incomplete right bundle branch block is no longer Present Minimal criteria for Anteroseptal infarct are now Present Confirmed by Yash Thakkar ([id number]) on 07/20/2025 12:47:42 PM Referred By: REFERRED SELF Confirmed By: Yash Thakkar
--- NOTE | 2025-07-20 12:49 | Electrocardiogram Report ---
Test Reason : Blood Pressure : */* mmHG Vent. Rate : 49 BPM Atrial Rate : 102 BPM P-R Int : * ms QRS Dur : 112 ms QT Int : 476 ms P-R-T Axes : * 108 10 degrees QTcB Int : 429 ms Sinus tachycardia with complete heart block and Junctional rhythm Rightward axis Incomplete right bundle branch block Nonspecific ST and T wave abnormality Abnormal ECG When compared with ECG of 22-Apr-2021 18:54, Junctional rhythm has replaced Sinus rhythm Vent. rate has decreased by 44 bpm Incomplete right bundle branch block is now Present Criteria for Anteroseptal infarct are no longer Present Confirmed by Yash Thakkar ([id number]) on 07/20/2025 12:49:16 PM Referred By: REFERRED SELF Confirmed By: Yash Thakkar
--- NOTE | 2025-07-20 12:53 | Electrocardiogram Report ---
Test Reason : Blood Pressure : */* mmHG Vent. Rate : 49 BPM Atrial Rate : 49 BPM P-R Int : * ms QRS Dur : 144 ms QT Int : 626 ms P-R-T Axes : * -57 83 degrees QTcB Int : 565 ms Sinus bradycardia with A-V dissociation and ventricular escape rhythm Left axis deviation Non-specific intra-ventricular conduction block Abnormal ECG When compared with ECG of 19-Jul-2025 20:00, (unconfirmed) ventricular escape rhythm has replaced Junctional rhythm Confirmed by Yash Thakkar ([id number]) on 07/20/2025 12:53:07 PM Referred By: REFERRED SELF Confirmed By: Yash Thakkar
[2025-07-20] MEDS ORDERED: STAT IV Infusion **Titration per Protocol STA (16:03)
[2025-07-20] MEDS: PHENYLEPHRINE/NSS 25 MG/250 ML BAG IV SCH (16:13)
--- NOTE | 2025-07-20 19:26 | Hospitalist Progress Note ---
Date of Service July 20, 2025 Assessment & Plan (1) Symptomatic bradycardia: Plan: Per admitting provider w/ addendum : 75-year-old female past medical history significant for diabetes, dyslipidemia, chronic respiratory hypoxia on 3 L oxygen all the time, history of COPD, obstructive sleep apnea on CPAP/BiPAP, mixed restrictive and obstructive lung disease, multiple pulmonary nodules, hypertension, bilateral carotid bruits, chronic venous insufficiency, venous stasis ulcer, morbid obesity, urinary incontinence, necrobiosis lipoidica diabeticorum, blindness, able to see little bit with 1 eye as per son. Anemia, history of lung cancer status post partial lobectomy of lung, history of tobacco use, lives at home and ambulates with a walker was brought in because of confusion and hypoxia. Son is in the room. Son lives with the patient. But son is mostly out of the house for work. Patient gets home health for lower extremity wounds. Son states patient is having low heart rate since last couple of weeks. Son says patient recently was treated for respiratory infection with antibiotic. But since about a week patient is getting progressively weak and short of breath. Today she was very weak and not getting out of bed and also was feeling short of breath and confused and son called 911. For EMS patient was saturating in the 70s. She was placed on non breather mask and brought to the ER. In the ER patient was taking off the nonrebreather mask and she was confused. Patient is status post intubation in the ER. Her heart rate was in the 30s and 40s in the ER. She was spiking temperature. UA came back positive. VBG pH was 7.24. Electrolytes are okay. Lactic is 1.7. Creatinine 0.9. LFTs okay. Initial troponin 48 and repeat is 246. Procalcitonin 0.05. Respiratory BioFire came back positive for entero-/rhinovirus. CT head is okay. Chest x-ray possible pulmonary edema. Chest CT no obvious findings. KUB shows constipation. EKG high degree heart block. Discussed with cardiology and plan to start on dopamine drip and if does not improve plan for possible temporary pacemaker. Symptomatic bradycardia High degree heart block Not on any rate controlling medications Lyme screen negative Started on dopamine drip per cardio recommendations Now s/p transvenous temporary pacemaker placement Close monitoring in the ICU Acute on chronic respiratory failure Possible acute CHF Patient chronically on 3 L oxygen 19/03 and CPAP/BiPAP nightly History of COPD History of sleep apnea History of restrictive lung disease Status post intubation Management as per critical care Possible sepsis Acute UTI Possible lower extremity cellulitis Fever Leukocytosis Lactic acid okay UA is positive Received Rocephin in the ER on Rocephin and daptomycin now MRSA swab positive Blood cultx pending Ucultx pending Close monitoring in the ICU Elevated troponin Possible demand ischemia Initial troponin 48 and repeat is 246 serial enzymes and echo ordered and repeat EKG Entero/rhinovirus infection Supportive care Droplet precautions Diabetes Hold home p.o. medications Sliding scale Will monitor Hyperlipidemia On statin Lower extremity edema Venous insufficiency At home on torsemide Diuretics as per cardiology and critical care Will check lower extremity Dopplers Lung cancer stage Ib non-small cell lung cancer Status post left upper lobectomy in 2017 Pulmonary nodules Follows with pulmonary DVT prophylaxis hep sub q Disposition ICU Full code Admission and Anticipated Discharge Date Admission Date: July 19, 2025 Subjective Pt seen in follow up, presented w/ encephalopathy, fever, Found to have high grade heart block, s/p transvenous pacer Currently in ICU, sedated, intubated Febrile + Rhinovirus, poss. UTI Review of Systems Review of Systems: All systems reviewed & are unremarkable except as noted in Subjective Physical Exam Physical Exam: General- morbidly obese elderly F , sedated & Intubated Head- atraumatic Eyes- sluggish reaction to light Lungs- clear to auscultation no obvious wheezing or crackles Heart- rrr; no murmur, no gallop. Abdomen- sluggish bowel sounds, soft, no distension Extremities- b/l lower extremity chronic venous stasis. Neuro- intubated and sedated. Results & Data Results & Data Vital Signs (Past 12 Hours) Vital Signs Temp Pulse Resp BP BP Pulse Ox O2 Del Method 07/20/25 18:04 104/44 L 07/20/25 17:54 100/54 L 07/20/25 17:27 38.0 C H 80 23 07/20/25 17:21 38.0 C H 80 26 H 100 07/20/25 17:15 38.0 C H 80 26 H 100 07/20/25 17:12 37.9 C H 80 26 H 100 07/20/25 17:06 37.9 C H 80 26 H 100 07/20/25 17:03 37.9 C H 80 26 H 100 07/20/25 17:01 81/55 L 07/20/25 17:01 81/55 L 07/20/25 17:01 81/55 L 07/20/25 17:01 81/55 L 07/20/25 17:01 81/55 L 07/20/25 17:00 37.8 C H 80 26 H 100 07/20/25 16:30 37.5 C 80 27 H 100 07/20/25 16:00 07/20/25 16:00 37.2 C 80 26 H 99 07/20/25 16:00 87/65 L 07/20/25 16:00 87/65 L 07/20/25 16:00 87/65 L 07/20/25 16:00 87/65 L 07/20/25 16:00 87/65 L 07/20/25 15:47 80 07/20/25 15:30 37.0 C 80 26 H 100 07/20/25 15:01 80 27 H 100 07/20/25 15:00 36.9 C 80 26 H 100 07/20/25 15:00 108/92 07/20/25 15:00 108/92 07/20/25 15:00 108/92 07/20/25 15:00 108/92 07/20/25 15:00 108/92 07/20/25 14:36 36.9 C 80 26 H 100 07/20/25 14:30 36.9 C 80 26 H 100 07/20/25 14:27 36.9 C 80 26 H 100 07/20/25 14:21 36.9 C 80 26 H 100 07/20/25 14:15 36.9 C 80 26 H 100 07/20/25 14:12 36.9 C 80 26 H 100 07/20/25 14:09 36.9 C 80 26 H 100 07/20/25 14:08 92/77 L 07/20/25 14:08 92/77 L 07/20/25 14:08 92/77 L 07/20/25 14:08 36.9 C 92/77 L 07/20/25 14:06 37.0 C 80 26 H 100 07/20/25 14:00 37.0 C 80 26 H 100 07/20/25 13:57 37.0 C 80 26 H 100 07/20/25 13:51 37.0 C 80 26 H 100 07/20/25 13:45 37.0 C 80 26 H 100 07/20/25 13:42 37.0 C 80 26 H 100 07/20/25 13:36 37.1 C 80 26 H 100 07/20/25 13:30 37.1 C 80 26 H 100 07/20/25 13:27 37.1 C 80 26 H 100 07/20/25 13:21 37.1 C 80 26 H 100 07/20/25 13:15 37.1 C 80 26 H 100 07/20/25 13:12 37.1 C 80 26 H 100 07/20/25 13:06 37.2 C 80 26 H 100 07/20/25 13:00 37.1 C 80 26 H 100 07/20/25 13:00 80 26 H 100 07/20/25 12:57 37.2 C 80 26 H 100 07/20/25 12:51 37.1 C 80 26 H 100 07/20/25 12:45 80 26 H 100 07/20/25 12:42 80 20 100 07/20/25 12:36 80 26 H 100 07/20/25 12:30 37.2 C 80 26 H 100 07/20/25 12:27 37.2 C 80 26 H 98 07/20/25 12:21 80 16 100 07/20/25 12:18 80 26 H 98 07/20/25 10:51 37.6 C H 51 L 26 H 96 07/20/25 10:45 37.6 C H 48 L 26 H 95 07/20/25 10:42 37.7 C H 44 L 26 H 95 07/20/25 10:36 37.7 C H 44 L 26 H 94 07/20/25 10:30 37.7 C H 48 L 26 H 95 07/20/25 10:27 37.7 C H 44 L 26 H 94 07/20/25 10:21 37.8 C H 48 L 26 H 95 07/20/25 10:15 37.8 C H 46 L 26 H 95 07/20/25 10:12 37.8 C H 45 L 26 H 95 07/20/25 10:06 37.8 C H 45 L 26 H 94 07/20/25 10:00 102/53 L 07/20/25 10:00 102/53 L 07/20/25 10:00 102/53 L 07/20/25 10:00 102/53 L 07/20/25 10:00 102/53 L 07/20/25 10:00 37.9 C H 48 L 26 H 94 07/20/25 09:57 37.9 C H 47 L 26 H 94 07/20/25 09:55 93 07/20/25 09:51 37.9 C H 46 L 26 H 93 07/20/25 09:45 37.9 C H 49 L 26 H 94 07/20/25 09:42 38.0 C H 47 L 26 H 95 07/20/25 09:36 38.0 C H 47 L 26 H 93 07/20/25 09:30 38.0 C H 47 L 26 H 93 07/20/25 09:27 38.0 C H 46 L 26 H 93 07/20/25 09:21 38.0 C H 49 L 26 H 94 07/20/25 08:01 38.5 C H 07/20/25 08:00 07/20/25 08:00 Mechanical Vent 07/20/25 08:00 49 L 07/20/25 07:40 26 H 07/20/25 07:30 Mechanical Vent 07/20/25 07:30 158/48 H 07/20/25 07:30 158/48 H 07/20/25 07:29 38.5 C H 48 L 26 H 96 FiO2 07/20/25 18:04 07/20/25 17:54 07/20/25 17:27 07/20/25 17:21 07/20/25 17:15 07/20/25 17:12 07/20/25 17:06 07/20/25 17:03 07/20/25 17:01 07/20/25 17:01 07/20/25 17:01 07/20/25 17:01 07/20/25 17:01 07/20/25 17:00 07/20/25 16:30 07/20/25 16:00 40 07/20/25 16:00 07/20/25 16:00 07/20/25 16:00 07/20/25 16:00 07/20/25 16:00 07/20/25 16:00 07/20/25 15:47 07/20/25 15:30 07/20/25 15:01 40 07/20/25 15:00 07/20/25 15:00 07/20/25 15:00 07/20/25 15:00 07/20/25 15:00 07/20/25 15:00 07/20/25 14:36 07/20/25 14:30 07/20/25 14:27 07/20/25 14:21 07/20/25 14:15 07/20/25 14:12 07/20/25 14:09 07/20/25 14:08 07/20/25 14:08 07/20/25 14:08 07/20/25 14:08 07/20/25 14:06 07/20/25 14:00 07/20/25 13:57 07/20/25 13:51 07/20/25 13:45 07/20/25 13:42 07/20/25 13:36 07/20/25 13:30 07/20/25 13:27 07/20/25 13:21 07/20/25 13:15 07/20/25 13:12 07/20/25 13:06 07/20/25 13:00 07/20/25 13:00 60 07/20/25 12:57 07/20/25 12:51 07/20/25 12:45 07/20/25 12:42 07/20/25 12:36 07/20/25 12:30 07/20/25 12:27 07/20/25 12:21 07/20/25 12:18 07/20/25 10:51 07/20/25 10:45 07/20/25 10:42 07/20/25 10:36 07/20/25 10:30 07/20/25 10:27 07/20/25 10:21 07/20/25 10:15 07/20/25 10:12 07/20/25 10:06 07/20/25 10:00 07/20/25 10:00 07/20/25 10:00 07/20/25 10:00 07/20/25 10:00 07/20/25 10:00 07/20/25 09:57 07/20/25 09:55 70 07/20/25 09:51 07/20/25 09:45 07/20/25 09:42 07/20/25 09:36 07/20/25 09:30 07/20/25 09:27 07/20/25 09:21 07/20/25 08:01 07/20/25 08:00 350 07/20/25 08:00 100 07/20/25 08:00 07/20/25 07:40 80 07/20/25 07:30 07/20/25 07:30 07/20/25 07:30 07/20/25 07:29 Laboratory Results 07/20/25 07/20/25 07/20/25 Range/Units 19:02 17:21 13:14 WBC (4.8-10.8) K/ul RBC (4.20-5.40) M/uL Hgb (12.0-16.0) g/dL POC Hgb (12.0-16.0) g/dl Hct (37.0-47.0) % POC Hct (37-47) % MCV (80.0-100.0) fL MCH (25.0-34.0) pg MCHC (32.0-36.0) g/dL RDW Std Deviation (36.4-46.3) fL RDW Coeff of Olivia (11.5-14.5) % Plt Count (130-400) K/uL MPV (9.4-12.4) fL Immature Gran % (Auto) % Neut % (Auto) % Lymph % (Auto) % [place] % (Auto) % Eos % (Auto) % Baso % (Auto) % Neut # (Auto) (1.40-6.50) K/uL Lymph # (Auto) (1.20-3.40) K/uL [place] # (Auto) (0.11-0.59) K/uL Eos # (Auto) (0.00-0.50) K/uL Baso # (Auto) (0.00-0.20) K/uL Immature Gran # (Auto) (0.01-0.20) K/uL Specimen Type Sample Site POC pH (7.35-7.45) POC pCO2 (35-46) mmHg POC pO2 (80-95) mmHg POC HCO3 (19-24) mmol/L POC Total CO2 (24-31) mmol/L POC Base Excess (-9-1.8) mmol/L O2 Sat Pulse Oximetry ABG pH (Temp Correct) (7.35-7.45) ABG pCO2 (Temp Corrct (35-46) mmHg POC ABG pO2 at Pt Temp POC ABG O2 Sat (90-95) % Tone Test O2 Delivery Device Vent Mode POC FiO2 % End Tidal CO2 POC Sodium (135-144) mmol/L Sodium (136-145) mmol/L POC Potassium (3.3-5.0) mmol/L Potassium (3.5-5.1) mmol/L Chloride (98-107) mmol/L Carbon Dioxide (21-32) mmol/L Anion Gap (3-11) BUN (6-23) mg/dl Creatinine (0.6-1.2) mg/dl Est Cr Clr Drug Dosing ml/min eGFR BUN/Creatinine Ratio (10-20) Glucose (70-99(Fasting)) mg/dl POC Glucose 146 H 130 H (70-99) mg/dl Lactate (0.4-2.0) mmol/L Calcium (8.6-10.3) mg/dl Phosphorus (2.5-4.9) mg/dl Magnesium (1.7-2.4) mg/dl Troponin I High Sens 164.0 H* D (0-14) pg/ml C-Reactive Protein (0-0.5) mg/dl TSH (0.300-4.500) uIu/ml Urine Color Urine Appearance (Clear) Urine pH (4.5-7.5) Ur Specific [place] (1.000-1.030) Urine Protein (Negative) Urine Glucose (UA) (Negative) Urine Ketones (Negative) Urine Blood (Negative) Urine Nitrite (Negative) Urine Bilirubin (Negative) Urine Urobilinogen (Negative) Ur Leukocyte Esterase (Negative) Urine WBC (Auto) (0-5) /hpf Urine RBC (Auto) (0-2) /hpf U Hyaline Cast (Auto) (0-2) /lpf U Epithel Cells (Auto) (0-2) /hpf Urine Bacteria (Auto) (None Seen) Calcium Oxalate Crystal (None Prsent) Hyaline Casts (None Presnt) /lpf Urine Comment Nasal Screen MRSA (PCR) (Negative) Adenovirus (PCR) (NotDetected) B. pertussis DNA (PCR) (NotDetected) B.parapertussis DNA PCR (NotDetected) Lyme Disease Screen (Negative) C. pneumoniae DNA (PCR) (NotDetected) Coronavirus OC43 (PCR) (NotDetected) Coronavirus HKU1 (PCR) (NotDetected) Coronavirus 229E (PCR) (NotDetected) SARS-CoV-2 (PCR) (NotDetected) Coronavirus NL63 (PCR) (NotDetected) Human Metapneumovir PCR (NotDetected) Influenza Type A (PCR) (NotDetected) Influenza Type B (PCR) (NotDetected) M. pneumoniae (PCR) (NotDetected) Parainfluenza 1 (PCR) (NotDetected) Parainfluenza 2 (PCR) (NotDetected) Parainfluenza 3 (PCR) (NotDetected) Parainfluenza 4 (PCR) (NotDetected) RSV (PCR) (NotDetected) Entero/Rhino (PCR) (NotDetected) 07/20/25 07/20/25 07/20/25 Range/Units 12:49 09:52 07:46 WBC (4.8-10.8) K/ul RBC (4.20-5.40) M/uL Hgb (12.0-16.0) g/dL POC Hgb 10.5 L (12.0-16.0) g/dl Hct (37.0-47.0) % POC Hct 31 L (37-47) % MCV (80.0-100.0) fL MCH (25.0-34.0) pg MCHC (32.0-36.0) g/dL RDW Std Deviation (36.4-46.3) fL RDW Coeff of Olivia (11.5-14.5) % Plt Count (130-400) K/uL MPV (9.4-12.4) fL Immature Gran % (Auto) % Neut % (Auto) % Lymph % (Auto) % [place] % (Auto) % Eos % (Auto) % Baso % (Auto) % Neut # (Auto) (1.40-6.50) K/uL Lymph # (Auto) (1.20-3.40) K/uL [place] # (Auto) (0.11-0.59) K/uL Eos # (Auto) (0.00-0.50) K/uL Baso # (Auto) (0.00-0.20) K/uL Immature Gran # (Auto) (0.01-0.20) K/uL Specimen Type Arterial Sample Site Art Line POC pH 7.35 (7.35-7.45) POC pCO2 42 (35-46) mmHg POC pO2 188 H (80-95) mmHg POC HCO3 23 (19-24) mmol/L POC Total CO2 24 (24-31) mmol/L POC Base Excess -3.0 (-9-1.8) mmol/L O2 Sat Pulse Oximetry 94 ABG pH (Temp Correct) 7.335 L (7.35-7.45) ABG pCO2 (Temp Corrct 44 (35-46) mmHg POC ABG pO2 at Pt Temp 193 POC ABG O2 Sat 100.0 H (90-95) % Tone Test NA O2 Delivery Device Ventilator Vent Mode AC POC FiO2 80 % End Tidal CO2 35 POC Sodium 137 (135-144) mmol/L Sodium (136-145) mmol/L POC Potassium 3.6 (3.3-5.0) mmol/L Potassium (3.5-5.1) mmol/L Chloride (98-107) mmol/L Carbon Dioxide (21-32) mmol/L Anion Gap (3-11) BUN (6-23) mg/dl Creatinine (0.6-1.2) mg/dl Est Cr Clr Drug Dosing ml/min eGFR BUN/Creatinine Ratio (10-20) Glucose (70-99(Fasting)) mg/dl POC Glucose (70-99) mg/dl Lactate 2.7 H* (0.4-2.0) mmol/L Calcium (8.6-10.3) mg/dl Phosphorus (2.5-4.9) mg/dl Magnesium (1.7-2.4) mg/dl Troponin I High Sens 208.5 H* D (0-14) pg/ml C-Reactive Protein (0-0.5) mg/dl TSH (0.300-4.500) uIu/ml Urine Color Urine Appearance (Clear) Urine pH (4.5-7.5) Ur Specific [place] (1.000-1.030) Urine Protein (Negative) Urine Glucose (UA) (Negative) Urine Ketones (Negative) Urine Blood (Negative) Urine Nitrite (Negative) Urine Bilirubin (Negative) Urine Urobilinogen (Negative) Ur Leukocyte Esterase (Negative) Urine WBC (Auto) (0-5) /hpf Urine RBC (Auto) (0-2) /hpf U Hyaline Cast (Auto) (0-2) /lpf U Epithel Cells (Auto) (0-2) /hpf Urine Bacteria (Auto) (None Seen) Calcium Oxalate Crystal (None Prsent) Hyaline Casts (None Presnt) /lpf Urine Comment Nasal Screen MRSA (PCR) (Negative) Adenovirus (PCR) (NotDetected) B. pertussis DNA (PCR) (NotDetected) B.parapertussis DNA PCR (NotDetected) Lyme Disease Screen (Negative) C. pneumoniae DNA (PCR) (NotDetected) Coronavirus OC43 (PCR) (NotDetected) Coronavirus HKU1 (PCR) (NotDetected) Coronavirus 229E (PCR) (NotDetected) SARS-CoV-2 (PCR) (NotDetected) Coronavirus NL63 (PCR) (NotDetected) Human Metapneumovir PCR (NotDetected) Influenza Type A (PCR) (NotDetected) Influenza Type B (PCR) (NotDetected) M. pneumoniae (PCR) (NotDetected) Parainfluenza 1 (PCR) (NotDetected) Parainfluenza 2 (PCR) (NotDetected) Parainfluenza 3 (PCR) (NotDetected) Parainfluenza 4 (PCR) (NotDetected) RSV (PCR) (NotDetected) Entero/Rhino (PCR) (NotDetected) 07/20/25 07/20/25 07/19/25 Range/Units 07:43 04:54 23:10 WBC 11.56 H (4.8-10.8) K/ul RBC 3.94 L (4.20-5.40) M/uL Hgb 10.3 L (12.0-16.0) g/dL POC Hgb (12.0-16.0) g/dl Hct 32.7 L (37.0-47.0) % POC Hct (37-47) % MCV 83.0 (80.0-100.0) fL MCH 26.1 (25.0-34.0) pg MCHC 31.5 L (32.0-36.0) g/dL RDW Std Deviation 47.9 H (36.4-46.3) fL RDW Coeff of Olivia 15.9 H (11.5-14.5) % Plt Count 159 (130-400) K/uL MPV 10.0 (9.4-12.4) fL Immature Gran % (Auto) 0.6 % Neut % (Auto) 89.4 % Lymph % (Auto) 3.5 % [place] % (Auto) 6.2 % Eos % (Auto) 0.1 % Baso % (Auto) 0.2 % Neut # (Auto) 10.34 H (1.40-6.50) K/uL Lymph # (Auto) 0.40 L (1.20-3.40) K/uL [place] # (Auto) 0.72 H (0.11-0.59) K/uL Eos # (Auto) 0.01 (0.00-0.50) K/uL Baso # (Auto) 0.02 (0.00-0.20) K/uL Immature Gran # (Auto) 0.07 (0.01-0.20) K/uL Specimen Type Sample Site POC pH (7.35-7.45) POC pCO2 (35-46) mmHg POC pO2 (80-95) mmHg POC HCO3 (19-24) mmol/L POC Total CO2 (24-31) mmol/L POC Base Excess (-9-1.8) mmol/L O2 Sat Pulse Oximetry ABG pH (Temp Correct) (7.35-7.45) ABG pCO2 (Temp Corrct (35-46) mmHg POC ABG pO2 at Pt Temp POC ABG O2 Sat (90-95) % Tone Test O2 Delivery Device Vent Mode POC FiO2 % End Tidal CO2 POC Sodium (135-144) mmol/L Sodium 138 (136-145) mmol/L POC Potassium (3.3-5.0) mmol/L Potassium 3.8 (3.5-5.1) mmol/L Chloride 102 (98-107) mmol/L Carbon Dioxide 25 (21-32) mmol/L Anion Gap 11 (3-11) BUN 29 H (6-23) mg/dl Creatinine 1.43 H D (0.6-1.2) mg/dl Est Cr Clr Drug Dosing 47.5 ml/min eGFR 38.73 BUN/Creatinine Ratio 20.3 H (10-20) Glucose 195 H (70-99(Fasting)) mg/dl POC Glucose 194 H 134 H (70-99) mg/dl Lactate 2.6 H* (0.4-2.0) mmol/L Calcium 9.0 (8.6-10.3) mg/dl Phosphorus 3.7 (2.5-4.9) mg/dl Magnesium 1.9 (1.7-2.4) mg/dl Troponin I High Sens 392.7 H* D (0-14) pg/ml C-Reactive Protein 10.95 H (0-0.5) mg/dl TSH 0.881 (0.300-4.500) uIu/ml Urine Color Urine Appearance (Clear) Urine pH (4.5-7.5) Ur Specific [place] (1.000-1.030) Urine Protein (Negative) Urine Glucose (UA) (Negative) Urine Ketones (Negative) Urine Blood (Negative) Urine Nitrite (Negative) Urine Bilirubin (Negative) Urine Urobilinogen (Negative) Ur Leukocyte Esterase (Negative) Urine WBC (Auto) (0-5) /hpf Urine RBC (Auto) (0-2) /hpf U Hyaline Cast (Auto) (0-2) /lpf U Epithel Cells (Auto) (0-2) /hpf Urine Bacteria (Auto) (None Seen) Calcium Oxalate Crystal (None Prsent) Hyaline Casts (None Presnt) /lpf Urine Comment Nasal Screen MRSA (PCR) (Negative) Adenovirus (PCR) (NotDetected) B. pertussis DNA (PCR) (NotDetected) B.parapertussis DNA PCR (NotDetected) Lyme Disease Screen (Negative) C. pneumoniae DNA (PCR) (NotDetected) Coronavirus OC43 (PCR) (NotDetected) Coronavirus HKU1 (PCR) (NotDetected) Coronavirus 229E (PCR) (NotDetected) SARS-CoV-2 (PCR) (NotDetected) Coronavirus NL63 (PCR) (NotDetected) Human Metapneumovir PCR (NotDetected) Influenza Type A (PCR) (NotDetected) Influenza Type B (PCR) (NotDetected) M. pneumoniae (PCR) (NotDetected) Parainfluenza 1 (PCR) (NotDetected) Parainfluenza 2 (PCR) (NotDetected) Parainfluenza 3 (PCR) (NotDetected) Parainfluenza 4 (PCR) (NotDetected) RSV (PCR) (NotDetected) Entero/Rhino (PCR) (NotDetected) 07/19/25 07/19/25 07/19/25 Range/Units 22:15 22:00 19:45 WBC (4.8-10.8) K/ul RBC (4.20-5.40) M/uL Hgb (12.0-16.0) g/dL POC Hgb 10.9 L (12.0-16.0) g/dl Hct (37.0-47.0) % POC Hct 32 L (37-47) % MCV (80.0-100.0) fL MCH (25.0-34.0) pg MCHC (32.0-36.0) g/dL RDW Std Deviation (36.4-46.3) fL RDW Coeff of Olivia (11.5-14.5) % Plt Count (130-400) K/uL MPV (9.4-12.4) fL Immature Gran % (Auto) % Neut % (Auto) % Lymph % (Auto) % [place] % (Auto) % Eos % (Auto) % Baso % (Auto) % Neut # (Auto) (1.40-6.50) K/uL Lymph # (Auto) (1.20-3.40) K/uL [place] # (Auto) (0.11-0.59) K/uL Eos # (Auto) (0.00-0.50) K/uL Baso # (Auto) (0.00-0.20) K/uL Immature Gran # (Auto) (0.01-0.20) K/uL Specimen Type Arterial Sample Site R Radial POC pH 7.33 L (7.35-7.45) POC pCO2 48 H (35-46) mmHg POC pO2 318 H (80-95) mmHg POC HCO3 25 H (19-24) mmol/L POC Total CO2 26 (24-31) mmol/L POC Base Excess -1.0 (-9-1.8) mmol/L O2 Sat Pulse Oximetry 100 ABG pH (Temp Correct) 7.298 L (7.35-7.45) ABG pCO2 (Temp Corrct 52 H (35-46) mmHg POC ABG pO2 at Pt Temp 327 POC ABG O2 Sat 100.0 H (90-95) % Tone Test Pass O2 Delivery Device Ventilator Vent Mode AC POC FiO2 100 % End Tidal CO2 40 POC Sodium 137 (135-144) mmol/L Sodium (136-145) mmol/L POC Potassium 4.4 (3.3-5.0) mmol/L Potassium (3.5-5.1) mmol/L Chloride (98-107) mmol/L Carbon Dioxide (21-32) mmol/L Anion Gap (3-11) BUN (6-23) mg/dl Creatinine (0.6-1.2) mg/dl Est Cr Clr Drug Dosing ml/min eGFR BUN/Creatinine Ratio (10-20) Glucose (70-99(Fasting)) mg/dl POC Glucose (70-99) mg/dl Lactate (0.4-2.0) mmol/L Calcium (8.6-10.3) mg/dl Phosphorus (2.5-4.9) mg/dl Magnesium (1.7-2.4) mg/dl Troponin I High Sens (0-14) pg/ml C-Reactive Protein (0-0.5) mg/dl TSH (0.300-4.500) uIu/ml Urine Color Urine Appearance (Clear) Urine pH (4.5-7.5) Ur Specific [place] (1.000-1.030) Urine Protein (Negative) Urine Glucose (UA) (Negative) Urine Ketones (Negative) Urine Blood (Negative) Urine Nitrite (Negative) Urine Bilirubin (Negative) Urine Urobilinogen (Negative) Ur Leukocyte Esterase (Negative) Urine WBC (Auto) (0-5) /hpf Urine RBC (Auto) (0-2) /hpf U Hyaline Cast (Auto) (0-2) /lpf U Epithel Cells (Auto) (0-2) /hpf Urine Bacteria (Auto) (None Seen) Calcium Oxalate Crystal (None Prsent) Hyaline Casts (None Presnt) /lpf Urine Comment Nasal Screen MRSA (PCR) Positive A (Negative) Adenovirus (PCR) Not Detected (NotDetected) B. pertussis DNA (PCR) Not Detected (NotDetected) B.parapertussis DNA PCR Not Detected (NotDetected) Lyme Disease Screen (Negative) C. pneumoniae DNA (PCR) Not Detected (NotDetected) Coronavirus OC43 (PCR) Not Detected (NotDetected) Coronavirus HKU1 (PCR) Not Detected (NotDetected) Coronavirus 229E (PCR) Not Detected (NotDetected) SARS-CoV-2 (PCR) Not Detected (NotDetected) Coronavirus NL63 (PCR) Not Detected (NotDetected) Human Metapneumovir PCR Not Detected (NotDetected) Influenza Type A (PCR) Not Detected (NotDetected) Influenza Type B (PCR) Not Detected (NotDetected) M. pneumoniae (PCR) Not Detected (NotDetected) Parainfluenza 1 (PCR) Not Detected (NotDetected) Parainfluenza 2 (PCR) Not Detected (NotDetected) Parainfluenza 3 (PCR) Not Detected (NotDetected) Parainfluenza 4 (PCR) Not Detected (NotDetected) RSV (PCR) Not Detected (NotDetected) Entero/Rhino (PCR) DETECTED A (NotDetected) 07/19/25 07/19/25 07/19/25 Range/Units 19:34 19:30 17:46 WBC (4.8-10.8) K/ul RBC (4.20-5.40) M/uL Hgb (12.0-16.0) g/dL POC Hgb (12.0-16.0) g/dl Hct (37.0-47.0) % POC Hct (37-47) % MCV (80.0-100.0) fL MCH (25.0-34.0) pg MCHC (32.0-36.0) g/dL RDW Std Deviation (36.4-46.3) fL RDW Coeff of Olivia (11.5-14.5) % Plt Count (130-400) K/uL MPV (9.4-12.4) fL Immature Gran % (Auto) % Neut % (Auto) % Lymph % (Auto) % [place] % (Auto) % Eos % (Auto) % Baso % (Auto) % Neut # (Auto) (1.40-6.50) K/uL Lymph # (Auto) (1.20-3.40) K/uL [place] # (Auto) (0.11-0.59) K/uL Eos # (Auto) (0.00-0.50) K/uL Baso # (Auto) (0.00-0.20) K/uL Immature Gran # (Auto) (0.01-0.20) K/uL Specimen Type Sample Site POC pH (7.35-7.45) POC pCO2 (35-46) mmHg POC pO2 (80-95) mmHg POC HCO3 (19-24) mmol/L POC Total CO2 (24-31) mmol/L POC Base Excess (-9-1.8) mmol/L O2 Sat Pulse Oximetry ABG pH (Temp Correct) (7.35-7.45) ABG pCO2 (Temp Corrct (35-46) mmHg POC ABG pO2 at Pt Temp POC ABG O2 Sat (90-95) % Tone Test O2 Delivery Device Vent Mode POC FiO2 % End Tidal CO2 POC Sodium (135-144) mmol/L Sodium (136-145) mmol/L POC Potassium (3.3-5.0) mmol/L Potassium (3.5-5.1) mmol/L Chloride (98-107) mmol/L Carbon Dioxide (21-32) mmol/L Anion Gap (3-11) BUN (6-23) mg/dl Creatinine (0.6-1.2) mg/dl Est Cr Clr Drug Dosing ml/min eGFR BUN/Creatinine Ratio (10-20) Glucose (70-99(Fasting)) mg/dl POC Glucose (70-99) mg/dl Lactate (0.4-2.0) mmol/L Calcium (8.6-10.3) mg/dl Phosphorus (2.5-4.9) mg/dl Magnesium (1.7-2.4) mg/dl Troponin I High Sens 246.2 H* D (0-14) pg/ml C-Reactive Protein (0-0.5) mg/dl TSH (0.300-4.500) uIu/ml Urine Color Yellow Urine Appearance Cloudy A (Clear) Urine pH 5.0 (4.5-7.5) Ur Specific [place] > 1.045 H (1.000-1.030) Urine Protein 3+ H (Negative) Urine Glucose (UA) Negative (Negative) Urine Ketones Trace H (Negative) Urine Blood 1+ H (Negative) Urine Nitrite Negative (Negative) Urine Bilirubin Negative (Negative) Urine Urobilinogen Negative (Negative) Ur Leukocyte Esterase Negative (Negative) Urine WBC (Auto) 11-20 H (0-5) /hpf Urine RBC (Auto) 11-20 H (0-2) /hpf U Hyaline Cast (Auto) >20 H (0-2) /lpf U Epithel Cells (Auto) 11-20 H (0-2) /hpf Urine Bacteria (Auto) 2+ H (None Seen) Calcium Oxalate Crystal Present A (None Prsent) Hyaline Casts Present A (None Presnt) /lpf Urine Comment Nasal Screen MRSA (PCR) (Negative) Adenovirus (PCR) (NotDetected) B. pertussis DNA (PCR) (NotDetected) B.parapertussis DNA PCR (NotDetected) Lyme Disease Screen Negative (Negative) C. pneumoniae DNA (PCR) (NotDetected) Coronavirus OC43 (PCR) (NotDetected) Coronavirus HKU1 (PCR) (NotDetected) Coronavirus 229E (PCR) (NotDetected) SARS-CoV-2 (PCR) (NotDetected) Coronavirus NL63 (PCR) (NotDetected) Human Metapneumovir PCR (NotDetected) Influenza Type A (PCR) (NotDetected) Influenza Type B (PCR) (NotDetected) M. pneumoniae (PCR) (NotDetected) Parainfluenza 1 (PCR) (NotDetected) Parainfluenza 2 (PCR) (NotDetected) Parainfluenza 3 (PCR) (NotDetected) Parainfluenza 4 (PCR) (NotDetected) RSV (PCR) (NotDetected) Entero/Rhino (PCR) (NotDetected) Medications Administered Current Inpatient Medications Albuterol (Albuterol 0.083% Nebu Soln 3 Ml Vial) 2.5 mg NEB Q6R [facility]; Protocol Stop: 08/18/25 22:44 Last Admin: 07/20/25 13:00 Dose: 2.5 mg Dextrose (Dextrose 50% 50 Ml Syringe) 25 - 50 ml IV UD PRN; Protocol PRN Reason: Hypoglycemia Protocol Stop: 08/18/25 22:28 Fentanyl Citrate (Fentanyl Bolus From Bag) 50 mcg IV Q60M PRN PRN Reason: Pain or Agitation Stop: 08/02/25 17:56 Last Admin: 07/20/25 03:18 Dose: 50 mcg Glucagon (Glucagon For Inj 1 Mg Vial) 1 mg SQ UD PRN; Protocol PRN Reason: Hypoglycemia Protocol Stop: 08/18/25 22:28 Glucose (Glucose 40% Gel 15 Gm Tube) 15 - 30 gm PO UD PRN; Protocol PRN Reason: Hypoglycemia Protocol Stop: 08/18/25 22:28 Glucose (Glucose 10 Tab/Tube) 4 - 8 tab PO UD PRN; Protocol PRN Reason: Hypoglycemia Protocol Stop: 08/18/25 22:28 Heparin Sodium (Porcine) (Heparin Sod 5,000 Unit/0.5 Ml Vial) 5,000 units SQ Q8 [facility] Stop: 08/19/25 05:59 Last Admin: 07/20/25 14:01 Dose: 5,000 units Propofol (Diprivan) 1,000 mg in 100 mls @ 37.017 mls/hr IV .Q2H43M [facility]; Protocol Stop: 07/22/25 17:29 Last Titration: 07/20/25 19:09 Dose: 45 mcg/kg/min, 37 mls/hr Fentanyl Citrate (Fentanyl Citrate) 2,500 mcg in 250 mls @ 5 mls/hr IV .Q50H [facility]; Protocol Stop: 08/02/25 17:59 Last Titration: 07/20/25 19:09 Dose: 50 mcg/hr, 5 mls/hr Dopamine HCl/Dextrose (Dopamine / D5w) 400 mg in 250 mls @ 41.13 mls/hr IV .Q6H5M [facility]; Protocol Stop: 08/18/25 20:59 Last Admin: 07/20/25 16:24 Dose: Not Given Daptomycin 500 mg/ Syringe 10 mls @ 5 mls/min IV Q24H [facility]; Protocol Stop: 07/26/25 23:29 Last Admin: 07/19/25 23:31 Dose: 5 mls/min Ceftriaxone Sodium (Rocephin) 2,000 mg in 50 mls @ 100 mls/hr IV Q12H [facility]; Protocol Stop: 07/22/25 05:59 Last Admin: 07/20/25 19:00 Dose: 100 mls/hr Acetaminophen (Ofirmev) 1,000 mg in 100 mls @ 400 mls/hr IV Q8H PRN PRN Reason: pain/fever Stop: 07/22/25 22:38 Last Infusion: 07/20/25 18:11 Dose: Infused Pantoprazole Sodium (Protonix) 40 mg in 10 mls @ 5 mls/min IV DAILY [facility] Stop: 08/20/25 09:59 Phenylephrine HCl (Phenylephrine/Nss) 25 mg in 250 mls @ 56.07 mls/hr IV .Q4H28M [facility]; Protocol Stop: 08/19/25 16:14 Last Titration: 07/20/25 19:09 Dose: 0.7 mcg/kg/min, 56.1 mls/hr Insulin Aspart (Insulin Aspart Per Unit Charge) 0 units SC Q6 [facility] Stop: 08/18/25 22:28 Last Admin: 07/20/25 19:05 Dose: Not Given Miscellaneous (Carbohydrates For Hypoglycemia ) 15 - 30 gm PO UD PRN PRN Reason: Hypoglycemia Protocol Stop: 08/18/25 22:28 Miscellaneous (Icu Electrolyte Replacement Protocol) 1 each N/A BID@06,18 [facility]; Protocol Stop: 07/27/25 05:59 Last Admin: 07/20/25 19:18 Dose: Not Given Nystatin (Nystatin Powder 15gm Btl) 1 appln EXT BID [facility] Stop: 08/18/25 22:59 Last Admin: 07/20/25 10:05 Dose: 1 appln Propofol (Propofol Bolus From Bag) 20 mg IV Q5M PRN PRN Reason: Sedation Stop: 07/22/25 17:26 Last Admin: 07/19/25 17:54 Dose: 20 mg
[2025-07-21 04:30] LABS: iSTAT Art Bld Gas Base Excess -3.0 mmol/L (-9-1.8); iSTAT Art Bld Gas pCO2 Correct 40 mmHg (35-46); iSTAT Art Bld Gas pH Corrected 7.361 (7.35-7.45); iSTAT Arterial Blood Gas pO2 C 74
[2025-07-21 04:45] LABS: Hematocrit (blood only) 27.6 % (37.0-47.0); Hemoglobin 8.8 g/dL (12.0-16.0); Immature Granulocytes # (auto) 0.02 K/uL (0.01-0.20); Immature Granulocytes % (auto) 0.4 %; Mean Corpuscular Hemoglobin 25.8 pg (25.0-34.0); Mean Corpuscular Volume 80.9 fL (80.0-100.0); Platelet Count 125 K/uL (130-400); RDW Standard Deviation 47.3 fL (36.4-46.3); Red Blood Count 3.41 M/uL (4.20-5.40); White Blood Count 5.38 K/ul (4.8-10.8)
[2025-07-21 05:02] LABS: Anion Gap 11.0 (3-11); Blood Urea Nitrogen 28.0 mg/dl (6-23); Calcium 8.3 mg/dl (8.6-10.3); Carbon Dioxide 23.0 mmol/L (21-32); Chloride 105.0 mmol/L (98-107); Creatinine Clr Calc Pharmacy 64.7 ml/min; Glucose 175.0 mg/dl (70-99(Fasting)); Magnesium 2.4 mg/dl (1.7-2.4); Potassium 3.6 mmol/L (3.5-5.1); Sodium 139.0 mmol/L (136-145)
--- NOTE | 2025-07-21 05:45 | Critical Care Progress Note ---
Date of Service July 21, 2025 Assessment & Plan (1) Heart block: (2) Symptomatic bradycardia: (3) Hypoxic respiratory failure: (4) Acute heart failure: (5) Enterovirus infection: (6) Rhinovirus infection: (7) Shock: Plan Impression: 75 YOF hypoxic respiratory failure requiring emergent/urgent intubation, in setting of bradycardia with concern for high grade block likely resulting in acute heart failure, also associated with entero/rhinovirus and UTI. 24-hour events: Remains intubated and sedated, vasopressors weaned off and s/p TVP placement which she remains with 100% VVI paced at 80 with underlying CHB remaining when pacer paused. Will do sedation holiday today and evaluation for SBT. Recommendations: Neuro - Sedation for mechanical ventilation, encephalopathy, HX: single eye blindness. Nonfocal exam so we will hold on additional imaging. - Suspect potentially metabolic etiology for the patient's encephalopathy and altered mental status. She was able to open eyes to voice this morning on propofol 35mcg/kg/min and fentanyl 50mcg/hr. - provide sedation holiday this morning and see if we can get her to follow commands, she is moving all extremities weakly. Cardiac : -third-degree heart block. Shock- resolved - Temporary pacing wire placed functioning without difficulty via RIGHT GROIN, paused this morning on rounds with remaining CHB underlying- without hemodynamic drop with pacer paused. - At this time favoring cause as conduction disease vs. viral - appreciate cardiology and EP consultations and assistance - Following pacer placement, her vasopressors have been weaned off since 2300 last night and lactate has cleared as well as improvement in her end organ numbers (RIBBON WEAVER, Trop, and decrease in her FIO2) - Will likely need permanent pacemaker at some point. Hopefully can wean off dopamine once temporary pacing wire in place. Echocardiogram pending. Appreciate cardiology consultation. Difficult to assess volume status - Volume status difficult to ascertain secondary to body habitus- her weight is down 3.4 kg, urine output adequate overnight- consider diuretics following am ECG - Continue arterial line as her NIBP have been unreliable Respiratory - Acute hypoxic respiratory failure requiring emergent intubation, CLYDE. - Oxygenating reasonably well, with minimal vent settings- PEEP at 8 secondary to body habitus and underlying CLYDE but FIO2 remains at 0.30, - ABG this morning- 7.37/38/70/24 - Pending CXR this morning and how she awakens- SBT today, however likely keep intubated for another 24 hours to optimize volume status and ensure hemodynamic stability with TVP GI - No acute needs. - enteral feeds if not liberated from ventilator - PPI RENAL/LYTES - No acute needs. - improvement in serum RIBBON WEAVER and urine output today - Electrolytes replaced - UTI see below - Keep Briggs while intubated and sedated ENDO - DMII - ICU hyper/hypoglycemic protocol HEME - No acute needs - HGB down this am on initial labs, however so was her WBC and PLT count- she has no evidence of bleeding and vasopressors have been able to be weaned off and lactate also cleared- likely dilutional or poor draw from line. - will resend CBC and trend follow up at noon today - will type and screen ID -fever.- Tmax 38.2 - Blood Cultures remain negative to date. Procalcitonin negative. - Urine- UA possibly infectious- culture with <1000 colonies/ml - no growth - Positive BioFire for enterovirus/rhinovirus. Currently day #2 daptomycin and Rocephin. Continue for now - provide full 48- 72 hour coverage and then discontinue/de-escalate based on cultures LINES/IV ACCESS - PIV, ETT, Briggs, OGT Central line and arterial line Continue use of these lines DVT PROPHYLAXIS - SCDS. Start subcu heparin DISPO: ICU until hemodynamics and electrical rhythm proven stable and improved without chronotropics/vasopressors/inotrope. I have personally spent 40 minutes of critical care time in the direct m anagement of this patient. This is a life/limb threatening event. This includes time spent evaluating patient, direct bedside care, chart review, placing orders, interpretation of diagnostic studies, discussion with consultants, patient, and family members, as well as other required patient management activities. This time is exclusive of all separately billable procedures, and teaching time and separate from and in addition to any other critical care service time. Admission and Anticipated Discharge Date Admission Date: July 19, 2025 Subjective 75 YOF ICU Day #2 for hypoxic hypercarbic respiratory failure requiring intubation and mechanical ventilation in setting of complete heart block requiring TVP and vasopressors. Overnight patient remained paced 100% at 80 via her right groin TVP. Vasopressors able to weaned off. She remains with fevers overnight with TMax- 38.3 @ 0100 and cultures remain no growth to date. Patient opened eyes to voice this morning on sedation, will provide sedation holiday this morning and further evaluation for SBT following that. Continue with TVP with plans for PPM with cardiology following- pacemaker paused this morning and remains with CHB underlying rythm. Physical Exam Physical Exam: PHYSICAL EXAM: General: Intubated and sedated Neuro: PEERLA, eyes open to voice, moves extremities, not following commands on sedation, Chest: equal rise and fall of the chest, decreased breath sounds in bases secondary to body habitus, no wheeze Cardiac: Regular rate and rhythm, telemetry reviewed- VVI paced 80 no ectopy, skin warm dry, cap refill <3 seconds GI: NABS x 4 quadrants, soft, OGT to LIWS draining bilious drainage : Briggs to gravity draining light yellow urine Skin: excoriation to bilateral under breasts, and groin folds with errythema, lower leg venous ulcerations chronic Results & Data Results & Data Vital Signs (Past 12 Hours) Vital Signs Temp Pulse Resp BP BP Pulse Ox O2 Del Method 07/21/25 04:30 37.7 C H 80 26 H 97 07/21/25 04:00 38.0 C H 80 26 H 94 07/21/25 04:00 07/21/25 03:30 38.1 C H 80 27 H 97 07/21/25 03:00 38.1 C H 80 26 H 97 07/21/25 02:30 38.2 C H 80 26 H 99 07/21/25 02:21 38.2 C H 80 26 H 98 07/21/25 02:15 38.2 C H 80 26 H 97 07/21/25 02:12 38.2 C H 80 26 H 97 07/21/25 02:06 38.2 C H 80 26 H 98 07/21/25 02:03 80 33 H 98 07/21/25 02:00 38.2 C H 80 26 H 99 07/21/25 01:30 38.2 C H 80 26 H 100 07/21/25 01:00 38.3 C H 80 26 H 100 07/21/25 00:30 38.2 C H 80 26 H 99 07/21/25 00:27 38.2 C H 80 26 H 100 07/21/25 00:21 38.0 C H 80 26 H 99 07/21/25 00:15 38.2 C H 80 26 H 98 07/21/25 00:12 38.2 C H 80 26 H 98 07/21/25 00:06 38.1 C H 80 26 H 98 07/21/25 00:00 38.1 C H 80 26 H 97 07/21/25 00:00 88/52 L 07/21/25 00:00 07/20/25 23:57 38.1 C H 80 26 H 97 07/20/25 23:55 80 07/20/25 23:51 38.0 C H 80 27 H 98 07/20/25 23:42 37.9 C H 80 26 H 99 07/20/25 23:36 37.9 C H 80 26 H 100 07/20/25 23:27 37.7 C H 80 27 H 97 07/20/25 23:21 37.5 C 80 26 H 99 07/20/25 23:21 Mechanical Vent 07/20/25 23:15 37.3 C 80 26 H 97 07/20/25 23:12 37.7 C H 80 28 H 99 07/20/25 23:06 37.7 C H 80 26 H 100 07/20/25 23:00 37.7 C H 80 26 H 100 07/20/25 22:57 37.7 C H 80 26 H 100 07/20/25 22:51 37.7 C H 80 26 H 99 07/20/25 22:45 37.7 C H 80 26 H 100 07/20/25 22:42 37.7 C H 80 26 H 100 07/20/25 22:36 37.7 C H 80 26 H 100 07/20/25 22:30 80 26 H 99 07/20/25 22:30 37.7 C H 80 26 H 100 07/20/25 22:00 37.6 C H 80 26 H 100 07/20/25 22:00 87/64 L 07/20/25 22:00 87/64 L 07/20/25 21:30 37.6 C H 80 26 H 100 07/20/25 20:38 80 26 H 100 07/20/25 20:30 37.7 C H 80 26 H 07/20/25 20:00 07/20/25 20:00 37.7 C H 80 26 H 99 07/20/25 20:00 88/59 L 07/20/25 19:30 37.7 C H 80 26 H 99 Mechanical Vent 07/20/25 19:00 37.7 C H 80 26 H 99 07/20/25 19:00 87/57 L 07/20/25 18:04 104/44 L 07/20/25 17:54 100/54 L FiO2 07/21/25 04:30 07/21/25 04:00 07/21/25 04:00 30 07/21/25 03:30 07/21/25 03:00 07/21/25 02:30 07/21/25 02:21 07/21/25 02:15 07/21/25 02:12 07/21/25 02:06 07/21/25 02:03 30 07/21/25 02:00 07/21/25 01:30 07/21/25 01:00 07/21/25 00:30 07/21/25 00:27 07/21/25 00:21 07/21/25 00:15 07/21/25 00:12 07/21/25 00:06 07/21/25 00:00 07/21/25 00:00 07/21/25 00:00 35 07/20/25 23:57 07/20/25 23:55 07/20/25 23:51 07/20/25 23:42 07/20/25 23:36 07/20/25 23:27 07/20/25 23:21 07/20/25 23:21 35 07/20/25 23:15 07/20/25 23:12 07/20/25 23:06 07/20/25 23:00 07/20/25 22:57 07/20/25 22:51 07/20/25 22:45 07/20/25 22:42 07/20/25 22:36 07/20/25 22:30 30 07/20/25 22:30 07/20/25 22:00 07/20/25 22:00 07/20/25 22:00 07/20/25 21:30 07/20/25 20:38 35 07/20/25 20:30 07/20/25 20:00 35 07/20/25 20:00 07/20/25 20:00 07/20/25 19:30 35 07/20/25 19:00 07/20/25 19:00 07/20/25 18:04 07/20/25 17:54 Laboratory Results Abnormal lab results 07/20/25 07/20/25 07/20/25 Range/Units 07:43 07:46 09:52 RBC (4.20-5.40) M/uL Hgb (12.0-16.0) g/dL POC Hgb 10.5 L (12.0-16.0) g/dl Hct (37.0-47.0) % POC Hct 31 L (37-47) % MCHC (32.0-36.0) g/dL RDW Std Deviation (36.4-46.3) fL RDW Coeff of Olivia (11.5-14.5) % Plt Count (130-400) K/uL Lymph # (Auto) (1.20-3.40) K/uL POC pO2 188 H (80-95) mmHg ABG pH (Temp Correct) 7.335 L (7.35-7.45) POC ABG O2 Sat 100.0 H (90-95) % BUN (6-23) mg/dl BUN/Creatinine Ratio (10-20) Glucose (70-99(Fasting)) mg/dl POC Glucose 194 H (70-99) mg/dl Lactate 2.7 H* (0.4-2.0) mmol/L Calcium (8.6-10.3) mg/dl Troponin I High Sens (0-14) pg/ml 07/20/25 07/20/25 07/20/25 Range/Units 12:49 13:14 17:21 RBC (4.20-5.40) M/uL Hgb (12.0-16.0) g/dL POC Hgb (12.0-16.0) g/dl Hct (37.0-47.0) % POC Hct (37-47) % MCHC (32.0-36.0) g/dL RDW Std Deviation (36.4-46.3) fL RDW Coeff of Olivia (11.5-14.5) % Plt Count (130-400) K/uL Lymph # (Auto) (1.20-3.40) K/uL POC pO2 (80-95) mmHg ABG pH (Temp Correct) (7.35-7.45) POC ABG O2 Sat (90-95) % BUN (6-23) mg/dl BUN/Creatinine Ratio (10-20) Glucose (70-99(Fasting)) mg/dl POC Glucose 130 H (70-99) mg/dl Lactate (0.4-2.0) mmol/L Calcium (8.6-10.3) mg/dl Troponin I High Sens 208.5 H* D 164.0 H* D (0-14) pg/ml 07/20/25 07/21/25 07/21/25 Range/Units 19:02 00:56 04:17 RBC (4.20-5.40) M/uL Hgb (12.0-16.0) g/dL POC Hgb 8.8 L (12.0-16.0) g/dl Hct (37.0-47.0) % POC Hct 26 L (37-47) % MCHC (32.0-36.0) g/dL RDW Std Deviation (36.4-46.3) fL RDW Coeff of Olivia (11.5-14.5) % Plt Count (130-400) K/uL Lymph # (Auto) (1.20-3.40) K/uL POC pO2 70 L (80-95) mmHg ABG pH (Temp Correct) (7.35-7.45) POC ABG O2 Sat (90-95) % BUN (6-23) mg/dl BUN/Creatinine Ratio (10-20) Glucose (70-99(Fasting)) mg/dl POC Glucose 146 H 132 H (70-99) mg/dl Lactate (0.4-2.0) mmol/L Calcium (8.6-10.3) mg/dl Troponin I High Sens (0-14) pg/ml 07/21/25 07/21/25 Range/Units 04:18 05:41 RBC 3.41 L (4.20-5.40) M/uL Hgb 8.8 L (12.0-16.0) g/dL POC Hgb (12.0-16.0) g/dl Hct 27.6 L (37.0-47.0) % POC Hct (37-47) % MCHC 31.9 L (32.0-36.0) g/dL RDW Std Deviation 47.3 H (36.4-46.3) fL RDW Coeff of Olivia 16.0 H (11.5-14.5) % Plt Count 125 L (130-400) K/uL Lymph # (Auto) 0.52 L (1.20-3.40) K/uL POC pO2 (80-95) mmHg ABG pH (Temp Correct) (7.35-7.45) POC ABG O2 Sat (90-95) % BUN 28 H (6-23) mg/dl BUN/Creatinine Ratio 27.5 H (10-20) Glucose 175 H (70-99(Fasting)) mg/dl POC Glucose 150 H (70-99) mg/dl Lactate (0.4-2.0) mmol/L Calcium 8.3 L (8.6-10.3) mg/dl Troponin I High Sens (0-14) pg/ml Diagnostic Findings CXR - pending Medications Administered Albuterol (Albuterol 0.083% Nebu Soln 3 Ml Vial) 2.5 mg NEB Q6R [facility]; Protocol Stop: 08/18/25 22:44 Last Admin: 07/21/25 01:58 Dose: 2.5 mg Documented By: Admin: 07/20/25 20:28 Dose: 2.5 mg Documented By: Admin: 07/20/25 13:00 Dose: 2.5 mg Documented By: tbm Admin: 07/20/25 07:39 Dose: 2.5 mg Documented By: tbm Admin: 07/20/25 02:57 Dose: 2.5 mg Documented By: Admin: 07/19/25 22:46 Dose: 2.5 mg Documented By: LGB Fentanyl Citrate (Fentanyl Bolus From Bag) 50 mcg IV Q60M PRN PRN Reason: Pain or Agitation Stop: 08/02/25 17:56 Last Admin: 07/21/25 03:47 Dose: 50 mcg Documented By: LLP Co-signed By: TP Admin: 07/20/25 22:55 Dose: 50 mcg Documented By: LLP Co-signed By: ESG Admin: 07/20/25 03:18 Dose: 50 mcg Documented By: CR Co-signed By: RENEE Heparin Sodium (Porcine) (Heparin Sod 5,000 Unit/0.5 Ml Vial) 5,000 units SQ Q8 [facility] Stop: 08/19/25 05:59 Last Admin: 07/21/25 05:50 Dose: 5,000 units Documented By: Admin: 07/20/25 21:01 Dose: 5,000 units Documented By: Admin: 07/20/25 14:01 Dose: 5,000 units Documented By: Admin: 07/20/25 06:40 Dose: 5,000 units Documented By: ARTHUR Propofol (Diprivan) 1,000 mg in 100 mls @ 28.791 mls/hr IV .Q3H29M [facility]; Protocol Stop: 07/22/25 17:29 Last Admin: 07/21/25 03:47 Dose: 35 mcg/kg/min, 28.8 mls/hr Documented By: ROROP Co-signed By: TP Titration: 07/21/25 03:47 Dose: Infused Documented By: LLP Co-signed By: TP Admin: 07/21/25 00:58 Dose: 35 mcg/kg/min, 28.8 mls/hr Documented By: LLP Co-signed By: TP Titration: 07/21/25 00:23 Dose: Infused Documented By: LLP Co-signed By: TP Titration: 07/20/25 22:52 Dose: 35 mcg/kg/min, 28.8 mls/hr Documented By: Admin: 07/20/25 22:39 Dose: Not Given Documented By: Titration: 07/20/25 22:38 Dose: 30 mcg/kg/min, 24.7 mls/hr Documented By: Titration: 07/20/25 21:48 Dose: 35 mcg/kg/min, 28.8 mls/hr Documented By: Admin: 07/20/25 21:29 Dose: Not Given Documented By: Titration: 07/20/25 21:07 Dose: 40 mcg/kg/min, 32.9 mls/hr Documented By: Admin: 07/20/25 21:00 Dose: 45 mcg/kg/min, 37 mls/hr Documented By: LLP Co-signed By: TP Titration: 07/20/25 20:55 Dose: Infused Documented By: LLP Co-signed By: TP Titration: 07/20/25 19:09 Dose: 45 mcg/kg/min, 37 mls/hr Documented By: LLP Co-signed By: CB Admin: 07/20/25 18:12 Dose: 45 mcg/kg/min, 37 mls/hr Documented By: RNC Co-signed By: dst Titration: 07/20/25 18:12 Dose: Infused Documented By: RNC Co-signed By: dst Admin: 07/20/25 16:25 Dose: Not Given Documented By: Admin: 07/20/25 16:25 Dose: Not Given Documented By: Admin: 07/20/25 16:25 Dose: Not Given Documented By: Admin: 07/20/25 16:25 Dose: Not Given Documented By: Admin: 07/20/25 16:24 Dose: Not Given Documented By: Titration: 07/20/25 16:19 Dose: 45 mcg/kg/min, 37 mls/hr Documented By: Titration: 07/20/25 16:10 Dose: Infused Documented By: RNC Co-signed By: AMS Admin: 07/20/25 16:10 Dose: 40 mcg/kg/min, 32.9 mls/hr Documented By: RNC Co-signed By: AMS Titration: 07/20/25 15:36 Dose: 40 mcg/kg/min, 32.9 mls/hr Documented By: Titration: 07/20/25 15:25 Dose: 40 mcg/kg/min, 32.9 mls/hr Documented By: Admin: 07/20/25 13:06 Dose: 35 mcg/kg/min, 28.8 mls/hr Documented By: RNC Co-signed By: CB Titration: 07/20/25 12:21 Dose: Infused Documented By: RNC Co-signed By: CB Admin: 07/20/25 09:18 Dose: 40 mcg/kg/min, 32.9 mls/hr Documented By: CB Co-signed By: RNC Titration: 07/20/25 08:42 Dose: Infused Documented By: CB Co-signed By: RNC Admin: 07/20/25 05:39 Dose: 40 mcg/kg/min, 32.9 mls/hr Documented By: CR Co-signed By: TP Titration: 07/20/25 05:31 Dose: Infused Documented By: CR Co-signed By: TP Admin: 07/20/25 02:28 Dose: 40 mcg/kg/min, 32.9 mls/hr Documented By: CR Co-signed By: TMG Titration: 07/20/25 02:28 Dose: Infused Documented By: CR Co-signed By: TMG Admin: 07/19/25 23:32 Dose: 40 mcg/kg/min, 32.9 mls/hr Documented By: CR Co-signed By: TLM Titration: 07/19/25 23:20 Dose: Infused Documented By: CR Co-signed By: TLM Titration: 07/19/25 23:08 Dose: 40 mcg/kg/min, 32.9 mls/hr Documented By: Admin: 07/19/25 19:53 Dose: 35 mcg/kg/min, 28.8 mls/hr Documented By: AN Co-signed By: CDM Titration: 07/19/25 19:53 Dose: Infused Documented By: AN Co-signed By: CDM Titration: 07/19/25 18:37 Dose: 35 mcg/kg/min, 28.8 mls/hr Documented By: Titration: 07/19/25 18:31 Dose: 40 mcg/kg/min, 32.9 mls/hr Documented By: Titration: 07/19/25 17:54 Dose: 50 mcg/kg/min, 41.1 mls/hr Documented By: Titration: 07/19/25 17:42 Dose: 40 mcg/kg/min, 32.9 mls/hr Documented By: Titration: 07/19/25 17:37 Dose: 30 mcg/kg/min, 24.7 mls/hr Documented By: Admin: 07/19/25 17:32 Dose: 20 mcg/kg/min, 16.5 mls/hr Documented By: GASPER Fentanyl Citrate (Fentanyl Citrate) 2,500 mcg in 250 mls @ 5 mls/hr IV .Q50H [facility]; Protocol Stop: 08/02/25 17:59 Last Titration: 07/20/25 19:09 Dose: 50 mcg/hr, 5 mls/hr Documented By: BALDEV Co-signed By: BUTCH Titration: 07/20/25 17:08 Dose: 50 mcg/hr, 5 mls/hr Documented By: BUTCH Co-signed By: RNRoz Admin: 07/19/25 18:08 Dose: 25 mcg/hr, 2.5 mls/hr Documented By: GASPER Co-signed By: CAP Daptomycin 500 mg/ Syringe 10 mls @ 5 mls/min IV Q24H [facility]; Protocol Stop: 07/26/25 23:29 Last Admin: 07/21/25 00:00 Dose: 5 mls/min Documented By: Admin: 07/19/25 23:31 Dose: 5 mls/min Documented By: ARTHUR Ceftriaxone Sodium (Rocephin) 2,000 mg in 50 mls @ 100 mls/hr IV Q12H [facility]; Protocol Stop: 07/22/25 05:59 Last Admin: 07/21/25 05:48 Dose: 100 mls/hr Documented By: Infusion: 07/20/25 19:30 Dose: Infused Documented By: Admin: 07/20/25 19:00 Dose: 100 mls/hr Documented By: Infusion: 07/20/25 07:07 Dose: Infused Documented By: Admin: 07/20/25 06:36 Dose: 100 mls/hr Documented By: ARTHUR Acetaminophen (Ofirmev) 1,000 mg in 100 mls @ 400 mls/hr IV Q8H PRN PRN Reason: pain/fever Stop: 07/22/25 22:38 Last Infusion: 07/21/25 02:28 Dose: Infused Documented By: Admin: 07/21/25 02:13 Dose: 400 mls/hr Documented By: Infusion: 07/20/25 18:11 Dose: Infused Documented By: Admin: 07/20/25 17:04 Dose: 400 mls/hr Documented By: Infusion: 07/20/25 08:13 Dose: Infused Documented By: Admin: 07/20/25 07:53 Dose: 400 mls/hr Documented By: Infusion: 07/20/25 00:21 Dose: Infused Documented By: Admin: 07/19/25 23:59 Dose: 400 mls/hr Documented By: ARTHUR Phenylephrine HCl (Phenylephrine/Nss) 25 mg in 250 mls @ 0 mls/hr IV .Q0M [facility]; Protocol Stop: 08/19/25 16:14 Last Titration: 07/20/25 22:52 Dose: 0 mcg/kg/min, 0 mls/hr Documented By: LLP Co-signed By: TP Admin: 07/20/25 22:43 Dose: Not Given Documented By: Titration: 07/20/25 22:38 Dose: 0.1 mcg/kg/min, 8 mls/hr Documented By: LLP Co-signed By: TP Titration: 07/20/25 21:48 Dose: 0.3 mcg/kg/min, 24 mls/hr Documented By: LLP Co-signed By: TP Titration: 07/20/25 21:07 Dose: 0.5 mcg/kg/min, 40.1 mls/hr Documented By: LLP Co-signed By: TP Admin: 07/20/25 21:00 Dose: 0.7 mcg/kg/min, 56.1 mls/hr Documented By: LLP Co-signed By: TP Titration: 07/20/25 21:00 Dose: Infused Documented By: LLP Co-signed By: TP Titration: 07/20/25 19:09 Dose: 0.7 mcg/kg/min, 56.1 mls/hr Documented By: LLP Co-signed By: CB Titration: 07/20/25 18:04 Dose: 0.7 mcg/kg/min, 56.1 mls/hr Documented By: RNC Co-signed By: AMS Titration: 07/20/25 17:55 Dose: 0.5 mcg/kg/min, 40.1 mls/hr Documented By: RNC Co-signed By: CB Titration: 07/20/25 16:45 Dose: 0.3 mcg/kg/min, 24 mls/hr Documented By: RNC Co-signed By: CB Admin: 07/20/25 16:13 Dose: 0.5 mcg/kg/min, 40.1 mls/hr Documented By: RNC Co-signed By: AMS Potassium Chloride (K Paul / Wtr) 20 meq in 100 mls @ 50 mls/hr IV Q2H [facility]; Protocol Stop: 07/21/25 09:18 Last Admin: 07/21/25 05:48 Dose: 50 mls/hr Documented By: BALDEV Co-signed By: NED Insulin Aspart (Insulin Aspart Per Unit Charge) 0 units SC Q6 [facility] Stop: 08/18/25 22:28 Last Admin: 07/21/25 05:50 Dose: Not Given Documented By: Admin: 07/21/25 00:57 Dose: Not Given Documented By: Admin: 07/20/25 19:05 Dose: Not Given Documented By: Admin: 07/20/25 13:24 Dose: Not Given Documented By: Admin: 07/20/25 06:41 Dose: 1 units Documented By: ARTHUR Co-signed By: RENEE Admin: 07/19/25 23:31 Dose: Not Given Documented By: ARTHUR Miscellaneous (Icu Electrolyte Replacement Protocol) 1 each N/A BID@06,18 [facility]; Protocol Stop: 07/27/25 05:59 Last Admin: 07/21/25 05:49 Dose: 1 each Documented By: Admin: 07/20/25 19:18 Dose: Not Given Documented By: Admin: 07/20/25 06:23 Dose: 1 each Documented By: ARTHUR Nystatin (Nystatin Powder 15gm Btl) 1 appln EXT BID [facility] Stop: 08/18/25 22:59 Last Admin: 07/20/25 21:01 Dose: 1 appln Documented By: Admin: 07/20/25 10:05 Dose: 1 appln Documented By: Admin: 07/19/25 23:07 Dose: 1 appln Documented By: ARTHUR Propofol (Propofol Bolus From Bag) 20 mg IV Q5M PRN PRN Reason: Sedation Stop: 07/22/25 17:26 Last Admin: 07/21/25 03:48 Dose: 20 mg Documented By: BALDEV Co-signed By: NED Admin: 07/20/25 22:55 Dose: 20 mg Documented By: BALDEV Co-signed By: ALICIA Admin: 07/19/25 17:54 Dose: 20 mg Documented By: GASPER Co-signed By: ABRAHAM Admin: 07/19/25 17:48 Dose: 20 mg Documented By: GASPER Co-signed By: ABRAHAM Admin: 07/19/25 17:37 Dose: 20 mg Documented By: GASPER Co-signed By: ARBAHAM Admin: 07/19/25 17:31 Dose: 20 mg Documented By: GASPER Co-signed By: ABRAHAM Discontinued Medications Fentanyl Citrate (Fentanyl Citrate Pf 100 Mcg/2 Ml Vial) 100 mcg IV NOW STA Stop: 07/19/25 17:58 Last Admin: 07/19/25 18:06 Dose: 100 mcg Documented By: GASPER Furosemide (Furosemide 40 Mg/4 Ml Vial) 40 mg IV ONE ONE Stop: 07/19/25 18:23 Last Admin: 07/19/25 19:14 Dose: 40 mg Documented By: TEODORO Ceftriaxone Sodium (Rocephin) 2,000 mg in 50 mls @ 100 mls/hr IV NOW STA Stop: 07/19/25 18:27 Last Infusion: 07/19/25 19:23 Dose: Infused Documented By: Admin: 07/19/25 18:47 Dose: 100 mls/hr Documented By: GASPER Acetaminophen (Ofirmev) 1,000 mg in 100 mls @ 400 mls/hr IV NOW STA Stop: 07/19/25 18:22 Last Infusion: 07/19/25 19:19 Dose: Infused Documented By: Admin: 07/19/25 18:31 Dose: 400 mls/hr Documented By: GASPER Dopamine HCl/Dextrose (Dopamine / D5w) 400 mg in 250 mls @ 41.13 mls/hr IV .Q6H5M [facility]; Protocol Stop: 08/18/25 20:59 Last Admin: 07/20/25 16:24 Dose: Not Given Documented By: Titration: 07/20/25 16:21 Dose: Infused Documented By: Titration: 07/20/25 16:10 Dose: Infused Documented By: Titration: 07/20/25 14:08 Dose: 8 mcg/kg/min, 41.1 mls/hr Documented By: Titration: 07/20/25 14:00 Dose: 6 mcg/kg/min, 30.8 mls/hr Documented By: Titration: 07/20/25 12:07 Dose: 8 mcg/kg/min, 41.1 mls/hr Documented By: Admin: 07/20/25 09:18 Dose: 9 mcg/kg/min, 46.3 mls/hr Documented By: BUTCH Co-signed By: RNC Titration: 07/20/25 09:18 Dose: Infused Documented By: BUTCH Co-signed By: RNC Titration: 07/20/25 09:16 Dose: 9 mcg/kg/min, 46.3 mls/hr Documented By: Titration: 07/20/25 07:30 Dose: 11 mcg/kg/min, 56.6 mls/hr Documented By: Titration: 07/20/25 06:00 Dose: 9 mcg/kg/min, 46.3 mls/hr Documented By: Admin: 07/20/25 03:52 Dose: 7 mcg/kg/min, 36 mls/hr Documented By: ARTHUR Co-signed By: LEROY Titration: 07/20/25 03:52 Dose: Infused Documented By: ARTHUR Co-signed By: LEROY Titration: 07/19/25 21:20 Dose: 7 mcg/kg/min, 36 mls/hr Documented By: Admin: 07/19/25 20:57 Dose: 5 mcg/kg/min, 25.7 mls/hr Documented By: TEODORO Co-signed By: SCOTT Magnesium Sulfate/Dextrose (Magnesium Sulfate / D5w) 1 gm in 100 mls @ 50 mls/hr IV Q2H [facility] Stop: 07/20/25 10:29 Last Infusion: 07/20/25 12:05 Dose: Infused Documented By: Admin: 07/20/25 10:05 Dose: 50 mls/hr Documented By: Infusion: 07/20/25 09:53 Dose: Infused Documented By: Admin: 07/20/25 07:53 Dose: 50 mls/hr Documented By: MADI Ibuprofen (Ibuprofen 200 Mg/10 Ml Udc) 600 mg PO NOW STA Stop: 07/20/25 04:29 Last Admin: 07/20/25 05:05 Dose: 600 mg Documented By: ARTHUR Ioversol (Optiray 320 125ml) 119 ml IV ONCE ONE Stop: 07/19/25 18:20 Last Admin: 07/19/25 18:19 Dose: 119 ml Documented By: DANIEL Miscellaneous (Rapid Sequence Induction Bag) Confirm Administered Dose 1 each N/A .STK-MED ONE Stop: 07/19/25 17:15 Last Admin: 07/20/25 06:52 Dose: Not Given Documented By: BUTCH Hylton (Stat Iv Infusion Titration Per Protocol) 1 each N/A NOW STA Stop: 07/19/25 17:28 Last Admin: 07/19/25 19:20 Dose: 1 each Documented By: AN Miscellaneous (Stat Iv Infusion Titration Per Protocol) 1 each N/A NOW STA Stop: 07/19/25 17:58 Last Admin: 07/19/25 19:19 Dose: 1 each Documented By: AN Miscellaneous (Patient's Height &/Or Weight Needed) 1 each N/A NOW STA Stop: 07/19/25 22:35 Last Admin: 07/19/25 23:07 Dose: 1 each Documented By: ARTHUR Potassium Chloride (Potassium Chloride 20 Meq/15 Ml Udc) 20 meq NG Q4H [facility] Stop: 07/20/25 10:31 Last Admin: 07/20/25 13:57 Dose: 20 meq Documented By: Admin: 07/20/25 07:54 Dose: 20 meq Documented By: RNC Potassium Chloride (Potassium Chloride 20 Meq/15 Ml Udc) 20 meq NG TODAY@1030 [facility] Stop: 07/20/25 14:00 Last Admin: 07/20/25 13:58 Dose: Not Given Documented By: RNC Propofol (Propofol Iv Emulsion 10 Mg/Ml 100 Ml Vial) Confirm Administered Dose 1,000 mg IV .STK-MED ONE Stop: 07/19/25 17:23 Last Admin: 07/19/25 17:42 Dose: Not Given Documented By: GASPER Coding Level of Care Code 17472 CRITICAL CARE 1ST 30-74M Diagnoses Heart block I45.9 Symptomatic bradycardia R00.1 Hypoxic respiratory failure J96.91 Acute heart failure I50.9 Enterovirus infection B34.1 Rhinovirus infection B34.8 Shock R57.9
[2025-07-21] MEDS: POTASSIUM CHLORIDE / WTR 20 MEQ/100 ML PLCT IV SCH (05:48)
[2025-07-21 06:14] LABS: Hematocrit (blood only) 27.2 % (37.0-47.0); Hemoglobin 8.6 g/dL (12.0-16.0); Immature Granulocytes # (auto) 0.02 K/uL (0.01-0.20); Immature Granulocytes % (auto) 0.4 %; Mean Corpuscular Hemoglobin 25.5 pg (25.0-34.0); Mean Corpuscular Volume 80.7 fL (80.0-100.0); Platelet Count 132 K/uL (130-400); RDW Standard Deviation 47.1 fL (36.4-46.3); Red Blood Count 3.37 M/uL (4.20-5.40); White Blood Count 5.27 K/ul (4.8-10.8)
--- NOTE | 2025-07-21 08:04 | XRay Report ---
EXAM: XR chest 1V portable CLINICAL HISTORY: Eval lines/tubes/lung damon while intubated TECHNIQUE: An X-ray image of the chest is obtained in AP portable projection. COMPARISON: No prior studies are available for comparison. FINDINGS: Nasogastric tube seen projecting left infradiaphragmatic. The distal end is not appreciated. Endotracheal tube seen appears well-positioned 6.5 cm away from the reji. Right central venous line, tip projected over SVC, well placed Pulmonary Parenchyma: Nonhomogeneous opacity identified in both lower mid zones with blunting of both CP angles and silhouetting left hemidiaphragm and left heart border, suggestive of pulmonary infection /Pulmonary edema, along with minimal bilateral pleural effusion. Heart and Mediastinum: Heart size and shape are normal. No mediastinal widening or masses. No hilar or mediastinal lymphadenopathy. Bony Thorax: Bony thorax appears intact without fractures or deformities. Soft Tissues: Soft tissues overlying the chest wall are unremarkable. IMPRESSION: 1. Nasogastric tube seen projecting left infradiaphragmatic. The distal end is not appreciated. 2. Endotracheal tube seen appears well-positionedd 6.5 cm away from the reji. 3. Right central venous line, tip projected over SVC, well placed. 4. Findings suggesting pulmonary edema/ infectious process with bilateral pleural effusion, more on the left 5. No interval changes Electronically signed by Yonis Shah 07-21-2025 08:03 AM
[2025-07-21] MEDS: CALCIUM GLUCONATE 1,000 MG/60 ML BAG IV STA (08:39)
--- NOTE | 2025-07-21 08:42 | Critical Care Progress Note ---
Date of Service July 21, 2025 Assessment & Plan (1) Acute heart failure: (2) Heart block: (3) Endotracheally intubated: (4) Acute hypoxemic respiratory failure: (5) AMS (altered mental status): Plan Impression: 75 YOF hypoxic respiratory failure requiring emergent/urgent intubation, in setting of bradycardia with concern for high grade block likely resulting in acute heart failure, also associated with entero/rhinovirus and UTI. 24-hour events: Patient admitted to the ICU. Required dopamine initially and received TVP Remains in third-degree heart block during pacer pause this am. Cardiology consulted. PPM plan pending. Remains intubated and sedated. Recommendations: Neuro - Sedation for mechanical ventilation, encephalopathy, HX: single eye blindness. Nonfocal exam so we will hold on additional imaging. Suspect potentially metabolic etiology for the patient's encephalopathy and altered mental status. Patient did follow some basic commands on sedation vacation this am. No meningeal signs so we will hold off on lumbar puncture for now. Body habitus may make it difficult. Cardiac -third-degree heart block. Discussed with cardiology. EP consulted. TVP in palce with rate at 80bpm and Ma of 5 with full capture. Is in CHB when pacer paused this am. PPM plan pending. Dopamine weaned off. Echocardiogram pending. Appreciate cardiology consultation. Difficult to assess volume status given the patient's body habitus. Arterial line placed for closer hemodynamic monitoring. Mild elevation in troponin. BNP also mildly elevated at 458. Hypotension improved and jarad gtt off since 2300 last evening. Respiratory - Acute hypoxic respiratory failure requiring emergent intubation, CLYDE. Oxygenating reasonably well. Mild hypercarbia. Continue ventilation for now. No evidence of bronchospasm. Supportive care for enterovirus/rhinovirus GI - No acute needs. Start PPI. Consider enteral feeding if unable to liberate from ventilator within the next 24hrs. RENAL/LYTES - No acute needs. mild increase in serum creatinine this morning. Patient did receive a contrast load yesterday. Acid-base status and electrolytes are stable. Continue to follow closely. - UTI see below - Keep rodriguez while intubated and sedated ENDO - DMII - ICU hyper/hypoglycemic protocol HEME - No acute needs ID -fever. Cultures negative to date. Procalcitonin negative. Positive BioFire for enterovirus/rhinovirus. Currently day #3 daptomycin and Rocephin. Continue for now. LINES/IV ACCESS - PIV, ETT, Rodriguez. Central line and arterial line placed today. Right groin TVP. Continue use of these lines. DVT PROPHYLAXIS - SCDS. Start subcu heparin GI PROPHYLAXIS- PPI DISPO: ICU until hemodynamics and electrical rhythm proven stable and improved without chronotropics/vasopressors/inotrope. Vanessa full code. Family updated to POC by ICU provider on 07/21/25. I have personally spent 48 minutes of critical care time in the direct management of this patient. This is a life/limb threatening event. This includes time spent evaluating patient, direct bedside care, chart review, placing orders, interpretation of diagnostic studies, discussion with consultants, patient, and family members, as well as other required patient management activities. This time is exclusive of all separately billable procedures, and teaching time and separate from and in addition to any other critical care service time. Admission and Anticipated Discharge Date Admission Date: July 19, 2025 Subjective Patient remains intubated and sedated. Transvenous pacer paused this am with complete heart block noted under pace rhythm at rate of 30 bpm. Attempted SBT but patient very anxious and became hypertensive to the 200's. Patient resedated and SBT aborted. Plan to keep patient intubated if PPM can be placed tomorrow. Cultures remain negative. Will continue ABX at this time as patient still spiking intermittent fevers. Hypotension resolved and patient has been off jarad gtt since 2300 last evening. Review of Systems Review of Systems: All systems reviewed & are unremarkable except as noted in HPI & below Physical Exam Physical Exam: VITALS: Reviewed. WEIGHT/BMI reviewed. GEN: Well-developed, NAD. PSYCH: Good Judgment. AOx3. Normal memory, mood, and affect. HEENT -Head: NC/AT; -Eyes: PERRL, EOMI. No discharge or redn ess; -Ears: External ears are normal. -Nose: Normal nares. NECK: Supple, with no masses. CV: RRR, no m/r/g. V paced. LUNGS: CTAB, no w/r/c. ABD: Soft, NT/ND, NBS, no masses or organomegaly. : Rodriguez draining clear/yellow urine SKIN: Warm, well perfused. No skin rashes or abnormal lesions. MSK: No deformities, Normal gait. EXT: No clubbing, cyanosis, or edema. Right groin TVP site without bleeding. NEURO: Sedated and intubated. Moving extremities spont during sedation vacation without focal defecits. Results & Data Results & Data Vital Signs (Past 12 Hours) Vital Signs Temp Pulse Resp BP Pulse Ox O2 Del Method FiO2 07/21/25 07:28 80 27 H 100 30 07/21/25 06:00 37.4 C 80 26 H 100 07/21/25 05:57 37.4 C 80 26 H 100 07/21/25 05:51 37.4 C 80 26 H 100 07/21/25 05:45 37.4 C 80 26 H 99 07/21/25 05:42 37.4 C 80 26 H 100 07/21/25 05:36 37.4 C 37 L 26 H 98 07/21/25 05:30 37.5 C 80 26 H 99 07/21/25 05:27 37.5 C 80 26 H 99 07/21/25 05:21 37.5 C 80 26 H 99 07/21/25 05:15 37.5 C 80 26 H 98 07/21/25 05:12 37.5 C 80 26 H 98 07/21/25 05:06 37.5 C 80 26 H 98 07/21/25 05:00 37.5 C 80 26 H 97 07/21/25 04:57 37.5 C 80 26 H 98 07/21/25 04:51 37.6 C H 80 26 H 94 07/21/25 04:45 37.6 C H 80 26 H 98 07/21/25 04:42 37.7 C H 80 26 H 97 07/21/25 04:36 37.7 C H 80 26 H 98 07/21/25 04:30 37.7 C H 80 26 H 97 07/21/25 04:00 38.0 C H 80 26 H 94 07/21/25 04:00 30 07/21/25 03:30 38.1 C H 80 27 H 97 07/21/25 03:00 38.1 C H 80 26 H 97 07/21/25 02:30 38.2 C H 80 26 H 99 07/21/25 02:21 38.2 C H 80 26 H 98 07/21/25 02:15 38.2 C H 80 26 H 97 07/21/25 02:12 38.2 C H 80 26 H 97 07/21/25 02:06 38.2 C H 80 26 H 98 07/21/25 02:03 80 33 H 98 30 07/21/25 02:00 38.2 C H 80 26 H 99 07/21/25 01:30 38.2 C H 80 26 H 100 07/21/25 01:00 38.3 C H 80 26 H 100 07/21/25 00:30 38.2 C H 80 26 H 99 07/21/25 00:27 38.2 C H 80 26 H 100 07/21/25 00:21 38.0 C H 80 26 H 99 07/21/25 00:15 38.2 C H 80 26 H 98 07/21/25 00:12 38.2 C H 80 26 H 98 07/21/25 00:06 38.1 C H 80 26 H 98 07/21/25 00:00 38.1 C H 80 26 H 97 07/21/25 00:00 88/52 L 07/21/25 00:00 35 07/20/25 23:57 38.1 C H 80 26 H 97 07/20/25 23:55 80 07/20/25 23:51 38.0 C H 80 27 H 98 07/20/25 23:42 37.9 C H 80 26 H 99 07/20/25 23:36 37.9 C H 80 26 H 100 07/20/25 23:27 37.7 C H 80 27 H 97 07/20/25 23:21 37.5 C 80 26 H 99 07/20/25 23:21 Mechanical Vent 35 07/20/25 23:15 37.3 C 80 26 H 97 07/20/25 23:12 37.7 C H 80 28 H 99 07/20/25 23:06 37.7 C H 80 26 H 100 07/20/25 23:00 37.7 C H 80 26 H 100 07/20/25 22:57 37.7 C H 80 26 H 100 07/20/25 22:51 37.7 C H 80 26 H 99 07/20/25 22:45 37.7 C H 80 26 H 100 07/20/25 22:42 37.7 C H 80 26 H 100 07/20/25 22:36 37.7 C H 80 26 H 100 07/20/25 22:30 80 26 H 99 30 07/20/25 22:30 37.7 C H 80 26 H 100 07/20/25 22:00 37.6 C H 80 26 H 100 07/20/25 22:00 87/64 L 07/20/25 22:00 87/64 L 07/20/25 21:30 37.6 C H 80 26 H 100 Critical Care Results & Data Vital Signs (Past 12 Hours) Vital Signs Temp Pulse Resp Pulse Ox O2 Del Method FiO2 07/21/25 11:51 37.0 C 80 17 94 07/21/25 11:45 37.0 C 80 17 96 07/21/25 11:42 37.0 C 80 18 94 07/21/25 11:36 36.9 C 80 22 96 07/21/25 11:35 80 20 93 30 07/21/25 11:30 36.9 C 80 26 H 95 07/21/25 11:27 36.9 C 80 26 H 98 07/21/25 11:21 36.9 C 80 30 H 91 07/21/25 11:15 36.8 C 80 27 H 99 07/21/25 11:12 36.8 C 80 26 H 100 07/21/25 11:06 36.8 C 80 26 H 100 07/21/25 11:00 36.8 C 80 26 H 100 07/21/25 10:57 36.8 C 80 26 H 100 07/21/25 10:51 36.8 C 80 26 H 100 07/21/25 10:45 36.8 C 80 26 H 100 07/21/25 10:42 36.8 C 80 26 H 100 07/21/25 10:36 36.8 C 80 26 H 100 07/21/25 10:30 36.8 C 80 26 H 100 07/21/25 10:27 36.8 C 80 26 H 100 07/21/25 10:21 36.8 C 80 26 H 100 07/21/25 10:15 36.8 C 80 26 H 100 07/21/25 10:12 36.9 C 80 26 H 100 07/21/25 10:06 36.9 C 80 26 H 100 07/21/25 10:00 36.9 C 80 26 H 100 07/21/25 09:57 36.9 C 80 26 H 100 07/21/25 09:51 36.9 C 80 26 H 100 07/21/25 09:45 36.9 C 80 26 H 100 07/21/25 09:42 36.9 C 80 26 H 100 07/21/25 09:36 36.9 C 80 26 H 100 07/21/25 09:30 36.9 C 80 26 H 100 07/21/25 09:27 36.9 C 80 26 H 100 07/21/25 09:21 36.9 C 80 26 H 100 07/21/25 09:15 36.9 C 80 26 H 100 07/21/25 09:12 36.9 C 80 26 H 100 07/21/25 09:06 36.9 C 80 26 H 100 07/21/25 09:00 36.9 C 80 26 H 99 07/21/25 08:57 36.9 C 80 26 H 100 07/21/25 08:51 36.7 C 80 26 H 100 07/21/25 08:45 37.0 C 80 26 H 99 07/21/25 08:42 37.0 C 80 26 H 100 07/21/25 08:36 37.0 C 80 26 H 100 07/21/25 08:30 37.0 C 80 26 H 100 07/21/25 08:27 37.0 C 80 26 H 100 07/21/25 08:21 37.0 C 80 26 H 100 07/21/25 08:15 37.1 C 80 26 H 100 07/21/25 08:12 37.1 C 80 26 H 100 07/21/25 08:06 37.1 C 80 26 H 100 07/21/25 08:00 Mechanical Vent 30 07/21/25 08:00 37.1 C 80 26 H 100 07/21/25 08:00 30 07/21/25 08:00 80 07/21/25 07:57 37.1 C 80 26 H 100 07/21/25 07:51 37.1 C 80 26 H 100 07/21/25 07:45 37.1 C 80 26 H 100 07/21/25 07:42 37.1 C 80 26 H 100 07/21/25 07:36 37.1 C 80 26 H 97 07/21/25 07:30 Mechanical Vent 07/21/25 07:30 37.1 C 80 26 H 99 07/21/25 07:28 80 27 H 100 30 07/21/25 07:27 37.1 C 80 26 H 98 07/21/25 07:21 37.1 C 80 26 H 97 07/21/25 07:15 37.2 C 80 26 H 100 07/21/25 07:12 37.2 C 80 26 H 100 07/21/25 07:06 37.2 C 80 26 H 99 07/21/25 07:00 37.2 C 80 26 H 100 07/21/25 06:57 37.2 C 80 26 H 100 07/21/25 06:51 37.2 C 80 26 H 99 07/21/25 06:45 37.3 C 80 26 H 100 07/21/25 06:42 37.3 C 80 26 H 100 07/21/25 06:36 37.3 C 80 26 H 99 07/21/25 06:30 37.3 C 80 26 H 100 07/21/25 06:27 37.3 C 80 26 H 100 07/21/25 06:21 37.3 C 80 26 H 100 07/21/25 06:15 37.4 C 80 26 H 100 07/21/25 06:12 37.4 C 80 26 H 100 07/21/25 06:06 37.4 C 80 26 H 100 07/21/25 06:00 37.4 C 80 26 H 100 07/21/25 05:57 37.4 C 80 26 H 100 07/21/25 05:51 37.4 C 80 26 H 100 07/21/25 05:45 37.4 C 80 26 H 99 07/21/25 05:42 37.4 C 80 26 H 100 07/21/25 05:36 37.4 C 37 L 26 H 98 07/21/25 05:30 37.5 C 80 26 H 99 07/21/25 05:27 37.5 C 80 26 H 99 07/21/25 05:21 37.5 C 80 26 H 99 07/21/25 05:15 37.5 C 80 26 H 98 07/21/25 05:12 37.5 C 80 26 H 98 07/21/25 05:06 37.5 C 80 26 H 98 07/21/25 05:00 37.5 C 80 26 H 97 07/21/25 04:57 37.5 C 80 26 H 98 07/21/25 04:51 37.6 C H 80 26 H 94 07/21/25 04:45 37.6 C H 80 26 H 98 07/21/25 04:42 37.7 C H 80 26 H 97 07/21/25 04:36 37.7 C H 80 26 H 98 07/21/25 04:30 37.7 C H 80 26 H 97 07/21/25 04:00 38.0 C H 80 26 H 94 07/21/25 04:00 30 07/21/25 03:30 38.1 C H 80 27 H 97 07/21/25 03:00 38.1 C H 80 26 H 97 07/21/25 02:30 38.2 C H 80 26 H 99 07/21/25 02:21 38.2 C H 80 26 H 98 07/21/25 02:15 38.2 C H 80 26 H 97 07/21/25 02:12 38.2 C H 80 26 H 97 07/21/25 02:06 38.2 C H 80 26 H 98 07/21/25 02:03 80 33 H 98 30 07/21/25 02:00 38.2 C H 80 26 H 99 07/21/25 01:30 38.2 C H 80 26 H 100 07/21/25 01:00 38.3 C H 80 26 H 100 07/21/25 00:30 38.2 C H 80 26 H 99 07/21/25 00:27 38.2 C H 80 26 H 100 07/21/25 00:21 38.0 C H 80 26 H 99 07/21/25 00:15 38.2 C H 80 26 H 98 07/21/25 00:12 38.2 C H 80 26 H 98 Lab & Micro Results (Past 24 Hours) RBC 3.37 M/uL (4.20-5.40) L 07/21/25 WBC 5.27 K/ul (4.8-10.8) 07/21/25 Hgb 9.0 g/dL (12.0-16.0) L 07/21/25 Hct 27.2 % (37.0-47.0) L 07/21/25 MCV 80.7 fL (80.0-100.0) 07/21/25 MCH 25.5 pg (25.0-34.0) 07/21/25 MCHC 31.6 g/dL (32.0-36.0) L 07/21/25 RDW Standard Deviation 47.1 fL (36.4-46.3) H 07/21/25 RDW Coefficient of Variation 16.1 % (11.5-14.5) H 07/21/25 Plt Count 132 K/uL (130-400) 07/21/25 MPV 10.5 fL (9.4-12.4) 07/21/25 Neutrophils (%) (Auto) 83.0 % 07/21/25 Lymphocytes (%) (Auto) 10.1 % 07/21/25 Monocytes # (Auto) 0.32 K/uL (0.11-0.59) 07/21/25 Eosinophils # (Auto) 0.01 K/uL (0.00-0.50) 07/21/25 Immature Granulocyte % (Auto) 0.4 % 07/21/25 Neutrophils # (Auto) 4.38 K/uL (1.40-6.50) 07/21/25 Lymphocytes # (Auto) 0.53 K/uL (1.20-3.40) L 07/21/25 Monocytes # (Auto) 0.32 K/uL (0.11-0.59) 07/21/25 Eosinophils # (Auto) 0.01 K/uL (0.00-0.50) 07/21/25 Basophils # (Auto) 0.01 K/uL (0.00-0.20) 07/21/25 Immature Granulocyte # (Auto) 0.02 K/uL (0.01-0.20) 5 Na 139 mmol/L (136-145) 07/21/25 K 3.6 mmol/L (3.5-5.1) 07/21/25 Cl 105 mmol/L (98-107) 07/21/25 CO2 23 mmol/L (21-32) 07/21/25 Anion Gap 11 (3-11) 07/21/25 BUN 28 mg/dl (6-23) H 07/21/25 Creatinine 1.02 mg/dl (0.6-1.2) 07/21/25 BUN/Creatinine Ratio 27.5 (10-20) H 07/21/25 Glu 175 mg/dl (70-99(Fasting)) H 07/21/25 Ca 8.3 mg/dl (8.6-10.3) L 07/21/25 Phosphorus Level 4.8 mg/dl (2.5-4.9) 07/21/25 Mg 2.4 mg/dl (1.7-2.4) 07/21/25 04:18 Calcium Level 8.3 mg/dl (8.6-10.3) L 07/21/25 04:18 Tone Test NA 07/21/25 04:17 Microbiology 07/19/25 19:34 Urine Culture - Final Urine,Straight Cath No growth - less than 1,000 colonies/mL. 07/19/25 17:30 Aerobic Blood Culture - Preliminary Blood No growth in Aerobic bottle after 24 hours. Anaerobic Blood Culture - Preliminary No growth in Anaerobic bottle after 24 hours. 07/19/25 17:50 Aerobic Blood Culture - Preliminary Blood No growth in Aerobic bottle after 24 hours. Anaerobic Blood Culture - Preliminary No growth in Anaerobic bottle after 24 hours. 07/20/25 04:54 Fungal Smear - Final Blood Diagnostic Findings (Past 24 Hours) Chest X-Ray 07/21/25 06:00 EXAM: XR chest 1V portable CLINICAL HISTORY: Eval lines/tubes/lung damon while intubated TECHNIQUE: An X-ray image of the chest is obtained in AP portable projection. COMPARISON: No prior studies are available for comparison. FINDINGS: Nasogastric tube seen projecting left infradiaphragmatic. The distal end is not appreciated. Endotracheal tube seen appears well-positioned 6.5 cm away from the reji. Right central venous line, tip projected over SVC, well placed Pulmonary Parenchyma: Nonhomogeneous opacity identified in both lower mid zones with blunting of both CP angles and silhouetting left hemidiaphragm and left heart border, suggestive of pulmonary infection /Pulmonary edema, along with minimal bilateral pleural effusion. Heart and Mediastinum: Heart size and shape are normal. No mediastinal widening or masses. No hilar or mediastinal lymphadenopathy. Bony Thorax: Bony thorax appears intact without fractures or deformities. Soft Tissues: Soft tissues overlying the chest wall are unremarkable. IMPRESSION: 1. Nasogastric tube seen projecting left infradiaphragmatic. The distal end is not appreciated. 2. Endotracheal tube seen appears well-positionedd 6.5 cm away from the reji. 3. Right central venous line, tip projected over SVC, well placed. 4. Findings suggesting pulmonary edema/ infectious process with bilateral pleural effusion, more on the left 5. No interval changes Electronically signed by Yonis Shah 07-21-2025 08:03 AM I & O Totals 24 Hours 07/20/25 07/21/25 07/22/25 06:59 06:59 06:59 Intake Total 943.487 / 872.516 9884.478 / 2061.478 540.896 / 540.896 Output Total 595 / 720 1910 / 191 175 / 175 Balance 348.487 / 223.487 151.478 / 151.478 365.896 / 365.896 Cumulative 07/19/25 16:48 thru 07/21/25 11:30 Intake Total 3545.861 Output Total 2680 Balance 865.861 RT Ventilator Mngmt (Last Documented) Ventilator Ordered Settings Ventilator Support Mode Assist Control 07/21/25 11:35 Respiratory Rate 17 07/21/25 11:51 Ventilator Tidal Volume 350 07/21/25 11:35 Setting Minute Ventilation 6.7 07/21/25 11:35 Ventilator Positive Pressure 5 07/20/25 16:00 Support Setting Positive End Expiratory 6 07/21/25 11:35 Pressure Fraction of Inspired Oxygen 30 07/21/25 11:35 Machine Comment dropped to PEEP of 6 at this time 07/21/25 02:03 Ventilator - PT Measurements Respiratory Rate 17 Exhaled Tidal Volume 358 Minute Ventilation 6.7 Peak Inspiratory Airway 23 Pressure Plateau Pressure 20 Respiratory Cycle Inspiratory: 1:3.8 Expiratory Ratio Inspiratory Phase Time 0.7 End-Tidal CO2 41 Static Lung Compliance 25.00 Dynamic Lung Compliance 21.06 Normal Static Lung Compliance 46.00 Patient Measurements Comment peep found on 8 Coding Level of Care Code 01476 SUB INP/OBS CARE 3/50MIN Diagnoses Acute heart failure I50.9 Heart block I45.9 Endotracheally intubated Z97.8 Acute hypoxemic respiratory failure J96.01 AMS (altered mental status) R41.82
--- NOTE | 2025-07-21 10:18 | Cardiology Progress Note ---
Date of Service July 21, 2025 Assessment & Plan (1) Symptomatic bradycardia: (2) Hypoxic respiratory failure: (3) Fever: (4) Sepsis: (5) Enterovirus infection: (6) Rhinovirus infection: Plan 75-year-old female with a history of COPD and chronic respiratory insufficiency due to restrictive lung mechanics in the setting of morbid obesity and past left lung lobectomy. Patient presents with confusion, fatigue and shortness of breath. Intubated on arrival for airways support due to hypoxia. She had been found to be febrile and in third degree AV block . She is not on AV malou blockers at baseline. TTecho 07/20/25: technically limited, LVEF 55-60%, moderate MAC. Underwent transvenous temporary pacemaker via right femoral vein approach by Dr Thakkar on 07/20/25. Plan: * Dopamine and phenylephrine weaned as of 2300 of 07/20/25 * Pacer paused at 5:33 am, with underlying 3rd degree AV Block still present. * Temperature improved at present, but received Tylenol for fever overnight. * Urine and blood cultures without growth thus far. * Potential sources of fever include viral respiratory infection, chronic leg wounds, UTI. * Continue broad spectrum antibiotics with daptomycin and ceftriaxone for now * Continue observation with temporary transvenous pacemaker in place. * SQ heparin for DVT prophylaxis. Deniz Bush, DO Admission and Anticipated Discharge Date Admission Date: July 19, 2025 Subjective Patient seen in cardiology follow up. Son, Ernesto , and great niece, Anoop, at bedside. Patient remains sedated and on the ventilator. Telemetry reveals ventricular pacing at 80s bpm. Physical Exam Physical Exam: Temp Pulse Resp BP Pulse Ox O2 Del Method O2 Flow Rate 36.9 C 80 26 H 88/52 L 100 Mechanical Vent 15 07/21/25 09:27 07/21/25 09:27 07/21/25 09:27 07/21/25 00:00 07/21/25 09:27 07/20/25 23:21 07/19/25 17:24 FiO2 30 07/21/25 08:00 Constitutional: + obese Neck: trachea midline, no thyromegaly Respiratory: Auscultation: + diminished lung sounds (decreased BS at the bases ) Cardiovascular: Rate/Rhythm: + bradycardic Heart Sounds: no murmur Vessels: no JVD Temp pacer with in right groin Gastrointestinal (Abdomen): normal bowel sounds, soft, nontender, no hepatosplenomegaly Genitourinary: Briggs catheter in place , draining clear yellow urine Coding Level of Care Code 52120 SUB INP/OBS CARE 2/35MIN Diagnoses Symptomatic bradycardia R00.1 Hypoxic respiratory failure J96.91 Fever R50.9 Sepsis A41.9 Enterovirus infection B34.1 Rhinovirus infection B34.8
[2025-07-21] MEDS: PANTOprazole 40 MG in SYRINGE DAILY IV SCH (10:53)
[2025-07-21] MEDS: Nursing to Pharmacy Communication SCH (11:51)
--- NOTE | 2025-07-21 17:12 | Hospitalist Progress Note ---
Date of Service July 21, 2025 Assessment & Plan (1) Symptomatic bradycardia: Plan: 75-year-old female past medical history significant for diabetes, dyslipidemia, chronic respiratory hypoxia on 3 L oxygen all the time, history of COPD, obstr uctive sleep apnea on CPAP/BiPAP, mixed restrictive and obstructive lung disease, multiple pulmonary nodules, hypertension, bilateral carotid bruits, chronic venous insufficiency, venous stasis ulcer, morbid obesity, urinary incontinence, necrobiosis lipoidica diabeticorum, blindness, able to see little bit with 1 eye as per son. Anemia, history of lung cancer status post partial lobectomy of lung, history of tobacco use, lives at home and ambulates with a walker was brought in because of confusion and hypoxia. Son is in the room. Son lives with the patient. But son is mostly out of the house for work. Patient gets home health for lower extremity wounds. Son states patient is having low heart rate since last couple of weeks. Son says patient recently was treated for respiratory infection with antibiotic. But since about a week patient is getting progressively weak and short of breath. Today she was very weak and not getting out of bed and also was feeling short of breath and c onfused and son called 911. For EMS patient was saturating in the 70s. She was placed on non breather mask and brought to the ER. In the ER patient was taking off the nonrebreather mask and she was confused. Patient is status post intubation in the ER. Her heart rate was in the 30s and 40s in the ER. She was spiking temperature. UA came back positive. VBG pH was 7.24. Electrolytes are okay. Lactic is 1.7. Creatinine 0.9. LFTs okay. Initial troponin 48 and repeat is 246. Procalcitonin 0.05. Respiratory BioFire came back positive for entero-/rhinovirus. CT head is okay. Chest x-ray possible pulmonary edema. Chest CT no obvious findings. KUB shows constipation. EKG high degree heart block. Discussed with cardiology and plan to start on dopamine drip and if does not improve plan for possible temporary pacemaker. Symptomatic bradycardia High degree heart block Not on any rate controlling medications Lyme screen negative Started on dopamine drip on admission Now s/p transvenous temporary pacemaker placement Close monitoring in the ICU Acute on chronic respiratory failure Possible acute CHF Patient chronically on 3 L oxygen / and CPAP/BiPAP nightly History of COPD History of sleep apnea History of restrictive lung disease Status post intubation Management as per critical care Possible sepsis Poss. UTI Lower extremity cellulitis Fever Leukocytosis Lactic acid okay UA is positive Received Rocephin in the ER on Rocephin and daptomycin now MRSA swab positive Blood cultx negat. so far Ucultx negat. LE cellulitis improving Close monitoring in the ICU Elevated troponin Possible demand ischemia Initial troponin 48 and repeat is 246 serial enzymes and echo ordered and repeat EKG Entero/rhinovirus infection Supportive care Droplet precautions Diabetes Hold home p.o. medications Sliding scale Will monitor Hyperlipidemia On statin Lower extremity edema Venous insufficiency At home on torsemide Diuretics as per cardiology and critical care Will check lower extremity Dopplers Lung cancer stage Ib non-small cell lung cancer Status post left upper lobectomy in 2017 Pulmonary nodules Follows with pulmonary DVT prophylaxis hep sub q Disposition ICU Full code Admission and Anticipated Discharge Date Admission Date: July 19, 2025 Subjective Pt seen in follow up, presented w/ encephalopathy, fever, Found to have high grade heart block, s/p transvenous pacer Currently in ICU, sedated, intubated + Rhinovirus Blood cultx negat. so far, Ucultx negative Review of Systems Review of Systems: Unobtainable due to cognitive status and Unobtainable due to endotracheal tube Physical Exam Physical Exam: General- morbidly obese elderly F , sedated & Intubated Head- atraumatic Eyes- sluggish reaction to light Lungs- clear to auscultation no obvious wheezing or crackles Heart- rrr; no murmur, no gallop. Abdomen- sluggish bowel sounds, soft, no distension Extremities- b/l lower extremity chronic venous stasis. Neuro- intubated and sedated. Results & Data Results & Data Vital Signs (Past 12 Hours) Vital Signs Temp Pulse Resp Pulse Ox O2 Del Method FiO2 07/21/25 16:51 37.0 C 80 18 93 07/21/25 16:45 37.0 C 80 18 100 07/21/25 16:42 37.0 C 80 19 91 07/21/25 16:36 37.0 C 80 16 95 07/21/25 16:30 37.0 C 80 21 94 07/21/25 16:27 37.0 C 80 18 94 07/21/25 16:21 37.0 C 80 18 95 07/21/25 16:15 37.0 C 80 18 94 07/21/25 16:12 37.0 C 80 18 93 07/21/25 16:06 37.1 C 80 17 95 07/21/25 16:00 37.1 C 80 18 96 07/21/25 16:00 80 07/21/25 16:00 30 07/21/25 15:57 37.1 C 80 18 96 07/21/25 15:51 37.1 C 80 18 96 07/21/25 15:45 37.1 C 80 18 96 07/21/25 15:42 37.1 C 80 18 95 07/21/25 15:36 37.1 C 80 18 96 07/21/25 15:30 37.1 C 80 18 98 07/21/25 15:27 37.1 C 80 18 97 07/21/25 15:21 37.2 C 80 18 98 07/21/25 15:15 37.2 C 80 18 98 07/21/25 15:12 37.2 C 80 18 97 07/21/25 15:06 37.2 C 80 18 97 07/21/25 15:05 80 18 97 30 07/21/25 15:00 37.2 C 80 18 98 07/21/25 14:57 37.2 C 80 18 98 07/21/25 14:51 37.2 C 80 15 98 07/21/25 14:45 37.2 C 80 19 97 07/21/25 14:42 37.1 C 80 17 96 07/21/25 14:36 37.1 C 80 17 99 07/21/25 14:30 37.1 C 80 15 97 07/21/25 14:27 37.1 C 80 17 98 07/21/25 14:21 37.1 C 80 15 98 07/21/25 14:15 37.1 C 80 16 99 07/21/25 14:12 37.1 C 80 18 97 07/21/25 14:07 36.4 C L 07/21/25 14:06 37.1 C 80 18 98 07/21/25 14:00 37.1 C 80 18 98 07/21/25 13:57 37.1 C 80 18 97 07/21/25 13:51 37.1 C 80 18 95 07/21/25 13:45 37.2 C 80 18 96 07/21/25 13:42 37.2 C 80 15 98 07/21/25 13:36 37.2 C 80 16 98 07/21/25 13:30 37.2 C 80 19 99 07/21/25 13:27 37.2 C 80 18 99 07/21/25 13:21 37.2 C 80 18 98 07/21/25 13:15 37.2 C 80 18 98 07/21/25 13:12 37.2 C 80 22 98 07/21/25 13:06 37.2 C 80 22 98 07/21/25 13:05 80 98 07/21/25 13:00 37.2 C 80 18 98 07/21/25 12:57 37.2 C 80 18 97 07/21/25 12:51 37.2 C 80 18 98 07/21/25 12:45 37.2 C 80 18 97 07/21/25 12:42 37.2 C 80 20 97 07/21/25 12:36 37.2 C 80 18 97 07/21/25 12:30 37.2 C 80 18 97 07/21/25 12:27 37.2 C 80 17 97 07/21/25 12:21 37.1 C 80 18 97 07/21/25 12:15 37.1 C 80 18 96 07/21/25 12:12 37.1 C 80 18 96 07/21/25 12:06 37.1 C 80 18 97 07/21/25 12:00 37.1 C 80 20 96 07/21/25 12:00 30 07/21/25 11:57 37.0 C 80 19 96 07/21/25 11:51 37.0 C 80 17 94 07/21/25 11:45 37.0 C 80 17 96 07/21/25 11:42 37.0 C 80 18 94 07/21/25 11:36 36.9 C 80 22 96 07/21/25 11:35 80 20 93 30 07/21/25 11:30 36.9 C 80 26 H 95 07/21/25 11:27 36.9 C 80 26 H 98 07/21/25 11:21 36.9 C 80 30 H 91 07/21/25 11:15 36.8 C 80 27 H 99 07/21/25 11:12 36.8 C 80 26 H 100 07/21/25 11:06 36.8 C 80 26 H 100 07/21/25 11:00 36.8 C 80 26 H 100 07/21/25 10:57 36.8 C 80 26 H 100 07/21/25 10:51 36.8 C 80 26 H 100 07/21/25 10:45 36.8 C 80 26 H 100 07/21/25 10:42 36.8 C 80 26 H 100 07/21/25 10:36 36.8 C 80 26 H 100 07/21/25 10:30 36.8 C 80 26 H 100 07/21/25 10:27 36.8 C 80 26 H 100 07/21/25 10:21 36.8 C 80 26 H 100 07/21/25 10:15 36.8 C 80 26 H 100 07/21/25 10:12 36.9 C 80 26 H 100 07/21/25 10:06 36.9 C 80 26 H 100 07/21/25 10:00 36.9 C 80 26 H 100 07/21/25 09:57 36.9 C 80 26 H 100 07/21/25 09:51 36.9 C 80 26 H 100 07/21/25 09:45 36.9 C 80 26 H 100 07/21/25 09:42 36.9 C 80 26 H 100 07/21/25 09:36 36.9 C 80 26 H 100 07/21/25 09:30 36.9 C 80 26 H 100 07/21/25 09:27 36.9 C 80 26 H 100 07/21/25 09:21 36.9 C 80 26 H 100 07/21/25 09:15 36.9 C 80 26 H 100 07/21/25 09:12 36.9 C 80 26 H 100 07/21/25 09:06 36.9 C 80 26 H 100 07/21/25 09:00 36.9 C 80 26 H 99 07/21/25 08:57 36.9 C 80 26 H 100 07/21/25 08:51 36.7 C 80 26 H 100 07/21/25 08:45 37.0 C 80 26 H 99 07/21/25 08:42 37.0 C 80 26 H 100 07/21/25 08:36 37.0 C 80 26 H 100 07/21/25 08:30 37.0 C 80 26 H 100 07/21/25 08:27 37.0 C 80 26 H 100 07/21/25 08:21 37.0 C 80 26 H 100 07/21/25 08:15 37.1 C 80 26 H 100 07/21/25 08:12 37.1 C 80 26 H 100 07/21/25 08:06 37.1 C 80 26 H 100 07/21/25 08:00 Mechanical Vent 30 07/21/25 08:00 37.1 C 80 26 H 100 07/21/25 08:00 30 07/21/25 08:00 80 07/21/25 07:57 37.1 C 80 26 H 100 07/21/25 07:51 37.1 C 80 26 H 100 07/21/25 07:45 37.1 C 80 26 H 100 07/21/25 07:42 37.1 C 80 26 H 100 07/21/25 07:36 37.1 C 80 26 H 97 07/21/25 07:30 Mechanical Vent 07/21/25 07:30 37.1 C 80 26 H 99 07/21/25 07:28 80 27 H 100 30 07/21/25 07:27 37.1 C 80 26 H 98 07/21/25 07:21 37.1 C 80 26 H 97 07/21/25 07:15 37.2 C 80 26 H 100 07/21/25 07:12 37.2 C 80 26 H 100 07/21/25 07:06 37.2 C 80 26 H 99 07/21/25 07:00 37.2 C 80 26 H 100 07/21/25 06:57 37.2 C 80 26 H 100 07/21/25 06:51 37.2 C 80 26 H 99 07/21/25 06:45 37.3 C 80 26 H 100 07/21/25 06:42 37.3 C 80 26 H 100 07/21/25 06:36 37.3 C 80 26 H 99 07/21/25 06:30 37.3 C 80 26 H 100 07/21/25 06:27 37.3 C 80 26 H 100 07/21/25 06:21 37.3 C 80 26 H 100 07/21/25 06:15 37.4 C 80 26 H 100 07/21/25 06:12 37.4 C 80 26 H 100 07/21/25 06:06 37.4 C 80 26 H 100 07/21/25 06:00 37.4 C 80 26 H 100 07/21/25 05:57 37.4 C 80 26 H 100 07/21/25 05:51 37.4 C 80 26 H 100 07/21/25 05:45 37.4 C 80 26 H 99 07/21/25 05:42 37.4 C 80 26 H 100 07/21/25 05:36 37.4 C 37 L 26 H 98 07/21/25 05:30 37.5 C 80 26 H 99 07/21/25 05:27 37.5 C 80 26 H 99 07/21/25 05:21 37.5 C 80 26 H 99 07/21/25 05:15 37.5 C 80 26 H 98 07/21/25 05:12 37.5 C 80 26 H 98 Laboratory Results 07/21/25 07/21/25 07/21/25 Range/Units 12:56 12:05 05:52 WBC 5.27 (4.8-10.8) K/ul RBC 3.37 L (4.20-5.40) M/uL Hgb 9.0 L 8.6 L (12.0-16.0) g/dL POC Hgb (12.0-16.0) g/dl Hct 27.2 L (37.0-47.0) % POC Hct (37-47) % MCV 80.7 (80.0-100.0) fL MCH 25.5 (25.0-34.0) pg MCHC 31.6 L (32.0-36.0) g/dL RDW Std Deviation 47.1 H (36.4-46.3) fL RDW Coeff of Olivia 16.1 H (11.5-14.5) % Plt Count 132 (130-400) K/uL MPV 10.5 (9.4-12.4) fL Immature Gran % (Auto) 0.4 % Neut % (Auto) 83.0 % Lymph % (Auto) 10.1 % Hartley % (Auto) 6.1 % Eos % (Auto) 0.2 % Baso % (Auto) 0.2 % Neut # (Auto) 4.38 (1.40-6.50) K/uL Lymph # (Auto) 0.53 L (1.20-3.40) K/uL Hartley # (Auto) 0.32 (0.11-0.59) K/uL Eos # (Auto) 0.01 (0.00-0.50) K/uL Baso # (Auto) 0.01 (0.00-0.20) K/uL Immature Gran # (Auto) 0.02 (0.01-0.20) K/uL Specimen Type Sample Site POC pH (7.35-7.45) POC pCO2 (35-46) mmHg POC pO2 (80-95) mmHg POC HCO3 (19-24) mmol/L POC Total CO2 (24-31) mmol/L POC Base Excess (-9-1.8) mmol/L O2 Sat Pulse Oximetry ABG pH (Temp Correct) (7.35-7.45) ABG pCO2 (Temp Corrct (35-46) mmHg POC ABG pO2 at Pt Temp POC ABG O2 Sat (90-95) % Tone Test O2 Delivery Device Vent Mode POC FiO2 % End Tidal CO2 POC Sodium (135-144) mmol/L Sodium (136-145) mmol/L POC Potassium (3.3-5.0) mmol/L Potassium (3.5-5.1) mmol/L Chloride (98-107) mmol/L Carbon Dioxide (21-32) mmol/L Anion Gap (3-11) BUN (6-23) mg/dl Creatinine (0.6-1.2) mg/dl Est Cr Clr Drug Dosing ml/min eGFR BUN/Creatinine Ratio (10-20) Glucose (70-99(Fasting)) mg/dl POC Glucose (70-99) mg/dl POC Glucose (other) 149 H (70-99) mg/dl Lactate (0.4-2.0) mmol/L Calcium (8.6-10.3) mg/dl Phosphorus (2.5-4.9) mg/dl Magnesium (1.7-2.4) mg/dl Troponin I High Sens (0-14) pg/ml Blood Type O Negative Antibody Screen NEGATIVE 07/21/25 07/21/25 07/21/25 Range/Units 05:41 04:18 04:17 WBC 5.38 (4.8-10.8) K/ul RBC 3.41 L (4.20-5.40) M/uL Hgb 8.8 L (12.0-16.0) g/dL POC Hgb 8.8 L (12.0-16.0) g/dl Hct 27.6 L (37.0-47.0) % POC Hct 26 L (37-47) % MCV 80.9 (80.0-100.0) fL MCH 25.8 (25.0-34.0) pg MCHC 31.9 L (32.0-36.0) g/dL RDW Std Deviation 47.3 H (36.4-46.3) fL RDW Coeff of Olivia 16.0 H (11.5-14.5) % Plt Count 125 L (130-400) K/uL MPV 10.4 (9.4-12.4) fL Immature Gran % (Auto) 0.4 % Neut % (Auto) 81.9 % Lymph % (Auto) 9.7 % Hartley % (Auto) 7.4 % Eos % (Auto) 0.4 % Baso % (Auto) 0.2 % Neut # (Auto) 4.41 (1.40-6.50) K/uL Lymph # (Auto) 0.52 L (1.20-3.40) K/uL Hartley # (Auto) 0.40 (0.11-0.59) K/uL Eos # (Auto) 0.02 (0.00-0.50) K/uL Baso # (Auto) 0.01 (0.00-0.20) K/uL Immature Gran # (Auto) 0.02 (0.01-0.20) K/uL Specimen Type Arterial Sample Site Art Line POC pH 7.37 (7.35-7.45) POC pCO2 39 (35-46) mmHg POC pO2 70 L (80-95) mmHg POC HCO3 23 (19-24) mmol/L POC Total CO2 24 (24-31) mmol/L POC Base Excess -3.0 (-9-1.8) mmol/L O2 Sat Pulse Oximetry 95 ABG pH (Temp Correct) 7.361 (7.35-7.45) ABG pCO2 (Temp Corrct 40 (35-46) mmHg POC ABG pO2 at Pt Temp 74 POC ABG O2 Sat 93.0 (90-95) % Tone Test NA O2 Delivery Device Ventilator Vent Mode AC POC FiO2 30 % End Tidal CO2 35 POC Sodium 137 (135-144) mmol/L Sodium 139 (136-145) mmol/L POC Potassium 3.5 (3.3-5.0) mmol/L Potassium 3.6 (3.5-5.1) mmol/L Chloride 105 (98-107) mmol/L Carbon Dioxide 23 (21-32) mmol/L Anion Gap 11 (3-11) BUN 28 H (6-23) mg/dl Creatinine 1.02 D (0.6-1.2) mg/dl Est Cr Clr Drug Dosing 64.7 ml/min eGFR 58.09 BUN/Creatinine Ratio 27.5 H (10-20) Glucose 175 H (70-99(Fasting)) mg/dl POC Glucose 150 H (70-99) mg/dl POC Glucose (other) (70-99) mg/dl Lactate 1.7 (0.4-2.0) mmol/L Calcium 8.3 L (8.6-10.3) mg/dl Phosphorus 4.8 D (2.5-4.9) mg/dl Magnesium 2.4 (1.7-2.4) mg/dl Troponin I High Sens (0-14) pg/ml Blood Type Antibody Screen 07/21/25 07/20/25 07/20/25 Range/Units 00:56 19:02 17:21 WBC (4.8-10.8) K/ul RBC (4.20-5.40) M/uL Hgb (12.0-16.0) g/dL POC Hgb (12.0-16.0) g/dl Hct (37.0-47.0) % POC Hct (37-47) % MCV (80.0-100.0) fL MCH (25.0-34.0) pg MCHC (32.0-36.0) g/dL RDW Std Deviation (36.4-46.3) fL RDW Coeff of Olivia (11.5-14.5) % Plt Count (130-400) K/uL MPV (9.4-12.4) fL Immature Gran % (Auto) % Neut % (Auto) % Lymph % (Auto) % Hartley % (Auto) % Eos % (Auto) % Baso % (Auto) % Neut # (Auto) (1.40-6.50) K/uL Lymph # (Auto) (1.20-3.40) K/uL Hartley # (Auto) (0.11-0.59) K/uL Eos # (Auto) (0.00-0.50) K/uL Baso # (Auto) (0.00-0.20) K/uL Immature Gran # (Auto) (0.01-0.20) K/uL Specimen Type Sample Site POC pH (7.35-7.45) POC pCO2 (35-46) mmHg POC pO2 (80-95) mmHg POC HCO3 (19-24) mmol/L POC Total CO2 (24-31) mmol/L POC Base Excess (-9-1.8) mmol/L O2 Sat Pulse Oximetry ABG pH (Temp Correct) (7.35-7.45) ABG pCO2 (Temp Corrct (35-46) mmHg POC ABG pO2 at Pt Temp POC ABG O2 Sat (90-95) % Tone Test O2 Delivery Device Vent Mode POC FiO2 % End Tidal CO2 POC Sodium (135-144) mmol/L Sodium (136-145) mmol/L POC Potassium (3.3-5.0) mmol/L Potassium (3.5-5.1) mmol/L Chloride (98-107) mmol/L Carbon Dioxide (21-32) mmol/L Anion Gap (3-11) BUN (6-23) mg/dl Creatinine (0.6-1.2) mg/dl Est Cr Clr Drug Dosing ml/min eGFR BUN/Creatinine Ratio (10-20) Glucose (70-99(Fasting)) mg/dl POC Glucose 132 H 146 H (70-99) mg/dl POC Glucose (other) (70-99) mg/dl Lactate (0.4-2.0) mmol/L Calcium (8.6-10.3) mg/dl Phosphorus (2.5-4.9) mg/dl Magnesium (1.7-2.4) mg/dl Troponin I High Sens 164.0 H* D (0-14) pg/ml Blood Type Antibody Screen Medications Administered Current Inpatient Medications Albuterol (Albuterol 0.083% Nebu Soln 3 Ml Vial) 2.5 mg NEB Q6R [facility]; Protocol Stop: 08/18/25 22:44 Last Admin: 07/21/25 13:05 Dose: 2.5 mg Albuterol (Albut/Ipratrop 3mg/0.5mg Neb 3 Ml Vial) 3 ml NEB Q4R PRN; Protocol PRN Reason: Wheezing Stop: 08/20/25 07:59 Dextrose (Dextrose 50% 50 Ml Syringe) 25 - 50 ml IV UD PRN; Protocol PRN Reason: Hypoglycemia Protocol Stop: 08/18/25 22:28 Fentanyl Citrate (Fentanyl Bolus From Bag) 50 mcg IV Q60M PRN PRN Reason: Pain or Agitation Stop: 08/02/25 17:56 Last Admin: 07/21/25 03:47 Dose: 50 mcg Glucagon (Glucagon For Inj 1 Mg Vial) 1 mg SQ UD PRN; Protocol PRN Reason: Hypoglycemia Protocol Stop: 08/18/25 22:28 Glucose (Glucose 40% Gel 15 Gm Tube) 15 - 30 gm PO UD PRN; Protocol PRN Reason: Hypoglycemia Protocol Stop: 08/18/25 22:28 Glucose (Glucose 10 Tab/Tube) 4 - 8 tab PO UD PRN; Protocol PRN Reason: Hypoglycemia Protocol Stop: 08/18/25 22:28 Heparin Sodium (Porcine) (Heparin Sod 5,000 Unit/0.5 Ml Vial) 5,000 units SQ Q8 [facility] Stop: 08/19/25 05:59 Last Admin: 07/21/25 14:39 Dose: 5,000 units Propofol (Diprivan) 1,000 mg in 100 mls @ 28.791 mls/hr IV .Q3H29M [facility]; Protocol Stop: 07/22/25 17:29 Last Admin: 07/21/25 16:59 Dose: 40 mcg/kg/min, 32.9 mls/hr Fentanyl Citrate (Fentanyl Citrate) 2,500 mcg in 250 mls @ 5 mls/hr IV .Q50H S ; Protocol Stop: 08/02/25 17:59 Last Titration: 07/21/25 11:29 Dose: 50 mcg/hr, 5 mls/hr Daptomycin 500 mg/ Syringe 10 mls @ 5 mls/min IV Q24H [facility]; Protocol Stop: 07/26/25 23:29 Last Admin: 07/21/25 00:00 Dose: 5 mls/min Ceftriaxone Sodium (Rocephin) 2,000 mg in 50 mls @ 100 mls/hr IV Q12H [facility]; Protocol Stop: 07/22/25 23:59 Last Infusion: 07/21/25 06:18 Dose: Infused Acetaminophen (Ofirmev) 1,000 mg in 100 mls @ 400 mls/hr IV Q8H PRN PRN Reason: pain/fever Stop: 07/22/25 22:38 Last Infusion: 07/21/25 02:28 Dose: Infused Pantoprazole Sodium (Protonix) 40 mg in 10 mls @ 5 mls/min IV DAILY [facility] Stop: 08/20/25 09:59 Last Admin: 07/21/25 10:53 Dose: 5 mls/min Insulin Aspart (Insulin Aspart Per Unit Charge) 0 units SC Q6 [facility] Stop: 08/18/25 22:28 Last Admin: 07/21/25 13:03 Dose: Not Given Miscellaneous (Carbohydrates For Hypoglycemia ) 15 - 30 gm PO UD PRN PRN Reason: Hypoglycemia Protocol Stop: 08/18/25 22:28 Miscellaneous (Icu Electrolyte Replacement Protocol) 1 each N/A BID@06,18 [facility]; Protocol Stop: 07/27/25 05:59 Last Admin: 07/21/25 05:49 Dose: 1 each Nystatin (Nystatin Powder 15gm Btl) 1 appln EXT BID [facility] Stop: 08/18/25 22:59 Last Admin: 07/21/25 09:58 Dose: 1 appln Propofol (Propofol Bolus From Bag) 20 mg IV Q5M PRN PRN Reason: Sedation Stop: 07/22/25 17:26 Last Admin: 07/21/25 13:50 Dose: 20 mg
[2025-07-22 04:29] LABS: Hematocrit (blood only) 27.4 % (37.0-47.0); Hemoglobin 8.5 g/dL (12.0-16.0); Immature Granulocytes # (auto) 0.01 K/uL (0.01-0.20); Immature Granulocytes % (auto) 0.2 %; Mean Corpuscular Hemoglobin 25.4 pg (25.0-34.0); Mean Corpuscular Volume 82.0 fL (80.0-100.0); Platelet Count 132 K/uL (130-400); RDW Standard Deviation 49.3 fL (36.4-46.3); Red Blood Count 3.34 M/uL (4.20-5.40); White Blood Count 5.51 K/ul (4.8-10.8)
[2025-07-22 04:43] LABS: Anion Gap 8.0 (3-11); Blood Urea Nitrogen 28.0 mg/dl (6-23); Calcium 8.4 mg/dl (8.6-10.3); Carbon Dioxide 24.0 mmol/L (21-32); Chloride 106.0 mmol/L (98-107); Creatinine Clr Calc Pharmacy 75.9 ml/min; Glucose 157.0 mg/dl (70-99(Fasting)); Magnesium 2.6 mg/dl (1.7-2.4); Potassium 3.8 mmol/L (3.5-5.1); Sodium 138.0 mmol/L (136-145)
--- NOTE | 2025-07-22 05:15 | Communication Note ---
Date of Service: July 22, 2025 Called to bedside for loss of capture on TVP. Nursing reports they laid her head back for positioning. On arrival monitor with HR 39, pacer spikes being delivered without capture. - Patient site evaluated, introducer and wire/sterile cover appear to be well secured, balloon port locked, and introducer locked, connection to wire and to box are intact, also disconnected and reconnected to ensure connection to box was tight. Patient rolled on her left side, MA increased to max 25, rate increased to 100 and remain without capture. Sensing is appropriate. - Labs reviewed- electrolytes stable, HCO3 stable - BP remains stable at 150-160s systolic with MAPS 70.s - Discussed on phone with internship Dr. Franks as surveyor oil well directional provider- As she is hemodynamically stable at this time continue to monitor and Dr. Thakkar should be in house soon to eval. Dr. Thakkar notified via tiger as well, who initially placed TVP with PPM placement was hopeful to be placed today. Juan CARPENTER ([facility]-)
[2025-07-22] MEDS: POTASSIUM CHLORIDE / WTR 20 MEQ/100 ML PLCT IV ONE (05:35)
--- NOTE | 2025-07-22 07:57 | XRay Report ---
EXAM: XR chest 1V portable CLINICAL HISTORY: Eval lines/tubes/lung damon while intubated TECHNIQUE: An X-ray image of the chest is obtained in AP projection. COMPARISON: 07/21/2025 CR reviewed. FINDINGS: Nasogastric tube redemonstrated projecting left infradiaphragmatic. The distal end is not appreciated. Endotracheal tube redemonstrated and 5.5 cm away from the reji. Right central venous line, tip projected over SVC, well placed Pulmonary Parenchyma: Technically rotated. Bilateral hilar congestion with perihilar interstitial prominence and haziness in bilateral lower zones, suggesting changes of pulmonary edema with interval progression. Blunting of the bilateral costophrenic angles, suggesting usual effusion with underlying atelectasis/consolidation, more so on the left side. Interval airspace opacification is noted in the right lower zone. Heart and Mediastinum: Heart size cannot be commented upon due to AP projection. Atherosclerotic calcification in the aortic knuckle. Bony Thorax: Bony thorax appears intact without fractures or deformities. Soft Tissues: Soft tissues overlying the chest wall are unremarkable. IMPRESSION: 1. Interval progression in the changes of pulmonary edema is detailed above. 2. Interval airspace opacification is noted in the right lower zone (new). 3. Needs clinical correlation and follow-up. 4. Lines and tubes are redemonstrated in place. Electronically signed by Yonis Shah 07-22-2025 07:57 AM
--- NOTE | 2025-07-22 08:31 | Critical Care Progress Note ---
Date of Service July 22, 2025 Assessment & Plan (1) Acute heart failure: (2) Heart block: (3) Endotracheally intubated: (4) Acute hypoxemic respiratory failure: (5) AMS (altered mental status): Plan Impression: 75 YOF hypoxic respiratory failure requiring emergent/urgent intubation, in setting of bradycardia with concern for high grade block likely resulting in acute heart failure, also associated with entero/rhinovirus and UTI. 24-hour events: Patient now afebrile. Hemodynamically stable off pressors. Temporary pacemaker lost capture early this morning and was unable to be repositioned. Patient has a heart rate in the 40s but is hemodynamically stable and has not required pressor agents. Recommendations: Neuro -sedated on propofol and fentanyl. HX: single eye blindness. Nonfocal exam prior to intubation so we will hold on additional imaging. Suspect potentially metabolic etiology for the patient's encephalopathy and altered mental status. Will assess with sedation break once cardiovascular issues resolved. Will keep the patient sedated until her cardiac issues are resolved and able to liberate from mechanical ventilation. Cardiac -third-degree heart block. Appreciate cardiology consultation. Temporary pacing wire not currently capturing. Plan to proceed with permanent pacemaker today. Respiratory - Acute hypoxic respiratory failure requiring emergent intubation, CLYDE. Minimal vent settings. Once the pacing wires removed and the patient can sit up, will pursue SBT. Will likely need to extubate to some form of CPAP or BiPAP. Will need aggressive pulmonary toilet. Appreciate cardiology ongoing assistance GI - No acute needs. Continue PPI. Should be able to liberate from mechanical ventilation, if not consider enteral feeding RENAL/LYTES -creatinine back to normal. Acid-base status and electrolytes stable. Volume status difficult to assess but will hold off on diuretics for now - UTI see below - Keep rodriguez while intubated and sedated ENDO - DMII - ICU hyper/hypoglycemic protocol HEME -mild anemia. No indication for transfusion. No evidence of acute ongoing blood loss. ID -fever resolved.. Cultures negative to date. Procalcitonin negative. Positive BioFire for enterovirus/rhinovirus. Complete 5-day course of daptomycin and Rocephin given need for invasive indwelling vascular device. Continue for now. LINES/IV ACCESS - PIV, ETT, Rodriguez. Central line and arterial line placed today. Right groin TVP. Continue use of these lines. DVT PROPHYLAXIS - SCDS. Continue subcu heparin GI PROPHYLAXIS- PPI DISPO: ICU until hemodynamics and electrical rhythm proven stable and improved without chronotropics/vasopressors/inotrope. Admission and Anticipated Discharge Date Admission Date: July 19, 2025 Subjective Intubated and sedated Review of Systems Review of Systems: Unobtainable due to endotracheal tube Physical Exam Constitutional: + morbidly obese and + mechanically vent ilated Neck: trachea midline, no thyromegaly Respiratory: symmetric chest movement; no respiratory distress, no labored breathing, no cough and not tachypneic Cardiovascular: Rate/Rhythm: regular rhythm and + bradycardic Heart Sounds: normal S1 and normal S2; no murmur Gastrointestinal (Abdomen): normal bowel sounds, soft, nontender, no hepatosplenomegaly Musculoskeletal: Extremities: extremities normal to inspection Skin: no rashes, warm and dry Neurologic: Sedated Lymphatic: no cervical lymphadenopathy Results & Data Results & Data Vital Signs (Past 12 Hours) Vital Signs Temp Pulse Resp BP Pulse Ox Pulse Ox O2 Del Method 07/22/25 07:28 37 L 18 95 07/22/25 05:00 37.5 C 41 L 18 100 Mechanical Vent 07/22/25 04:54 37.5 C 39 L 18 07/22/25 04:51 37.5 C 40 L 18 96 Mechanical Vent 07/22/25 04:43 100/52 L 07/22/25 04:42 37.4 C 39 L 17 94 Mechanical Vent 07/22/25 04:37 108/53 L 07/22/25 04:36 37.4 C 38 L 18 92 Mechanical Vent 07/22/25 04:30 37.4 C 80 18 92 Mechanical Vent 07/22/25 04:00 37.5 C 80 18 96 Mechanical Vent 07/22/25 04:00 07/22/25 04:00 40 L 07/22/25 03:30 37.5 C 80 17 98 Mechanical Vent 07/22/25 03:00 37.5 C 80 17 94 Mechanical Vent 07/22/25 02:30 37.6 C H 80 18 98 Mechanical Vent 07/22/25 02:15 80 18 96 07/22/25 02:07 37.5 C 80 16 100 Mechanical Vent 07/22/25 01:30 37.6 C H 80 18 95 Mechanical Vent 07/22/25 01:00 37.6 C H 80 18 95 Mechanical Vent 07/22/25 00:30 37.7 C H 80 19 91 Mechanical Vent 07/22/25 00:00 37.7 C H 80 17 96 Mechanical Vent 07/22/25 00:00 07/22/25 00:00 80 07/22/25 00:00 80 07/21/25 23:52 80 19 90 07/21/25 23:30 37.7 C H 80 19 91 Mechanical Vent 07/21/25 23:00 37.7 C H 80 18 91 Mechanical Vent 07/21/25 22:30 37.6 C H 80 17 96 Mechanical Vent 07/21/25 22:29 91 07/21/25 22:00 37.0 C 80 17 97 Mechanical Vent 07/21/25 21:30 37.3 C 80 16 97 Mechanical Vent 07/21/25 21:00 37.2 C 80 15 97 Mechanical Vent O2 Del Method FiO2 07/22/25 07:28 30 07/22/25 05:00 30 07/22/25 04:54 07/22/25 04:51 30 07/22/25 04:43 07/22/25 04:42 30 07/22/25 04:37 07/22/25 04:36 30 07/22/25 04:30 30 07/22/25 04:00 30 07/22/25 04:00 30 07/22/25 04:00 07/22/25 03:30 30 07/22/25 03:00 30 07/22/25 02:30 30 07/22/25 02:15 30 07/22/25 02:07 30 07/22/25 01:30 30 07/22/25 01:00 30 07/22/25 00:30 30 07/22/25 00:00 30 07/22/25 00:00 30 07/22/25 00:00 07/22/25 00:00 07/21/25 23:52 30 07/21/25 23:30 30 07/21/25 23:00 30 07/21/25 22:30 30 07/21/25 22:29 Mechanical Vent 07/21/25 22:00 30 07/21/25 21:30 30 07/21/25 21:00 30 Critical Care Results & Data Vital Signs (Past 12 Hours) Vital Signs Temp Pulse Resp BP Pulse Ox Pulse Ox O2 Del Method 07/22/25 07:28 37 L 18 95 07/22/25 05:00 37.5 C 41 L 18 100 Mechanical Vent 07/22/25 04:54 37.5 C 39 L 18 07/22/25 04:51 37.5 C 40 L 18 96 Mechanical Vent 07/22/25 04:43 100/52 L 07/22/25 04:42 37.4 C 39 L 17 94 Mechanical Vent 07/22/25 04:37 108/53 L 07/22/25 04:36 37.4 C 38 L 18 92 Mechanical Vent 07/22/25 04:30 37.4 C 80 18 92 Mechanical Vent 07/22/25 04:00 37.5 C 80 18 96 Mechanical Vent 07/22/25 04:00 07/22/25 04:00 40 L 07/22/25 03:30 37.5 C 80 17 98 Mechanical Vent 07/22/25 03:00 37.5 C 80 17 94 Mechanical Vent 07/22/25 02:30 37.6 C H 80 18 98 Mechanical Vent 07/22/25 02:15 80 18 96 07/22/25 02:07 37.5 C 80 16 100 Mechanical Vent 07/22/25 01:30 37.6 C H 80 18 95 Mechanical Vent 07/22/25 01:00 37.6 C H 80 18 95 Mechanical Vent 07/22/25 00:30 37.7 C H 80 19 91 Mechanical Vent 07/22/25 00:00 37.7 C H 80 17 96 Mechanical Vent 07/22/25 00:00 07/22/25 00:00 80 07/22/25 00:00 80 07/21/25 23:52 80 19 90 07/21/25 23:30 37.7 C H 80 19 91 Mechanical Vent 07/21/25 23:00 37.7 C H 80 18 91 Mechanical Vent 07/21/25 22:30 37.6 C H 80 17 96 Mechanical Vent 07/21/25 22:29 91 07/21/25 22:00 37.0 C 80 17 97 Mechanical Vent 07/21/25 21:30 37.3 C 80 16 97 Mechanical Vent 07/21/25 21:00 37.2 C 80 15 97 Mechanical Vent O2 Del Method FiO2 07/22/25 07:28 30 07/22/25 05:00 30 07/22/25 04:54 07/22/25 04:51 30 07/22/25 04:43 07/22/25 04:42 30 07/22/25 04:37 07/22/25 04:36 30 07/22/25 04:30 30 07/22/25 04:00 30 07/22/25 04:00 30 07/22/25 04:00 07/22/25 03:30 30 07/22/25 03:00 30 07/22/25 02:30 30 07/22/25 02:15 30 07/22/25 02:07 30 07/22/25 01:30 30 07/22/25 01:00 30 07/22/25 00:30 30 07/22/25 00:00 30 07/22/25 00:00 30 07/22/25 00:00 07/22/25 00:00 07/21/25 23:52 30 07/21/25 23:30 30 07/21/25 23:00 30 07/21/25 22:30 30 07/21/25 22:29 Mechanical Vent 07/21/25 22:00 30 07/21/25 21:30 30 07/21/25 21:00 30 Lab & Micro Results (Past 24 Hours) RBC 3.34 M/uL (4.20-5.40) L 07/22/25 WBC 5.51 K/ul (4.8-10.8) 07/22/25 Hgb 8.5 g/dL (12.0-16.0) L 07/22/25 Hct 27.4 % (37.0-47.0) L 07/22/25 MCV 82.0 fL (80.0-100.0) 07/22/25 MCH 25.4 pg (25.0-34.0) 07/22/25 MCHC 31.0 g/dL (32.0-36.0) L 07/22/25 RDW Standard Deviation 49.3 fL (36.4-46.3) H 07/22/25 RDW Coefficient of Variation 16.4 % (11.5-14.5) H 07/22/25 Plt Count 132 K/uL (130-400) 07/22/25 MPV 10.8 fL (9.4-12.4) 07/22/25 Neutrophils (%) (Auto) 83.6 % 07/22/25 Lymphocytes (%) (Auto) 8.0 % 07/22/25 Monocytes # (Auto) 0.37 K/uL (0.11-0.59) 07/22/25 Eosinophils # (Auto) 0.07 K/uL (0.00-0.50) 07/22/25 Immature Granulocyte % (Auto) 0.2 % 07/22/25 Neutrophils # (Auto) 4.61 K/uL (1.40-6.50) 07/22/25 Lymphocytes # (Auto) 0.44 K/uL (1.20-3.40) L 07/22/25 Monocytes # (Auto) 0.37 K/uL (0.11-0.59) 07/22/25 Eosinophils # (Auto) 0.07 K/uL (0.00-0.50) 07/22/25 Basophils # (Auto) 0.01 K/uL (0.00-0.20) 07/22/25 Immature Granulocyte # (Auto) 0.01 K/uL (0.01-0.20) 5 Na 138 mmol/L (136-145) 07/22/25 K 3.8 mmol/L (3.5-5.1) 07/22/25 Cl 106 mmol/L (98-107) 07/22/25 CO2 24 mmol/L (21-32) 07/22/25 Anion Gap 8 (3-11) 07/22/25 BUN 28 mg/dl (6-23) H 07/22/25 Creatinine 0.87 mg/dl (0.6-1.2) 07/22/25 BUN/Creatinine Ratio 32.2 (10-20) H 07/22/25 Glu 157 mg/dl (70-99(Fasting)) H 07/22/25 Ca 8.4 mg/dl (8.6-10.3) L 07/22/25 Phosphorus Level 4.6 mg/dl (2.5-4.9) 07/22/25 2 Mg 2.6 mg/dl (1.7-2.4) H 07/22/25 03:56 Calcium Level 8.4 mg/dl (8.6-10.3) L 07/22/25 03:56 Microbiology 07/19/25 17:30 Aerobic Blood Culture - Preliminary Blood No growth in Aerobic bottle after 48 hours. Anaerobic Blood Culture - Preliminary No growth in Anaerobic bottle after 48 hours. 07/19/25 17:50 Aerobic Blood Culture - Preliminary Blood No growth in Aerobic bottle after 48 hours. Anaerobic Blood Culture - Preliminary No growth in Anaerobic bottle after 48 hours. 07/19/25 19:34 Urine Culture - Final Urine,Straight Cath No growth - less than 1,000 colonies/mL. Diagnostic Findings (Past 24 Hours) Chest X-Ray 07/22/25 06:00 EXAM: XR chest 1V portable CLINICAL HISTORY: Eval lines/tubes/lung damon while intubated TECHNIQUE: An X-ray image of the chest is obtained in AP projection. COMPARISON: 07/21/2025 CR reviewed. FINDINGS: Nasogastric tube redemonstrated projecting left infradiaphragmatic. The distal end is not appreciated. Endotracheal tube redemonstrated and 5.5 cm away from the reji. Right central venous line, tip projected over SVC, well placed Pulmonary Parenchyma: Technically rotated. Bilateral hilar congestion with perihilar interstitial prominence and haziness in bilateral lower zones, suggesting changes of pulmonary edema with interval progression. Blunting of the bilateral costophrenic angles, suggesting usual effusion with underlying atelectasis/consolidation, more so on the left side. Interval airspace opacification is noted in the right lower zone. Heart and Mediastinum: Heart size cannot be commented upon due to AP projection. Atherosclerotic calcification in the aortic knuckle. Bony Thorax: Bony thorax appears intact without fractures or deformities. Soft Tissues: Soft tissues overlying the chest wall are unremarkable. IMPRESSION: 1. Interval progression in the changes of pulmonary edema is detailed above. 2. Interval airspace opacification is noted in the right lower zone (new). 3. Needs clinical correlation and follow-up. 4. Lines and tubes are redemonstrated in place. Electronically signed by Yonis Shah 07-22-2025 07:57 AM I & O Totals 24 Hours 07/21/25 07/22/25 07/23/25 06:59 06:59 06:59 Intake Total 2060.478 / 2061.478 1257.753 / 1257.753 133.344 / 133.344 Output Total 1910 / 1910 1205 / 1205 Balance 151.478 / 151.478 52.753 / 52.753 133.344 / 133.344 Cumulative 07/19/25 16:48 thru 07/22/25 07:39 Intake Total 4396.062 Output Total 3710 Balance 686.062 RT Ventilator Mngmt (Last Documented) Ventilator Ordered Settings Ventilator Support Mode Assist Control 07/22/25 0 7:28 Respiratory Rate 18 07/22/25 07:28 Ventilator Tidal Volume 350 07/22/25 07:28 Setting Minute Ventilation 6.3 07/22/25 07:28 Ventilator Positive Pressure 5 07/20/25 16:00 Support Setting Positive End Expiratory 6 07/22/25 07:28 Pressure Fraction of Inspired Oxygen 30 07/22/25 07:28 Machine Comment dropped to PEEP of 6 at this time 07/21/25 02:03 Ventilator - PT Measurements Respiratory Rate 18 Exhaled Tidal Volume 353 Minute Ventilation 6.3 Peak Inspiratory Airway 25 Pressure Plateau Pressure 21 Respiratory Cycle Inspiratory: 1:3.8 Expiratory Ratio Inspiratory Phase Time 0.7 End-Tidal CO2 41 Static Lung Compliance 23.53 Dynamic Lung Compliance 18.58 Normal Static Lung Compliance 45.00 Patient Measurements Comment peep found on 8 Coding Level of Care Code 60483 SUB INP/OBS CARE 3/50MIN Diagnoses Acute heart failure I50.9 Heart block I45.9 Endotracheally intubated Z97.8 Acute hypoxemic respiratory failure J96.01 AMS (altered mental status) R41.82
--- NOTE | 2025-07-22 08:41 | Hospitalist Progress Note ---
Date of Service July 22, 2025 Assessment & Plan (1) Symptomatic bradycardia: Plan: 75-year-old female past medical history significant for diabetes, dyslipidemia, chronic respiratory hypoxia on 3 L oxygen all the time, history of COPD, obstr uctive sleep apnea on CPAP/BiPAP, mixed restrictive and obstructive lung disease, multiple pulmonary nodules, hypertension, bilateral carotid bruits, chronic venous insufficiency, venous stasis ulcer, morbid obesity, urinary incontinence, necrobiosis lipoidica diabeticorum, blindness, able to see little bit with 1 eye as per son. Anemia, history of lung cancer status post partial lobectomy of lung, history of tobacco use, lives at home and ambulates with a walker was brought in because of confusion and hypoxia. Son is in the room. Son lives with the patient. But son is mostly out of the house for work. Patient gets home health for lower extremity wounds. Son states patient is having low heart rate since last couple of weeks. Son says patient recently was treated for respiratory infection with antibiotic. But since about a week patient is getting progressively weak and short of breath. Today she was very weak and not getting out of bed and also was feeling short of breath and c onfused and son called 911. For EMS patient was saturating in the 70s. She was placed on non breather mask and brought to the ER. In the ER patient was taking off the nonrebreather mask and she was confused. Patient is status post intubation in the ER. Her heart rate was in the 30s and 40s in the ER. She was spiking temperature. UA came back positive. VBG pH was 7.24. Electrolytes are okay. Lactic is 1.7. Creatinine 0.9. LFTs okay. Initial troponin 48 and repeat is 246. Procalcitonin 0.05. Respiratory BioFire came back positive for entero-/rhinovirus. CT head is okay. Chest x-ray possible pulmonary edema. Chest CT no obvious findings. KUB shows constipation. EKG high degree heart block. Discussed with cardiology and plan to start on dopamine drip and if does not improve plan for possible temporary pacemaker. Symptomatic bradycardia High degree heart block Not on any rate controlling medications Lyme screen negative Started on dopamine drip on admission s/p transvenous temporary pacemaker placement --> now s/p permanent pacer placement today (07/22/2025) Close monitoring in the ICU Acute on chronic respiratory failure Possible acute CHF Patient chronically on 3 L oxygen 24/7 and CPAP/BiPAP nightly History of COPD History of sleep apnea History of restrictive lung disease Status post intubation Management as per critical care Possible sepsis UTI Lower extremity cellulitis Fever Leukocytosis Lactic acid okay UA is positive Received Rocephin in the ER on Rocephin and daptomycin now MRSA swab positive Blood cultx negat. so far Ucultx negat. LE cellulitis improving Close monitoring in the ICU Elevated troponin Possible demand ischemia Initial troponin 48 and repeat is 246 serial enzymes and echo ordered and repeat EKG Entero/rhinovirus infection Supportive care Droplet precautions Diabetes Hold home p.o. medications Sliding scale Will monitor Hyperlipidemia On statin Lower extremity edema Venous insufficiency At home on torsemide Diuretics as per cardiology and critical care Will check lower extremity Dopplers Lung cancer stage Ib non-small cell lung cancer Status post left upper lobectomy in 2017 Pulmonary nodules Follows with pulmonary DVT prophylaxis hep sub q Disposition ICU Full code Admission and Anticipated Discharge Date Admission Date: July 19, 2025 Subjective Pt seen in follow up, presented w/ encephalopathy, fever, Found to have high grade heart block, s/p transvenous pacer --> now s/p permanent pacer placement today Currently in ICU, intubated. Opens eyes to voice. + Rhinovirus Blood cultx negat. so far, Ucultx negative Review of Systems Review of Systems: Unobtainable due to cognitive status and Unobtainable due to endotracheal tube Physical Exam Physical Exam: General- morbidly obese elderly F , Intubated , opens eyes to voice today Head- atraumatic Eyes- sluggish reaction to light Lungs- clear to auscultation no obvious wheezing or crackles Heart- rrr; no murmur, no gallop. Abdomen- sluggish bowel sounds, soft, no distension Extremities- b/l lower extremity chronic venous stasis. LE erythema much improved Neuro- intubated and sedated. Results & Data Results & Data Vital Signs (Past 12 Hours) Vital Signs Temp Pulse Resp BP Pulse Ox Pulse Ox O2 Del Method 07/22/25 07:28 37 L 18 95 07/22/25 05:00 37.5 C 41 L 18 100 Mechanical Vent 07/22/25 04:54 37.5 C 39 L 18 07/22/25 04:51 37.5 C 40 L 18 96 Mechanical Vent 07/22/25 04:43 100/52 L 07/22/25 04:42 37.4 C 39 L 17 94 Mechanical Vent 07/22/25 04:37 108/53 L 07/22/25 04:36 37.4 C 38 L 18 92 Mechanical Vent 07/22/25 04:30 37.4 C 80 18 92 Mechanical Vent 07/22/25 04:00 37.5 C 80 18 96 Mechanical Vent 07/22/25 04:00 07/22/25 04:00 40 L 07/22/25 03:30 37.5 C 80 17 98 Mechanical Vent 07/22/25 03:00 37.5 C 80 17 94 Mechanical Vent 07/22/25 02:30 37.6 C H 80 18 98 Mechanical Vent 07/22/25 02:15 80 18 96 07/22/25 02:07 37.5 C 80 16 100 Mechanical Vent 07/22/25 01:30 37.6 C H 80 18 95 Mechanical Vent 07/22/25 01:00 37.6 C H 80 18 95 Mechanical Vent 07/22/25 00:30 37.7 C H 80 19 91 Mechanical Vent 07/22/25 00:00 37.7 C H 80 17 96 Mechanical Vent 07/22/25 00:00 07/22/25 00:00 80 07/22/25 00:00 80 07/21/25 23:52 80 19 90 07/21/25 23:30 37.7 C H 80 19 91 Mechanical Vent 07/21/25 23:00 37.7 C H 80 18 91 Mechanical Vent 07/21/25 22:30 37.6 C H 80 17 96 Mechanical Vent 07/21/25 22:29 91 07/21/25 22:00 37.0 C 80 17 97 Mechanical Vent 07/21/25 21:30 37.3 C 80 16 97 Mechanical Vent 07/21/25 21:00 37.2 C 80 15 97 Mechanical Vent O2 Del Method FiO2 07/22/25 07:28 30 07/22/25 05:00 30 07/22/25 04:54 07/22/25 04:51 30 07/22/25 04:43 07/22/25 04:42 30 07/22/25 04:37 07/22/25 04:36 30 07/22/25 04:30 30 07/22/25 04:00 30 07/22/25 04:00 30 07/22/25 04:00 07/22/25 03:30 30 07/22/25 03:00 30 07/22/25 02:30 30 07/22/25 02:15 30 07/22/25 02:07 30 07/22/25 01:30 30 07/22/25 01:00 30 07/22/25 00:30 30 07/22/25 00:00 30 07/22/25 00:00 30 07/22/25 00:00 07/22/25 00:00 07/21/25 23:52 30 07/21/25 23:30 30 07/21/25 23:00 30 07/21/25 22:30 30 07/21/25 22:29 Mechanical Vent 07/21/25 22:00 30 07/21/25 21:30 30 07/21/25 21:00 30 Laboratory Results 07/22/25 07/22/25 07/21/25 Range/Units 03:56 00:12 17:53 WBC 5.51 (4.8-10.8) K/ul RBC 3.34 L (4.20-5.40) M/uL Hgb 8.5 L (12.0-16.0) g/dL Hct 27.4 L (37.0-47.0) % MCV 82.0 (80.0-100.0) fL MCH 25.4 (25.0-34.0) pg MCHC 31.0 L (32.0-36.0) g/dL RDW Std Deviation 49.3 H (36.4-46.3) fL RDW Coeff of Olivia 16.4 H (11.5-14.5) % Plt Count 132 (130-400) K/uL MPV 10.8 (9.4-12.4) fL Immature Gran % (Auto) 0.2 % Neut % (Auto) 83.6 % Lymph % (Auto) 8.0 % [place] % (Auto) 6.7 % Eos % (Auto) 1.3 % Baso % (Auto) 0.2 % Neut # (Auto) 4.61 (1.40-6.50) K/uL Lymph # (Auto) 0.44 L (1.20-3.40) K/uL [place] # (Auto) 0.37 (0.11-0.59) K/uL Eos # (Auto) 0.07 (0.00-0.50) K/uL Baso # (Auto) 0.01 (0.00-0.20) K/uL Immature Gran # (Auto) 0.01 (0.01-0.20) K/uL Sodium 138 (136-145) mmol/L Potassium 3.8 (3.5-5.1) mmol/L Chloride 106 (98-107) mmol/L Carbon Dioxide 24 (21-32) mmol/L Anion Gap 8 (3-11) BUN 28 H (6-23) mg/dl Creatinine 0.87 (0.6-1.2) mg/dl Est Cr Clr Drug Dosing 75.9 ml/min eGFR 70.31 BUN/Creatinine Ratio 32.2 H (10-20) Glucose 157 H (70-99(Fasting)) mg/dl POC Glucose (other) 154 H 155 H (70-99) mg/dl Calcium 8.4 L (8.6-10.3) mg/dl Phosphorus 4.6 (2.5-4.9) mg/dl Magnesium 2.6 H (1.7-2.4) mg/dl 07/21/25 07/21/25 Range/Units 12:56 12:05 WBC (4.8-10.8) K/ul RBC (4.20-5.40) M/uL Hgb 9.0 L (12.0-16.0) g/dL Hct (37.0-47.0) % MCV (80.0-100.0) fL MCH (25.0-34.0) pg MCHC (32.0-36.0) g/dL RDW Std Deviation (36.4-46.3) fL RDW Coeff of Olivia (11.5-14.5) % Plt Count (130-400) K/uL MPV (9.4-12.4) fL Immature Gran % (Auto) % Neut % (Auto) % Lymph % (Auto) % [place] % (Auto) % Eos % (Auto) % Baso % (Auto) % Neut # (Auto) (1.40-6.50) K/uL Lymph # (Auto) (1.20-3.40) K/uL [place] # (Auto) (0.11-0.59) K/uL Eos # (Auto) (0.00-0.50) K/uL Baso # (Auto) (0.00-0.20) K/uL Immature Gran # (Auto) (0.01-0.20) K/uL Sodium (136-145) mmol/L Potassium (3.5-5.1) mmol/L Chloride (98-107) mmol/L Carbon Dioxide (21-32) mmol/L Anion Gap (3-11) BUN (6-23) mg/dl Creatinine (0.6-1.2) mg/dl Est Cr Clr Drug Dosing ml/min eGFR BUN/Creatinine Ratio (10-20) Glucose (70-99(Fasting)) mg/dl POC Glucose (other) 149 H (70-99) mg/dl Calcium (8.6-10.3) mg/dl Phosphorus (2.5-4.9) mg/dl Magnesium (1.7-2.4) mg/dl Medications Administered Current Inpatient Medications Albuterol (Albuterol 0.083% Nebu Soln 3 Ml Vial) 2.5 mg NEB Q6R HALIMA; Protocol Stop: 08/18/25 22:44 Last Admin: 07/22/25 07:28 Dose: 2.5 mg Albuterol (Albut/Ipratrop 3mg/0.5mg Neb 3 Ml Vial) 3 ml NEB Q4R PRN; Protocol PRN Reason: Wheezing Stop: 08/20/25 07:59 Dextrose (Dextrose 50% 50 Ml Syringe) 25 - 50 ml IV UD PRN; Protocol PRN Reason: Hypoglycemia Protocol Stop: 08/18/25 22:28 Fentanyl Citrate (Fentanyl Bolus From Bag) 50 mcg IV Q60M PRN PRN Reason: Pain or Agitation Stop: 08/02/25 17:56 Last Admin: 07/21/25 23:35 Dose: 50 mcg Glucagon (Glucagon For Inj 1 Mg Vial) 1 mg SQ UD PRN; Protocol PRN Reason: Hypoglycemia Protocol Stop: 08/18/25 22:28 Glucose (Glucose 40% Gel 15 Gm Tube) 15 - 30 gm PO UD PRN; Protocol PRN Reason: Hypoglycemia Protocol Stop: 08/18/25 22:28 Glucose (Glucose 10 Tab/Tube) 4 - 8 tab PO UD PRN; Protocol PRN Reason: Hypoglycemia Protocol Stop: 08/18/25 22:28 Heparin Sodium (Porcine) (Heparin Sod 5,000 Unit/0.5 Ml Vial) 5,000 units SQ Q8 [facility] Stop: 08/19/25 05:59 Last Admin: 07/22/25 05:51 Dose: 5,000 units Propofol (Diprivan) 1,000 mg in 100 mls @ 32.904 mls/hr IV .Q3H3M [facility]A; Protocol Stop: 07/22/25 17:29 Last Admin: 07/22/25 07:39 Dose: 40 mcg/kg/min, 32.9 mls/hr Fentanyl Citrate (Fentanyl Citrate) 2,500 mcg in 250 mls @ 5 mls/hr IV .Q50H [facility]A; Protocol Stop: 08/02/25 17:59 Last Titration: 07/22/25 07:03 Dose: 50 mcg/hr, 5 mls/hr Daptomycin 500 mg/ Syringe 10 mls @ 5 mls/min IV Q24H [facility]; Protocol Stop: 07/26/25 23:29 Last Admin: 07/21/25 23:27 Dose: 5 mls/min Ceftriaxone Sodium (Rocephin) 2,000 mg in 50 mls @ 100 mls/hr IV Q12H [facility]; Protocol Stop: 07/22/25 23:59 Last Infusion: 07/22/25 06:31 Dose: Infused Acetaminophen (Ofirmev) 1,000 mg in 100 mls @ 400 mls/hr IV Q8H PRN PRN Reason: pain/fever Stop: 07/22/25 22:38 Last Infusion: 07/21/25 02:28 Dose: Infused Pantoprazole Sodium (Protonix) 40 mg in 10 mls @ 5 mls/min IV DAILY [facility] Stop: 08/20/25 09:59 Last Admin: 07/21/25 10:53 Dose: 5 mls/min Insulin Aspart (Insulin Aspart Per Unit Charge) 0 units SC Q6 [facility] Stop: 08/18/25 22:28 Last Admin: 07/22/25 05:52 Dose: Not Given Miscellaneous (Carbohydrates For Hypoglycemia ) 15 - 30 gm PO UD PRN PRN Reason: Hypoglycemia Protocol Stop: 08/18/25 22:28 Miscellaneous (Icu Electrolyte Replacement Protocol) 1 each N/A BID@06,18 [facility]A; Protocol Stop: 07/27/25 05:59 Last Admin: 07/22/25 05:44 Dose: Not Given Nystatin (Nystatin Powder 15gm Btl) 1 appln EXT BID [facility] Stop: 08/18/25 22:59 Last Admin: 07/21/25 21:03 Dose: 1 appln Propofol (Propofol Bolus From Bag) 20 mg IV Q5M PRN PRN Reason: Sedation Stop: 07/22/25 17:26 Last Admin: 07/21/25 13:50 Dose: 20 mg
[2025-07-22] MEDS: cefTRIAXone SODIUM 2,000 MG/50 ML BAG IV SCH (12:38)
--- NOTE | 2025-07-22 12:49 | Electrophysiology Report ---
Date of Service July 22, 2025 Electrophysiology Procedure Electrophysiology Procedure Report Procedure performed: Implantation of dual-chamber permanent pacemaker with left bundle pacing lead, removal of temporary transvenous pacemaker Staff kitchen helper: Yash Thakkar MD Indication: The patient is 75-year-old woman admitted to the hospital with complete heart block. She had some hemodynamic instability initially underwent implantation of a temporary transvenous pacemaker. However, conduction has not improved and she was brought back to the lab today for placement of a permanent device. Device was indicated due to symptomatic nonreversible AV node dysfunction. A dual-chamber device was selected as she is currently in sinus rhythm and wish to maintain AV synchrony. Procedure in detail: The patient was informed of the risks benefits and alternatives to the intended procedure and she wished to proceed. She was taken to the electrophysiology suite in a fasting state. A preoperative antibiotic had been administered. Patient was on a propofol infusion and endotracheally intubated. The left upper pectoral area was prepped and draped in usual sterile fashion. This area was anesthetized using subcutaneous administration of a xylocaine solution. An incision was made at this site and carried down to the prepectoralis fascia using sharp dissection. Electrocautery was also employed for dissection as well as for hemostasis. A device pocket was fashioned tissues above the pectoralis muscle. Subsequent to this maneuver the left axillary vein was accessed using modified Seldinger technique. A sheath was placed over guidewire and used to facilitate passage of a guiding catheter for mapping of the interventricular septum. Once an appropriate location was identified a pacing lead was advanced into the interventricular septum until the appropriate electrophysiologic characteristics were obtained. At this point the guiding catheter was removed. The proximal portion of the lead was then sutured the prepectoralis fascia using nonabsorbable suture. A sheath was placed over the remaining guidewire and used to facilitate passage of a pacing lead to the right atrium under fluoroscopic guidance. Adequate sensing and threshold parameters were obtained prior to active fixation of this lead to the endocardial surface. The proximal portion of the leads were then sutured the prepectoral fascia using nonabsorbable suture. The device pocket was irrigated with antibiotic solution. The leads were then attached to the device. The device and leads were then placed inside an antibiotic impregnated envelope. The device and leads were then placed in the pocket and pocket was closed in 3 layers of absorbable suture. Steri-Strips and sterile dressing were applied. The device was tested noninvasively prior to conclusion the procedure. Prior to inclusion of the procedure the temporary transvenous pacemaker was also removed and fluoroscopic guidance as well as the femoral venous sheath. Hemostasis was achieved at the site using manual pressu re. The patient tolerated procedure well there no immediate complications. Equipment used: New pulse generator: Vamp Liner LocalView. Model number: [id number] serial number [id number] Right atrial lead: Vamp Liner MedVocalizeLocal. Model number: 5076 serial number [id number] Right ventricular lead: Vamp Liner Medtronic. Model number: 3830 serial number [id number] Measured data: Right atrial lead: P waves measured 2.1 mV. Pacing threshold 0.5 V at 0.4 ms with a pacing impedance of 475 ohms Right ventricular lead: No intrinsic R waves were noted. Pacing threshold was 1 V at 0.4 ms with a pacing impedance of 817 ohms Impression: Successful implantation of dual-chamber permanent pacemaker left bundle pacing lead Removal of temporary transvenous pacemaker [facility] Electrophysiology codes Pacing Procedure 1: Pacin Insert/Replace Pacer A & V Miscellaneous Procedures Procedure 1: EP Miscellaneous: 79203 Pacing temp percut, single
[2025-07-22] MEDS ORDERED: STAT IV Infusion **Titration per Protocol STA (15:10)
[2025-07-22] MEDS: dexMEDEtomidine 200 MCG/50 ML BAG IV SCH (15:15)
[2025-07-22] MEDS: BUPIVACAINE 0.25% PF 30 ML VIAL ONE (16:01)
[2025-07-22] MEDS: VANCOMYCIN HCL 1000MG/20ML VIAL ONE (16:02)
[2025-07-22] MEDS: LIDOCAINE 1% LOCAL 20 ML VIAL ONE ×2 (16:02)
[2025-07-22] MEDS: WATER, STERILE FOR INJ 10 ML VIAL ONE (16:02)
--- NOTE | 2025-07-22 16:56 | Cardiology Progress Note ---
Date of Service July 22, 2025 Assessment & Plan (1) Symptomatic bradycardia: (2) Hypoxic respiratory failure: (3) Fever: (4) Sepsis: (5) Enterovirus infection: (6) Rhinovirus infection: Plan 75-year-old female with a history of COPD and chronic respiratory insufficiency due to restrictive lung mechanics in the setting of morbid obesity and past left lung lobectomy. Patient presents with confusion, fatigue and shortness of breath. Intubated on arrival for airways support due to hypoxia. She had been found to be febrile and in third degree AV block . She is not on AV malou blockers at baseline. TTecho 07/20/25: technically limited, LVEF 55-60%, moderate MAC. Underwent transvenous temporary pacemaker via right femoral vein approach by Dr Thakkar on 07/20/25 Followed by dual-chamber permanent pacemaker in 07/22/2025 with ongoing third-degree AV block noted prior to permanent pacemaker implantation. Patient now atrial sensed, ventricular paced in the 60s. Plan: * Urine and blood cultures without growth thus far. * Potential sources of fever include viral respiratory infection, chronic leg wounds, UTI. * Continue broad spectrum antibiotics with daptomycin and ceftriaxone for now * Would have low threshold for adding low-dose diuretics to help facilitate weaning from the ventilator. * SQ heparin for DVT prophylaxis. Deniz Bush, DO Admission and Anticipated Discharge Date Admission Date: July 19, 2025 Subjective Patient seen in cardiology follow-up. This morning at 4:30 AM after patient's position was changed, the temporary pacemaker lost capture. She subsequently underwent implantation of the dual-chamber Medtronic permanent pacemaker by Dr. Thakkar. Patient has been weaned from sedation. She remains on the ventilator for now. Physical Exam Constitutional: + obese Neck: trachea midline, no thyromegaly Respiratory: Auscultation: + diminished lung sounds (decreased BS at the bases ) Cardiovascular: Rate/Rhythm: regular rhythm Heart Sounds: no murmur Vessels: no JVD Gastrointestinal (Abdomen): normal bowel sounds, soft, nontender, no hepatosplenomegaly Neurologic: Following commands Results & Data Vital Signs (Past 12 Hours) Vital Signs Temp Pulse Resp Pulse Ox O2 Del Method FiO2 07/22/25 16:00 37.2 C 65 15 100 30 07/22/25 15:21 40 07/22/25 15:00 36.9 C 65 16 100 07/22/25 14:48 62 20 97 30 07/22/25 14:00 36.9 C 63 17 100 07/22/25 13:20 63 100 07/22/25 13:12 37.4 C 63 13 07/22/25 11:00 37.6 C H 38 L 17 91 07/22/25 10:30 38 L 19 93 30 07/22/25 10:00 37.5 C 39 L 19 94 07/22/25 09:00 37.5 C 40 L 18 94 07/22/25 08:00 37.5 C 40 L 18 95 07/22/25 08:00 30 07/22/25 08:00 Mechanical Vent 30 07/22/25 07:28 37 L 18 95 30 07/22/25 07:00 37 L 18 94 07/22/25 06:00 37.6 C H 38 L 18 95 07/22/25 05:00 37.5 C 41 L 18 100 Mechanical Vent 30 07/22/25 04:54 37.5 C 39 L 18 PG Care Time/CCT Total # of Minutes Spent Total Time Spent with Patient: Total time spent is greater than 50% in coordination of care (as documented) at patient's floor/unit and/or counseling patient: Coding Level of Care Code 29081 SUB INP/OBS CARE 3/50MIN Diagnoses Symptomatic bradycardia R00.1 Hypoxic respiratory failure J96.91 Fever R50.9 Sepsis A41.9 Enterovirus infection B34.1 Rhinovirus infection B34.8
--- NOTE | 2025-07-22 18:52 | Electrocardiogram Report ---
Test Reason : Blood Pressure : */* mmHG Vent. Rate : 39 BPM Atrial Rate : 92 BPM P-R Int : * ms QRS Dur : 110 ms QT Int : 494 ms P-R-T Axes : * 19 260 degrees QTcB Int : 397 ms Sinus rhythm with complete heart block and Junctional bradycardia Pacemaker failure to capture Abnormal ECG When compared with ECG of 20-Jul-2025 06:10, Junctional rhythm has replaced Wide QRS rhythm Confirmed by Yash Thakkar ([id number]) on 07/22/2025 6:51:59 PM Referred By: REFERRED SELF Confirmed By: Yash Thakkar
--- NOTE | 2025-07-22 18:59 | Electrocardiogram Report ---
Test Reason : Blood Pressure : */* mmHG Vent. Rate : 69 BPM Atrial Rate : 69 BPM P-R Int : 144 ms QRS Dur : 150 ms QT Int : 492 ms P-R-T Axes : 73 -43 131 degrees QTcB Int : 527 ms Atrial-sensed ventricular-paced rhythm Abnormal ECG When compared with ECG of 22-Jul-2025 05:03, (unconfirmed) Electronic ventricular pacemaker has replaced Junctional rhythm Vent. rate has increased by 30 bpm Confirmed by Yash Thakkar ([id number]) on 07/22/2025 6:59:19 PM Referred By: REFERRED SELF Confirmed By: Yash Thakkar
[2025-07-22 20:26] LABS: iSTAT Art Bld Gas Base Excess -3.0 mmol/L (-9-1.8); iSTAT Art Bld Gas pCO2 Correct 37 mmHg (35-46); iSTAT Art Bld Gas pH Corrected 7.386 (7.35-7.45); iSTAT Arterial Blood Gas pO2 C 97
[2025-07-23] MEDS ORDERED: STAT IV Infusion **Titration per Protocol STA (01:09)
[2025-07-23] MEDS: PROPOFOL BOLUS FROM BAG IV PRN (03:54)
[2025-07-23 04:09] LABS: Hematocrit (blood only) 26.6 % (37.0-47.0); Hemoglobin 8.3 g/dL (12.0-16.0); Immature Granulocytes # (auto) 0.03 K/uL (0.01-0.20); Immature Granulocytes % (auto) 0.6 %; Mean Corpuscular Hemoglobin 25.2 pg (25.0-34.0); Mean Corpuscular Volume 80.9 fL (80.0-100.0); Platelet Count 146 K/uL (130-400); RDW Standard Deviation 48.0 fL (36.4-46.3); Red Blood Count 3.29 M/uL (4.20-5.40); White Blood Count 5.11 K/ul (4.8-10.8)
[2025-07-23 04:25] LABS: Anion Gap 13.0 (3-11); Blood Urea Nitrogen 28.0 mg/dl (6-23); Calcium 8.5 mg/dl (8.6-10.3); Carbon Dioxide 22.0 mmol/L (21-32); Chloride 106.0 mmol/L (98-107); Creatinine Clr Calc Pharmacy 89.3 ml/min; Glucose 149.0 mg/dl (70-99(Fasting)); Magnesium 2.7 mg/dl (1.7-2.4); Potassium 4.1 mmol/L (3.5-5.1); Sodium 141.0 mmol/L (136-145)
[2025-07-23 09:51] LABS: iSTAT Art Bld Gas Base Excess -3.0 mmol/L (-9-1.8); iSTAT Art Bld Gas pCO2 Correct 36 mmHg (35-46); iSTAT Art Bld Gas pH Corrected 7.401 (7.35-7.45); iSTAT Arterial Blood Gas pO2 C 96
--- NOTE | 2025-07-23 11:00 | XRay Report ---
SINGLE VIEW CHEST CLINICAL HISTORY: Post pacemaker implantation. Extubation. FINDINGS: An AP, portable, upright chest radiograph is compared to study dated 07/22/2025 and correla vineet with chest CT dated 07/19/2025. Endotracheal and enteric tubes have been removed. A right interna l jugular central venous catheter is unchanged in position. A 2-lead cardiac pacemaker has been impla nted. Leads project over the right atrial appendage and the right ventricle. The heart is enlarged no ting atherosclerotic calcification of the thoracic aorta. The mitral annulus is densely calcified. Th ere is evidence of congestive failure and pulmonary edema. There are small pleural effusions with dep endent consolidation. No pneumothorax is seen. The skeletal structures are osteopenic. The bony thora x is grossly intact. IMPRESSION: 1. A 2-lead cardiac pacemaker has been implanted as above. No pneumothorax is seen post procedure. 2. Cardiomegaly with evidence of congestive failure and pulmonary edema. This is unchanged to modestl y worsened from yesterday. 3. Small pleural effusions with dependent consolidation. 4. Endotracheal and enteric tubes have been removed. ACT 112: Negative or not required by law. Electronically signed by: Clement Rod M.D. 07/23/2025 10:59 AM
--- NOTE | 2025-07-23 11:55 | Cardiology Progress Note ---
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 Patient presents with confusion, fatigue and shortness of breath. Intubated on arrival for airways support due to hypoxia. She had been found to be febrile and in third degree AV block . She is not on AV malou blockers at baseline. TTecho 07/20/25: technically limited, LVEF 55-60%, moderate MAC. Underwent transvenous temporary pacemaker via right femoral vein approach by Dr Thakkar on 07/20/25 Followed by dual-chamber permanent pacemaker in 07/22/2025 with ongoing third-degree AV block noted prior to permanent pacemaker implantation. 07/23/2025: Extubated Plan: * Urine and blood cultures without growth thus far. * Potential sources of fever include viral respiratory infection, chronic leg wounds, UTI. * Continue broad spectrum antibiotics with daptomycin and ceftriaxone for now * Postextubation chest x-ray 07/23/2025 reveals enlargement of cardiac silhouette and interstitial edema consistent with possible CHF. Pacemaker leads in good position. * Would have low threshold for adding low-dose diuretics to help optimize respiratory status. * SQ heparin for DVT prophylaxis. * Case discussed with Dr Nielsne of critical care medicine for the purpose of coordination of care Deniz Bush DO Admission and Anticipated Discharge Date Admission Date: July 19, 2025 Subjective Patient seen in cardiology follow-up. She was extubated about an hour before I assessed her this morning I was restless during my assessment. Her family members Anoop and Ernesto were at the bedside. Telemetry reveals sinus rhythm with AV sequential pacing in the 70s. Blood pressure readings by her arterial line are elevated, and are somewhat this concordant with readings that are more reasonably controlled on her noninvasive cuff. Review of Systems Review of Systems: Unobtainable due to reduced consciousness Physical Exam Physical Exam: Temp Pulse Resp BP Pulse Ox O2 Del Method O2 Flow Rate 37.3 C 60 20 152/47 H 99 Mechanical Vent 15 07/23/25 05:30 07/23/25 05:30 07/23/25 07:34 07/23/25 04:00 07/23/25 05:30 07/23/25 05:30 07/19/25 17:24 FiO2 30 07/23/25 07:34 Constitutional: + obese Neck: trachea midline, no thyromegaly Respiratory: Auscultation: + diminished lung sounds (decreased BS at the bases ) Cardiovascular: Rate/Rhythm: regular rhythm and + bradycardic Heart Sounds: no murmur Vessels: no JVD Gastrointestinal (Abdomen): normal bowel sounds, soft, nontender, no hepatosplenomegaly Neurologic: Agitated. Moving all 4 limbs spontaneously. Results & Data Vital Signs (Past 12 Hours) Vital Signs Temp Pulse Resp BP Pulse Ox O2 Del Method FiO2 07/23/25 07:34 20 30 07/23/25 05:30 37.3 C 60 21 99 Mechanical Vent 30 07/23/25 05:00 37.3 C 60 17 99 Mechanical Vent 30 07/23/25 04:30 37.2 C 60 19 98 Mechanical Vent 30 07/23/25 04:00 37.2 C 60 19 98 Mechanical Vent 30 07/23/25 04:00 30 07/23/25 04:00 60 152/47 H 07/23/25 03:30 37.2 C 60 17 99 Mechanical Vent 30 07/23/25 03:00 37.2 C 60 22 98 Mechanical Vent 30 07/23/25 02:30 37.3 C 60 20 98 Mechanical Vent 30 07/23/25 02:14 20 30 07/23/25 02:00 37.3 C 60 17 99 Mechanical Vent 30 07/23/25 01:30 37.3 C 60 16 98 Mechanical Vent 30 07/23/25 01:00 37.1 C 60 20 98 Mechanical Vent 30 07/23/25 00:30 37.1 C 60 22 99 Mechanical Vent 30 07/23/25 00:00 37.1 C 60 17 99 Mechanical Vent 30 07/23/25 00:00 30 07/23/25 00:00 60 132/44 L PG Care Time/CCT Total # of Minutes Spent Total Time Spent with Patient: Total time spent is greater than 50% in coordination of care (as documented) at patient's floor/unit and/or counseling patient: Coding Level of Care Code 19095 SUB INP/OBS CARE 3/50MIN Diagnoses Symptomatic bradycardia R00.1 Hypoxic respiratory failure J96.91 Fever R50.9 Sepsis A41.9 Enterovirus infection B34.1 Rhinovirus infection B34.8
--- NOTE | 2025-07-23 12:44 | Critical Care Progress Note ---
Date of Service July 23, 2025 Assessment & Plan (1) Acute heart failure: (2) Heart block: (3) Endotracheally intubated: (4) Acute hypoxemic respiratory failure: (5) AMS (altered mental status): Plan Impression: 75 YOF hypoxic respiratory failure requiring emergent/urgent intubation, in setting of bradycardia with concern for high grade block likely resulting in acute heart failure, also associated with entero/rhinovirus and UTI. 24-hour events: Status post pacemaker. Extubated. Hemodynamically stable but significant discrepancy between arterial line and noninvasive blood pressure cuffs. Recommendations: Neuro -agitated delirium. Head CT 07/19/2025 unremarkable. Exam is currently nonfocal. Reportedly the patient has had difficulty emerging from anesthesia previously. Will continue to observe and allow her to clear medications. Will judiciously use Haldol and try and wean off of Precedex. If she continues to have issues, additional evaluation including MRI of the brain which would likely require additional sedation and/or neurology consultation/EEG evaluation. Cardiac -third-degree heart block status post permanent pacemaker. Initiate diuretics Respiratory - Acute hypoxic respiratory failure requiring emergent intubation, CLYDE. Extubated. Continue CPAP 14 cmH2O as needed and nightly while sleeping. Once patient's mental status improves will need aggressive pulmonary toilet including out of bed to chair as tolerated, incentive spirometry, and potential flutter valve. GI - No acute needs. Continue PPI. Will need swallow evaluation once mental status is appropriate RENAL/LYTES -creatinine back to normal. Acid-base status and electrolytes stable. Initiate diuretics with Lasix -continue Briggs catheter for tracking intake and output ENDO - DMII - ICU hyper/hypoglycemic protocol HEME -mild anemia. No indication for transfusion. No evidence of acute ongoing blood loss. ID -fever resolved. Cultures negative to date. Procalcitonin negative. Positive BioFire for enterovirus/rhinovirus. Complete 5-day course of daptomycin and Rocephin given need for invasive indwelling vascular device. LINES/IV ACCESS - PIV, Briggs. Transvenous pacer and arterial line removed. Continue central line for now DVT PROPHYLAXIS - SCDS. Continue subcu heparin GI PROPHYLAXIS- PPI DISPO: ICU for today. Hopefully sensorium will clear over time and she can pote ntially downgrade to the floor in the a.m. Admission and Anticipated Discharge Date Admission Date: July 19, 2025 Subjective Patient seen and examined. EMR reviewed. Discussed with bedside critical care nurse and multidisciplinary rounds. Patient relatively stable overnight with intermittent periods of agitated delirium. She was maintained on Precedex and as needed propofol. This morning she completed an SBT with sedation break. Her RSBI remained below 60. She was extubated. She has had some intermittent delirium and has remained on Precedex. Blood gas reassuring. Arterial line was removed Review of Systems Review of Systems: Unobtainable due to reduced consciousness Physical Exam Constitutional: + morbidly obese Neck: trachea midline, no thyromegaly Respiratory: symmetric chest movement; no respiratory distress, no labored breathing, no cough and not tachypneic Cardiovascular: Rate/Rhythm: regular rhythm and + bradycardic Heart Sounds: normal S1 and normal S2; no murmur Gastrointestinal (Abdomen): normal bowel sounds, soft, nontender, no hepatosplenomegaly Musculoskeletal: Extremities: extremities normal to inspection Skin: no rashes, warm and dry Lymphatic: no cervical lymphadenopathy Results & Data Results & Data Vital Signs (Past 12 Hours) Vital Signs Temp Pulse Pulse Resp BP Pulse Ox O2 Del Method 07/23/25 12:07 77 24 97 Oxymask 07/23/25 07:34 20 07/23/25 05:30 37.3 C 60 21 99 Mechanical Vent 07/23/25 05:00 37.3 C 60 17 99 Mechanical Vent 07/23/25 04:30 37.2 C 60 19 98 Mechanical Vent 07/23/25 04:00 37.2 C 60 19 98 Mechanical Vent 07/23/25 04:00 07/23/25 04:00 60 152/47 H 07/23/25 03:30 37.2 C 60 17 99 Mechanical Vent 07/23/25 03:00 37.2 C 60 22 98 Mechanical Vent 07/23/25 02:30 37.3 C 60 20 98 Mechanical Vent 07/23/25 02:14 20 07/23/25 02:00 37.3 C 60 17 99 Mechanical Vent 07/23/25 01:30 37.3 C 60 16 98 Mechanical Vent 07/23/25 01:00 37.1 C 60 20 98 Mechanical Vent O2 Flow Rate FiO2 07/23/25 12:07 2 07/23/25 07:34 30 07/23/25 05:30 30 07/23/25 05:00 30 07/23/25 04:30 30 07/23/25 04:00 30 07/23/25 04:00 30 07/23/25 04:00 07/23/25 03:30 30 07/23/25 03:00 30 07/23/25 02:30 30 07/23/25 02:14 30 07/23/25 02:00 30 07/23/25 01:30 30 07/23/25 01:00 30 Critical Care Results & Data Vital Signs (Past 12 Hours) Vital Signs Temp Pulse Pulse Resp BP Pulse Ox O2 Del Method 07/23/25 12:07 77 24 97 Oxymask 07/23/25 07:34 20 07/23/25 05:30 37.3 C 60 21 99 Mechanical Vent 07/23/25 05:00 37.3 C 60 17 99 Mechanical Vent 07/23/25 04:30 37.2 C 60 19 98 Mechanical Vent 07/23/25 04:00 37.2 C 60 19 98 Mechanical Vent 07/23/25 04:00 07/23/25 04:00 60 152/47 H 07/23/25 03:30 37.2 C 60 17 99 Mechanical Vent 07/23/25 03:00 37.2 C 60 22 98 Mechanical Vent 07/23/25 02:30 37.3 C 60 20 98 Mechanical Vent 07/23/25 02:14 20 07/23/25 02:00 37.3 C 60 17 99 Mechanical Vent 07/23/25 01:30 37.3 C 60 16 98 Mechanical Vent 07/23/25 01:00 37.1 C 60 20 98 Mechanical Vent O2 Flow Rate FiO2 07/23/25 12:07 2 07/23/25 07:34 30 07/23/25 05:30 30 07/23/25 05:00 30 07/23/25 04:30 30 07/23/25 04:00 30 07/23/25 04:00 30 07/23/25 04:00 07/23/25 03:30 30 07/23/25 03:00 30 07/23/25 02:30 30 07/23/25 02:14 30 07/23/25 02:00 30 07/23/25 01:30 30 07/23/25 01:00 30 Lab & Micro Results (Past 24 Hours) RBC 3.29 M/uL (4.20-5.40) L 07/23/25 WBC 5.11 K/ul (4.8-10.8) 07/23/25 Hgb 8.3 g/dL (12.0-16.0) L 07/23/25 Hct 26.6 % (37.0-47.0) L 07/23/25 MCV 80.9 fL (80.0-100.0) 07/23/25 MCH 25.2 pg (25.0-34.0) 07/23/25 MCHC 31.2 g/dL (32.0-36.0) L 07/23/25 RDW Standard Deviation 48.0 fL (36.4-46.3) H 07/23/25 RDW Coefficient of Variation 16.3 % (11.5-14.5) H 07/23/25 Plt Count 146 K/uL (130-400) 07/23/25 MPV 10.3 fL (9.4-12.4) 07/23/25 Neutrophils (%) (Auto) 84.8 % 07/23/25 Lymphocytes (%) (Auto) 6.7 % 07/23/25 Monocytes # (Auto) 0.31 K/uL (0.11-0.59) 07/23/25 Eosinophils # (Auto) 0.09 K/uL (0.00-0.50) 07/23/25 Immature Granulocyte % (Auto) 0.6 % 07/23/25 Neutrophils # (Auto) 4.34 K/uL (1.40-6.50) 07/23/25 Lymphocytes # (Auto) 0.34 K/uL (1.20-3.40) L 07/23/25 Monocytes # (Auto) 0.31 K/uL (0.11-0.59) 07/23/25 Eosinophils # (Auto) 0.09 K/uL (0.00-0.50) 07/23/25 Basophils # (Auto) 0.00 K/uL (0.00-0.20) 07/23/25 Immature Granulocyte # (Auto) 0.03 K/uL (0.01-0.20) Na 141 mmol/L (136-145) 07/23/25 K 4.1 mmol/L (3.5-5.1) 07/23/25 Cl 106 mmol/L (98-107) 07/23/25 CO2 22 mmol/L (21-32) 07/23/25 Anion Gap 13 (3-11) H 07/23/25 BUN 28 mg/dl (6-23) H 07/23/25 Creatinine 0.75 mg/dl (0.6-1.2) 07/23/25 BUN/Creatinine Ratio 37.3 (10-20) H 07/23/25 Glu 149 mg/dl (70-99(Fasting)) H 07/23/25 Ca 8.5 mg/dl (8.6-10.3) L 07/23/25 Phosphorus Level 4.1 mg/dl (2.5-4.9) 07/23/25 Mg 2.7 mg/dl (1.7-2.4) H 07/23/25 03:37 Calcium Level 8.5 mg/dl (8.6-10.3) L 07/23/25 03:37 Tone Test NA 07/23/25 09:38 Diagnostic Findings (Past 24 Hours) Chest X-Ray 07/23/25 10:17 SINGLE VIEW CHEST CLINICAL HISTORY: Post pacemaker implantation. Extubation. FINDINGS: An AP, portable, upright chest radiograph is compared to study dated 07/22/2025 and correlated with chest CT dated 07/19/2025. Endotracheal and enteric tubes have been removed. A right internal jugular central venous catheter is unchanged in position. A 2-lead cardiac pacemaker has been implanted. Leads project over the right atrial appendage and the right ventricle. The heart is enlarged noting atherosclerotic calcification of the thoracic aorta. The mitral annulus is densely calcified. There is evidence of congestive failure and pulmonary edema. There are small pleural effusions with dependent consolidation. No pneumothorax is seen. The skeletal structures are osteopenic. The bony thorax is grossly intact. IMPRESSION: 1. A 2-lead cardiac pacemaker has been implanted as above. No pneumothorax is seen post procedure. 2. Cardiomegaly with evidence of congestive failure and pulmonary edema. This is unchanged to modestly worsened from yesterday. 3. Small pleural effusions with dependent consolidation. 4. Endotracheal and enteric tubes have been removed. ACT 112: Negative or not required by law. Electronically signed by: Clement Rod M.D. 07/23/2025 10:59 AM I & O Totals 24 Hours 07/22/25 07/23/25 07/24/25 06:59 06:59 06:59 Intake Total 1257.753 / 1257.753 903.064 / 903.064 77.340 / 77.340 Output Total 1205 / 1205 1170 / 1495 325 / 325 Balance 52.753 / 52.753 -266.936 / -591.936 -247.660 / -247.660 Cumulative 07/19/25 16:48 thru 07/23/25 12:40 Intake Total 5243.122 Output Total 5205 Balance 38.122 RT Ventilator Mngmt (Last Documented) Ventilator Ordered Settings Ventilator Support Mode Assist Control 07/23/25 07:34 Respiratory Rate 24 07/23/25 12:07 Ventilator Tidal Volume 350 07/23/25 07:34 Setting Minute Ventilation 7.1 07/23/25 07:34 Ventilator Positive Pressure 4 07/22/25 15:21 Support Setting Positive End Expiratory 6 07/23/25 07:34 Pressure Fraction of Inspired Oxygen 30 07/23/25 07:34 Machine Comment dropped to PEEP of 6 at this time 07/21/25 02:03 Ventilator - PT Measurements Respiratory Rate 24 Exhaled Tidal Volume 351 Minute Ventilation 7.1 Peak Inspiratory Airway 19 Pressure Plateau Pressure 16 Respiratory Cycle Inspiratory: 1:3.8 Expiratory Ratio Inspiratory Phase Time 0.7 End-Tidal CO2 36 Static Lung Compliance 35.10 Dynamic Lung Compliance 27.00 Normal Static Lung Compliance 47.00 Patient Measurements Comment pt extubated to 4L NC per provider verbal order. Vent on standby as BiPAP. pt tolerating extubation well at this time. will get ABG at [address] Nielsen Coding Level of Care Code 01887 SUB INP/OBS CARE 3/50MIN Diagnoses Acute heart failure I50.9 Heart block I45.9 Endotracheally intubated Z97.8 Acute hypoxemic respiratory failure J96.01 AMS (altered mental status) R41.82
[2025-07-23] MEDS: HALOPERIDOL LACTATE 5 MG/ML 1 ML VIAL ONE (14:09)
[2025-07-23] MEDS: FUROSEMIDE 40 MG/4 ML VIAL IV SCH (14:16)
--- NOTE | 2025-07-23 15:28 | Hospitalist Progress Note ---
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 Patient's status post pacemaker insertion, doing well Patient extubated this morning. Saturating well, continue CPAP support as she was at home at night and during the day with naps Agree with plans for some diuresis Continue supportive care for rhinovirus infection Antibiotics per boiler tester for device insertion Continue to monitor glucose and cover with insulin Anticipate patient's mental status will improve as she is off sedation from the ventilator. Family at bedside and updated Admission and Anticipated Discharge Date Admission Date: July 19, 2025 Subjective Patient extubated this morning. Still somewhat encephalopathic. Family at bedside. Nurse reports a large discrepancy between arterial line blood pressure and manual cuff blood pressures. Physical Exam Physical Exam: Constitutional: Drowsy mild distress HEENT: Mucous membranes dry Lungs: Decreased, tachypnea CV: S1-S2, regular Abdomen: Soft, nontender, nondistended Extremities: Pretibial edema Neuro: Generally weak, confused Psych: Flat Results & Data Results & Data Vital Signs (Past 12 Hours) Vital Signs Temp Pulse Pulse Resp BP Pulse Ox O2 Del Method 07/23/25 14:01 CPAP 07/23/25 13:19 88 30 H 96 07/23/25 13:02 133/83 07/23/25 13:00 38.2 C H 90 27 H 90 07/23/25 12:40 104/61 07/23/25 12:39 38.2 C H 82 27 H 07/23/25 12:07 77 24 97 Oxymask 07/23/25 12:02 137/87 07/23/25 12:00 38.1 C H 66 25 H 97 07/23/25 11:51 38.0 C H 64 22 90 07/23/25 11:51 93/58 L 07/23/25 11:01 114/74 07/23/25 11:00 37.7 C H 70 26 H 97 07/23/25 10:37 113/60 07/23/25 10:36 37.7 C H 68 20 96 07/23/25 10:05 123/74 07/23/25 10:00 37.6 C H 70 19 86 L 07/23/25 09:54 37.7 C H 72 25 H 100 07/23/25 09:54 113/80 07/23/25 09:24 37.8 C H 77 28 H 100 07/23/25 07:34 20 07/23/25 05:30 37.3 C 60 21 99 Mechanical Vent 07/23/25 05:00 37.3 C 60 17 99 Mechanical Vent 07/23/25 04:30 37.2 C 60 19 98 Mechanical Vent 07/23/25 04:00 37.2 C 60 19 98 Mechanical Vent 07/23/25 04:00 07/23/25 04:00 60 152/47 H 07/23/25 03:30 37.2 C 60 17 99 Mechanical Vent O2 Flow Rate FiO2 07/23/25 14:01 07/23/25 13:19 30 07/23/25 13:02 07/23/25 13:00 07/23/25 12:40 07/23/25 12:39 07/23/25 12:07 2 07/23/25 12:02 07/23/25 12:00 07/23/25 11:51 07/23/25 11:51 07/23/25 11:01 07/23/25 11:00 07/23/25 10:37 07/23/25 10:36 07/23/25 10:05 07/23/25 10:00 07/23/25 09:54 07/23/25 09:54 07/23/25 09:24 07/23/25 07:34 30 07/23/25 05:30 30 07/23/25 05:00 30 07/23/25 04:30 30 07/23/25 04:00 30 07/23/25 04:00 30 07/23/25 04:00 07/23/25 03:30 30 Diagnostic Findings Reviewed imaging, laboratory and diagnostic studies. Pertinent findings as below. WBC 5.1 Hemoglobin 8.3 Platelets 146 Electrolytes stable Creatinine 0.75 Personally reviewed chest x-ray consistent with pulmonary edema
[2025-07-24 05:14] LABS: Hematocrit (blood only) 30.6 % (37.0-47.0); Hemoglobin 9.5 g/dL (12.0-16.0); Immature Granulocytes # (auto) 0.11 K/uL (0.01-0.20); Immature Granulocytes % (auto) 1.5 %; Mean Corpuscular Hemoglobin 26.0 pg (25.0-34.0); Mean Corpuscular Volume 83.6 fL (80.0-100.0); Platelet Count 203 K/uL (130-400); RDW Standard Deviation 50.0 fL (36.4-46.3); Red Blood Count 3.66 M/uL (4.20-5.40); White Blood Count 7.15 K/ul (4.8-10.8)
[2025-07-24 05:46] LABS: Anion Gap 11.0 (3-11); Blood Urea Nitrogen 23.0 mg/dl (6-23); Calcium 9.2 mg/dl (8.6-10.3); Carbon Dioxide 25.0 mmol/L (21-32); Chloride 110.0 mmol/L (98-107); Creatinine Clr Calc Pharmacy 107.0 ml/min; Glucose 139.0 mg/dl (70-99(Fasting)); Magnesium 2.5 mg/dl (1.7-2.4); Potassium 3.6 mmol/L (3.5-5.1); Sodium 146.0 mmol/L (136-145)
[2025-07-24] MEDS ORDERED: SODIUM PHOSPHATE 3 MMOL/1 ML INFUSION IV STA (05:52)
[2025-07-24] MEDS: POTASSIUM CHLORIDE / WTR 20 MEQ/100 ML PLCT IV SCH (06:21)
[2025-07-24] MEDS: SODIUM PHOSPHATE 15 MMOL in SODIUM CHLORIDE 0.9% 250 ML IV ONE (06:21)
[2025-07-24] MEDS ORDERED: POTASSIUM CHLORIDE / WTR 20 MEQ/100 ML PLCT IV SCH (06:30)
--- NOTE | 2025-07-24 07:23 | Critical Care Progress Note ---
Date of Service July 24, 2025 Assessment & Plan (1) Acute heart failure: (2) Heart block: (3) Endotracheally intubated: (4) Acute hypoxemic respiratory failure: (5) AMS (altered mental status): Plan Impression: 75 YOF hypoxic respiratory failure requiring emergent/urgent intubation, in setting of bradycardia with concern for high grade block likely resulting in acute heart failure, also associated with entero/rhinovirus and UTI. 24-hour events: Agitated delirium. As needed Haldol used to control agitation. Hemodynamically stable. Low-grade fever last evening Recommendations: Neuro -agitated delirium. Continue to try and maintain sleep-wake cycles. Avoid medications associated with delirium. Frequent reorientation. As needed Haldol for periods of agitation. May need physical therapy and Occupational Therapy evaluations once medically appropriate Cardiac -third-degree heart block status post permanent pacemaker. Continue diuretics Respiratory - Acute hypoxic respiratory failure requiring emergent intubation, CLYDE. Extubated. Continue CPAP 14 cmH2O as needed and nightly while sleeping. Once patient's mental status improves will need aggressive pulmonary toilet including out of bed to chair as tolerated, incentive spirometry, and potential flutter valve. GI - No acute needs. Continue PPI. Will need swallow evaluation once mental status is appropriate RENAL/LYTES -creatinine back to normal. Mild hypernatremia. Needs free water. Continue ICU electrolyte replacement protocol -continue Briggs catheter for tracking intake and output ENDO - DMII - ICU hyper/hypoglycemic protocol HEME -mild anemia, stable. No indication for transfusion. No evidence of acute ongoing blood loss. ID -fever resolved. Cultures negative to date. Procalcitonin negative. Posit linda [employer] for enterovirus/rhinovirus. Complete 5-day course of daptomycin and Rocephin given need for invasive indwelling vascular device. LINES/IV ACCESS - PIV, Briggs. Transvenous pacer and arterial line removed. Continue central line for now DVT PROPHYLAXIS - SCDS. Continue subcu heparin GI PROPHYLAXIS- PPI DISPO: Patient's critical care needs have resolved. She can transfer to the floor under the care of the hospitalist. Critical care services will sign off. Feel free to contact us with questions or concerns Admission and Anticipated Discharge Date Admission Date: July 19, 2025 Subjective Patient seen and examined. EMR reviewed. Discussed with bedside critical care nurse and on multidisciplinary rounds. Patient's delirium is starting to clear. She is more verbal and is able to follow some commands but remains with some mild to moderate agitated delirium. She been hemodynamically stable. Her oxygen requirement is decreased significantly. She was able to tolerate CPAP overnight last evening Review of Systems Review of Systems: Unobtainable due to reduced consciousness Physical Exam Constitutional: + morbidly obese Neck: trachea midline, no thyromegaly Respiratory: symmetric chest movement; no respiratory distress, no labored breathing, no cough and not tachypneic Cardiovascular: Rate/Rhythm: regular rhythm and + bradycardic Heart Sounds: normal S1 and normal S2; no murmur Gastrointestinal (Abdomen): normal bowel sounds, soft, nontender, no hepatosplenomegaly Musculoskeletal: Extremities: extremities normal to inspection Skin: no rashes, warm and dry Neurologic: Agitated delirium Lymphatic: no cervical lymphadenopathy Results & Data Results & Data Vital Signs (Past 12 Hours) Vital Signs Temp Pulse Pulse Resp BP Pulse Ox O2 Del Method 07/24/25 06:30 131/82 07/24/25 06:30 37.1 C 93 H 29 H 98 Oxymask 07/24/25 06:12 134/74 07/24/25 06:12 37.4 C 93 H 25 H 97 07/24/25 06:00 37.2 C 66 27 H 99 07/24/25 05:01 130/70 07/24/25 05:00 37.4 C 86 26 H 98 07/24/25 04:30 37.4 C 79 22 97 07/24/25 04:30 146/82 H 07/24/25 04:00 37.4 C 60 13 99 07/24/25 04:00 144/86 H 07/24/25 03:30 153/83 H 07/24/25 03:30 37.4 C 94 H 20 99 07/24/25 03:07 82 27 H 99 07/24/25 03:00 37.3 C 64 17 99 07/24/25 03:00 126/73 07/24/25 02:31 152/71 H 07/24/25 02:30 37.3 C 94 H 24 99 07/24/25 02:01 135/61 07/24/25 02:00 37.1 C 71 26 H 98 07/24/25 01:31 130/75 07/24/25 01:30 37.6 C H 60 16 99 07/24/25 01:00 131/68 07/24/25 01:00 37.6 C H 60 30 H 99 07/24/25 00:33 37.5 C 85 23 99 07/24/25 00:31 126/67 07/24/25 00:30 37.5 C 85 25 H 98 07/24/25 00:08 82 20 99 CPAP 07/24/25 00:01 151/93 H 07/24/25 00:00 36.9 C 78 16 99 07/24/25 00:00 81 07/23/25 23:31 157/70 H 07/23/25 23:30 36.8 C 71 15 98 07/23/25 23:01 144/62 H 07/23/25 23:00 37.8 C H 60 20 99 07/23/25 23:00 66 31 H 99 07/23/25 22:33 37.5 C 60 20 99 07/23/25 22:31 149/91 H 07/23/25 22:30 37.6 C H 60 15 99 07/23/25 22:00 37.7 C H 80 23 98 07/23/25 22:00 156/67 H 07/23/25 21:30 37.2 C 60 20 99 07/23/25 21:30 128/78 07/23/25 21:01 140/71 07/23/25 21:00 37.9 C H 60 27 H 98 07/23/25 20:31 132/65 07/23/25 20:30 38.0 C H 62 29 H 98 07/23/25 20:17 60 14 98 CPAP 07/23/25 20:15 60 14 98 07/23/25 20:00 139/82 07/23/25 20:00 38.0 C H 71 29 H 98 07/23/25 19:31 145/58 H 07/23/25 19:30 38.0 C H 62 30 H 98 07/23/25 19:30 CPAP O2 Flow Rate FiO2 07/24/25 06:30 07/24/25 06:30 3 07/24/25 06:12 07/24/25 06:12 07/24/25 06:00 07/24/25 05:01 07/24/25 05:00 07/24/25 04:30 07/24/25 04:30 07/24/25 04:00 07/24/25 04:00 07/24/25 03:30 07/24/25 03:30 07/24/25 03:07 30 07/24/25 03:00 07/24/25 03:00 07/24/25 02:31 07/24/25 02:30 07/24/25 02:01 07/24/25 02:00 07/24/25 01:31 07/24/25 01:30 07/24/25 01:00 07/24/25 01:00 07/24/25 00:33 07/24/25 00:31 07/24/25 00:30 07/24/25 00:08 30 07/24/25 00:01 07/24/25 00:00 07/24/25 00:00 07/23/25 23:31 07/23/25 23:30 07/23/25 23:01 07/23/25 23:00 07/23/25 23:00 30 07/23/25 22:33 07/23/25 22:31 07/23/25 22:30 07/23/25 22:00 07/23/25 22:00 07/23/25 21:30 07/23/25 21:30 07/23/25 21:01 07/23/25 21:00 07/23/25 20:31 07/23/25 20:30 07/23/25 20:17 30 07/23/25 20:15 30 07/23/25 20:00 07/23/25 20:00 07/23/25 19:31 07/23/25 19:30 07/23/25 19:30 Critical Care Results & Data Vital Signs (Past 12 Hours) Vital Signs Temp Pulse Pulse Resp BP Pulse Ox O2 Del Method 07/24/25 06:30 131/82 07/24/25 06:30 37.1 C 93 H 29 H 98 Oxymask 07/24/25 06:12 134/74 07/24/25 06:12 37.4 C 93 H 25 H 97 07/24/25 06:00 37.2 C 66 27 H 99 07/24/25 05:01 130/70 07/24/25 05:00 37.4 C 86 26 H 98 07/24/25 04:30 37.4 C 79 22 97 07/24/25 04:30 146/82 H 07/24/25 04:00 37.4 C 60 13 99 07/24/25 04:00 144/86 H 07/24/25 03:30 153/83 H 07/24/25 03:30 37.4 C 94 H 20 99 07/24/25 03:07 82 27 H 99 07/24/25 03:00 37.3 C 64 17 99 07/24/25 03:00 126/73 07/24/25 02:31 152/71 H 07/24/25 02:30 37.3 C 94 H 24 99 07/24/25 02:01 135/61 07/24/25 02:00 37.1 C 71 26 H 98 07/24/25 01:31 130/75 07/24/25 01:30 37.6 C H 60 16 99 07/24/25 01:00 131/68 07/24/25 01:00 37.6 C H 60 30 H 99 07/24/25 00:33 37.5 C 85 23 99 07/24/25 00:31 126/67 07/24/25 00:30 37.5 C 85 25 H 98 07/24/25 00:08 82 20 99 CPAP 07/24/25 00:01 151/93 H 07/24/25 00:00 36.9 C 78 16 99 07/24/25 00:00 81 07/23/25 23:31 157/70 H 07/23/25 23:30 36.8 C 71 15 98 07/23/25 23:01 144/62 H 07/23/25 23:00 37.8 C H 60 20 99 07/23/25 23:00 66 31 H 99 07/23/25 22:33 37.5 C 60 20 99 07/23/25 22:31 149/91 H 07/23/25 22:30 37.6 C H 60 15 99 07/23/25 22:00 37.7 C H 80 23 98 07/23/25 22:00 156/67 H 07/23/25 21:30 37.2 C 60 20 99 07/23/25 21:30 128/78 07/23/25 21:01 140/71 07/23/25 21:00 37.9 C H 60 27 H 98 07/23/25 20:31 132/65 07/23/25 20:30 38.0 C H 62 29 H 98 07/23/25 20:17 60 14 98 CPAP 07/23/25 20:15 60 14 98 07/23/25 20:00 139/82 07/23/25 20:00 38.0 C H 71 29 H 98 07/23/25 19:31 145/58 H 07/23/25 19:30 38.0 C H 62 30 H 98 07/23/25 19:30 CPAP O2 Flow Rate FiO2 07/24/25 06:30 07/24/25 06:30 3 07/24/25 06:12 07/24/25 06:12 07/24/25 06:00 07/24/25 05:01 07/24/25 05:00 07/24/25 04:30 07/24/25 04:30 07/24/25 04:00 07/24/25 04:00 07/24/25 03:30 07/24/25 03:30 07/24/25 03:07 30 07/24/25 03:00 07/24/25 03:00 07/24/25 02:31 07/24/25 02:30 07/24/25 02:01 07/24/25 02:00 07/24/25 01:31 07/24/25 01:30 07/24/25 01:00 07/24/25 01:00 07/24/25 00:33 07/24/25 00:31 07/24/25 00:30 07/24/25 00:08 30 07/24/25 00:01 07/24/25 00:00 07/24/25 00:00 07/23/25 23:31 07/23/25 23:30 07/23/25 23:01 07/23/25 23:00 07/23/25 23:00 30 07/23/25 22:33 07/23/25 22:31 07/23/25 22:30 07/23/25 22:00 07/23/25 22:00 07/23/25 21:30 07/23/25 21:30 07/23/25 21:01 07/23/25 21:00 07/23/25 20:31 07/23/25 20:30 07/23/25 20:17 30 07/23/25 20:15 30 07/23/25 20:00 07/23/25 20:00 07/23/25 19:31 07/23/25 19:30 07/23/25 19:30 Lab & Micro Results (Past 24 Hours) RBC 3.66 M/uL (4.20-5.40) L 07/24/25 WBC 7.15 K/ul (4.8-10.8) 07/24/25 Hgb 9.5 g/dL (12.0-16.0) L 07/24/25 Hct 30.6 % (37.0-47.0) L 07/24/25 MCV 83.6 fL (80.0-100.0) 07/24/25 MCH 26.0 pg (25.0-34.0) 07/24/25 MCHC 31.0 g/dL (32.0-36.0) L 07/24/25 RDW Standard Deviation 50.0 fL (36.4-46.3) H 07/24/25 RDW Coefficient of Variation 16.4 % (11.5-14.5) H 07/24/25 Plt Count 203 K/uL (130-400) 07/24/25 MPV 9.8 fL (9.4-12.4) 07/24/25 Nucleated Red Blood Cells % (auto) 0.3 % 07/24 Nucleated RBC Absolute Count (auto) 0.02 K/uL (0.00-0.12) 1 09/23/24 Neutrophils (%) (Auto) 82.5 % 07/24/25 Lymphocytes (%) (Auto) 6.4 % 07/24/25 Monocytes # (Auto) 0.62 K/uL (0.11-0.59) H 07/24/25 Eosinophils # (Auto) 0.04 K/uL (0.00-0.50) 07/24/25 Immature Granulocyte % (Auto) 1.5 % 07/24/25 Neutrophils # (Auto) 5.90 K/uL (1.40-6.50) 07/24/25 Lymphocytes # (Auto) 0.46 K/uL (1.20-3.40) L 07/24/25 Monocytes # (Auto) 0.62 K/uL (0.11-0.59) H 07/24/25 Eosinophils # (Auto) 0.04 K/uL (0.00-0.50) 07/24/25 Basophils # (Auto) 0.02 K/uL (0.00-0.20) 07/24/25 Immature Granulocyte # (Auto) 0.11 K/uL (0.01-0.20) 5 Na 146 mmol/L (136-145) H 07/24/25 K 3.6 mmol/L (3.5-5.1) 07/24/25 Cl 110 mmol/L (98-107) H 07/24/25 CO2 25 mmol/L (21-32) 07/24/25 Anion Gap 11 (3-11) 07/24/25 BUN 23 mg/dl (6-23) 07/24/25 Creatinine 0.64 mg/dl (0.6-1.2) 07/24/25 BUN/Creatinine Ratio 35.9 (10-20) H 07/24/25 Glu 139 mg/dl (70-99(Fasting)) H 07/24/25 Ca 9.2 mg/dl (8.6-10.3) 07/24/25 Phosphorus Level 2.8 mg/dl (2.5-4.9) 07/24/25 Mg 2.5 mg/dl (1.7-2.4) H 07/24/25 04:25 Calcium Level 9.2 mg/dl (8.6-10.3) 07/24/25 04:25 Tone Test NA 07/23/25 09:38 Diagnostic Findings (Past 24 Hours) Chest X-Ray 07/23/25 10:17 SINGLE VIEW CHEST CLINICAL HISTORY: Post pacemaker implantation. Extubation. FINDINGS: An AP, portable, upright chest radiograph is compared to study dated 07/22/2025 and correlated with chest CT dated 07/19/2025. Endotracheal and enteric tubes have been removed. A right internal jugular central venous catheter is unchanged in position. A 2-lead cardiac pacemaker has been implanted. Leads project over the right atrial appendage and the right ventricle. The heart is enlarged noting atherosclerotic calcification of the thoracic aorta. The mitral annulus is densely calcified. There is evidence of congestive failure and pulmonary edema. There are small pleural effusions with dependent consolidation. No pneumothorax is seen. The skeletal structures are osteopenic. The bony thorax is grossly intact. IMPRESSION: 1. A 2-lead cardiac pacemaker has been implanted as above. No pneumothorax is seen post procedure. 2. Cardiomegaly with evidence of congestive failure and pulmonary edema. This is unchanged to modestly worsened from yesterday. 3. Small pleural effusions with dependent consolidation. 4. Endotracheal and enteric tubes have been removed. ACT 112: Negative or not required by law. Electronically signed by: Clement Rod M.D. 07/23/2025 10:59 AM I & O Totals 24 Hours 07/23/25 07/24/25 07/25/25 06:59 06:59 06:59 Intake Total 903.064 / 903.064 127.340 / 127.340 Output Total 1170 / 1495 2220 / 2220 Balance -266.936 / -591.936 -2092.660 / -2092.660 Cumulative 07/19/25 16:48 thru 07/24/25 06:00 Intake Total 5293.122 Output Total 7100 Balance -1806.878 RT Ventilator Mngmt (Last Documented) Ventilator Ordered Settings Ventilator Support Mode Assist Control 07/23/25 07:34 Respiratory Rate 29 07/24/25 06:30 Ventilator Tidal Volume 350 07/23/25 07:34 Setting Minute Ventilation 7.1 07/23/25 07:34 Ventilator Positive Pressure 4 07/22/25 15:21 Support Setting Positive End Expiratory 6 07/23/25 07:34 Pressure Fraction of Inspired Oxygen 30 07/24/25 03:07 Machine Comment dropped to PEEP of 6 at this time 07/21/25 02:03 Ventilator - PT Measurements Respiratory Rate 29 Exhaled Tidal Volume 351 Minute Ventilation 7.1 Peak Inspiratory Airway 19 Pressure Plateau Pressure 16 Respiratory Cycle Inspiratory: 1:3.8 Expiratory Ratio Inspiratory Phase Time 0.7 End-Tidal CO2 36 Static Lung Compliance 35.10 Dynamic Lung Compliance 27.00 Normal Static Lung Compliance 47.00 Patient Measurements Comment pt extubated to 4L NC per provider verbal order. Vent on standby as BiPAP. pt tolerating extubation well at this time. will get ABG at [address] Nielsen Coding Level of Care Code 41276 SUB INP/OBS CARE 3/50MIN Diagnoses Acute heart failure I50.9 Heart block I45.9 Endotracheally intubated Z97.8 Acute hypoxemic respiratory failure J96.01 AMS (altered mental status) R41.82
[2025-07-24] MEDS: HALOPERIDOL LACTATE 5 MG/ML 1 ML VIAL IV PRN (08:27)
--- NOTE | 2025-07-24 11:22 | Cardiology Progress Note ---
Date of Service July 24, 2025 Assessment & Plan (1) Symptomatic bradycardia: (2) Hypoxic respiratory failure: (3) Fever: (4) Sepsis: (5) Enterovirus infection: (6) Rhinovirus infection: Plan 75-year-old female with a history of COPD and chronic respiratory insufficiency due to restrictive lung mechanics in the setting of morbid obesity and past left lung lobectomy. Patient presents with confusion, fatigue and shortness of breath. Intubated on arrival for airways support due to hypoxia. She had been found to be febrile and in third degree AV block . She was not on AV malou blockers at baseline. TTecho 07/20/25: technically limited, LVEF 55-60%, moderate mitral annular calcification. Underwent transvenous temporary pacemaker via right femoral vein approach by Dr Thakkar on 07/20/25 Followed by dual-chamber permanent pacemaker in 07/22/2025 with ongoing third-degree AV block noted prior to permanent pacemaker implantation. 07/23/2025: Extubated :: Remains extubated, on oxymask 3/m. Remains confused / agitated. Plan: * Urine and blood cultures without growth thus far. * Potential sources of fever include viral respiratory infection, chronic leg wounds, UTI. * Continue broad spectrum antibiotics with daptomycin and ceftriaxone for now * Postextubation chest x-ray 07/23/2025 reveals enlargement of cardiac silhouette and interstitial edema consistent with possible CHF. Pacemaker leads in good position. * Agree with furosemide 40 mg IV daily. * SQ heparin for DVT prophylaxis. Deniz Bush DO Admission and Anticipated Discharge Date Admission Date: July 19, 2025 Subjective Patient seen in cardiology follow up . Remains agitated and unable to provide history. Vital signs are stable. Telemetry reveals sinus rhythm (atrial sensed and ventricular paced in the 80s). Physical Exam Physical Exam: Temp Pulse Resp BP Pulse Ox O2 Del Method O2 Flow Rate 37.5 C 92 H 26 H 132/62 99 Oxymask 3 07/24/25 10:00 07/24/25 10:00 07/24/25 10:00 07/24/25 10:00 07/24/25 10:00 07/24/25 10:00 07/24/25 10:00 FiO2 30 07/24/25 03:07 Constitutional: + obese Neck: trachea midline, no thyromegaly Respiratory: Auscultation: + diminished lung sounds (decreased BS at the bases ) Cardiovascular: Rate/Rhythm: regular rhythm and + bradycardic Heart Sounds: no murmur Vessels: no JVD Gastrointestinal (Abdomen): normal bowel sounds, soft, nontender, no hepatosplenomegaly Neurologic: agitated . Coding Level of Care Code 83909 SUB INP/OBS CARE 3/50MIN Diagnoses Symptomatic bradycardia R00.1 Hypoxic respiratory failure J96.91 Fever R50.9 Sepsis A41.9 Enterovirus infection B34.1 Rhinovirus infection B34.8
--- NOTE | 2025-07-24 11:27 | Hospitalist Progress Note ---
Date of Service July 24, 2025 Assessment & Plan (1) Acute on chronic hypoxic respiratory failure: (2) Acute heart failure with preserved ejection fraction: (3) Sepsis with acute organ dysfunction: (4) Rhinovirus infection: (5) Symptomatic bradycardia: (6) Third degree heart block: (7) Delirium due to another medical condition, acute, hyperactive: (8) Status post placement of cardiac pacemaker: (9) Acute metabolic encephalopathy: (10) COPD (chronic obstructive pulmonary disease): (11) Diabetes mellitus type 2 with complications: (12) Obstructive sleep apnea: Plan Patient continues to be delirious, suspect a combination of sedative medication when she was on the ventilator, anesthesia from pacemaker, hospital delirium, infectious Continue to manage symptoms as needed and give additional time for patient to recover Patient no longer requiring ICU level care, can transition to PCU Fevers have essentially resolved, rhinovirus infection has significantly improved Patient is on her chronic 3 L of oxygen at baseline, continue CPAP at night and with naps Will attempt a diet, will need to restart oral medications at some point when patient's delirium improves Will eventually need therapies and anticipate she will need care home for rehab when she is stabilized from a hospital level care perspective Phone update to patient's son Ernesto Admission and Anticipated Discharge Date Admission Date: July 19, 2025 Subjective Patient still delirious this morning. Blood pressures have stabilized and other vital signs stable. Patient continues to cry out for help. But then has no specific follow-up comments. Physical Exam Physical Exam: Constitutional: Awake, nontoxic, mild distress HEENT: Mucous membranes moist. Central line right jugular Lungs: Decreased breath sounds, few rhonchi that clears with cough CV: S1-S2, regular, systolic murmur, pacer site clean Abdomen: Soft, nontender, nondistended Extremities: Minimal ankle edema Neuro: Moves all extremities, does follow some simple commands, delirious Psych: A little agitated Results & Data Results & Data Vital Signs (Past 12 Hours) Vital Signs Temp Pulse Pulse Resp BP Pulse Ox O2 Del Method 07/24/25 10:00 132/62 Oxymask 07/24/25 10:00 37.5 C 92 H 26 H 99 07/24/25 09:30 119/74 07/24/25 09:30 37.4 C 84 27 H 98 Oxymask 07/24/25 09:00 126/71 07/24/25 09:00 126/71 07/24/25 09:00 37.4 C 84 22 99 Oxymask 07/24/25 08:30 134/74 07/24/25 08:30 37.6 C H 79 23 98 Oxymask 07/24/25 08:00 142/74 H 07/24/25 08:00 37.5 C 66 21 100 Oxymask 07/24/25 08:00 69 07/24/25 07:38 90 20 99 Oxymask 07/24/25 07:31 134/78 07/24/25 07:30 Oxymask 07/24/25 07:30 36.8 C 73 20 100 Oxymask 07/24/25 07:00 36.8 C 88 17 99 Oxymask 07/24/25 07:00 140/70 07/24/25 07:00 140/70 07/24/25 06:30 131/82 07/24/25 06:30 131/82 07/24/25 06:30 37.1 C 93 H 29 H 98 Oxymask 07/24/25 06:12 134/74 07/24/25 06:12 37.4 C 93 H 25 H 97 07/24/25 06:00 37.2 C 66 27 H 99 07/24/25 05:01 130/70 07/24/25 05:00 37.4 C 86 26 H 98 07/24/25 04:30 37.4 C 79 22 97 07/24/25 04:30 146/82 H 07/24/25 04:00 37.4 C 60 13 99 07/24/25 04:00 144/86 H 07/24/25 03:30 153/83 H 07/24/25 03:30 37.4 C 94 H 20 99 07/24/25 03:07 82 27 H 99 07/24/25 03:00 37.3 C 64 17 99 07/24/25 03:00 126/73 07/24/25 02:31 152/71 H 07/24/25 02:30 37.3 C 94 H 24 99 07/24/25 02:01 135/61 07/24/25 02:00 37.1 C 71 26 H 98 07/24/25 01:31 130/75 07/24/25 01:30 37.6 C H 60 16 99 07/24/25 01:00 131/68 07/24/25 01:00 37.6 C H 60 30 H 99 07/24/25 00:33 37.5 C 85 23 99 07/24/25 00:31 126/67 07/24/25 00:30 37.5 C 85 25 H 98 07/24/25 00:08 82 20 99 CPAP 07/24/25 00:01 151/93 H 07/24/25 00:00 36.9 C 78 16 99 07/24/25 00:00 81 07/23/25 23:31 157/70 H 07/23/25 23:30 36.8 C 71 15 98 O2 Flow Rate FiO2 07/24/25 10:00 3 07/24/25 10:00 07/24/25 09:30 07/24/25 09:30 3 07/24/25 09:00 07/24/25 09:00 07/24/25 09:00 3 07/24/25 08:30 07/24/25 08:30 3 07/24/25 08:00 07/24/25 08:00 3 07/24/25 08:00 07/24/25 07:38 3 07/24/25 07:31 07/24/25 07:30 3 07/24/25 07:30 3 07/24/25 07:00 3 07/24/25 07:00 07/24/25 07:00 07/24/25 06:30 07/24/25 06:30 07/24/25 06:30 3 07/24/25 06:12 07/24/25 06:12 07/24/25 06:00 07/24/25 05:01 07/24/25 05:00 07/24/25 04:30 07/24/25 04:30 07/24/25 04:00 07/24/25 04:00 07/24/25 03:30 07/24/25 03:30 07/24/25 03:07 30 07/24/25 03:00 07/24/25 03:00 07/24/25 02:31 07/24/25 02:30 07/24/25 02:01 07/24/25 02:00 07/24/25 01:31 07/24/25 01:30 07/24/25 01:00 07/24/25 01:00 07/24/25 00:33 07/24/25 00:31 07/24/25 00:30 07/24/25 00:08 07/24/25 00:01 07/24/25 00:00 07/24/25 00:00 07/23/25 23:31 07/23/25 23:30
[2025-07-25 04:46] LABS: Hematocrit (blood only) 32.7 % (37.0-47.0); Hemoglobin 9.8 g/dL (12.0-16.0); Immature Granulocytes # (auto) 0.07 K/uL (0.01-0.20); Immature Granulocytes % (auto) 1.2 %; Mean Corpuscular Hemoglobin 25.1 pg (25.0-34.0); Mean Corpuscular Volume 83.6 fL (80.0-100.0); Platelet Count 231 K/uL (130-400); RDW Standard Deviation 50.4 fL (36.4-46.3); Red Blood Count 3.91 M/uL (4.20-5.40); White Blood Count 5.95 K/ul (4.8-10.8)
[2025-07-25 05:01] LABS: Anion Gap 10.0 (3-11); Blood Urea Nitrogen 25.0 mg/dl (6-23); Calcium 9.1 mg/dl (8.6-10.3); Carbon Dioxide 29.0 mmol/L (21-32); Chloride 112.0 mmol/L (98-107); Creatinine Clr Calc Pharmacy 105.2 ml/min; Glucose 139.0 mg/dl (70-99(Fasting)); Magnesium 2.3 mg/dl (1.7-2.4); Potassium 3.9 mmol/L (3.5-5.1); Sodium 151.0 mmol/L (136-145)
--- NOTE | 2025-07-25 08:20 | Cardiology Progress Note ---
Date of Service July 25, 2025 Assessment & Plan (1) Symptomatic bradycardia: (2) Hypoxic respiratory failure: (3) Fever: (4) Sepsis: (5) Enterovirus infection: (6) Rhinovirus infection: Plan 75-year-old female with a history of COPD and chronic respiratory insufficiency due to restrictive lung mechanics in the setting of morbid obesity and past left lung lobectomy. Patient presents with confusion, fatigue and shortness of breath. Intubated on arrival for airways support due to hypoxia. She had been found to be febrile and in third degree AV block . She was not on AV malou blockers at baseline. TTE 07/20/25: technically limited, LVEF 55-60%, moderate mitral annular calcification. Underwent transvenous temporary pacemaker via right femoral vein approach by Dr Thakkar on 07/20/25. Followed by dual-chamber permanent pacemaker in 07/22/2025 with ongoing third-degree AV block noted prior to permanent pacemaker implantation. 07/23/2025: Extubated. Postextubation chest x-ray 07/23/2025 reveals enlargement of cardiac silhouette and interstitial edema consistent with possible CHF. Pacemaker leads in good position. 07/24/25: Remains extubated, on oxygen mask 3/m. Remains confused / agitated. Plan: * Does not appear significantly volume overloaded upon exam * Remains on CPAP mask when asleep or with naps * Sodium level trending up and IV Lasix discontinued this AM * Would continue to closely monitor fluid status with daily weights and strict I&Os * Continue to monitor and replete electrolytes as necessary (goal K+ >4.0; Mg >2.0) * SQ heparin for DVT prophylaxis * Will defer to primary team for ongoing treatment and management of acute delirium Case discussed and coordinated with Dr. Gil. Please see Dr. Gil notes for further recommendations. I spent a total of 30 minutes coordinating, documenting, and providing care for this patient excluding time spent in the performance of separately billed services or time spent by another provider/QHP. JAYDEN Landon Department of Cardiology Admission and Anticipated Discharge Date Admission Date: July 19, 2025 Supervising Physician Co-Signing Physician Notes I spent a total of 30 minutes on the date of service in preparation, delivery, and documentation of the care provided to this patient, excluding any time spent in the performance of separately billed services. I have personally performed a history and physical examination on the patient. I have reviewed the advance practitioner's documentation, and I agree with, and take responsibility for the plan of care. Subjective Seen by cardiology today for examination and follow-up. Remains confused and still requiring Haldol. Laying comfortably in bed and asleep on BIPAP upon exam. Briggs catheter in place draining clear, miguelangel-colored urine. No acute events overnight per RN. Chart, medications, and telemetry personally reviewed. Review of Systems Review of Systems: See HPI for pertinent positives. All others negative other than those noted in the HPI. CONSTITUTIONAL: No change in weight, No weakness, No fatigue, No fevers, No sweats or chills. HEENT: No visual changes, No epistaxis, No bleeding gums, No dysphagia, PULMONARY: No cough, sputum, or hemoptysis, No wheezing, No shortness of breath, and No recent change in breathing. CARDIOVASCULAR: No chest pain, No dyspnea on exertion, No edema, No palpitations, No syncope, No claudication, No calf pain. GASTROINTESTINAL: No change in appetite, No abdominal pain, No change in bowel habits, No significant heartburn, No nausea, No vomiting, No diarrhea, No constipation, No blood in stools or black tarry stools, No dysphagia. HEMATOLOGIC: No abnormal bleeding and No bruising. NEUROLOGICAL: No falls, No dizziness, No lightheadedness, Normal balance, No headaches, and No weakness. PSYCH: No sleep disturbances, No mood changes. Physical Exam Physical Exam: Vital signs within normal limits as above. General: Well developed and nourished. No acute distress. HEENT: Normocephalic. Atraumatic. Heart: RRR. S1 and S2 noted. No murmur. No rubs or gallops. PMI non displaced. Lungs: No acute respiratory distress. Clear to auscultation. No wheezes.No rhonchi. No rales. Abdomen: Normal bowel sounds. Soft. Nontender. No abdominal bruits. Extremities: Normal capillary refill. No edema. No clubbing or cyanosis. Pulses: radial=2/4, dorsal pedis=2/4. Skin: Warm and dry. Left pectoral device pocket with steri-strip dressing with no erythema, hematoma, or drainage. NEURO: No focal deficits. PSYCH: Appropriate affect and insight. Results & Data Vital Signs (Past 12 Hours) Vital Signs Temp Pulse Pulse Resp BP Pulse Ox O2 Del Method 07/25/25 07:48 88 22 98 07/25/25 07:45 78 22 98 CPAP 07/25/25 07:39 68 21 140/105 H 99 CPAP 07/25/25 07:18 71 07/25/25 07:00 37.6 C H 90 22 100 07/25/25 06:00 37.6 C H 71 21 98 07/25/25 04:01 140/74 07/25/25 04:00 37.5 C 90 19 99 07/25/25 02:25 82 21 99 CPAP 07/25/25 02:25 82 21 99 07/25/25 00:00 37.8 C H 84 24 122/69 97 07/25/25 00:00 81 07/24/25 22:11 98 H 32 H 98 FiO2 07/25/25 07:48 30 07/25/25 07:45 30 07/25/25 07:39 30 07/25/25 07:18 07/25/25 07:00 07/25/25 06:00 07/25/25 04:01 07/25/25 04:00 07/25/25 02:25 30 07/25/25 02:25 30 07/25/25 00:00 07/25/25 00:00 07/24/25 22:11 30 Laboratory Results CBC 07/25/25 Range/Units 04:16 WBC 5.95 (4.8-10.8) K/ul RBC 3.91 L (4.20-5.40) M/uL Hgb 9.8 L (12.0-16.0) g/dL Hct 32.7 L (37.0-47.0) % Plt Count 231 (130-400) K/uL Neut # (Auto) 4.70 (1.40-6.50) K/uL Lymph # (Auto) 0.54 L (1.20-3.40) K/uL [place] # (Auto) 0.55 (0.11-0.59) K/uL Eos # (Auto) 0.07 (0.00-0.50) K/uL Baso # (Auto) 0.02 (0.00-0.20) K/uL Comprehensive Metabolic Panel 07/25/25 Range/Units 04:16 Sodium 151 H (136-145) mmol/L Potassium 3.9 (3.5-5.1) mmol/L Chloride 112 H (98-107) mmol/L Carbon Dioxide 29 (21-32) mmol/L BUN 25 H (6-23) mg/dl Creatinine 0.65 (0.6-1.2) mg/dl Glucose 139 H (70-99(Fasting)) mg/dl Calcium 9.1 (8.6-10.3) mg/dl Intake and Output 07/24/25 07/25/25 07/25/25 22:59 06:59 14:59 Output Total / 2325 Balance - / -1820 - Output: Urine Amount (Catheter) / 2325 Briggs/Indwelling / 2324 Other: Weight 129.2 kg Weight Measurement Method Built in [facility] PG Care Time/CCT Total # of Minutes Spent Total Time Spent with Patient: Total time spent is greater than 50% in coordination of care (as documented) at patient's floor/unit and/or counseling patient: Coding [place] [address] SUB INP/OBS CARE 3/50MIN Patient Type Established Medical Decision Making High Complexity Diagnoses Symptomatic bradycardia R00.1 Hypoxic respiratory failure J96.91 Fever R50.9 Sepsis A41.9 Enterovirus infection B34.1 Rhinovirus infection B34.8 Time Spent (min) 30
--- NOTE | 2025-07-25 09:51 | Hospitalist Progress Note ---
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 Patient has improved in the sense that she now has a pacemaker. On less oxygen than her normal baseline home oxygen requirement however, patient continues to remain quite delirious. Previous hospitalizations family reports that patient does get delirious and takes quite some time for her to recover. Suspect we just need to give her a tincture of time. Will check ABG to ensure she is not retaining CO2. Check CT of the head, low suspicion for acute abnormality, however will reimage today. Patient completed course of antibiotics Continue other supportive care. Patient's sodium has been trending upward. Patient most likely becoming intravascularly depleted in the setting of diuretic. Will discontinue Lasix. Start D5W. Monitor sodium levels and other electrolytes Continue to monitor glucose and cover with insulin Continue CPAP when asleep or with naps Nonpharmacological delirium interventions. Nurse hopes to be able to get patient in a chair and set her front of a window. Attempted to update son via phone, no answer Admission and Anticipated Discharge Date Admission Date: July 19, 2025 Subjective Patient continues to be quite delirious. Required several doses of Haldol over the last 24 hours. Currently sedated/asleep on her BiPAP. Nurse reports that vital signs and urine output has been good Physical Exam Physical Exam: Constitutional: Asleep minimally responsive HEENT: Mucous membranes dry, on CPAP Lungs: Decreased breath sounds, prolonged, no wheezes CV: S1-S2, regular Abdomen: Soft, nontender, nondistended Extremities: Edema in hands and feet Neuro: Weak, minimally responsive, nonfocal Psych: Delirious when awake Results & Data Results & Data Vital Signs (Past 12 Hours) Vital Signs Temp Pulse Pulse Resp BP Pulse Ox O2 Del Method 07/25/25 08:01 117/75 07/25/25 08:01 117/75 07/25/25 08:00 37.6 C H 73 18 99 CPAP 07/25/25 07:48 88 22 98 07/25/25 07:45 78 22 98 CPAP 07/25/25 07:41 CPAP 07/25/25 07:39 37.6 C H 81 23 99 07/25/25 07:39 68 21 140/105 H 99 CPAP 07/25/25 07:18 71 07/25/25 07:00 37.6 C H 90 22 100 07/25/25 06:00 37.6 C H 71 21 98 07/25/25 04:01 140/74 07/25/25 04:00 37.5 C 90 19 99 07/25/25 02:25 82 21 99 CPAP 07/25/25 02:25 82 21 99 07/25/25 00:00 37.8 C H 84 24 122/69 97 07/25/25 00:00 81 07/24/25 22:11 98 H 32 H 98 FiO2 07/25/25 08:01 07/25/25 08:01 07/25/25 08:00 07/25/25 07:48 30 07/25/25 07:45 30 07/25/25 07:41 07/25/25 07:39 07/25/25 07:39 30 07/25/25 07:18 07/25/25 07:00 07/25/25 06:00 07/25/25 04:01 07/25/25 04:00 07/25/25 02:25 30 07/25/25 02:25 30 07/25/25 00:00 07/25/25 00:00 07/24/25 22:11 30 Diagnostic Findings Reviewed imaging, laboratory and diagnostic studies. Pertinent findings as below. WBCs 5.9 Hemoglobin 9.8 Platelets of 231 Sodium 151 Chloride 112 Creatinine 0.65 Glucose 132
[2025-07-25 10:31] LABS: iSTAT Art Bld Gas Base Excess 4.0 mmol/L (-9-1.8); iSTAT Art Bld Gas pCO2 Correct 44 mmHg (35-46); iSTAT Art Bld Gas pH Corrected 7.425 (7.35-7.45); iSTAT Arterial Blood Gas pO2 C 113
--- NOTE | 2025-07-25 11:23 | CT Scan Report ---
.Clinical History: Delirium Technique: Axial computed tomography images were obtained of the brain without intravenous contrast. Findings: There is diffuse cerebral atrophy, within expected limits for the patient's age. Areas of decreased attenuation are seen within the periventricular white matter, likely representing chronic small vessel ischemic disease. There is no definite sign of acute or old infarction. No intracranial hemorrhage is evident. No definite mass lesion is seen on this noncontrast examination. There is no midline shift or other form of herniation. No hydrocephalus is seen. No fracture is identified. There is some fluid in the right maxillary sinus. There is opacification of the right mastoid air cells. Impression: 1. Cerebral atrophy and chronic small vessel ischemic disease 2. Right maxillary sinusitis 3. Opacification of the right mastoid air cells, which may be due to inflammatory mastoiditis Electronically signed by Telly Bedolla 07-25-2025 11:15 AM
[2025-07-25] MEDS: DEXTROSE 5% 1,000 ML IV SCH (11:30)
[2025-07-25 16:45] LABS: Anion Gap 10.0 (3-11); Blood Urea Nitrogen 26.0 mg/dl (6-23); Calcium 9.2 mg/dl (8.6-10.3); Carbon Dioxide 31.0 mmol/L (21-32); Chloride 112.0 mmol/L (98-107); Creatinine Clr Calc Pharmacy 98.1 ml/min; Glucose 148.0 mg/dl (70-99(Fasting)); Potassium 3.7 mmol/L (3.5-5.1); Sodium 153.0 mmol/L (136-145)
[2025-07-25] MEDS ORDERED: Nursing to Pharmacy Communication SCH (17:00)
[2025-07-25] MEDS: INSULIN ASPART PER UNIT CHARGE SC SCH (21:42)
--- NOTE | 2025-07-26 04:51 | Communication Note ---
Date of Service: July 26, 2025 Patient skin noted to be red and rashy as per RN. Not actively itching as per RN. AP Hypersensitivity reaction Unknown allergen for now Loratadine 1 dose Monitor for rash recurrence.
[2025-07-26] MEDS: LORATADINE 10 MG TAB PO ONE (05:29)
[2025-07-26 06:44] LABS: Hematocrit (blood only) 31.3 % (37.0-47.0); Hemoglobin 9.4 g/dL (12.0-16.0); Mean Corpuscular Hemoglobin 25.8 pg (25.0-34.0); Mean Corpuscular Volume 86.0 fL (80.0-100.0); Platelet Count 238 K/uL (130-400); RDW Standard Deviation 52.6 fL (36.4-46.3); Red Blood Count 3.64 M/uL (4.20-5.40); White Blood Count 5.73 K/ul (4.8-10.8)
[2025-07-26 07:22] LABS: Anion Gap 7.0 (3-11); Blood Urea Nitrogen 28.0 mg/dl (6-23); Calcium 8.9 mg/dl (8.6-10.3); Carbon Dioxide 31.0 mmol/L (21-32); Chloride 112.0 mmol/L (98-107); Creatinine Clr Calc Pharmacy 103.6 ml/min; Glucose 159.0 mg/dl (70-99(Fasting)); Potassium 3.8 mmol/L (3.5-5.1); Sodium 150.0 mmol/L (136-145)
--- NOTE | 2025-07-26 08:01 | Cardiology Progress Note ---
Date of Service July 26, 2025 Assessment & Plan (1) Symptomatic bradycardia: (2) Hypoxic respiratory failure: (3) Fever: (4) Sepsis: (5) Enterovirus infection: (6) Rhinovirus infection: Plan 75-year-old female with a history of COPD and chronic respiratory insufficiency due to restrictive lung mechanics in the setting of morbid obesity and past left lung lobectomy. Patient presents with confusion, fatigue and shortness of breath. Intubated on arrival for airways support due to hypoxia. She had been found to be febrile and in third degree AV block . She was not on AV malou blockers at baseline. TTE 07/20/25: technically limited, LVEF 55-60%, moderate mitral annular calcification. Underwent transvenous temporary pacemaker via right femoral vein approach by Dr Thakkar on 07/20/25. Followed by dual-chamber permanent pacemaker in 07/22/2025 with ongoing third-degree AV block noted prior to permanent pacemaker implantation. 07/23/2025: Extubated. Postextubation chest x-ray 07/23/2025 reveals enlargement of cardiac silhouette and interstitial edema consistent with possible CHF. Pacemaker leads in good position. 07/24/25: Remains extubated, on oxygen mask 3/m. Remains confused / agitated. 07/25/25: Sodium level trending up and IV Lasix held. Started on D5W. Plan/Recommendations: * Remains on 2 L via oxygen mask (baseline supplemental oxygen 3L via NC) and CPAP at night or with naps * Does not appear significantly volume overloaded upon exam * Hypernatremia improving on AM labs (153 -> 150) and IV Lasix remains held * Would continue to closely monitor fluid status with daily weights and strict I&Os * Continue to monitor and replete electrolytes as necessary (goal K+ >4.0; Mg >2.0) * Maintain 2gm sodium and 2L fluid restriction * Continue to monitor on telemetry Case discussed and coordinated with Dr. Gil. Please see Dr. Gil notes for further recommendations. I spent a total of 30 minutes coordinating, documenting, and providing care for this patient excluding time spent in the performance of separately billed services or time spent by another provider/QHP. JAYDEN Landon Department of Cardiology Admission and Anticipated Discharge Date Admission Date: July 19, 2025 Supervising Physician Co-Signing Physician Notes I spent a total of 30 minutes on the date of service in preparation, delivery, and documentation of the care provided to this patient, excluding any time spent in the performance of separately billed services. I have personally performed a history and physical examination on the patient. I have reviewed the advance practitioner's documentation, and I agree with, and take responsibility for the plan of care. Subjective Seen by cardiology today for examination and follow-up. Remains confused but arousable to questions. Laying comfortably in bed on oxygen mask with 2L. Briggs catheter in place draining clear, miguelangel-colored urine. Denies chest discomfort or shortness of breath. Chart, medications, and telemetry personally reviewed. Review of Systems Review of Systems: See HPI for pertinent positives. All others negative other than those noted in the HPI. CONSTITUTIONAL: No change in weight, No weakness, No fatigue, No fevers, No sweats or chills. HEENT: No visual changes, No epistaxis, No bleeding gums, No dysphagia, PULMONARY: No cough, sputum, or hemoptysis, No wheezing, No shortness of breath, and No recent change in breathing. CARDIOVASCULAR: No chest pain, No dyspnea on exertion, No edema, No palpitations, No syncope, No claudication, No calf pain. GASTROINTESTINAL: No change in appetite, No abdominal pain, No change in bowel habits, No significant heartburn, No nausea, No vomiting, No diarrhea, No constipation, No blood in stools or black tarry stools, No dysphagia. HEMATOLOGIC: No abnormal bleeding and No bruising. NEUROLOGICAL: No falls, No dizziness, No lightheadedness, Normal balance, No headaches, and No weakness. PSYCH: No sleep disturbances, No mood changes. Physical Exam Physical Exam: Vital signs within normal limits as above. General: Well developed and nourished. No acute distress. HEENT: Normocephalic. Atraumatic. Heart: RRR. S1 and S2 noted. No murmur. No rubs or gallops. PMI non displaced. Lungs: No acute respiratory distress. Clear to auscultation. No wheezes.No rhonchi. No rales. Abdomen: Obese. Normal bowel sounds. Soft. Nontender. No abdominal bruits. Extremities: Normal capillary refill. No edema. No clubbing or cyanosis. Pulses: radial=2/4, dorsal pedis=2/4. Skin: Warm and dry. Left pectoral device pocket with steri-strip dressing with no erythema, hematoma, or drainage. NEURO: No focal deficits. PSYCH: Appropriate affect and insight. Results & Data Vital Signs (Past 12 Hours) Vital Signs Temp Pulse Pulse Resp BP Pulse Ox O2 Del Method 07/26/25 07:17 36.8 C 82 18 186/79 H 100 Oxymask 07/26/25 07:05 73 18 99 Oxymask 07/26/25 03:02 37.6 C H 86 20 109/70 99 CPAP 07/26/25 02:36 94 H 23 98 07/25/25 23:30 37.0 C 91 H 20 115/78 99 CPAP 07/25/25 22:49 CPAP 07/25/25 22:12 92 H 21 98 07/25/25 20:15 92 H 22 97 Oxymask O2 Flow Rate FiO2 07/26/25 07:17 2 07/26/25 07:05 3 07/26/25 03:02 07/26/25 02:36 30 07/25/25 23:30 07/25/25 22:49 07/25/25 22:12 30 07/25/25 20:15 3 Laboratory Results CBC 07/26/25 Range/Units 04:44 WBC 5.73 (4.8-10.8) K/ul RBC 3.64 L (4.20-5.40) M/uL Hgb 9.4 L (12.0-16.0) g/dL Hct 31.3 L (37.0-47.0) % Plt Count 238 (130-400) K/uL Comprehensive Metabolic Panel 07/25/25 07/26/25 Range/Units 15:51 04:44 Sodium 153 H 150 H (136-145) mmol/L Potassium 3.7 3.8 (3.5-5.1) mmol/L Chloride 112 H 112 H (98-107) mmol/L Carbon Dioxide 31 31 (21-32) mmol/L BUN 26 H 28 H (6-23) mg/dl Creatinine 0.67 0.71 (0.6-1.2) mg/dl Glucose 148 H 159 H (70-99(Fasting)) mg/dl Calcium 9.2 8.9 (8.6-10.3) mg/dl Intake and Output 11/29/25 11/30/25 11/30/25 22:59 06:59 14:59 Intake Total 300 / 2132 1722 / 2132 Output Total 325 / 1305 200 / 1305 Balance -7 1522 / 827 Intake: IV 1000 / 1000 Dextrose 5% 1,000 ml @ 75 mls/ 1000 / 1000 hr IV .[id number] HALIMA Rx#:[id number] Oral 300 / 1132 722 / 1132 Output: Urine Amount (Catheter) 325 / 1305 200 / 1305 Briggs/Indwelling 325 / 1305 200 / 1305 Other: Weight 153.9 kg Weight Measurement Method Built in [facility] Diagnostic Findings Sinus rhythm with rates 70-80 bpm and intermittent pacing noted on 24-hr telemetry review. Head CT 07/25/25 09:41 .Clinical History: Delirium Technique: Axial computed tomography images were obtained of the brain without intravenous contrast. Findings: There is diffuse cerebral atrophy, within expected limits for the patient's age. Areas of decreased attenuation are seen within the periventricular white matter, likely representing chronic small vessel ischemic disease. There is no definite sign of acute or old infarction. No intracranial hemorrhage is evident. No definite mass lesion is seen on this noncontrast examination. There is no midline shift or other form of herniation. No hydrocephalus is seen. No fracture is identified. There is some fluid in the right maxillary sinus. There is opacification of the right mastoid air cells. Impression: 1. Cerebral atrophy and chronic small vessel ischemic disease 2. Right maxillary sinusitis 3. Opacification of the right mastoid air cells, which may be due to inflammatory mastoiditis Electronically signed by Telly Bedolla 07-25-2025 11:15 AM PG Care Time/CCT Total # of Minutes Spent Total Time Spent with Patient: Total time spent is greater than 50% in coordination of care (as documented) at patient's floor/unit and/or counseling patient: Coding [place] [address] SUB INP/OBS CARE 3/50MIN Patient Type Established Medical Decision Making High Complexity Diagnoses Symptomatic bradycardia R00.1 Hypoxic respiratory failure J96.91 Fever R50.9 Sepsis A41.9 Enterovirus infection B34.1 Rhinovirus infection B34.8 Time Spent (min) 30
--- NOTE | 2025-07-26 10:13 | Hospitalist Progress Note ---
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 Was able to tell me her full name which is a significant improvement. Nurse states that she ate at least 75% of her breakfast. Patient has been consistently stating that she thinks she is in the kitchen. Physical Exam Physical Exam: Constitutional: Awake, obese, more responsive, nontoxic HEENT: Mucous membranes moist. Lungs: Decreased breath sounds with crackles throughout CV: S1-S2, regular Abdomen: Soft, nontender, nondistended Extremities: No significant edema Neuro: Generally weak, disoriented to place and time, still little delirious but improved Psych: Cooperative, Results & Data Results & Data Vital Signs (Past 12 Hours) Vital Signs Temp Pulse Pulse Resp BP Pulse Ox O2 Del Method 07/26/25 07:17 36.8 C 82 18 186/79 H 100 Oxymask 07/26/25 07:05 73 18 99 Oxymask 07/26/25 03:02 37.6 C H 86 20 109/70 99 CPAP 07/26/25 02:36 94 H 23 98 07/25/25 23:30 37.0 C 91 H 20 115/78 99 CPAP 07/25/25 22:49 CPAP 07/25/25 22:12 92 H 21 98 O2 Flow Rate FiO2 07/26/25 07:17 2 07/26/25 07:05 3 07/26/25 03:02 07/26/25 02:36 30 07/25/25 23:30 07/25/25 22:49 07/25/25 22:12 30 Diagnostic Findings Reviewed imaging, laboratory and diagnostic studies. Pertinent findings as below. WBC 5.7 Hemoglobin 9.4, stable Platelets 238 Sodium 150, improved Chloride 112 BUN 28 Creatinine 0.71 Glucose 152
--- NOTE | 2025-07-26 20:07 | Communication Note ---
Date of Service: July 26, 2025 Patient with bilateral calf pain and redness as per RN. Patient unable to determine duration of redness due to mentation as per RN. AP Bilateral LE cellulitis Rule out DVT Doxycycline LE venous Dopplers rule out DVT
[2025-07-26] MEDS: DOXYCYCLINE HYCLATE 100 MG in DEXTROSE 5% MINI-B 100 ML IV STA (20:59)
--- NOTE | 2025-07-27 07:10 | Ultrasound Report ---
EXAM: US venous doppler LE BI CLINICAL HISTORY: Swelling. TECHNIQUE: Ultrasound examination of bilateral lower extremity veins was performed in real time and duplex. One or more of the following were performed: spectral analysis, resistive index, waveform analysis, and pulsed Doppler. COMPARISON: US dated 09/20/2019. FINDINGS: Normal phasic, non-pulsatile and spontaneous flow is noted in bilateral GSV, common femoral, superficial femoral, popliteal, anterior tibial, posterior tibial, and peroneal veins. Visualized veins of both lower extremities demonstrate normal compressibility. No sonographic evidence of acute deep vein thrombosis (DVT) is detected in the visualized veins of both lower extremities. Compression and Augmentation: All evaluated veins compress fully with the applied transducer pressure. Augmentation of venous flow is noted with distal compression. Additional Findings: No evidence of intraluminal thrombus. Limited visualization of calf veins due to overlying edema. IMPRESSION: 1. No sonographic evidence of acute DVT was detected in the bilateral lower extremity veins at the time of examination. 2. Limited visualization of calf veins due to overlying edema. 3. No interval change compared to the prior study. Disclaimer: DVT could be missed early in the disease when the clot burden is minimal. For patients with moderate and high pretest probability of DVT and negative ultrasound, the [employer] clinical guidelines recommend testing with a D-dimer assay or repeat ultrasound in 5-7 days. If symptoms worsen, the Society of [employer] in Ultrasound recommends repeating ultrasound even earlier. Electronically signed by Yonis Shah 07-27-2025 07:10 AM
[2025-07-27 07:14] LABS: Anion Gap 6.0 (3-11); Blood Urea Nitrogen 21.0 mg/dl (6-23); Calcium 8.5 mg/dl (8.6-10.3); Carbon Dioxide 32.0 mmol/L (21-32); Chloride 107.0 mmol/L (98-107); Creatinine Clr Calc Pharmacy 127.9 ml/min; Glucose 148.0 mg/dl (70-99(Fasting)); Magnesium 2.0 mg/dl (1.7-2.4); Potassium 3.8 mmol/L (3.5-5.1); Sodium 145.0 mmol/L (136-145)
[2025-07-27] MEDS: DOXYCYCLINE HYCLATE 100 MG CAP PO SCH (08:21)
[2025-07-27] MEDS: ACETAMINOPHEN 325 MG TAB PO PRN (09:12)
--- NOTE | 2025-07-27 10:26 | Hospitalist Progress Note ---
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: (12) Obstructive sleep apnea: Plan Patient's encephalopathy is significantly improving compared to yesterday, continue to increase activity as tolerated, continue nonpharmacological interventions for delirium Continue to encourage oral intake Discontinue D5W, sodium is normalized, may now be able to restart some diuresis now that she has better oral intake without causing significant hypernatremia as previous Can remove central line Continue therapies Case management pursuing SNF Admission and Anticipated Discharge Date Admission Date: July 19, 2025 Subjective Events of last evening noted, concern for cellulitis bilateral lower extremities. Patient much more interactive today much more oriented. Has some chronic pains in back and legs. Is complaining of some abdominal discomfort, feels as though she needs to have a bowel movement Physical Exam Physical Exam: Constitutional: Alert, morbidly obese, nontoxic HEENT: Mucous membranes moist. Lungs: Decreased breath sounds, crackles throughout CV: S1-S2, regular Abdomen: Soft, distention, mild tenderness, normal active bowel sounds Extremities: Bilateral lower extremity edema, posterior thigh edema, no evidence of cellulitis, some ruborous changes associated with edema Neuro: Generally weak, oriented to person, place, year Psych: Cooperative, normal mood Results & Data Results & Data Vital Signs (Past 12 Hours) Vital Signs Temp Pulse Pulse Resp BP Pulse Ox O2 Del Method 07/27/25 07:56 Nasal Cannula 07/27/25 07:56 85 07/27/25 07:14 82 18 99 Oxymask 07/27/25 07:09 37.3 C 79 18 147/76 H 100 Oxymask 07/27/25 02:29 88 20 98 Oxymask 07/27/25 01:55 36.7 C 81 20 107/73 100 Oxymask 07/27/25 00:12 58 L 07/26/25 23:59 Oxymask 07/26/25 23:30 91 H 22 97 07/26/25 22:22 36.6 C 68 20 90/57 L 100 Nasal Cannula O2 Flow Rate FiO2 07/27/25 07:56 3 07/27/25 07:56 07/27/25 07:14 3 07/27/25 07:09 3 07/27/25 02:29 3 07/27/25 01:55 3 07/27/25 00:12 07/26/25 23:59 3 07/26/25 23:30 30 07/26/25 22:22 3 Diagnostic Findings Reviewed imaging, laboratory and diagnostic studies. Pertinent findings as below. Sodium 145 Creatinine 0.58 Glucose 139 Ultrasound lower extremities negative for DVT Reviewed intake and output, significantly positive, weight significantly increased
[2025-07-27] MEDS: FUROSEMIDE 40 MG/4 ML VIAL IV ONE (10:44)
--- NOTE | 2025-07-27 11:44 | Cardiology Progress Note ---
Date of Service July 27, 2025 Assessment & Plan (1) Symptomatic bradycardia: (2) Hypoxic respiratory failure: (3) Fever: (4) Sepsis: (5) Enterovirus infection: (6) Rhinovirus infection: (7) Status post placement of cardiac pacemaker: Plan 75-year-old female with a history of COPD and chronic respiratory insufficiency due to restrictive lung mechanics in the setting of morbid obesity and past left lung lobectomy. Patient presents with confusion, fatigue and shortness of breath. Intubated on arrival for airways support due to hypoxia. She had been found to be febrile and in third degree AV block . She was not on AV malou blockers at baseline. TTE 07/20/25: technically limited, LVEF 55-60%, moderate mitral annular calcification. Underwent transvenous temporary pacemaker via right femoral vein approach by Dr Thakkar on 07/20/25. Followed by dual-chamber permanent pacemaker in 07/22/2025 with ongoing third-degree AV block noted prior to permanent pacemaker implantation. 07/23/2025: Extubated. Postextubation chest x-ray 07/23/2025 reveals enlargement of cardiac silhouette and interstitial edema consistent with possible CHF. Pacemaker leads in good position. 07/24/25: Remains extubated, on oxygen mask 3/m. Remains confused / agitated. 07/25/25: Sodium level trending up and IV Lasix held. Started on D5W. 07/27/25: Sodium levels normalized, now being treated for cellulitis. Findings of volume overload on exam Plan/Recommendations: * Remains on 3 L via via NC * Worsening volume status noted today (edema/SOB) * Now that sodium levels have normalized and BUN improved, recommend resuming IV lasix - 40 mg IV given this morning * Would continue to closely monitor fluid status with daily weights and strict I&Os * Continue to monitor and replete electrolytes as necessary (goal K+ >4.0; Mg >2.0) * Maintain 2gm sodium and 2L fluid restriction * Continue to monitor on telemetry * Continue antibiotics for possible LE cellulitis * Pacer site healing without erythema or drainage. * Will need device f/u with either [facility] or [facility] on discharge. Case discussed with Dr. Ibarra I spent a total of 35 minutes on the date of service in preparation, delivery, and documentation of the care provided to this patient, excluding any time spent in the performance of separately billed services. Aydee Shah PA-C Department of Cardiology, [facility] This chart was completed in part utilizing Speech Voice Recognition Software. Grammatical errors, random word insertions, pronoun errors, and incomplete sentences are an occasional consequence of this system due to software limitations, ambient noise, and hardware issues. Any formal questions or concerns about the content, text, or information contained within the body of this dictation should be directly addressed to the provider for clarification. Admission and Anticipated Discharge Date Admission Date: July 19, 2025 Supervising Physician Co-Signing Physician Notes I have personally performed a history and physical examination on the patient. I have reviewed the advance practitioner's documentation, and I agree with, and take responsibility for the plan of care. 75-year-old female with symptomatic bradycardia status post dual-chamber permanent pacemaker implantation. Edema noted on exam. Patient received 40 mg IV furosemide this morning. Resume oral torsemide pending review of a.m. labs 07/28/2025. Outpatient wound check and device interrogation 1 week post- discharge. Chance Ibarra DO, [facility] I spent a total of 25 minutes on the date of service in preparation, delivery, and documentation of the care provided to this patient, excluding any time spent in the performance of separately billed services. Subjective Patient seen/evaluated today. Started on antibiotics overnight for possible cellulitis. Venous duplex negative for DVT. At time of evaluation this morning, patient resting comfortably. Reports mild SOB at rest. Edema noted b/l. No chest pain. Review of Systems Review of Systems: All systems reviewed & are unremarkable except as noted in HPI & below Physical Exam Constitutional: + obese Neck: trachea midline, no thyromegaly Respiratory: Auscultation: + diminished lung sounds (decreased BS at the bases ) Cardiovascular: Rate/Rhythm: regular rhythm and + bradycardic Heart Sounds: no murmur Vessels: no JVD Extremities: + edema (1-2+) Gastrointestinal (Abdomen): normal bowel sounds, soft, nontender, no hepatosplenomegaly Skin: Left lower extremity erythema suggestive of cellulitis Results & Data Vital Signs (Past 12 Hours) Vital Signs Temp Pulse Pulse Resp BP Pulse Ox O2 Del Method 07/27/25 11:27 37.0 C 68 20 131/81 100 Nasal Cannula 07/27/25 07:56 Nasal Cannula 07/27/25 07:56 85 07/27/25 07:14 82 18 99 Oxymask 07/27/25 07:09 37.3 C 79 18 147/76 H 100 Oxymask 07/27/25 02:29 88 20 98 Oxymask 07/27/25 01:55 36.7 C 81 20 107/73 100 Oxymask 07/27/25 00:12 58 L 07/26/25 23:59 Oxymask O2 Flow Rate 07/27/25 11:27 3 07/27/25 07:56 3 07/27/25 07:56 07/27/25 07:14 3 07/27/25 07:09 3 07/27/25 02:29 3 07/27/25 01:55 3 07/27/25 00:12 07/26/25 23:59 3 Laboratory Results Comprehensive Metabolic Panel 07/27/25 Range/Units 06:18 Sodium 145 (136-145) mmol/L Potassium 3.8 (3.5-5.1) mmol/L Chloride 107 (98-107) mmol/L Carbon Dioxide 32 (21-32) mmol/L BUN 21 (6-23) mg/dl Creatinine 0.58 L (0.6-1.2) mg/dl Glucose 148 H (70-99(Fasting)) mg/dl Calcium 8.5 L (8.6-10.3) mg/dl Intake and Output 07/26/25 07/27/25 07/27/25 22:59 06:59 14:59 Intake Total 1000 / 2831.25 1331.25 / 283.25 341.25 / 341.25 Output Total 450 / 951 250 / 951 Balance 550 / 1880.25 1081. / 1880.25 341.25 / 341.25 Intake: IV 1000 / 2080. 108. / 2080. 341.25 / 341.25 Dextrose 5% 1,000 ml @ 75 mls/ 1000 / 1980. 981. / 1980. 341.25 / 341.25 hr IV .[id number] [facility] Rx#:[id number] Doxycycline Hyclate 100 mg In 100 / 100 Dextrose 5% Mini-B 100 ml @ 50 mls/hr IV NOW STA Rx#:[id number] Oral 250 / 750 Output: Urine Amount (Catheter) 450 / 950 250 / 950 Briggs/Indwelling 450 / 950 250 / 950 Other: Weight 155.9 kg Weight Measurement Method Built in [facility] Diagnostic Findings Telemetry reviewed: NSR with intermittent atrial pacing rates 70-90's Medications Administered Current Inpatient Medications Acetaminophen (Acetaminophen 325 Mg Tab) 650 mg PO Q4H PRN PRN Reason: Pain or Fever Stop: 08/26/25 08:50 Last Admin: 07/27/25 09:12 Dose: 650 mg Albuterol (Albuterol 0.083% Nebu Soln 3 Ml Vial) 2.5 mg NEB Q6R [facility]; Protocol Stop: 08/18/25 22:44 Last Admin: 07/27/25 07:14 Dose: 2.5 mg Albuterol (Albut/Ipratrop 3mg/0.5mg Neb 3 Ml Vial) 3 ml NEB Q4R PRN; Protocol PRN Reason: Wheezing Stop: 08/20/25 07:59 Dextrose (Dextrose 50% 50 Ml Syringe) 25 - 50 ml IV UD PRN; Protocol PRN Reason: Hypoglycemia Protocol Stop: 08/18/25 22:28 Glucagon (Glucagon For Inj 1 Mg Vial) 1 mg SQ UD PRN; Protocol PRN Reason: Hypoglycemia Protocol Stop: 08/18/25 22:28 Glucose (Glucose 40% Gel 15 Gm Tube) 15 - 30 gm PO UD PRN; Protocol PRN Reason: Hypoglycemia Protocol Stop: 08/18/25 22:28 Glucose (Glucose 10 Tab/Tube) 4 - 8 tab PO UD PRN; Protocol PRN Reason: Hypoglycemia Protocol Stop: 08/18/25 22:28 Heparin Sodium (Porcine) (Heparin Sod 5,000 Unit/0.5 Ml Vial) 5,000 units SQ Q8 [facility] Stop: 08/19/25 05:59 Last Admin: 07/27/25 06:00 Dose: 5,000 units Insulin Aspart (Insulin Aspart Per Unit Charge) 0 units SC ACHS [facility] Stop: 08/18/25 22:28 Last Admin: 07/27/25 12:12 Dose: 2 units Miscellaneous (Carbohydrates For Hypoglycemia ) 15 - 30 gm PO UD PRN PRN Reason: Hypoglycemia Protocol Stop: 08/18/25 22:28 Nystatin (Nystatin Powder 15gm Btl) 1 appln EXT BID [facility] Stop: 08/18/25 22:59 Last Admin: 07/27/25 08:21 Dose: 1 appln Pantoprazole Sodium (Pantoprazole 40 Mg Tab) 40 mg PO QAM [facility] Stop: 08/26/25 08:59 Last Admin: 07/27/25 09:12 Dose: 40 mg Simvastatin (Simvastatin 20 Mg Tab) 20 mg PO [facility] Stop: 08/26/25 20:59 Umeclidinium [place] (Umeclidinium [place] 62.5mcg/Blister 7 Puffs/Inhaler) [facility] Protocol Stop: 08/26/25 10:59 Last Admin: 07/27/25 12:12 Dose: 1 puffs PG Care Time/CCT Total # of Minutes Spent Total Time Spent with Patient: Total time spent is greater than 50% in coordination of care (as documented) at patient's floor/unit and/or counseling patient: 35 minutes Coding Level of Care Code 74950 SUB INP/OBS CARE 3/50MIN Diagnoses Symptomatic bradycardia R00.1 Hypoxic respiratory failure J96.91 Fever R50.9 Sepsis A41.9 Enterovirus infection B34.1 Rhinovirus infection B34.8 Status post placement of cardiac pacemaker Z95.0
[2025-07-27] MEDS: UMECLIDINIUM BROMIDE 62.5MCG/BLISTER 7 PUFFS/INHALER INH SCH (12:12)
[2025-07-27] MEDS: ALBUT/IPRATROP 3MG/0.5MG NEB 3 ML VIAL NEB PRN (17:58)
[2025-07-27] MEDS: SIMVASTATIN 20 MG TAB PO SCH (21:07)
[2025-07-28 07:10] LABS: Anion Gap 8.0 (3-11); Blood Urea Nitrogen 26.0 mg/dl (6-23); Calcium 8.9 mg/dl (8.6-10.3); Carbon Dioxide 31.0 mmol/L (21-32); Chloride 107.0 mmol/L (98-107); Creatinine Clr Calc Pharmacy 103.0 ml/min; Glucose 144.0 mg/dl (70-99(Fasting)); Potassium 3.8 mmol/L (3.5-5.1); Sodium 146.0 mmol/L (136-145)
--- NOTE | 2025-07-28 10:59 | Hospitalist Progress Note ---
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 Sodium slightly increased today, no additional Lasix today Encourage oral intake, due to vision patient does much better when she is fed Continue therapies Would like to remove Briggs if possible and get patient to use bedside commode Case management pursuing skilled rehab Phone conversation/update with patient's son Admission and Anticipated Discharge Date Admission Date: July 19, 2025 Subjective Patient's delirium continues to clear. Awake and much more talkative and interactive this morning. I was able to feed her a whole cup of yogurt while we discussed things this morning. She complains of some chronic back pains Physical Exam Physical Exam: Constitutional: Alert, obese, nontoxic HEENT: Mucous membranes moist. Lungs: Decreased breath sounds CV: S1-S2, regular Abdomen: Soft, nontender, nondistended Extremities: Swelling decreased Neuro: Generally weak, poor vision Psych: Cooperative, normal mood Results & Data Results & Data Vital Signs (Past 12 Hours) Vital Signs Temp Pulse Pulse Resp BP Pulse Ox O2 Del Method 07/28/25 08:19 36.7 C 62 20 96/63 L 100 Nasal Cannula 07/28/25 07:24 70 18 97 Nasal Cannula 07/28/25 03:04 84 20 98 07/28/25 00:02 96 H 24 99 BiPAP 07/27/25 23:15 37.1 C 72 18 155/83 H 99 Nasal Cannula O2 Flow Rate FiO2 07/28/25 08:19 3.0 07/28/25 07:24 3 07/28/25 03:04 30 07/28/25 00:02 30 07/27/25 23:15 2 Diagnostic Findings Reviewed imaging, laboratory and diagnostic studies. Pertinent findings as below. Sodium 146, slightly increased BUN 26, increased Creatinine 0.72
--- NOTE | 2025-07-28 15:01 | Cardiology Progress Note ---
Date of Service July 28, 2025 Assessment & Plan (1) Symptomatic bradycardia: (2) Hypoxic respiratory failure: (3) Fever: (4) Sepsis: (5) Enterovirus infection: (6) Rhinovirus infection: (7) Status post placement of cardiac pacemaker: Plan 75-year-old female with a history of COPD and chronic respiratory insufficiency due to restrictive lung mechanics in the setting of morbid obesity and past left lung lobectomy. Patient presents with confusion, fatigue and shortness of breath. Intubated on arrival for airways support due to hypoxia. She had been found to be febrile and in third degree AV block . She was not on AV malou blockers at baseline. TTE 07/20/25: technically limited, LVEF 55-60%, moderate mitral annular calcification. Underwent transvenous temporary pacemaker via right femoral vein approach by Dr Thakkar on 07/20/25. Followed by dual-chamber permanent pacemaker in 07/22/2025 with ongoing third-degree AV block noted prior to permanent pacemaker implantation. 07/23/2025: Extubated. Postextubation chest x-ray 07/23/2025 reveals enlargement of cardiac silhouette and interstitial edema consistent with possible CHF. Pacemaker leads in good position. 07/24/25: Remains extubated, on oxygen mask 3/m. Remains confused / agitated. 07/25/25: Sodium level trending up and IV Lasix held. Started on D5W. 07/27/25: Sodium levels normalized, now being treated for cellulitis. Findings of volume overload on exam Plan/Recommendations: * Remains on 3 L via via NC, wean if able. * Diuresed with furosemide 40 mg IV x1 dose yesterday. * Each time she receives diuretics, hypernatremia noted. Sodium 146 this morning. * Hold diuretics today * Consider resuming oral diuretics tomorrow - torsemide 10 mg daily is prescribed as outpatient. Would continue with close monitoring of her renal function/electrolytes * Would continue to closely monitor fluid status with daily weights and strict I&Os * Continue to monitor and replete electrolytes as necessary (goal K+ >4.0; Mg >2.0) * Maintain 2gm sodium and 2L fluid restriction * Continue to monitor on telemetry * Continue antibiotics for possible LE cellulitis * Pacer site healing without erythema or drainage. * Will need device f/u with [facility] on discharge. Telephone encounter placed to arrange follow up Recommend PT/OT and possible rehab. No further cardiac testing warranted. Will sign off. Please notify contact lens manufacturer cardiology provider with additional questions or concerns. Case discussed with Dr. Ibarra I spent a total of 35 minutes on the date of service in preparation, delivery, and documentation of the care provided to this patient, excluding any time spent in the performance of separately billed services. Aydee Shah PA-C Department of Cardiology, [facility] This chart was completed in part utilizing Speech Voice Recognition Software. Grammatical errors, random word insertions, pronoun errors, and incomplete sentences are an occasional consequence of this system due to software limitations, ambient noise, and hardware issues. Any formal questions or concerns about the content, text, or information contained within the body of this dictation should be directly addressed to the provider for clarification. Admission and Anticipated Discharge Date Admission Date: July 19, 2025 Supervising Physician Co-Signing Physician Notes I have personally performed a history and physical examination on the patient. I have reviewed the advance practitioner's documentation, and I agree with, and take responsibility for the plan of care. 75-year-old female with symptomatic bradycardia status post dual-chamber permanent pacemaker implantation. Treated with IV furosemide yesterday. Serum sodium subsequently trending upwards of 146. Recommend holding further diuretic therapy at this time. Repeat basic metabolic panel in AM. Outpatient wound check and device interrogation 1 week post-discharge. Cardiology will sign off. Please call with additional concerns/questions. Chance Ibarra DO, [facility] I spent a total of 25 minutes on the date of service in preparation, delivery, and documentation of the care provided to this patient, excluding any time spent in the performance of separately billed services. Subjective Patient more awake/alert today. Motivated to start therapy and get out of bed. Reports her SOB has improved and close to baseline. Still with edema. Diuresed yesterday with furosemide 40 mg IV x1 dose. Review of Systems Review of Systems: All systems reviewed & are unremarkable except as noted in HPI & below Physical Exam Physical Exam: Constitutional: + obese Neck: trachea midline, no thyromegaly Respiratory: Auscultation: + diminished lung sounds (decreased BS at the bases ) Cardiovascular: Rate/Rhythm: regular rhythm Heart Sounds: no murmur Vessels: no JVD Extremities: + edema (1-2+) Gastrointestinal (Abdomen): normal bowel sounds, soft, nontender, no hepatosplenomegaly Neurologic: PERRL, EOMI, accommodation nl, no face palsy, no dysarthria Results & Data Vital Signs (Past 12 Hours) Vital Signs Temp Pulse Pulse Resp BP Pulse Ox O2 Del Method 07/28/25 13:02 77 18 100 Nasal Cannula 07/28/25 08:19 36.7 C 62 20 96/63 L 100 Nasal Cannula 07/28/25 08:00 Nasal Cannula 07/28/25 07:24 70 18 97 Nasal Cannula 07/28/25 03:04 84 20 98 O2 Flow Rate FiO2 07/28/25 13:02 3 07/28/25 08:19 3.0 07/28/25 08:00 3 07/28/25 07:24 3 07/28/25 03:04 30 Laboratory Results Comprehensive Metabolic Panel 07/28/25 Range/Units 06:11 Sodium 146 H (136-145) mmol/L Potassium 3.8 (3.5-5.1) mmol/L Chloride 107 (98-107) mmol/L Carbon Dioxide 31 (21-32) mmol/L BUN 26 H (6-23) mg/dl Creatinine 0.72 (0.6-1.2) mg/dl Glucose 144 H (70-99(Fasting)) mg/dl Calcium 8.9 (8.6-10.3) mg/dl Intake and Output 07/27/25 07/28/25 07/28/25 22:59 06:59 14:59 Output Total 300 / 1950 500 / 1950 Balance -300 / -988.75 -500 / -988.75 Output: Urine Amount (Catheter) 300 / 800 500 / 800 Briggs/Indwelling 300 / 800 500 / 800 Diagnostic Findings No telemetry to review Medications Administered Current Inpatient Medications Acetaminophen (Acetaminophen 325 Mg Tab) 650 mg PO Q4H PRN PRN Reason: Pain or Fever Stop: 08/26/25 08:50 Last Admin: 07/27/25 21:09 Dose: 650 mg Albuterol (Albuterol 0.083% Nebu Soln 3 Ml Vial) 2.5 mg NEB Q6R [facility]; Protocol Stop: 08/18/25 22:44 Last Admin: 07/28/25 13:01 Dose: 2.5 mg Albuterol (Albut/Ipratrop 3mg/0.5mg Neb 3 Ml Vial) 3 ml NEB Q4R PRN; Protocol PRN Reason: Wheezing Stop: 08/20/25 07:59 Last Admin: 07/27/25 17:58 Dose: 3 ml Dextrose (Dextrose 50% 50 Ml Syringe) 25 - 50 ml IV UD PRN; Protocol PRN Reason: Hypoglycemia Protocol Stop: 08/18/25 22:28 Glucagon (Glucagon For Inj 1 Mg Vial) 1 mg SQ UD PRN; Protocol PRN Reason: Hypoglycemia Protocol Stop: 08/18/25 22:28 Glucose (Glucose 40% Gel 15 Gm Tube) 15 - 30 gm PO UD PRN; Protocol PRN Reason: Hypoglycemia Protocol Stop: 08/18/25 22:28 Glucose (Glucose 10 Tab/Tube) 4 - 8 tab PO UD PRN; Protocol PRN Reason: Hypoglycemia Protocol Stop: 08/18/25 22:28 Heparin Sodium (Porcine) (Heparin Sod 5,000 Unit/0.5 Ml Vial) 5,000 units SQ Q8 [facility] Stop: 08/19/25 05:59 Last Admin: 07/28/25 12:58 Dose: 5,000 units Insulin Aspart (Insulin Aspart Per Unit Charge) 0 units SC ACHS [facility] Stop: 08/18/25 22:28 Last Admin: 07/28/25 12:55 Dose: 3 units Miscellaneous (Carbohydrates For Hypoglycemia ) 15 - 30 gm PO UD PRN PRN Reason: Hypoglycemia Protocol Stop: 08/18/25 22:28 Nystatin (Nystatin Powder 15gm Btl) 1 appln EXT BID [facility] Stop: 08/18/25 22:59 Last Admin: 07/28/25 09:33 Dose: 1 appln Pantoprazole Sodium (Pantoprazole 40 Mg Tab) 40 mg PO QAM [facility] Stop: 08/26/25 08:59 Last Admin: 07/28/25 09:33 Dose: 40 mg Simvastatin (Simvastatin 20 Mg Tab) 20 mg PO HS [facility] Stop: 08/26/25 20:59 Last Admin: 07/27/25 21:07 Dose: 20 mg Umeclidinium [place] (Umeclidinium [place] 62.5mcg/Blister 7 Puffs/Inhaler) 1 puffs INH QAM [facility]; Protocol Stop: 08/26/25 10:59 Last Admin: 07/28/25 09:33 Dose: 1 puffs PG Care Time/CCT Total # of Minutes Spent Total Time Spent with Patient: Total time spent is greater than 50% in coordination of care (as documented) at patient's floor/unit and/or counseling patient: 35 minutes Coding Level of Care Code 82934 SUB INP/OBS CARE 3/50MIN Diagnoses Symptomatic bradycardia R00.1 Hypoxic respiratory failure J96.91 Fever R50.9 Sepsis A41.9 Enterovirus infection B34.1 Rhinovirus infection B34.8 Status post placement of cardiac pacemaker Z95.0
[2025-07-28] MEDS: MELATONIN 3 MG TAB PO PRN (21:18)
[2025-07-29 07:02] LABS: Hematocrit (blood only) 29.7 % (37.0-47.0); Hemoglobin 9.1 g/dL (12.0-16.0); Mean Corpuscular Hemoglobin 25.6 pg (25.0-34.0); Mean Corpuscular Volume 83.4 fL (80.0-100.0); Platelet Count 159 K/uL (130-400); RDW Standard Deviation 48.6 fL (36.4-46.3); Red Blood Count 3.56 M/uL (4.20-5.40); White Blood Count 4.64 K/ul (4.8-10.8)
[2025-07-29 07:42] LABS: Anion Gap 7.0 (3-11); Calcium 8.7 mg/dl (8.6-10.3); Carbon Dioxide 31.0 mmol/L (21-32); Chloride 104.0 mmol/L (98-107); Potassium 3.7 mmol/L (3.5-5.1); Sodium 142.0 mmol/L (136-145)
[2025-07-29 07:48] LABS: Blood Urea Nitrogen 20.0 mg/dl (6-23); Creatinine Clr Calc Pharmacy 121.6 ml/min; Glucose 131.0 mg/dl (70-99(Fasting))
[2025-07-29 07:51] VITALS: O2SAT 100
[2025-07-29] MEDS ORDERED: ALBUTEROL 0.083% NEBU SOLN 3 ML VIAL NEB PRN (09:54)
--- NOTE | 2025-07-29 10:36 | Hospitalist Progress Note ---
Date of Service July 29, 2025 Assessment & Plan (1) Acute on chronic hypoxic respiratory failure: Plan: 3 L oxygen at home chronically, currently at baseline (2) Acute heart failure with preserved ejection fraction: Plan: Compensated (3) Sepsis with acute organ dysfunction: Plan: Resolved (4) Rhinovirus infection: Plan: Resolved (5) Symptomatic bradycardia: Plan: Post pacemaker (6) Third degree heart block: (7) Delirium due to another medical condition, acute, hyperactive: Plan: Improved (8) Status post placement of cardiac pacemaker: (9) Acute metabolic encephalopathy: Plan: Improved (10) COPD (chronic obstructive pulmonary disease): (11) Diabetes mellitus type 2 with complications: (12) Obstructive sleep apnea: Plan Patient is making steady progress each day. Suspect she is nearing her baseline mental status. With patient's motivation, encouraged her to work with therapy and nursing staff to get up in the chair Communication with nurse, patient has had some small bowel movements but patient still feeling a lot of pressure. Bowel regimen today Has been 10 days post rhinovirus diagnosis can discontinue isolation for rhinovirus Sodium level within normal range, patient appears to be essentially euvolemic, no scheduled diuretics Continue to monitor glucose, cover with insulin Continue CPAP for chronic sleep apnea Communication with case management. Patient has been declined from at least 1 senior living facility, other applications pending Admission and Anticipated Discharge Date Admission Date: July 19, 2025 Subjective Patient seems to be making improvements each day. Today very interactive and seems motivated to get up out of bed. Stating she wants to get home. Denies any pain. Denies any shortness of breath. Physical Exam Physical Exam: Constitutional: Alert, nontoxic, obese, no acute distress HEENT: Mucous membranes moist. Lungs: Decreased breath sounds, no wheezes CV: S1-S2, regular Abdomen: Soft, nontender, nondistended Extremities: Trace edema, suspect baseline Neuro: No focal deficits, generally weak Psych: Cooperative, encephalopathy/delirium clearing Results & Data Results & Data Vital Signs (Past 12 Hours) Vital Signs Temp Pulse Resp BP Pulse Ox O2 Del Method O2 Flow Rate 07/29/25 09:00 Nasal Cannula 3 07/29/25 07:49 36.6 C 70 20 99/68 L 100 Nasal Cannula 3 07/29/25 07:19 70 18 98 Nasal Cannula 3 07/29/25 00:31 75 18 98 Nasal Cannula 3 07/29/25 00:00 37.1 C 79 20 108/74 100 BiPAP Diagnostic Findings Reviewed imaging, laboratory and diagnostic studies. Pertinent findings as below. WBCs 4.6 Hemoglobin 9.1 Platelets 159 Sodium 142, improved Potassium 3.7 Creatinine 0.61 Glucose 131
[2025-07-29] MEDS: MAGNESIUM CITRATE 296 ML/BTL PO STA (11:04)
[2025-07-29 23:36] VITALS: TEMP 98.1
[2025-07-30 06:41] LABS: Anion Gap 6.0 (3-11); Blood Urea Nitrogen 16.0 mg/dl (6-23); Calcium 8.7 mg/dl (8.6-10.3); Carbon Dioxide 32.0 mmol/L (21-32); Chloride 105.0 mmol/L (98-107); Creatinine Clr Calc Pharmacy 117.8 ml/min; Glucose 122.0 mg/dl (70-99(Fasting)); Potassium 3.9 mmol/L (3.5-5.1); Sodium 143.0 mmol/L (136-145)
[2025-07-30 08:45] VITALS: RESP 22
--- NOTE | 2025-07-30 11:25 | Discharge Summary ---
Discharge Summary Date of Service July 30, 2025 Principal Dx & Hospital Course #1 = Principal Diagnosis (1) Acute on chronic hypoxic respiratory failure: 3 L oxygen at home chronically, currently at baseline (2) Acute heart failure with preserved ejection fraction: Compensated (3) Sepsis with acute organ dysfunction: Resolved (4) Rhinovirus infection: Resolved (5) Symptomatic bradycardia: Post pacemaker (6) Third degree heart block: (7) Delirium due to another medical condition, acute, hyperactive: Improved (8) Status post placement of cardiac pacemaker: (9) Acute metabolic encephalopathy: Improved (10) COPD (chronic obstructive pulmonary disease): (11) Diabetes mellitus type 2 with complications: (12) Obstructive sleep apnea: Plan Patient 75-year-old female morbidly obese, chronic respiratory failure on 3 L of oxygen at home and CPAP at night, presented to the emergency room with slow heart rate, increasing shortness of breath and weakness. EMS found her O2 sat in the 70s and patient was intubated in the emergency room. Patient was having fevers and further evaluation was concerning for possible UTI and tested positive for rhinovirus. Patient was also noted to be in third-degree heart block. She was not on any rate controlling medications. Patient was admitted to the ICU. She was started on dopamine drip to assist with her bradycardia. Cardiology and functional skills tutor consultations were obtained. She is maintained on the ventilator. She is given broad-spectrum antibiotics for suspected UTI and other supportive care for her rhinovirus bronchitis. EP ticket taker was consulted and taken to the cardiac [employer] for transvenous pacer placement. She was weaned off dopamine. She continued to rely on transvenous pacing. Remained intubated. Blood and urine cultures no growth. Fevers most likely due to rhinovirus infection. She completed a 5-day course of antibiotics. On 07/22/2025 patient underwent permanent pacemaker placement. Patient was extubated the following morning. She was continued on her CPAP that she had used at home it was titrated down to her her home flow of 3 L. Patient was extremely delirious and encephalopathic after her intubation and procedures. Family reports that this is not unusual for her and that she often has significant encephalopathy after anesthesia and with hospitalizations. Otherwise the patient's continue to steadily improved. Her vital signs stabilized. She is dependent on the pacer. O2 sats were satisfactory on her usual oxygen. Slowly each day her mental status started to improve she is able to be transitioned out of the ICU. She was given some diuresis due to the volume resuscitation she received earlier in her hospitalization. Due to the fact that her delirium prevented her from eating or drinking much she did have some hypernatremia. This was treated with D5W and diuresis was held. Sodium improved to normal range. At this time her mental status had also significantly improved and she was eating much better. She was seen by therapies but was very weak and deconditioned due to her medical state and prolonged hospitalization. Voiding trial was attempted by removing Briggs catheter, she continued to rate Tane urine and Briggs catheter was replaced. Anticipate will need to become a little bit more active and retry a voiding trial at alf facility. She is deconditioned the point where she needed skilled rehab and cannot be ca red for at home. Case management was involved. They coordinated her ongoing care at [facility]. On the day of discharge it seems she is really back to about her baseline mental status. She is eating much better. Clinically things have stabilized. Pacer site is healing well. She can be discharged to skilled rehab for ongoing care. Notes For Next Care Provider Medication Changes From Visit Oxybutynin discontinued Topical ointments discontinued Gabapentin discontinued Admission HPI Per Admitting Provider 75-year-old female past medical history significant for diabetes, dyslipidemia, chronic respiratory hypoxia on 3 L oxygen all the time, history of COPD, obstructive sleep apnea on CPAP/BiPAP, mixed restrictive and obstructive lung disease, multiple pulmonary nodules, hypertension, bilateral carotid bruits, chronic venous insufficiency, venous stasis ulcer, morbid obesity, urinary incontinence, necrobiosis lipoidica diabeticorum, blindness, able to see little bit with 1 eye as per son. Anemia, history of lung cancer status post partial lobectomy of lung, history of tobacco use, lives at home and ambulates with a walker was brought in because of confusion and hypoxia. Son is in the room. Son lives with the patient. But son is mostly out of the house for work. Patient gets home health for lower extremity wounds. Son states patient is having low heart rate since last couple of weeks. Son says patient recently was treated for respiratory infection with antibiotic. But since about a week patient is getting progressively weak and short of breath. Today she was very weak and not getting out of bed and also was feeling short of breath and confused and son called 911. For EMS patient was saturating in the 70s. She was placed on non breather mask and brought to the ER. In the ER patient was taking off the nonrebreather mask and she was confused. Patient is status post intubation in the ER. Her heart rate was in the 30s and 40s in the ER. She was spiking temperature. UA came back positive. VBG pH was 7.24. Electrolytes are okay. Lactic is 1.7. Creatinine 0.9. LFTs okay. Initial troponin 48 and repeat is 246. Procalcitonin 0.05. Respiratory BioFire came back positive for entero-/rhinovirus. CT head is okay. Chest x-ray possible pulmonary edema. Chest CT no obvious findings. KUB shows constipation. EKG high degree heart block. Discussed with cardiology and plan to start on dopamine drip and if does not improve plan for possible temporary pacemaker. Past med history. As mentioned above. Past surgical history. Bronchoscopy with bronchial biopsy of the left side. Bilateral cataract extraction. Thorascopic with lobectomy left side. Social history. Quit smoking 2008. Smoked 1 pack a day for 20 years. No alcohol use currently. No drug use Family history. Brother has arthritis. Sister had breast cancer. Brother has diabetes. Father had heart disorder. Hypertension. Stroke. Admission Exam Per Admitting Provider See H&P Discharge Exam Constitutional: Alert, nontoxic, morbidly obese HEENT: Mucous membranes moist. Lungs: Decreased breath sounds, no wheezes CV: S1-S2, regular, pacemaker site with some mild ecchymosis but no significant swelling, incision clean and dry, no erythema Abdomen: Soft, nontender, nondistended Extremities: Mild chronic lower extremity lymphedema, chronic skin changes of the lower extremities, no evidence of cellulitis Neuro: No focal deficits, generally weak Psych: Cooperative, normal mood Updated Medication List Medication Instructions Recorded Confirmed Type oxybutynin chloride 5 mg tablet 5 mg PO TID 12/31/18 07/19/25 History Oxygen Home #1 ea 08/11/19 07/19/25 Rx triamcinolone acetonide 0.1 % 1 appln topical BID #80 grams 02/05/20 07/19/25 Rx topical cream desoximetasone 0.25 % topical 1 appln topical DAILY #100 grams 04/02/20 07/19/25 Rx ointment CPAP Machine #1 ea 05/02/22 07/19/25 Rx gabapentin 300 mg capsule 300 mg PO TID 12/09/24 07/19/25 History CPAP Supplies #1 ea 05/07/25 07/19/25 Rx albuterol sulfate 90 mcg/actuation 2 inh inhalation Q4 PRN 07/19/25 07/19/25 History aerosol inhaler wheeze,cough,SOB nystatin 100,000 unit/gram topical 1 applic topical AMHS 07/19/25 07/19/25 History cream torsemide 10 mg tablet 10 mg PO UD 07/19/25 07/19/25 History aspirin 81 mg tablet,delayed 81 mg PO QAM #300 tabs 07/30/25 Rx release ipratropium 0.5 mg-albuterol 3 mg 3 ml NEB Q4R PRN shortness of 07/30/25 Rx (2.5 mg base)/3 mL nebulization breath or wheezing #180 mL soln metformin 500 mg tablet,extended 500 mg PO BID #60 tabs 07/30/25 Rx release 24 hr pantoprazole 40 mg tablet,delayed 40 mg PO QAM #30 tabs 07/30/25 Rx release simvastatin 20 mg tablet 20 mg PO HS #30 tabs 07/30/25 Rx tiotropium bromide 2.5 2 puff inhalation QAM #4 grams 07/30/25 Rx mcg/actuation mist for inhalation (Spiriva Respimat) Hospital Stay Data Consultations 07/19/25 19:40 ED Decision to Admit Stat 07/19/25 22:29 Consult Chemist Food Routine 07/20/25 06:39 Consult Cardiology Stat 07/20/25 08:00 Consult Cardiology Routine Procedures Performed Operation Date: 07/22/25 11:15 Actual Procedures p Ins/RemTemporary Transvenous Pacer - Yash Thakkar MD Diagnostic Imagining Performed 07/19/25 17:35 CT head/brain wo con Stat 07/19/25 18:16 CT chest with contrast [CT chest diagnostic w con] Stat 07/20/25 10:37 CL Cath Imgs for PACS use only Routine 07/22/25 10:15 EP Lab Images for PACS ONCE 07/25/25 09:41 CT Brain [CT head/brain wo con] Routine 07/26/25 20:09 US venous doppler LE BI Urgent Reviewed imaging, laboratory and diagnostic studies. Pertinent findings as below. WBCs 4.6 Hemoglobin 9.1, stable Platelets of 159 Electrolytes within normal range Creatinine 0.63 Glucose 122 TSH 0.88 procalcitonin 0.05 Ultrasound lower extremity negative for DVT Head CT: Cerebral atrophy and small vessel ischemic disease, no acute changes Echocardiogram showed ejection fraction 55 to 60%, normal right ventricular function, mild aortic valve sclerosis, no pericardial effusion Pending Results Patient Have Any Pending Studies at Discharge: No Discharge Instructions Given to Patient (Per Discharging Provider) Continue with therapy Consider voiding trial in 5 to 7 days when patient more active Total Time Total Time Spent Total Time Spent (In Minutes): 45
[2025-07-30 12:57] VITALS: BP 104/44; PULSE 77
== END 2025-07-30 13:30 | DRG 853 ==
LOC: ED 17:14 → 1E 21:20 → SUATTDRO 21:20 → 1E 21:36 → 2S 07-25 18:21 → 3E 07-27 17:16